=== PATIENT | male | born 1970 | race African-American/Black ===

== ENCOUNTER 2019-01-15 13:29 | Inpatient (IN) | payer OTHER ==
[2019-01-15 15:28] VITALS: BMI 24.2
--- NOTE | 2019-01-15 16:37 | HP ---
COWS - Scale Resting Pulse: 0= [place] 80 or Below Sweatin=Flushed/Facial Moisture Restless Observation: 1= Difficult to Sit Still Pupil Size: 2= Moderately Dilated (Pupils = 4 mm) Bone or Joint Aches: 0= None Runny Nose/ Eye Tearin= Runny Nose/Eyes GI Upset > 30mins: 3= Vomiting/Diarrhea Tremor Observation: 2= Slight Tremor Visible Yawning Observation: 0= None Anxiety or Irritability: 1=Feels Anxious/Irritable Goose Flesh Skin: 0=Smooth Skin COWS Score: 13 CIWA Score Nausea/Vomitin Muscle Tremors: 3 Anxiety: 1-Mildly Anxious Agitation: 1-Slight > Activity Paroxysmal Sweats: 3 Orientation: 1-Uncertain about Date Tacttile Disturbances: 0-None Auditory Disturbances: 0-None Visual Disturbances: 0-None Headache: 2-Mild CIWA-Ar Total Score: 14 - Admission Criteria OASAS Guidelines: Admission for Medically Managed Detox: Requires at least one of the followin. CIWA greater than 12 2. Seizures within the past 24 hours 3. Delirium tremens within the past 24 hours 4. Hallucinations within the past 24 hours 5. Acute intervention needed for co occurring medical disorder 6. Acute intervention needed for co occurring psychiatric disorder 7. Severe withdrawal that cannot be handled at a lower level of care (continued vomiting, continued diarrhea, abnormal vital signs) requiring intravenous medication and/or fluids 8. Patient presents the following: CIWA greater than 12 Admission Criteria Met: Admission criteria met Admission ROS [facility] Chief Complaint: Here for alcohol and heroin withdrawal Allergies/Adverse Reactions: Allergies Allergy/AdvReac Type Severity Reaction Status Date / Time No Known Allergies Allergy Verified 01/15/19 15:19 History of Present Illness: 48 y.o.m. present with poly-substance use and requesting opiate and alcohol detox. Alcohol use began at age 11. Current use x 10 years Marijuana use began at age 11. Nicotine use began at age 11. Cocaine use began at age 15. Heroin use began at age 13. Current use x 5 years. Tried a methadone program in past - stayed 2 months - left about 3 months ago. Illicit-Methadone use began at age 48. Licit and Illicit- Suboxone use began at age 48. Valium use began at age 48. Opioid overdose 5 times, last 08/2018. Has a Narcan kit at home. PMHx: HIV (+) Intermittent compliance with medication. Hep C+. Encouraged to f/ u health care issues w/ PCP. MHHx: Denies depression. Denies suicide or violent ideation. Patient Name: Philippe Cisneros Date: 1970 Address: [address] [address] Sex: Male Rx Written Rx Dispensed Drug Quantity Days Supply Prescriber Name 12/28/2018 01/06/2019 buprenorphine-naloxone 8-2 mg sl film 5 5 Deidre oSto MD Patient Name: Philippe Cisneros Date: 1970 Address: [address] [place] [address] Sex: Male Rx Written Rx Dispensed Drug Quantity Days Supply Prescriber Name 10/27/2018 10/27/2018 chlordiazepoxide 10 mg capsule 27 3 Nicole Carvalho PROPERTY STAFF ACCOUNTANT 10/27/2018 10/27/2018 methadone hcl 10 mg tablet 11 4 Nicole Carvalho PROPERTY STAFF ACCOUNTANT Exam Limitations: No Limitations - Ebola screening Have you traveled outside of the country in the last 21 days: No Have you had contact with anyone from an Ebola affected area: No Have you been sick,other than usual withdrawal symptoms: No Do you have a fever: No - Review of Systems Constitutional: Chills, Diaphoresis, Loss of Appetite (r/t drug use), Unintentional Wgt. Loss (5 lbs last month) EENT: reports: Blurred Vision Respiratory: reports: No Symptoms reported Cardiac: reports: No Symptoms Reported GI: reports: Abdominal Distended, Vomiting : reports: No Symptoms Reported Musculoskeletal: reports: No Symptoms Reported Integumentary: reports: No Symptoms Reported Neuro: reports: Headache Endocrine: reports: Increased Thirst Hematology: reports: No Symptoms Reported Psychiatric: reports: Judgement Intact, Agitated, Anxious Patient History - PPD History Previous Implant?: Yes Documented Results: Negative w/o proof Implanted On Prior [facility] Admission?: No PPD to be Administered?: Yes - Smoking Cessation Smoking history: Current every day smoker Have you smoked in the past 12 months: Yes Aproximately how many cigarettes per day: 20 Hx Chewing Tobacco Use: No Initiated information on smoking cessation: Yes 'Breaking Loose' booklet given: 01/15/19 - Substance & Tx. History Hx Alcohol Use: Yes Hx Substance Use: Yes Substance Use Type: Alcohol, Cocaine, Heroin, Marijuana, Opiates, Tranquilizers Hx Substance Use Treatment: Yes (detoxes and past [facility] - a few months ago) - Substances abused Alcohol Substance route: Oral Frequency: Daily Amount used: 2 pints vodka, 1 six pack beer (24 oz) Age of first use: 11 Date of last use: 01/15/19 Marijuana/Hashish Substance route: Smoking Frequency: 1-3 times last 30 days Amount used: 1 joint Age of first use: 11 Date of last use: 01/14/19 Cocaine Substance route: Smoking Frequency: Daily Amount used: 2 grams Age of first use: 15 Date of last use: 01/14/19 Diazepam Substance route: Oral Frequency: Daily Amount used: 1 tab ( 10mg ) Age of first use: 48 Date of last use: 01/14/19 Non-Rx Methadone Substance route: Oral Frequency: Daily Amount used: 50mg Age of first use: 48 Date of last use: 01/13/19 Buprenorphine Substance route: Oral Frequency: 3-6 times per week Amount used: 8mg Age of first use: 48 Date of last use: 01/13/19 Admission Physical Exam S - Vital Signs Vital Signs: Vital Signs - 24 hr 01/15/19 01/15/19 15:21 15:59 Temperature 98 F 98 F Pulse Rate 80 80 Respiratory 18 18 Rate Blood Pressure 99/75 99/75 - Physical General Appearance: Yes: Nourished, Mild Distress, Tremorous, Sweating ( Increased facial moisture), Anxious HEENTM: Yes: EOMI (Jerking movement of eyes upon (L) lateral gaze.), Hearing grossly Normal, Normocephalic, Normal Voice, BUD (Pupils = 4 mm), Pharynx Normal, Rhinorrhea Respiratory: Yes: Lungs Clear, Normal Breath Sounds, No Respiratory Distress Neck: Yes: No masses,lesions,Nodules, Supple Breast: Yes: Breast Exam Deferred Cardiology: Yes: Regular Rhythm, Regular Rate, S1, S2 Abdominal: Yes: Non Tender, Flat, Soft, Increased Bowel Sounds Genitourinary: Yes: Within Normal Limits Back: Yes: Normal Inspection Musculoskeletal: Yes: full range of Motion, Gait Steady Extremities: Yes: Normal Capillary Refill, Normal Range of Motion, Non-Tender, Tremors (Slight trmors w/ arms elevated) 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 NML intact (Jerking movement of eyes upon (L) lateral gaze.), Alert, Motor Strength 5/5 Integumentary: Yes: Normal Color, Warm Lymphatic: Yes: Within Normal Limits - Diagnostic (1) Alcohol dependence with uncomplicated withdrawal Current Visit: Yes Status: Acute (2) Opioid dependence with withdrawal Current Visit: Yes Status: Acute (3) Nicotine dependence, uncomplicated Current Visit: Yes Status: Chronic Qualifiers: Nicotine product type: cigarettes Qualified Code(s): F17.210 - Nicotine dependence, cigarettes, uncomplicated (4) Cocaine dependence, uncomplicated Current Visit: Yes Status: Chronic (5) Sedative, hypnotic or anxiolytic dependence, uncomplicated Current Visit: Yes Status: Acute (6) Cannabis dependence, uncomplicated Current Visit: Yes Status: Chronic (7) History of HIV infection Current Visit: No Status: Chronic (8) Nystagmus Current Visit: Yes Status: Acute (9) History of hepatitis C Current Visit: No Status: Chronic Cleared for Admission [facility] - Detox or Rehab [facility] Level of Care: Medically Managed Detox Regimen/Protocol: Methadone/Valium Claeared for Rehab Admission: No Breathalyzer - Breathalyzer Breathalyzer: 0 Urine Drug Screen - Test Device Lot number: [id number] Expiration date: 08/14/20 - Control Is test valid?: Yes - Results Drug screen NEGATIVE: No Urine drug screen results: THC-Marijuana, ELIER-Cocaine, MTD-Methadone, BZO- Benzodiazepines, BUP-Suboxone Inpatient Rehab Admission - Rehab Decision to Admit Inpatient rehab admission?: No
[2019-01-15] MEDS ORDERED: NALOXONE HCL 0.4 MG/ML VIAL IVPUSH PRN (19:07)
[2019-01-15] MEDS ORDERED: METHADONE HCL 10 MG TABLET (FOR DETOX USE ONLY) PO ONE ×2 (19:07→23:00)
[2019-01-15] MEDS ORDERED: guaiFENesin 200 MG/10 ML 10 ML UNIT-DOSE CUPS PO PRN (19:07)
[2019-01-15] MEDS ORDERED: MENTHOL/PHENOL 1 EACH UD MM PRN (19:07)
[2019-01-15] MEDS ORDERED: MAGNESIUM CITRATE 300 ML BOTTLE PO PRN (19:07)
[2019-01-15] MEDS ORDERED: ONDANSETRON *ODT* 4 MG TABLET SL PRN (19:07)
[2019-01-15] MEDS ORDERED: cloNIDine HCL 0.1 MG TABLET PO PRN (19:07)
[2019-01-15] MEDS ORDERED: ACETAMINOPHEN 325 MG TABLET (FP) PO PRN ×2 (19:07)
[2019-01-15] MEDS ORDERED: MAGNESIUM HYDROX 2400MG/30ML ORAL SUSPENSION 30 ML CUP PO PRN (19:07)
[2019-01-15] MEDS ORDERED: BISMUTH SUBSALICYLATE 524 MG/30 ML UD PO PRN (19:07)
[2019-01-15] MEDS ORDERED: diazePAM 5 MG TABLET PO ONE (19:07)
[2019-01-15] MEDS ORDERED: METHOCARBAMOL 500 MG TABLET PO PRN (19:07)
[2019-01-15] MEDS: THIAMINE HCL 100 MG TABLET (FP) PO SCH (22:55)
[2019-01-15] MEDS: diazePAM 5 MG TABLET PO SCH (22:55)
[2019-01-16] MEDS: MELATONIN 5 MG TABLETS PO PRN ×2 (00:54→22:07)
[2019-01-16] MEDS: NICOTINE POLACRILEX 2 MG GUM BUC PRN ×2 (03:40→18:23)
[2019-01-16] MEDS: diazePAM 5 MG TABLET PO SCH ×3 (06:06→22:07)
--- NOTE | 2019-01-16 08:26 | EKG ---
Test Reason : Blood Pressure : / mmHG Vent. Rate : 066 BPM Atrial Rate : 066 BPM P-R Int : 150 ms QRS Dur : 084 ms QT Int : 430 ms P-R-T Axes : 065 -31 020 degrees QTc Int : 450 ms NORMAL SINUS RHYTHM LEFT AXIS DEVIATION ABNORMAL ECG NO PREVIOUS ECGS AVAILABLE Confirmed by JUD DARLING, BENNETT ([id number]) on 01/16/2019 8:26:04 AM Referred By: Confirmed By:BENNETT RENNER MD
[2019-01-16] MEDS ORDERED: METHADONE HCL 10 MG TABLET (FOR DETOX USE ONLY) PO ONE (10:00)
[2019-01-16] MEDS: NICOTINE 14 MG/24 HOURS TOPICAL PATCH TD SCH (10:02)
[2019-01-16] MEDS: PRENATAL VITAMINS W/ FOLIC ACID TABLET (FP) PO SCH (10:02)
[2019-01-16 10:28] LABS: HEMOGLOBIN 12.9 GM/dL (11.7-16.9); MCH 32.1 pg (25.7-33.7); MEAN CELL VOLUME 97.3 fl (80-96); MEAN PLT VOLUME 10.3 fl (7.5-11.1); PLATELET COUNT 224 K/MM3 (134-434); RBC 4.01 M/mm3 (4.00-5.60); RDW 15.4 % (11.9-15.9); WHITE BLOOD COUNT 4.5 K/mm3 (4.0-10.0)
[2019-01-16 11:57] LABS: ALBUMIN 3.6 g/dl (3.4-5.0); ALK PHOS 80 U/L (45-117); ANION GAP 8 MMOL/L (8-16); BILIRUBIN,TOTAL 0.2 mg/dL (0.2-1); BLOOD UREA NITROGEN 20 mg/dL (7-18); CALCIUM 9.1 mg/dL (8.5-10.1); CHLORIDE 103 mmol/L (98-107); CO2 30 mmol/L (21-32); CREATININE 1.4 mg/dL (0.55-1.3); GLUCOSE,RANDOM 74 mg/dL (74-106); POTASSIUM 4.3 mmol/L (3.5-5.1); SGOT/AST 65 U/L (15-37); SGPT/ALT 86 U/L (13-61); SODIUM 141 mmol/L (136-145); TOT PROT 7.6 g/dl (6.4-8.2)
--- NOTE | 2019-01-16 13:47 | PN ---
S CIWA - CIWA Score Nausea/Vomitin-No Nausea/No Vomiting Muscle Tremors: 2 Anxiety: 1-Mildly Anxious Agitation: 1-Slight > Activity Paroxysmal Sweats: 4-Forehead w/Sweat Beads Orientation: 0-Oriented Tacttile Disturbances: 1-Very Mild Itch/Numbness Auditory Disturbances: 0-None Visual Disturbances: 0-None Headache: 2-Mild CIWA-Ar Total Score: 11 BHS COWS - Scale Resting Pulse: 0= [place] 80 or Below Sweatin= Chills/Flushing Restless Observation: 1= Difficult to Sit Still Pupil Size: 0= Normal to Room Light Bone or Joint Aches: 1= Mild Discomfort Runny Nose/ Eye Tearin= Runny Nose/Eyes GI Upset > 30mins: 0= None Tremor Observation of Outstretched Hands: 2= Slight Tremor Visible Yawning Observation: 2= >3x During Session Anxiety or Irritability: 1=Feels Anxious/Irritable Goose Flesh Skin: 0=Smooth Skin COWS Score: 10 BHS Progress Note (SOAP) Subjective: c/o sweats, interrupted sleep, runny nose, and headache. Objective: 01/16/19 13:49 Vital Signs 01/16/19 09:51 Temperature 98.3 F Pulse Rate 68 Respiratory 18 Rate Blood Pressure 103/66 Vital signs noted. Assessment: 01/16/19 13:49 AOx3, no distress noted Full ROM, ambulating in the unit. withdrawal symptoms persists. Plan: Continue detox increase fluids continue to monitor for withdrawal symptoms.
[2019-01-16] MEDS: diazePAM 5 MG TABLET PO PRN (14:12)
[2019-01-16] MEDS: MAG HYDROX/AL HYDROX/SIMETH 30 ML UNIT-DOSE CUP PO PRN (19:09)
[2019-01-16] MEDS: THIAMINE HCL 100 MG TABLET (FP) PO SCH (22:07)
[2019-01-17] MEDS: diazePAM 5 MG TABLET PO PRN ×2 (01:49→05:46)
[2019-01-17] MEDS: MAG HYDROX/AL HYDROX/SIMETH 30 ML UNIT-DOSE CUP PO PRN (01:53)
[2019-01-17] MEDS ORDERED: METHADONE HCL 10 MG TABLET (FOR DETOX USE ONLY) PO ONE (10:00)
[2019-01-17] MEDS: NICOTINE 14 MG/24 HOURS TOPICAL PATCH TD SCH (10:06)
[2019-01-17] MEDS: diazePAM 5 MG TABLET PO SCH ×2 (10:08→23:04)
[2019-01-17] MEDS: PRENATAL VITAMINS W/ FOLIC ACID TABLET (FP) PO SCH (10:08)
[2019-01-17 10:55] LABS: URINE APPEARANCE CLEAR; URINE BILIRUBIN NEGATIVE (NEGATIVE); URINE COLOR YELLOW; URINE GLUCOSE (UA) NEGATIVE (NEGATIVE); URINE KETONE NEGATIVE (NEGATIVE); URINE LEUK ESTERASE NEGATIVE (NEGATIVE); URINE NITRITE NEGATIVE (NEGATIVE); URINE PROTEIN NEGATIVE (NEGATIVE); URINE UROBILINOGEN 0.2 mg/dL (0.2-1.0)
--- NOTE | 2019-01-17 16:48 | PN ---
[facility] CIWA - CIWA Score Nausea/Vomitin-Mild Nausea/No Vomiting Muscle Tremors: 3 Anxiety: 3 Agitation: 3 Paroxysmal Sweats: 3 Orientation: 0-Oriented Tacttile Disturbances: 0-None Auditory Disturbances: 0-None Visual Disturbances: 0-None Headache: 0-None Present CIWA-Ar Total Score: 13 BHS COWS - Scale Resting Pulse: 1= [place] 81-100 Sweatin= Chills/Flushing Restless Observation: 1= Difficult to Sit Still Pupil Size: 0= Normal to Room Light Bone or Joint Aches: 2= Severe Diffuse Aches Runny Nose/ Eye Tearin= Runny Nose/Eyes GI Upset > 30mins: 2= Nausea/Diarrhea Tremor Observation of Outstretched Hands: 2= Slight Tremor Visible Yawning Observation: 0= None Anxiety or Irritability: 1=Feels Anxious/Irritable Goose Flesh Skin: 0=Smooth Skin COWS Score: 12 S Progress Note (SOAP) Subjective: Body ache, runny nose, nausea, headache Objective: 01/17/19 16:46 Last Vital Signs Temp Pulse Resp BP Pulse Ox 98.1 F 81 18 102/70 01/17/19 14:10 01/17/19 14:10 01/17/19 14:10 01/17/19 14:10 Laboratory Tests 01/16/19 01/16/19 01/16/19 07:45 07:45 08:00 WBC 4.5 RBC 4.01 Hgb 12.9 Hct 39.0 MCV 97.3 H MCH 32.1 MCHC 33.0 RDW 15.4 Plt Count 224 MPV 10.3 Sodium 141 Potassium 4.3 Chloride 103 Carbon Dioxide 30 Anion Gap 8 BUN 20 H Creatinine 1.4 H Creat Clearance w eGFR 53.64 Random Glucose 74 Calcium 9.1 Total Bilirubin 0.2 AST 65 H ALT 86 H Alkaline Phosphatase 80 Total Protein 7.6 Albumin 3.6 Urine Color Urine Appearance Urine pH Ur Specific [place] Urine Protein Urine Glucose (UA) Urine Ketones Urine Blood Urine Nitrite Urine Bilirubin Urine Urobilinogen Ur Leukocyte Esterase RPR Titer Nonreactive 01/17/19 08:30 WBC RBC Hgb Hct MCV MCH MCHC RDW Plt Count MPV Sodium Potassium Chloride Carbon Dioxide Anion Gap BUN Creatinine Creat Clearance w eGFR Random Glucose Calcium Total Bilirubin AST ALT Alkaline Phosphatase Total Protein Albumin Urine Color Yellow Urine Appearance Clear Urine pH 7.0 Ur Specific [place] 1.004 L Urine Protein Negative Urine Glucose (UA) Negative Urine Ketones Negative Urine Blood Negative Urine Nitrite Negative Urine Bilirubin Negative Urine Urobilinogen 0.2 Ur Leukocyte Esterase Negative RPR Titer Labs reviewed: NELLY noted Assessment: 01/17/19 16:46 Withdrawal symptoms Noted with NELLY Plan: Continue detox NELLY: encouraged PO water hydration Repeat BMP in AM
[2019-01-17] MEDS: IBUPROFEN 400 MG TABLET (FP) PO PRN (19:29)
[2019-01-17] MEDS: THIAMINE HCL 100 MG TABLET (FP) PO SCH (22:01)
[2019-01-17] MEDS: MELATONIN 5 MG TABLETS PO PRN (22:01)
[2019-01-18] MEDS: IBUPROFEN 400 MG TABLET (FP) PO PRN ×3 (04:47→21:48)
[2019-01-18] MEDS ORDERED: diazePAM 5 MG TABLET PO SCH (06:00)
[2019-01-18] MEDS: PRENATAL VITAMINS W/ FOLIC ACID TABLET (FP) PO SCH (09:34)
[2019-01-18] MEDS: diazePAM 5 MG TABLET PO PRN ×2 (09:34→18:25)
--- NOTE | 2019-01-18 09:41 | PN ---
[facility] CIWA - CIWA Score Nausea/Vomitin-No Nausea/No Vomiting Muscle Tremors: 3 Anxiety: 2 Agitation: 3 Paroxysmal Sweats: 3 Orientation: 0-Oriented Tacttile Disturbances: 0-None Auditory Disturbances: 0-None Visual Disturbances: 0-None Headache: 0-None Present CIWA-Ar Total Score: 11 S COWS - Scale Resting Pulse: 0= [place] 80 or Below Sweatin=Flushed/Facial Moisture Restless Observation: 1= Difficult to Sit Still Pupil Size: 0= Normal to Room Light Bone or Joint Aches: 1= Mild Discomfort Runny Nose/ Eye Tearin= Nasal Congestion GI Upset > 30mins: 0= None Tremor Observation of Outstretched Hands: 1= Tremor [place], Not Seen Yawning Observation: 1= 1-2x During Session Anxiety or Irritability: 1=Feels Anxious/Irritable Goose Flesh Skin: 0=Smooth Skin COWS Score: 8 [facility] Progress Note (SOAP) Subjective: toothache sweats shakes Objective: 01/18/19 09:40 Vital Signs Temperature 98.1 F 01/18/19 09:29 Pulse Rate 68 01/18/19 09:29 Respiratory Rate 18 01/18/19 09:29 Blood Pressure 119/76 01/18/19 09:29 O2 Sat by Pulse Oximetry (%) Laboratory Tests 01/16/19 01/16/19 01/16/19 07:45 07:45 08:00 WBC 4.5 RBC 4.01 Hgb 12.9 Hct 39.0 MCV 97.3 H MCH 32.1 MCHC 33.0 RDW 15.4 Plt Count 224 MPV 10.3 Sodium 141 Potassium 4.3 Chloride 103 Carbon Dioxide 30 Anion Gap 8 BUN 20 H Creatinine 1.4 H Creat Clearance w eGFR 53.64 Random Glucose 74 Calcium 9.1 Total Bilirubin 0.2 AST 65 H ALT 86 H Alkaline Phosphatase 80 Total Protein 7.6 Albumin 3.6 Urine Color Urine Appearance Urine pH Ur Specific [place] Urine Protein Urine Glucose (UA) Urine Ketones Urine Blood Urine Nitrite Urine Bilirubin Urine Urobilinogen Ur Leukocyte Esterase RPR Titer Nonreactive 01/17/19 08:30 WBC RBC Hgb Hct MCV MCH MCHC RDW Plt Count MPV Sodium Potassium Chloride Carbon Dioxide Anion Gap BUN Creatinine Creat Clearance w eGFR Random Glucose Calcium Total Bilirubin AST ALT Alkaline Phosphatase Total Protein Albumin Urine Color Yellow Urine Appearance Clear Urine pH 7.0 Ur Specific [place] 1.004 L Urine Protein Negative Urine Glucose (UA) Negative Urine Ketones Negative Urine Blood Negative Urine Nitrite Negative Urine Bilirubin Negative Urine Urobilinogen 0.2 Ur Leukocyte Esterase Negative RPR Titer aaox3 ambulating no acute distress Assessment: 01/18/19 09:40 mild withdrawal sx Plan: continue detox increase fluids d/c in am
[2019-01-18] MEDS ORDERED: METHADONE HCL 10 MG TABLET (FOR DETOX USE ONLY) PO ONE (10:00)
[2019-01-18] MEDS: NICOTINE 14 MG/24 HOURS TOPICAL PATCH TD SCH (11:15)
[2019-01-18] MEDS: BENZOCAINE 20 % GEL TUBE MM PRN ×2 (11:15→22:24)
[2019-01-18 12:13] LABS: ANION GAP 5 MMOL/L (8-16); BLOOD UREA NITROGEN 16 mg/dL (7-18); CALCIUM 8.4 mg/dL (8.5-10.1); CHLORIDE 103 mmol/L (98-107); CO2 33 mmol/L (21-32); CREATININE 1.2 mg/dL (0.55-1.3); GLUCOSE,RANDOM 94 mg/dL (74-106); POTASSIUM 4.5 mmol/L (3.5-5.1); SODIUM 140 mmol/L (136-145)
[2019-01-18] MEDS: THIAMINE HCL 100 MG TABLET (FP) PO SCH (22:23)
[2019-01-18] MEDS: MELATONIN 5 MG TABLETS PO PRN (22:24)
[2019-01-19] MEDS ORDERED: METHADONE HCL 5 MG TABLET (FOR DETOX USE ONLY) PO ONE (06:00)
[2019-01-19 09:05] VITALS: BP 122/78; PULSE 68; TEMP 97.9
--- NOTE | 2019-01-19 09:14 | DS ---
[facility] Detox Discharge Summary Admission Date: 01/15/19 Discharge Date: 01/19/19 - History Present History: Alcohol Dependence, Cannabis Dependence, Cocaine Dependence, Opioid Dependence, Sedative Dependence - Physical Exam Results Vital Signs: Vital Signs Temperature 97.9 F 01/19/19 09:04 Pulse Rate 68 01/19/19 09:04 Respiratory Rate 18 01/19/19 09:04 Blood Pressure 122/78 01/19/19 09:04 O2 Sat by Pulse Oximetry (%) - Treatment Hospital Course: Detox Protocol Followed, Detoxed Safely, Responded well, Discharged Condition Good, Rehab Referral Accepted - Medication Discharge Medications: Ambulatory Orders Abacavir/Dolutegravir/Lamivudi [Triumeq Tablet] 1 each PO DAILY 01/15/19 - Diagnosis (1) Alcohol dependence with uncomplicated withdrawal Current Visit: Yes Status: Chronic (2) Nystagmus Current Visit: Yes Status: Chronic (3) Opioid dependence with withdrawal Current Visit: Yes Status: Chronic (4) Sedative, hypnotic or anxiolytic dependence, uncomplicated Current Visit: Yes Status: Chronic (5) Cannabis dependence, uncomplicated Current Visit: Yes Status: Chronic (6) Cocaine dependence, uncomplicated Current Visit: Yes Status: Chronic (7) Nicotine dependence, uncomplicated Current Visit: Yes Status: Chronic Qualifiers: Nicotine product type: cigarettes Qualified Code(s): F17.210 - Nicotine dependence, cigarettes, uncomplicated (8) History of HIV infection Current Visit: No Status: Chronic (9) History of hepatitis C Current Visit: No Status: Chronic - AMA Did Patient Leave Against Medical Advice: No (referred to [facility] inpatient rehab)
[2019-01-19] MEDS: NICOTINE 14 MG/24 HOURS TOPICAL PATCH TD SCH (10:03)
[2019-01-19] MEDS: PRENATAL VITAMINS W/ FOLIC ACID TABLET (FP) PO SCH (10:03)
== END 2019-01-19 11:00 | disposition home or self-care (01) | DRG 773 ==
LOC: YASAS 13:29 → Y6N 19:44
PROVIDERS: ADMIT Surgery; ATTEND Surgery
PROC: HZ2ZZZZ Detoxification Services for Substance Abuse Treatment (ICD-10-PCS; principal; 2019-01-15)
DX: F11.23 Opioid dependence with withdrawal (principal); F10.230 Alcohol dependence with withdrawal, uncomplicated; F13.230 Sedative, hypnotic or anxiolytic dependence with withdrawal, uncomplicated; F14.20 Cocaine dependence, uncomplicated; F12.20 Cannabis dependence, uncomplicated; F17.210 Nicotine dependence, cigarettes, uncomplicated; Z21 Asymptomatic human immunodeficiency virus [HIV] infection status; H54.40 Blindness, one eye, unspecified eye; B18.2 Chronic viral hepatitis C
CPT/HCPCS: 36415; 80048; 80053; 81003; 85027; 86593; 93005; 93010; J0735

== ENCOUNTER 2019-09-02 13:16 | Inpatient (IN) | payer OTHER ==
[2019-09-02 13:46] VITALS: BMI 25.8
--- NOTE | 2019-09-02 14:32 | HP ---
COWS - Scale Resting Pulse: 1= [place] 81-100 Sweatin= Chills/Flushing Restless Observation: 0= Sits Still Pupil Size: 0= Normal to Room Light Bone or Joint Aches: 1= Mild Discomfort Runny Nose/ Eye Tearin= Runny Nose/Eyes GI Upset > 30mins: 2= Nausea/Diarrhea Tremor Observation: 0= None Yawning Observation: 0= None Anxiety or Irritability: 1=Feels Anxious/Irritable Goose Flesh Skin: 0=Smooth Skin COWS Score: 8 CIWA Score Nausea/Vomitin-Mild Nausea/No Vomiting Muscle Tremors: None Anxiety: 1-Mildly Anxious Agitation: 0-Normal Activity Paroxysmal Sweats: No Perspiration Orientation: 0-Oriented Tacttile Disturbances: 0-None Auditory Disturbances: 0-None Visual Disturbances: 0-None Headache: 5-Severe CIWA-Ar Total Score: 7 - Admission Criteria OASAS Guidelines: Admission for Medically Managed Detox: Requires at least one of the followin. CIWA greater than 12 2. Seizures within the past 24 hours 3. Delirium tremens within the past 24 hours 4. Hallucinations within the past 24 hours 5. Acute intervention needed for co occurring medical disorder 6. Acute intervention needed for co occurring psychiatric disorder 7. Severe withdrawal that cannot be handled at a lower level of care (continued vomiting, continued diarrhea, abnormal vital signs) requiring intravenous medication and/or fluids 8. Admitting History and Physical - Admission Chief Complaint: nausea, headache History of Present Illness: 49 yo m w/ PMH HIV (CD4 780, VL undetectable last month) on biktarvy, Hep C ( untreated) and polysubstance abuse who comes into [facility] for assistance with detoxification from alcohol. Patient follows with Dr. Jorge Rodriguez from [facility]. Patient endorses snorting ~10 bags of heroin daily since he was 43. Last use was 2 days ago Patient endorses smoking ~3 grams of cocaine per day since he was 15. Last use 2 days ago. Patient endorses taking 1 pill of valium or xanax daily for 1 year. Last use 5 days ago. Patient endorses drinking 2 pints of vodka and a 6 pack of beer per day daily since he was 11. his last drink was 2 days ago. He denies withdrawal, DTs or seizures in the past. COWS 8 CIWA 7 UTOX +methdaone, cocaine, BDZ BRISA 0 on arrival. CIWA score low at this time. on SCIENTIST/ENGINEER check, patient noted to be in a suboxone program w/ Dr. Rodriguez at [facility]. Due to low COWS score and current participation in a suboxone program, he does NOT meet criteria for opiate detox. Due to his heavy ETOH use, the patient meets detox criteria for ETOH even though his CIWA is <13 at this time. Will recheck CIWA in AM and guide detox based off this score. Patient requesting inpatient rehab after detox. History Source: Patient Limitations to Obtaining History: No Limitations - Past Medical History Hepatobiliary: Yes: Hepatitis C Infectious Disease: Yes: HIV - Past Surgical History Past Surgical History: Yes: None - Smoking History Smoking history: Current every day smoker Have you smoked in the past 12 months: Yes Aproximately how many cigarettes per day: 20 - Alcohol/Substance Use Hx Alcohol Use: Yes - Social History Usual Living Arrangement: Yes: Alone Admission [facility] Allergies/Adverse Reactions: Allergies Allergy/AdvReac Type Severity Reaction Status Date / Time chlorpromazine Allergy Verified 09/02/19 13:38 [From Thorazine] haloperidol [From Haldol] Allergy Verified 09/02/19 13:38 risperidone Allergy Verified 09/02/19 13:38 - Ebola screening Have you traveled outside of the country in the last 21 days: No (N) Have you had contact with anyone from an Ebola affected area: No - Review of Systems Constitutional: No Symptoms Reported EENT: reports: No Symptoms Reported Respiratory: reports: No Symptoms reported Cardiac: reports: No Symptoms Reported GI: reports: Nausea, Abdominal cramping : reports: No Symptoms Reported Musculoskeletal: reports: Joint Pain, Muscle Pain Integumentary: reports: No Symptoms Reported Neuro: reports: Headache Endocrine: reports: No Symptoms Reported Psychiatric: reports: Mood/Affect Appropiate, Orientated x3 Patient History - Patient Medical History Hx Asthma: No Hx Cardiac Disorders: No Hx Hypertension: No Hx Seizures: No Hx Diabetes: No Hx Gastrointestinal Disorders: No Hx Genitourinary Disorders: No Hx Sexually Transmitted Disorders: No Hx Renal Disease (ESRD): No - Patient Surgical History Past Surgical History: No - PPD History Date: 01/17/19 - Smoking Cessation Smoking history: Current every day smoker Have you smoked in the past 12 months: Yes Aproximately how many cigarettes per day: 20 Hx Chewing Tobacco Use: No Initiated information on smoking cessation: Yes 'Breaking Loose' booklet given: 09/02/19 - Substances abused Alcohol Substance route: Oral Frequency: Daily Amount used: 2 pints vodka, 1 six pack beer (24 oz) Age of first use: 11 Date of last use: 08/31/19 Marijuana/Hashish Substance route: Smoking Frequency: 1-3 times last 30 days Amount used: 1 joint Age of first use: 11 Date of last use: 08/31/19 Cocaine Substance route: Smoking Frequency: Daily Amount used: 2 grams Age of first use: 15 Date of last use: 08/31/19 Diazepam Substance route: Oral Frequency: Daily Amount used: 1 tab ( 10mg ) Age of first use: 48 Date of last use: 08/29/19 Non-Rx Methadone Substance route: Oral Frequency: Daily Amount used: 50mg Age of first use: 48 Date of last use: 01/13/19 Buprenorphine Substance route: Oral Frequency: 3-6 times per week Amount used: 8mg Age of first use: 48 Date of last use: 01/13/19 Admission Physical Exam BHS - Vital Signs Vital Signs: Vital Signs - 24 hr 09/02/19 13:34 Temperature 97.8 F Pulse Rate 95 H Respiratory 18 Rate Blood Pressure 109/78 - Physical General Appearance: Yes: Nourished, Mild Distress HEENTM: Yes: EOMI, Normocephalic, BUD Respiratory: Yes: Chest Non-Tender, Lungs Clear, Normal Breath Sounds, No Respiratory Distress, No Accessory Muscle Use Neck: Yes: Trachea in good position Cardiology: Yes: Regular Rhythm, S1, S2, Tachycardia. 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 intact, Fully Oriented, Alert, Motor Strength 5/5, Normal Mood/Affect, Normal Response Integumentary: Yes: Normal Color, Dry - Diagnostic (1) Alcohol dependence with uncomplicated withdrawal Current Visit: No Status: Chronic (2) Cocaine dependence, uncomplicated Current Visit: No Status: Chronic (3) History of HIV infection Current Visit: No Status: Chronic (4) History of hepatitis C Current Visit: No Status: Chronic (5) Nicotine dependence, uncomplicated Current Visit: No Status: Chronic Qualifiers: Nicotine product type: cigarettes Qualified Code(s): F17.210 - Nicotine dependence, cigarettes, uncomplicated (6) Opioid dependence with withdrawal Current Visit: No Status: Chronic Breathalyzer - Breathalyzer Breathalyzer: 0 Urine Drug Screen - Test Device Lot number: [id number] Expiration date: 04/14/21 - Control Is test valid?: Yes - Results Drug screen NEGATIVE: No Urine drug screen results: ELIER-Cocaine, MTD-Methadone, BZO-Benzodiazepines Inpatient Rehab Admission - Rehab Decision to Admit Inpatient rehab admission?: No
--- NOTE | 2019-09-02 15:00 | PN ---
"Teaching Attending Note Name of Resident: Pedro Jamison ATTENDING PHYSICIAN STATEMENT I saw and evaluated the patient. I reviewed the resident's note and discussed the case with the resident. I agree with the resident's findings and plan as documented. SUBJECTIVE:49 yo male her for etoh , cocaine , benzodiazepine use , atest use 2 days ago , was taken to [facility] program from [facility] 2/2 ongoing use, per pt his room was locked pending completion of program. heroin : 10 bags/day via inhalation since age 43 , latest use 2 days ago , claims he bought illicit Methadone . REPORTS SELLING PRESCRIPTION MEDICATIONS ( SUBOXONE ) AND DID NOT REPORT TO PRESCRIBER, PER PT PRESCRIBER WANTED TO SEE HIM YESTERDAY 2/ UTOX RESULTS PT DID NOT GO TO APPT. PMHx HIV (CD4 780, VL undetectable last month) on biktarvy REPORTS COMPLIANCE W / MEDS , Hep C (untreated) COCAINE : 3 GR/DAY SINCE AGE 15 . BENZO : 1 pill /day x 1 year , denies w/d seizures . ETOH : 2 pints vodka and 6-pk beer/day , latest use 2 days ago , denies withdrawal, DTs or seizures in the past. OBJECTIVE: wnwd , anxious, agitated . Vital Signs - 24 hr 09/02/19 13:34 Temperature 97.8 F Pulse Rate 95 H Respiratory 18 Rate Blood Pressure 109/78 Search Terms: ulises crespo, 1970 Search Date: 09/02/2019 02:53:30 PM The Drug Utilization Report below displays all of the controlled substance prescriptions, if any, that your patient has filled in the last twelve months. The information displayed on this report is compiled from pharmacy submissions to the Department, and accurately reflects the information as submitted by the pharmacies. This report was requested by: Barbra Ortiz | Reference #: [id number] Others' Prescriptions Patient Name: Ulises Crespo Date: 1970 Address: [address] [place] [address] Sex: Male Rx Written Rx Dispensed Drug Quantity Days Supply Prescriber Name 08/30/2019 08/30/2019 buprenorphine-naloxone 8-2 mg sl film 14 7 Damir Rodriguez MD 08/19/2019 08/19/2019 buprenorphine-naloxone 8-2 mg sl film 14 7 Damir Rodriguez MD 07/12/2019 08/04/2019 buprenorphine-naloxone 8-2 mg sl film 14 7 Damir Rodriguez MD 07/08/2019 07/14/2019 buprenorphine-naloxone 8-2 mg sl film 14 7 Damir Rodriguez MD 07/08/2019 07/08/2019 buprenorphine-naloxone 8-2 mg sl film 14 7 Damir Rodriguez MD 07/01/2019 07/01/2019 buprenorphine-naloxone 8-2 mg sl film 14 7 Damir Rodriguez MD 05/21/2019 05/22/2019 buprenorphine-naloxone 8-2 mg sl film 14 7 Damir Rodriguez MD 04/19/2019 04/19/2019 buprenorphine-naloxone 8-2 mg sl film 5 5 Deidre Soto MD Patient Name: Ulises Crespo Date: 1970 Address: [address] [place] [address] Sex: Male Rx Written Rx Dispensed Drug Quantity Days Supply Prescriber Name 07/03/2019 07/03/2019 chlordiazepoxide 10 mg capsule 27 3 Nicole Carvalho MARRIAGE AND FAMILY THERAPIST 10/27/2018 10/27/2018 chlordiazepoxide 10 mg capsule 27 3 Nicole Carvalho MARRIAGE AND FAMILY THERAPIST 10/27/2018 10/27/2018 methadone hcl 10 mg tablet 11 4 Nicole Carvalho NP Patient Name: Ulises Crespo Date: 1970 Address: [place] [address] Sex: Male Rx Written Rx Dispensed Drug Quantity Days Supply Prescriber Name 03/08/2019 03/08/2019 buprenorphine-naloxone 8-2 mg sl film 15 15 Rita Swanson 02/23/2019 02/23/2019 suboxone 8 mg-2 mg sl film 14 14 Flower Samuel MARRIAGE AND FAMILY THERAPIST Patient Name: Ulises Crespo Date: 1970 Address: [address] [place] [address] Sex: Male Rx Written Rx Dispensed Drug Quantity Days Supply Prescriber Name 12/28/2018 01/06/2019 buprenorphine-naloxone 8-2 mg sl film 5 5 Deidre Soto MD ASSESSMENT AND PLAN: OUD on MAT non- compliant w/ meds ETOH dependence / Sedative dependence - Valium detox Cocaine dependence counselor aware ."
[2019-09-02] MEDS ORDERED: hydrOXYzine PAMOATE 25 MG CAPSULE (FP) PO PRN (15:17)
[2019-09-02] MEDS ORDERED: BISMUTH SUBSALICYLATE 524 MG/30 ML UD PO PRN (15:17)
[2019-09-02] MEDS ORDERED: MENTHOL/PHENOL 1 EACH UD MM PRN (15:17)
[2019-09-02] MEDS ORDERED: MAGNESIUM CITRATE 300 ML BOTTLE PO PRN (15:17)
[2019-09-02] MEDS ORDERED: NICOTINE POLACRILEX 2 MG GUM BUC PRN (15:17)
[2019-09-02] MEDS ORDERED: METHOCARBAMOL 500 MG TABLET PO PRN (15:17)
[2019-09-02] MEDS ORDERED: MAGNESIUM HYDROX 2400MG/30ML ORAL SUSPENSION 30 ML CUP PO PRN (15:17)
[2019-09-02] MEDS ORDERED: IBUPROFEN 400 MG TABLET (FP) PO PRN (15:17)
[2019-09-02] MEDS ORDERED: MAG HYDROX/AL HYDROX/SIMETH 30 ML UNIT-DOSE CUP PO PRN (15:17)
[2019-09-02] MEDS ORDERED: diazePAM 5 MG TABLET PO PRN (15:17)
[2019-09-02] MEDS ORDERED: ACETAMINOPHEN 325 MG TABLET (FP) PO PRN ×2 (15:17)
[2019-09-02] MEDS ORDERED: PATIENT'S OWN MEDICATION (NON-FORMULARY) (Bictegrav/Emtricit/Tenofov Ala 1 EACH) PO SCH (15:30)
[2019-09-02] MEDS: diazePAM 5 MG TABLET PO SCH (22:18)
[2019-09-02] MEDS: MELATONIN 5 MG TABLETS PO PRN (22:18)
[2019-09-02] MEDS: THIAMINE HCL 100 MG TABLET (FP) PO SCH (22:18)
[2019-09-03] MEDS: diazePAM 5 MG TABLET PO SCH ×3 (05:50→22:37)
[2019-09-03] MEDS: PRENATAL VITAMINS W/ FOLIC ACID TABLET (FP) PO SCH (10:14)
[2019-09-03 10:38] LABS: HEMOGLOBIN 11.6 GM/dL (11.7-16.9); MCHC 33.1 g/dl (32.0-35.9); MEAN CELL VOLUME 96.6 fl (80-96); MEAN PLT VOLUME 8.9 fl (7.5-11.1); PLATELET COUNT 349 K/MM3 (134-434); RBC 3.63 M/mm3 (4.00-5.60); RDW 14.6 % (11.9-15.9); WHITE BLOOD COUNT 4.6 K/mm3 (4.0-10.0)
[2019-09-03 10:56] LABS: ALBUMIN 3.1 g/dl (3.4-5.0); BILIRUBIN,TOTAL 0.2 mg/dL (0.2-1); BLOOD UREA NITROGEN 13.7 mg/dL (7-18); CALCIUM 9.3 mg/dL (8.5-10.1); POTASSIUM 4.6 mmol/L (3.5-5.1); TOT PROT 6.5 g/dl (6.4-8.2)
[2019-09-03] MEDS: BICTEGRAV/EMTRICIT/TENOFOV (BIKTARVY) 50-200-25 MG TABLET PO SCH (12:26)
--- NOTE | 2019-09-03 12:55 | PN ---
S CIWA - CIWA Score Nausea/Vomitin-Mild Nausea/No Vomiting Muscle Tremors: 2 Anxiety: 1-Mildly Anxious Agitation: 2 Paroxysmal Sweats: 2 Orientation: 0-Oriented Tacttile Disturbances: 0-None Auditory Disturbances: 0-None Visual Disturbances: 0-None Headache: 1-Very Mild CIWA-Ar Total Score: 9 [facility] Progress Note (SOAP) Subjective: pt admitted for alcohol detox on Suboxone. Pt with HIV O: Vital Signs - 24 hr 09/02/19 09/02/19 09/02/19 13:34 18:00 23:45 Temperature 97.8 F 97.2 F L 97.5 F L Pulse Rate 95 H 83 84 Respiratory 18 104 H 18 Rate Blood Pressure 109/78 109/78 96/60 09/03/19 09/03/19 09/03/19 03:35 06:41 09:10 Temperature 97.6 F 98.1 F Pulse Rate 72 80 Respiratory 18 18 18 Rate Blood Pressure 101/59 L 110/78 Laboratory Tests 09/03/19 09/03/19 08:00 08:00 WBC 4.6 RBC 3.63 L Hgb 11.6 L Hct 35.0 L MCV 96.6 H MCH 32.0 MCHC 33.1 RDW 14.6 Plt Count 349 D MPV 8.9 D Sodium 142 Potassium 4.6 Chloride 108 H Carbon Dioxide 29 Anion Gap 6 L BUN 13.7 Creatinine 1.0 Est GFR (CKD-EPI)AfAm 100.55 Est GFR (CKD-EPI)NonAf 86.76 Random Glucose 92 Calcium 9.3 Total Bilirubin 0.2 AST 35 ALT 53 Alkaline Phosphatase 67 Total Protein 6.5 Albumin 3.1 L mild anemia a/p: OUD - continue suboxone DUR- last Bupe/Nlx prescription 08/30: 8mg BID AUD- continue detox protocol HIV pos- continue ARV
--- NOTE | 2019-09-03 13:31 | CONSULT ---
[facility] Psychiatric Consult - Data Date of interview: 09/03/19 Admission source: [facility] Identifying data: REadmission to [facility] for this 49 y/o AA male self- referred for detoxxification. MEGAN issues : opioid, alcohol, benzodiazepine, nicotine. Interviewed at [address] [place] [address]. Patient is single, father of one, domiciled, unemployed and supported on [employer] funds. Substance Abuse History: Discussed with patient. Details in current [facility] report as follows : Smoking history: Current every day smoker. Have you smoked in the past 12 months: Yes. Aproximately how many cigarettes per day: 20. Hx Chewing Tobacco Use: No. Initiated information on smoking cessation: Yes. 'Breaking Loose' booklet given: 09/02/19. - Substances abused. Alcohol. Substance route: Oral. Frequency: Daily. Amount used: 2 pints vodka, 1 six pack beer ( 24 oz). Age of first use: 11. Date of last use: 08/31/19. Marijuana/ Hashish. Substance route: Smoking. Frequency: 1-3 times last 30 days. Amount used: 1 joint. Age of first use: 11. Date of last use: 08/31/19. Cocaine. Substance route: Smoking. Frequency: Daily. Amount used: 2 grams. Age of first use: 15. Date of last use: 08/31/19. Diazepam. Substance route: Oral. Frequency: Daily. Amount used: 1 tab ( 10mg ). Age of first use: 48. Date of last use: 08/29/19. Non-Rx Methadone. Substance route: Oral. Frequency: Daily. Amount used: 50mg. Age of first use: 48. Date of last use: 01/13/19. Buprenorphine. Substance route: Oral. Frequency: 3-6 times per week. Amount used: 8mg. Age of first use: 48. Date of last use: 01/13/19 Medical History: Medical profile is remarkable for HIV infection since 1989 (on ART medications) and hepatitis C. Noted report of allergies : risperdal, haldol , chlorpromazine. Psychiatric History: Patient endorses history of multiple psychiatric hospitalizations, " more than 15 ", at facilities located mostly in [place]. Mr Cisneros has also received inpatient psychiatric care at [facility] in [facility]. Diagnosed with Bipolar Disorder. Currently prescribed mirtazapine 15 mg/hs + seroquel 100 mg/200 mg (am/hs) as per self-report. Scripts written by primary care physician. Onset of psychiatric disturbances : age 15. Precipitant : of mother in 1996 (patient attempted suicide by jumping out of a window). No psychiatric OPD care. Physical/Sexual Abuse/Trauma History: No reported history of abuse. Additional Comment: Urine drug screen results: ELIER-Cocaine, MTD-Methadone, BZO- Benzodiazepines. Noted. Mental Status Exam - Mental Status Exam Alert and Oriented to: Time, Place, Person Cognitive Function: Good Patient Appearance: Well Groomed Mood: Withdrawn, Hopeful Affect: Appropriate, Normal Range Patient Behavior: Fatigued, Appropriate, Cooperative Speech Pattern: Clear Voice Loudness: Normal Thought Process: Intact, Goal Oriented Thought Disorder: Not Present Hallucinations: Denies Suicidal Ideation: Denies Homicidal Ideation: Denies Insight/Judgement: Poor Sleep: Poorly, Difficulty falling asleep Appetite: Good Muscle strength/Tone: Normal Gait/Station: Normal Psychiatric Findings - Problem List ([place] 1, 2,3) (1) Alcohol dependence with uncomplicated withdrawal Current Visit: Yes Status: Acute (2) Opioid dependence with withdrawal Current Visit: Yes Status: Acute (3) Cocaine dependence, uncomplicated Current Visit: Yes Status: Chronic (4) Sedative, hypnotic or anxiolytic dependence, uncomplicated Current Visit: Yes Status: Chronic (5) Nicotine dependence, uncomplicated Current Visit: Yes Status: Chronic Qualifiers: Nicotine product type: cigarettes Qualified Code(s): F17.210 - Nicotine dependence, cigarettes, uncomplicated (6) Substance induced mood disorder Current Visit: Yes Status: Chronic (7) History of bipolar disorder Current Visit: Yes Status: Chronic (8) Insomnia Current Visit: Yes Status: Chronic - Initial Treatment Plan Initial Treatment Plan: Interview conducted with medical students in attendance (with patient's verbal permission). Psychoeducation. Sleep hygiene. Detoxification. AA/NA meetings. Resumed : remeron 15 mg po hs + seroquel 100 mg po hs (reduced for prevention of oversedation + hypotension). Side effects/ benefits discussed with patient. Mr Cisneros is in agreement with this plan of care. Gave consent (verbal) to MD. Hammond.
[2019-09-03] MEDS ORDERED: BUPRENORPHINE/NALOXONE 8 MG/2 MG FILM PACKET SL SCH (22:00)
[2019-09-03] MEDS ORDERED: QUEtiapine FUMARATE 100 MG TABLET (FP) PO SCH (22:00)
[2019-09-03] MEDS: MIRTAZAPINE 15 MG TABLET (FP) PO SCH (22:37)
[2019-09-03] MEDS: THIAMINE HCL 100 MG TABLET (FP) PO SCH (22:37)
[2019-09-03] MEDS: QUEtiapine FUMARATE 100 MG TABLET (FP) PO SCH (22:37)
[2019-09-04] MEDS: diazePAM 5 MG TABLET PO SCH ×3 (05:38→17:45)
[2019-09-04] MEDS: PRENATAL VITAMINS W/ FOLIC ACID TABLET (FP) PO SCH (10:21)
[2019-09-04] MEDS: BICTEGRAV/EMTRICIT/TENOFOV (BIKTARVY) 50-200-25 MG TABLET PO SCH (10:21)
--- NOTE | 2019-09-04 12:07 | PN ---
[facility] CIWA - CIWA Score Nausea/Vomitin-No Nausea/No Vomiting Muscle Tremors: None Anxiety: 2 Agitation: 0-Normal Activity Paroxysmal Sweats: 2 Orientation: 0-Oriented Tacttile Disturbances: 0-None Auditory Disturbances: 0-None Visual Disturbances: 0-None Headache: 0-None Present CIWA-Ar Total Score: 4 S COWS - Scale Resting Pulse: 0= [place] 80 or Below Sweatin= Chills/Flushing Restless Observation: 0= Sits Still Pupil Size: 0= Normal to Room Light Bone or Joint Aches: 0= None Runny Nose/ Eye Tearin= None GI Upset > 30mins: 0= None Tremor Observation of Outstretched Hands: 0= None Yawning Observation: 0= None Anxiety or Irritability: 2=Irritable/Anxious Goose Flesh Skin: 0=Smooth Skin COWS Score: 3 [facility] Progress Note (SOAP) Subjective: Mild withdrawal symptoms. Objective: 09/04/19 12:09 Vital Signs 09/04/19 09/04/19 06:40 09:26 Temperature 97.3 F L 98.3 F Pulse Rate 64 69 Respiratory 18 18 Rate Blood Pressure 105/69 93/55 L Laboratory Last Values WBC 4.6 K/mm3 (4.0-10.0) 09/03/19 08:00 RBC 3.63 M/mm3 (4.00-5.60) L 09/03/19 08:00 Hgb 11.6 GM/dL (11.7-16.9) L 09/03/19 08:00 Hct 35.0 % (35.4-49) L 09/03/19 08:00 MCV 96.6 fl (80-96) H 09/03/19 08:00 MCH 32.0 pg (25.7-33.7) 09/03/19 08:00 MCHC 33.1 g/dl (32.0-35.9) 09/03/19 08:00 RDW 14.6 % (11.9-15.9) 09/03/19 08:00 Plt Count 349 K/MM3 (134-434) D 09/03/19 08:00 MPV 8.9 fl (7.5-11.1) D 09/03/19 08:00 Sodium 142 mmol/L (136-145) 09/03/19 08:00 Potassium 4.6 mmol/L (3.5-5.1) 09/03/19 08:00 Chloride 108 mmol/L (98-107) H 09/03/19 08:00 Carbon Dioxide 29 mmol/L (21-32) 09/03/19 08:00 Anion Gap 6 MMOL/L (8-16) L 09/03/19 08:00 BUN 13.7 mg/dL (7-18) 09/03/19 08:00 Creatinine 1.0 mg/dL (0.55-1.3) 09/03/19 08:00 Est GFR (CKD-EPI)AfAm 100.55 09/03/19 08:00 Est GFR (CKD-EPI)NonAf 86.76 09/03/19 08:00 Random Glucose 92 mg/dL (74-106) 09/03/19 08:00 Calcium 9.3 mg/dL (8.5-10.1) 09/03/19 08:00 Total Bilirubin 0.2 mg/dL (0.2-1) 09/03/19 08:00 AST 35 U/L (15-37) 09/03/19 08:00 ALT 53 U/L (13-61) 09/03/19 08:00 Alkaline Phosphatase 67 U/L (45-117) 09/03/19 08:00 Total Protein 6.5 g/dl (6.4-8.2) 09/03/19 08:00 Albumin 3.1 g/dl (3.4-5.0) L 09/03/19 08:00 RPR Titer Nonreactive (NONREACTIVE) 09/03/19 08:00 Labs noted. Assessment: 09/04/19 12:10 AOX3, in no respiratory distress. Full ROM, ambulating in the unit. Mild Withdrawal symptoms. For d/c tomorrow. Plan: continue detox. D/C in AM.
[2019-09-04] MEDS: QUEtiapine FUMARATE 100 MG TABLET (FP) PO SCH (22:21)
[2019-09-04] MEDS: MELATONIN 5 MG TABLETS PO PRN (22:21)
[2019-09-04] MEDS: THIAMINE HCL 100 MG TABLET (FP) PO SCH (22:21)
[2019-09-04] MEDS: MIRTAZAPINE 15 MG TABLET (FP) PO SCH (22:21)
[2019-09-05] MEDS ORDERED: diazePAM 5 MG TABLET PO ONE (06:00)
[2019-09-05 09:32] VITALS: BP 110/76; PULSE 72; TEMP 97.2
--- NOTE | 2019-09-05 11:55 | DS ---
[facility] Detox Discharge Summary Admission Date: 09/02/19 Discharge Date: 09/05/19 - History Present History: Alcohol Dependence, Sedative Dependence Additional Comments: 49 years old male admitted on 09/02/19 for alcohol and benzo withdrawal sx management treated with valium detox regimen patient tolerated well alert oriented x 3 cardiac s1s2 regular rate rhythm respiratory clear lung bilaterally on auscultation extremities full range of motion Pertinent Past History: patient is taking suboxone 8-2mg po bid received 7 days supply on 08/30/19 patient has methadone positive urine tox upon admission negative suboxone Laboratory Last Values WBC 4.6 K/mm3 (4.0-10.0) 09/03/19 08:00 RBC 3.63 M/mm3 (4.00-5.60) L 09/03/19 08:00 Hgb 11.6 GM/dL (11.7-16.9) L 09/03/19 08:00 Hct 35.0 % (35.4-49) L 09/03/19 08:00 MCV 96.6 fl (80-96) H 09/03/19 08:00 MCH 32.0 pg (25.7-33.7) 09/03/19 08:00 MCHC 33.1 g/dl (32.0-35.9) 09/03/19 08:00 RDW 14.6 % (11.9-15.9) 09/03/19 08:00 Plt Count 349 K/MM3 (134-434) D 09/03/19 08:00 MPV 8.9 fl (7.5-11.1) D 09/03/19 08:00 Sodium 142 mmol/L (136-145) 09/03/19 08:00 Potassium 4.6 mmol/L (3.5-5.1) 09/03/19 08:00 Chloride 108 mmol/L (98-107) H 09/03/19 08:00 Carbon Dioxide 29 mmol/L (21-32) 09/03/19 08:00 Anion Gap 6 MMOL/L (8-16) L 09/03/19 08:00 BUN 13.7 mg/dL (7-18) 09/03/19 08:00 Creatinine 1.0 mg/dL (0.55-1.3) 09/03/19 08:00 Est GFR (CKD-EPI)AfAm 100.55 09/03/19 08:00 Est GFR (CKD-EPI)NonAf 86.76 09/03/19 08:00 Random Glucose 92 mg/dL (74-106) 09/03/19 08:00 Calcium 9.3 mg/dL (8.5-10.1) 09/03/19 08:00 Total Bilirubin 0.2 mg/dL (0.2-1) 09/03/19 08:00 AST 35 U/L (15-37) 09/03/19 08:00 ALT 53 U/L (13-61) 09/03/19 08:00 Alkaline Phosphatase 67 U/L (45-117) 09/03/19 08:00 Total Protein 6.5 g/dl (6.4-8.2) 09/03/19 08:00 Albumin 3.1 g/dl (3.4-5.0) L 09/03/19 08:00 RPR Titer Nonreactive (NONREACTIVE) 09/03/19 08:00 patient agrees to returning to his primary care ID for lab result follow up patient prefers to returning to his suboxone provider for more options about heroin treatment - Physical Exam Results Vital Signs: Vital Signs Temperature 97.2 F L 09/05/19 09:31 Pulse Rate 72 09/05/19 09:31 Respiratory Rate 18 09/05/19 09:31 Blood Pressure 110/76 09/05/19 09:31 O2 Sat by Pulse Oximetry (%) Pertinent Admission Physical Exam Findings: alcohol benzo withdrawal Laboratory Last Values WBC 4.6 K/mm3 (4.0-10.0) 09/03/19 08:00 RBC 3.63 M/mm3 (4.00-5.60) L 09/03/19 08:00 Hgb 11.6 GM/dL (11.7-16.9) L 09/03/19 08:00 Hct 35.0 % (35.4-49) L 09/03/19 08:00 MCV 96.6 fl (80-96) H 09/03/19 08:00 MCH 32.0 pg (25.7-33.7) 09/03/19 08:00 MCHC 33.1 g/dl (32.0-35.9) 09/03/19 08:00 RDW 14.6 % (11.9-15.9) 09/03/19 08:00 Plt Count 349 K/MM3 (134-434) D 09/03/19 08:00 MPV 8.9 fl (7.5-11.1) D 09/03/19 08:00 Sodium 142 mmol/L (136-145) 09/03/19 08:00 Potassium 4.6 mmol/L (3.5-5.1) 09/03/19 08:00 Chloride 108 mmol/L (98-107) H 09/03/19 08:00 Carbon Dioxide 29 mmol/L (21-32) 09/03/19 08:00 Anion Gap 6 MMOL/L (8-16) L 09/03/19 08:00 BUN 13.7 mg/dL (7-18) 09/03/19 08:00 Creatinine 1.0 mg/dL (0.55-1.3) 09/03/19 08:00 Est GFR (CKD-EPI)AfAm 100.55 09/03/19 08:00 Est GFR (CKD-EPI)NonAf 86.76 09/03/19 08:00 Random Glucose 92 mg/dL (74-106) 09/03/19 08:00 Calcium 9.3 mg/dL (8.5-10.1) 09/03/19 08:00 Total Bilirubin 0.2 mg/dL (0.2-1) 09/03/19 08:00 AST 35 U/L (15-37) 09/03/19 08:00 ALT 53 U/L (13-61) 09/03/19 08:00 Alkaline Phosphatase 67 U/L (45-117) 09/03/19 08:00 Total Protein 6.5 g/dl (6.4-8.2) 09/03/19 08:00 Albumin 3.1 g/dl (3.4-5.0) L 09/03/19 08:00 RPR Titer Nonreactive (NONREACTIVE) 09/03/19 08:00 lab noted - Treatment Hospital Course: Detox Protocol Followed, Detoxed Safely, Responded well, Discharged Condition Good, Rehab Referral Accepted Patient has Accepted a Rehab Referral to: [facility] chemical dependent rehab - Medication Discharge Medications: Ambulatory Orders Bictegrav/Emtricit/Tenofov Ala [Biktarvy 50-200-25 mg Tablet] 1 each PO DAILY Mirtazapine [Remeron -] 15 mg PO HS 09/02/19 Quetiapine Fumarate [Seroquel -] 100 mg PO BID 09/02/19 - Diagnosis (1) Alcohol dependence with uncomplicated withdrawal Status: Acute (2) History of HIV infection Status: Chronic (3) History of hepatitis C Status: Chronic (4) Nicotine dependence, uncomplicated Status: Acute Qualifiers: Nicotine product type: cigarettes Qualified Code(s): F17.210 - Nicotine dependence, cigarettes, uncomplicated (5) Sedative, hypnotic or anxiolytic dependence, uncomplicated Status: Acute (6) Substance induced mood disorder Status: Suspected - AMA Did Patient Leave Against Medical Advice: No CIWA Score - CIWA Score Nausea/Vomitin-No Nausea/No Vomiting Muscle Tremors: None Anxiety: 1-Mildly Anxious Agitation: 0-Normal Activity Paroxysmal Sweats: 1-Minimal Palms Moist Orientation: 0-Oriented Tacttile Disturbances: 0-None Auditory Disturbances: 0-None Visual Disturbances: 0-None Headache: 0-None Present CIWA-Ar Total Score: 2
== END 2019-09-05 09:35 | disposition home or self-care (01) | DRG 773 ==
LOC: YASAS 13:16 → Y3N 16:21
PROVIDERS: ADMIT Allergy & Immunology; ATTEND Allergy & Immunology
PROC: HZ2ZZZZ Detoxification Services for Substance Abuse Treatment (ICD-10-PCS; principal; 2019-09-02)
DX: F11.23 Opioid dependence with withdrawal (principal); F10.230 Alcohol dependence with withdrawal, uncomplicated; F13.230 Sedative, hypnotic or anxiolytic dependence with withdrawal, uncomplicated; F14.20 Cocaine dependence, uncomplicated; F17.210 Nicotine dependence, cigarettes, uncomplicated; F19.24 Other psychoactive substance dependence with psychoactive substance-induced mood disorder; Z21 Asymptomatic human immunodeficiency virus [HIV] infection status; G47.00 Insomnia, unspecified; R00.0 Tachycardia, unspecified; Z86.19 Personal history of other infectious and parasitic diseases; Z88.8 Allergy status to other drugs, medicaments and biological substances
CPT/HCPCS: 36415; 80053; 85027; 86593

== ENCOUNTER 2019-10-19 12:34 | Inpatient (IN) | payer OTHER ==
--- NOTE | 2019-10-19 14:04 | HP ---
COWS - Scale Resting Pulse: 0= [place] 80 or Below Sweatin=Flushed/Facial Moisture Restless Observation: 1= Difficult to Sit Still Pupil Size: 1= Pupils >than Normal Bone or Joint Aches: 2= Severe Diffuse Aches Runny Nose/ Eye Tearin= Runny Nose/Eyes GI Upset > 30mins: 1= Stomach Cramp Tremor Observation: 1= Tremor [place], Not Seen Yawning Observation: 0= None Anxiety or Irritability: 2=Irritable/Anxious Goose Flesh Skin: 3=Piloerection COWS Score: 15 CIWA Score Nausea/Vomitin-Mild Nausea/No Vomiting Muscle Tremors: 1-None Visible, but [place] Anxiety: 3 Agitation: 1-Slight > Activity Paroxysmal Sweats: 4-Forehead w/Sweat Beads Orientation: 0-Oriented Tacttile Disturbances: 0-None Auditory Disturbances: 2-Mild Harshness/Frighten Visual Disturbances: 2-Mild Sensitivity Headache: 3-Moderate CIWA-Ar Total Score: 17 - Admission Criteria [facility] Guidelines: Admission for Medically Managed Detox: Requires at least one of the followin. CIWA greater than 12 2. Seizures within the past 24 hours 3. Delirium tremens within the past 24 hours 4. Hallucinations within the past 24 hours 5. Acute intervention needed for co occurring medical disorder 6. Acute intervention needed for co occurring psychiatric disorder 7. Severe withdrawal that cannot be handled at a lower level of care (continued vomiting, continued diarrhea, abnormal vital signs) requiring intravenous medication and/or fluids 8. Admitting History and Physical - Admission Chief Complaint: Mr. Cisneros presents to [facility] admission to detox for heroin and alcohol use disorder. History of Present Illness: Mr. Cisneros is a 49 yo gentleman who presents to [facility] for detox admission with a history of heroin and alcohol use disorder. He was here 2 mos ago for detox, did not go to Rehab. PMH: HIV positive, VL undetectable, CD4 780, on Bictarvy Heroin: 10 bags per day, last used yest 6 am, snort, hx of black outs, first use age 13 y Marijuana; once per month, one joing, first use age 11, last use last month alcohol, started age 15, last yesterday, no seizures, 2 pints Vodka and 6 pack of beer daily, cocaine: age 15, last used yest, 2 grams Nicotine: 1/2 ppd Psych: insomnia when withdrawing History Source: Patient Limitations to Obtaining History: No Limitations - Past Medical History Hepatobiliary: Yes: Hepatitis C Infectious Disease: Yes: HIV - Past Surgical History Past Surgical History: Yes: None - Smoking History Smoking history: Current every day smoker Have you smoked in the past 12 months: Yes Aproximately how many cigarettes per day: 20 - Alcohol/Substance Use Hx Alcohol Use: Yes Admission ROS S - HPI Allergies/Adverse Reactions: Allergies Allergy/AdvReac Type Severity Reaction Status Date / Time chlorpromazine Allergy Verified 09/02/19 13:38 [From Thorazine] haloperidol [From Haldol] Allergy Verified 09/02/19 13:38 risperidone Allergy Verified 09/02/19 13:38 Exam Limitations: No Limitations - Ebola screening Have you traveled outside of the country in the last 21 days: No Have you had contact with anyone from an Ebola affected area: No Have you been sick,other than usual withdrawal symptoms: No Do you have a fever: No - Review of Systems Constitutional: Unexplained wgt Loss (8 lbs loss in the past one month) EENT: reports: No Symptoms Reported Respiratory: reports: No Symptoms reported Cardiac: reports: No Symptoms Reported GI: reports: Other (cramps) : reports: No Symptoms Reported Musculoskeletal: reports: Back Pain, Joint Pain Integumentary: reports: No Symptoms Reported Neuro: reports: Headache Endocrine: reports: No Symptoms Reported Hematology: reports: No Symptoms Reported Psychiatric: reports: No Sypmtoms Reported Patient History - Patient Medical History Hx Asthma: No Hx Chronic Obstructive Pulmonary Disease (COPD): No Hx Cancer: No Hx Cardiac Disorders: No Hx Congestive Heart Failure: No Hx Hypertension: No Hx Hypercholesterolemia: No HX Cerebrovascular Accident: No Hx Seizures: No Hx Diabetes: No Hx Gastrointestinal Disorders: No Hx Genitourinary Disorders: No Hx Sexually Transmitted Disorders: No Hx Renal Disease (ESRD): No Hx Depression: No Hx Suicide Attempt: No Hx Schizophrenia: No - Patient Surgical History Past Surgical History: No - PPD History Date: 01/17/19 Results: 0 MM - Smoking Cessation Smoking history: Current every day smoker Have you smoked in the past 12 months: Yes Aproximately how many cigarettes per day: 20 Hx Chewing Tobacco Use: No Initiated information on smoking cessation: Yes 'Breaking Loose' booklet given: 10/19/19 Admission Physical Exam [facility] - Physical General Appearance: Yes: Within Normal Limits, Thin HEENTM: Yes: EOMI, Hearing grossly Normal, Normocephalic, Normal Voice, BUD Respiratory: Yes: Lungs Clear, Normal Breath Sounds Neck: Yes: Within Normal Limits Breast: Yes: Breast Exam Deferred Cardiology: Yes: Regular Rate, S1, S2 Abdominal: Yes: Non Tender, Flat, Soft, Decreased BS Genitourinary: Yes: Other (deferred) Back: Yes: Normal Inspection Musculoskeletal: Yes: Within Normal Limits Extremities: Yes: Within Normal Limits Neurological: Yes: director project management II-XII NML intact, Fully Oriented, Alert, Normal Mood/ Affect Integumentary: Yes: Within Normal Limits Lymphatic: Yes: Within Normal Limits - Diagnostic (1) Alcohol dependence with uncomplicated withdrawal Current Visit: Yes Status: Acute (2) Nicotine dependence, uncomplicated Current Visit: Yes Status: Acute Qualifiers: Nicotine product type: cigarettes Qualified Code(s): F17.210 - Nicotine dependence, cigarettes, uncomplicated (3) Opioid dependence with withdrawal Current Visit: Yes Status: Acute (4) Cannabis dependence, uncomplicated Current Visit: Yes Status: Chronic (5) History of HIV infection Current Visit: Yes Status: Chronic Cleared for Admission [facility] - Detox or Rehab [facility] Level of Care: Medically Managed Breathalyzer - Breathalyzer Breathalyzer: 0 Urine Drug Screen - Test Device Lot number: [id number] Expiration date: 04/14/21 - Control Is test valid?: Yes - Results Drug screen NEGATIVE: No Urine drug screen results: ELIER-Cocaine, MTD-Methadone, BZO-Benzodiazepines Inpatient Rehab Admission - Rehab Decision to Admit Inpatient rehab admission?: No
[2019-10-19] MEDS ORDERED: METHOCARBAMOL 500 MG TABLET PO PRN (14:12)
[2019-10-19] MEDS ORDERED: IBUPROFEN 400 MG TABLET (FP) PO PRN (14:12)
[2019-10-19] MEDS ORDERED: MENTHOL/PHENOL 1 EACH UD MM PRN (14:12)
[2019-10-19] MEDS ORDERED: chlordiazePOXIDE HCL 25 MG CAPSULE PO PRN (14:12)
[2019-10-19] MEDS ORDERED: MAGNESIUM HYDROX 2400MG/30ML ORAL SUSPENSION 30 ML CUP PO PRN (14:12)
[2019-10-19] MEDS ORDERED: MAGNESIUM CITRATE 300 ML BOTTLE PO PRN (14:12)
[2019-10-19] MEDS ORDERED: BISMUTH SUBSALICYLATE 524 MG/30 ML UD PO PRN (14:12)
[2019-10-19] MEDS ORDERED: cloNIDine HCL 0.1 MG TABLET PO PRN (14:12)
[2019-10-19] MEDS ORDERED: ACETAMINOPHEN 325 MG TABLET (FP) PO PRN ×2 (14:12)
[2019-10-19] MEDS ORDERED: MAG HYDROX/AL HYDROX/SIMETH 30 ML UNIT-DOSE CUP PO PRN (14:12)
[2019-10-19 14:14] VITALS: BMI 24.2
[2019-10-19] MEDS ORDERED: METHADONE HCL 10 MG TABLET (FOR DETOX USE ONLY) PO ONE (15:00)
[2019-10-19 17:46] LABS: HEMATOCRIT 40.8 % (35.4-49); HEMOGLOBIN 13.5 GM/dL (11.7-16.9); MEAN PLT VOLUME 10.3 fl (7.5-11.1); PLATELET COUNT 306 K/MM3 (134-434); RBC 4.21 M/mm3 (4.00-5.60); RDW 14.4 % (11.9-15.9); WHITE BLOOD COUNT 4.3 K/mm3 (4.0-10.0)
[2019-10-19 18:03] LABS: ALBUMIN 4.3 g/dl (3.4-5.0); BILIRUBIN,TOTAL 0.8 mg/dL (0.2-1); BLOOD UREA NITROGEN 12.6 mg/dL (7-18); CALCIUM 9.5 mg/dL (8.5-10.1); CREATININE 1.2 mg/dL (0.55-1.3); POTASSIUM 4.5 mmol/L (3.5-5.1); TOT PROT 8.2 g/dl (6.4-8.2)
[2019-10-19] MEDS: MELATONIN 5 MG TABLETS PO PRN (20:32)
[2019-10-19] MEDS: chlordiazePOXIDE HCL 25 MG CAPSULE PO SCH ×2 (20:32→23:29)
[2019-10-19] MEDS: THIAMINE HCL 100 MG TABLET (FP) PO SCH (21:51)
[2019-10-20] MEDS: hydrOXYzine PAMOATE 25 MG CAPSULE (FP) PO PRN ×2 (00:05→17:38)
[2019-10-20] MEDS: chlordiazePOXIDE HCL 25 MG CAPSULE PO SCH ×4 (05:14→22:00)
[2019-10-20] MEDS ORDERED: METHADONE HCL 10 MG TABLET (FOR DETOX USE ONLY) ONE (09:09)
[2019-10-20] MEDS ORDERED: METHADONE HCL 5 MG TABLET (FOR DETOX USE ONLY) ONE (09:09)
[2019-10-20] MEDS ORDERED: METHADONE (DETOX) 20 MG, METHADONE (DETOX) 5 MG PO ONE (10:00)
--- NOTE | 2019-10-20 10:20 | PN ---
S CIWA - CIWA Score Nausea/Vomitin-Mild Nausea/No Vomiting Muscle Tremors: 3 Anxiety: 3 Agitation: 1-Slight > Activity Paroxysmal Sweats: 2 Orientation: 0-Oriented Tacttile Disturbances: 0-None Auditory Disturbances: 0-None Visual Disturbances: 1-Very Mild Sensitivity Headache: 2-Mild CIWA-Ar Total Score: 13 BHS COWS - Scale Resting Pulse: 0= [place] 80 or Below Sweatin= Chills/Flushing Restless Observation: 0= Sits Still Pupil Size: 1= Pupils >than Normal Bone or Joint Aches: 1= Mild Discomfort Runny Nose/ Eye Tearin= Runny Nose/Eyes GI Upset > 30mins: 2= Nausea/Diarrhea Tremor Observation of Outstretched Hands: 2= Slight Tremor Visible Yawning Observation: 0= None Anxiety or Irritability: 1=Feels Anxious/Irritable Goose Flesh Skin: 3=Piloerection COWS Score: 13 BHS Progress Note (SOAP) Subjective: 49 years old male admitted on 10/19/19 for alcohol and opiate withdrawal sx management treating with librium detox regiments report trouble sleep at night restlessness anxious and body aches belsomra 5mg po x 1 hs Objective: 10/20/19 10:21 Vital Signs Temperature 97.3 F L 10/20/19 09:03 Pulse Rate 66 10/20/19 09:03 Respiratory Rate 18 10/20/19 09:03 Blood Pressure 97/65 10/20/19 09:03 O2 Sat by Pulse Oximetry (%) 10/19/19 10/19/19 14:40 14:40 WBC 4.3 RBC 4.21 Hgb 13.5 Hct 40.8 D MCV 97.0 H MCHC 33.0 RDW 14.4 Plt Count 306 Sodium 138 Potassium 4.5 Chloride 106 Carbon Dioxide 27 Anion Gap 5 L BUN 12.6 Creatinine 1.2 lab noted Assessment: 10/20/19 10:22 alcohol and opiate withdrawal Plan: librium and methadone regiments
[2019-10-20] MEDS: PRENATAL VITAMINS W/ FOLIC ACID TABLET (FP) PO SCH (10:28)
[2019-10-20] MEDS: BICTEGRAV/EMTRICIT/TENOFOV (BIKTARVY) 50-200-25 MG TABLET PO SCH (10:30)
--- NOTE | 2019-10-20 15:13 | CONSULT ---
[facility] Psychiatric Consult - Data Date of interview: 10/20/19 Admission source: [facility] Identifying data: Revisit to [facility] and admission to [address] [place] [address] for this 49 y/o AA male self-referred for detoxxification treatment. MEGAN issues : opioid, alcohol, cannabis, benzodiazepine, nicotine. Patient is single, father of one, domiciled ([facility]), unemployed and supported on [employer] funds. Substance Abuse History: Discussed with the patient. Details as follows : onset of heroin use at age 13 (snorting). Amount : 10 bags daily. Smokes one joint of cannabis once a month (since age 11). Patient admits to consuming 2 pints of vodka daily. Started drinking ETOH at age 15. Smokes 1/2 pack of cigarettes/day and he has been using cocaine since age 15 (has escalated to 2 gm a day). Medical History: Medical profile is remarkable for HIV infection since 1989 (on ART medications) and hepatitis C. Noted report of allergies : risperdal, haldol , chlorpromazine. Psychiatric History: Patient admits to an extensive history of mental illness + multiple psychiatric hospitalizations, at facilities located mostly in [place]. Mr Cisneros has also received inpatient psychiatric care at [facility], [facility], [facility] and [facility] in [facility]. Diagnosed with Bipolar Disorder. Past maintenance treatment with a regimen of mirtazapine 15 mg/hs + seroquel 100 mg/200 mg (am/hs ) as per self-report. Refills are usually provided by providers in [facility] settings or his primary care physician. Onset of psychiatric disturbances : age 15. Precipitant : of mother in 1996 (patient attempted suicide by jumping out of a window). No current affiliation with psychiatrists for OPD care. Physical/Sexual Abuse/Trauma History: Patient denies history of abuse. Additional Comment: Urine drug screen results: ELIER-Cocaine, MTD-Methadone, BZO- Benzodiazepines. Noted. Mental Status Exam - Mental Status Exam Alert and Oriented to: Time, Place Cognitive Function: Good Patient Appearance: Well Groomed Mood: Withdrawn Affect: Mood Congruent, Constricted Patient Behavior: Fatigued, Appropriate, Cooperative Speech Pattern: Clear, Appropriate Voice Loudness: Normal Thought Process: Goal Oriented Thought Disorder: Not Present Hallucinations: Denies Suicidal Ideation: Denies Homicidal Ideation: Denies Insight/Judgement: Poor Sleep: Poorly (wants to get back on remeron), Difficulty falling asleep Appetite: Good Gait/Station: Normal Psychiatric Findings - Problem List ([place] 1, 2,3) (1) Alcohol dependence with uncomplicated withdrawal Current Visit: Yes Status: Acute (2) Opioid dependence with withdrawal Current Visit: Yes Status: Acute (3) Cannabis dependence, uncomplicated Current Visit: Yes Status: Chronic (4) Cocaine dependence, uncomplicated Current Visit: Yes Status: Chronic (5) History of bipolar disorder Current Visit: Yes Status: Chronic (6) Substance induced mood disorder Current Visit: Yes Status: Suspected (7) Insomnia Current Visit: Yes Status: Chronic (8) Non-compliance Current Visit: Yes Status: Chronic - Initial Treatment Plan Initial Treatment Plan: Psychoeducation. Sleep hygiene. Detoxification. AA/NA meetings. Remeron 15 mg po hs. Ordered at patient's request. Side effects/ benefits discussed. Mr Cisneros gave verbal consent to MD. Hammond.
[2019-10-20] MEDS: MIRTAZAPINE 15 MG TABLET (FP) PO SCH (21:54)
[2019-10-20] MEDS: THIAMINE HCL 100 MG TABLET (FP) PO SCH (21:56)
[2019-10-20] MEDS ORDERED: SUVOREXANT 5 MG TABLET PO ONE (22:00)
[2019-10-21] MEDS: chlordiazePOXIDE HCL 25 MG CAPSULE PO SCH ×4 (06:21→22:15)
[2019-10-21] MEDS: BICTEGRAV/EMTRICIT/TENOFOV (BIKTARVY) 50-200-25 MG TABLET PO SCH (09:06)
[2019-10-21] MEDS ORDERED: METHADONE HCL 10 MG TABLET (FOR DETOX USE ONLY) PO ONE (10:00)
[2019-10-21] MEDS: PRENATAL VITAMINS W/ FOLIC ACID TABLET (FP) PO SCH (10:49)
--- NOTE | 2019-10-21 12:49 | PN ---
S CIWA - CIWA Score Nausea/Vomitin-Mild Nausea/No Vomiting Muscle Tremors: 3 Anxiety: 2 Agitation: 1-Slight > Activity Paroxysmal Sweats: 2 Orientation: 0-Oriented Tacttile Disturbances: 0-None Auditory Disturbances: 0-None Visual Disturbances: 1-Very Mild Sensitivity Headache: 0-None Present CIWA-Ar Total Score: 10 BHS COWS - Scale Resting Pulse: 0= [place] 80 or Below Sweatin= Chills/Flushing Restless Observation: 0= Sits Still Pupil Size: 1= Pupils >than Normal Bone or Joint Aches: 1= Mild Discomfort Runny Nose/ Eye Tearin= Nasal Congestion GI Upset > 30mins: 2= Nausea/Diarrhea Tremor Observation of Outstretched Hands: 2= Slight Tremor Visible Yawning Observation: 1= 1-2x During Session Anxiety or Irritability: 1=Feels Anxious/Irritable Goose Flesh Skin: 0=Smooth Skin COWS Score: 10 S Progress Note (SOAP) Subjective: 49 years old male admitted on 10/19/19 for alcohol and opiate withdrawal sx management treating wtih librium and methadone detox regiment feeling ok today encourage to attend behavior and psychosocial therapies groups and meetings while in detox Objective: 10/21/19 12:50 Vital Signs Temperature 97.9 F 10/21/19 09:26 Pulse Rate 74 10/21/19 09:26 Respiratory Rate 18 10/21/19 09:26 Blood Pressure 100/66 10/21/19 09:26 O2 Sat by Pulse Oximetry (%) Vital Signs Laboratory Last Values WBC 4.3 K/mm3 (4.0-10.0) 10/19/19 14:40 RBC 4.21 M/mm3 (4.00-5.60) 10/19/19 14:40 Hgb 13.5 GM/dL (11.7-16.9) 10/19/19 14:40 Hct 40.8 % (35.4-49) D 10/19/19 14:40 MCV 97.0 fl (80-96) H 10/19/19 14:40 MCH 32.0 pg (25.7-33.7) 10/19/19 14:40 MCHC 33.0 g/dl (32.0-35.9) 10/19/19 14:40 RDW 14.4 % (11.9-15.9) 10/19/19 14:40 Plt Count 306 K/MM3 (134-434) 10/19/19 14:40 MPV 10.3 fl (7.5-11.1) D 10/19/19 14:40 Sodium 138 mmol/L (136-145) 10/19/19 14:40 Potassium 4.5 mmol/L (3.5-5.1) 10/19/19 14:40 Chloride 106 mmol/L (98-107) 10/19/19 14:40 Carbon Dioxide 27 mmol/L (21-32) 10/19/19 14:40 Anion Gap 5 MMOL/L (8-16) L 10/19/19 14:40 BUN 12.6 mg/dL (7-18) 10/19/19 14:40 Creatinine 1.2 mg/dL (0.55-1.3) 10/19/19 14:40 Est GFR (CKD-EPI)AfAm 80.66 10/19/19 14:40 Est GFR (CKD-EPI)NonAf 69.59 10/19/19 14:40 Random Glucose 94 mg/dL (74-106) 10/19/19 14:40 Calcium 9.5 mg/dL (8.5-10.1) 10/19/19 14:40 Total Bilirubin 0.8 mg/dL (0.2-1) 10/19/19 14:40 AST 37 U/L (15-37) 10/19/19 14:40 ALT 36 U/L (13-61) 10/19/19 14:40 Alkaline Phosphatase 66 U/L (45-117) 10/19/19 14:40 Total Protein 8.2 g/dl (6.4-8.2) 10/19/19 14:40 Albumin 4.3 g/dl (3.4-5.0) 10/19/19 14:40 RPR Titer Nonreactive (NONREACTIVE) 10/19/19 14:40 lab noted Assessment: 10/21/19 12:51 alcohol and opiate withdrawal Plan: librium and methadone regiments
[2019-10-21] MEDS: MIRTAZAPINE 15 MG TABLET (FP) PO SCH (22:15)
[2019-10-21] MEDS: THIAMINE HCL 100 MG TABLET (FP) PO SCH (22:15)
[2019-10-21] MEDS: MELATONIN 5 MG TABLETS PO PRN (22:16)
[2019-10-22] MEDS ORDERED: chlordiazePOXIDE HCL 10 MG CAPSULE PO PRN
[2019-10-22] MEDS: chlordiazePOXIDE HCL 10 MG CAPSULE PO SCH ×2 (05:38→10:32)
[2019-10-22] MEDS ORDERED: METHADONE HCL 5 MG TABLET (FOR DETOX USE ONLY) ONE (09:15)
[2019-10-22] MEDS ORDERED: METHADONE HCL 10 MG TABLET (FOR DETOX USE ONLY) ONE (09:15)
[2019-10-22] MEDS: BICTEGRAV/EMTRICIT/TENOFOV (BIKTARVY) 50-200-25 MG TABLET PO SCH (09:39)
[2019-10-22] MEDS ORDERED: METHADONE (DETOX) 10 MG, METHADONE (DETOX) 5 MG PO ONE (10:00)
[2019-10-22] MEDS: PRENATAL VITAMINS W/ FOLIC ACID TABLET (FP) PO SCH (10:32)
[2019-10-22 14:26] VITALS: BP 110/70; PULSE 66; TEMP 98.6
--- NOTE | 2019-10-22 15:03 | PN ---
[facility] CIWA - CIWA Score Nausea/Vomitin-No Nausea/No Vomiting Muscle Tremors: None Anxiety: 1-Mildly Anxious Agitation: 1-Slight > Activity Paroxysmal Sweats: No Perspiration Orientation: 0-Oriented Tacttile Disturbances: 0-None Auditory Disturbances: 0-None Visual Disturbances: 0-None Headache: 0-None Present CIWA-Ar Total Score: 2 S COWS - Scale Resting Pulse: 0= [place] 80 or Below Sweatin= No chills or Flushing Restless Observation: 1= Difficult to Sit Still Pupil Size: 0= Normal to Room Light Bone or Joint Aches: 1= Mild Discomfort Runny Nose/ Eye Tearin= None GI Upset > 30mins: 0= None Tremor Observation of Outstretched Hands: 0= None Yawning Observation: 0= None Anxiety or Irritability: 0= None Goose Flesh Skin: 0=Smooth Skin COWS Score: 2 S Progress Note (SOAP) Subjective: Complains of muscle aches, feels tired, wants to go to Rehab tomorrow Objective: 10/22/19 15:01 Laboratory Tests 10/19/19 10/19/19 10/19/19 14:40 14:40 14:40 WBC 4.3 RBC 4.21 Hgb 13.5 Hct 40.8 D MCV 97.0 H MCH 32.0 MCHC 33.0 RDW 14.4 Plt Count 306 MPV 10.3 D Sodium 138 Potassium 4.5 Chloride 106 Carbon Dioxide 27 Anion Gap 5 L BUN 12.6 Creatinine 1.2 Est GFR (CKD-EPI)AfAm 80.66 Est GFR (CKD-EPI)NonAf 69.59 Random Glucose 94 Calcium 9.5 Total Bilirubin 0.8 AST 37 ALT 36 Alkaline Phosphatase 66 Total Protein 8.2 Albumin 4.3 RPR Titer Nonreactive Vital Signs - 24 hr 10/21/19 10/21/19 10/22/19 17:59 21:21 00:30 Temperature 98.4 F 98.8 F Pulse Rate 59 L 72 Respiratory 16 18 18 Rate Blood Pressure 100/67 122/78 10/22/19 10/22/19 10/22/19 03:30 06:38 06:41 Temperature 97.7 F Pulse Rate 56 L Respiratory 18 18 18 Rate Blood Pressure 102/63 10/22/19 10/22/19 09:15 12:36 Temperature 97.5 F L 98.6 F Pulse Rate 58 L 66 Respiratory 16 18 Rate Blood Pressure 104/59 L 110/70 PE Gnl: WDWN, in bed, easily aroused MS: awake, alert, nl language function Motor: moves all limbs well Assessment: 10/22/19 15:02 1. alcohol use disorder 2. opioid use disorder 10/22/19 15:02 3. HIV Plan: 1. continue withdrawal protocol for opioids and alcohol
--- NOTE | 2019-10-22 15:48 | DS ---
[facility] Detox Discharge Summary Admission Date: 10/19/19 - History Present History: Alcohol Dependence, Opioid Dependence - Physical Exam Results Vital Signs: Vital Signs Temperature 98.6 F 10/22/19 12:36 Pulse Rate 66 10/22/19 12:36 Respiratory Rate 18 10/22/19 12:36 Blood Pressure 110/70 10/22/19 12:36 O2 Sat by Pulse Oximetry (%) Pertinent Admission Physical Exam Findings: Mr. Cisneros was admitted on 10/19 for alcohol and opioid use disorder. He was safely detoxed using Librium and methadone. He is clinically stable to leave. PE Gnl: WDWN, in no distress MS: awake, alert Gait: ambulates well - Treatment Hospital Course: Detox Protocol Followed, Detoxed Safely, Responded well, Discharged Condition Good, Rehab Referral Accepted Patient has Accepted a Rehab Referral to: [facility] outpatient program - Medication Discharge Medications: Ambulatory Orders Bictegrav/Emtricit/Tenofov Ala [Biktarvy 50-200-25 mg Tablet] 1 each PO DAILY - Diagnosis (1) Alcohol dependence with uncomplicated withdrawal Current Visit: Yes Status: Acute (2) Nicotine dependence, uncomplicated Current Visit: Yes Status: Acute Qualifiers: Nicotine product type: cigarettes Qualified Code(s): F17.210 - Nicotine dependence, cigarettes, uncomplicated (3) Opioid dependence with withdrawal Current Visit: Yes Status: Acute (4) Cannabis dependence, uncomplicated Current Visit: Yes Status: Chronic (5) History of HIV infection Current Visit: Yes Status: Chronic - AMA Did Patient Leave Against Medical Advice: No (pt stable and will follow up in outpt program)
[2019-10-23] MEDS ORDERED: chlordiazePOXIDE HCL 10 MG CAPSULE PO SCH (05:00)
[2019-10-23] MEDS ORDERED: METHADONE HCL 10 MG TABLET (FOR DETOX USE ONLY) PO ONE (10:00)
[2019-10-24] MEDS ORDERED: chlordiazePOXIDE HCL 10 MG CAPSULE PO ONE (05:00)
[2019-10-24] MEDS ORDERED: METHADONE HCL 5 MG TABLET (FOR DETOX USE ONLY) PO ONE (06:00)
== END 2019-10-22 16:06 | disposition left against medical advice (07) | DRG 770 ==
LOC: YASAS 12:34 → Y3N 14:40
PROVIDERS: ADMIT Allergy & Immunology; ATTEND Allergy & Immunology
PROC: HZ2ZZZZ Detoxification Services for Substance Abuse Treatment (ICD-10-PCS; principal; 2019-10-19)
DX: F11.23 Opioid dependence with withdrawal (principal); F10.230 Alcohol dependence with withdrawal, uncomplicated; F14.20 Cocaine dependence, uncomplicated; F12.20 Cannabis dependence, uncomplicated; F17.210 Nicotine dependence, cigarettes, uncomplicated; F19.24 Other psychoactive substance dependence with psychoactive substance-induced mood disorder; Z21 Asymptomatic human immunodeficiency virus [HIV] infection status; G47.00 Insomnia, unspecified; Z88.8 Allergy status to other drugs, medicaments and biological substances; Z91.19 Patient's noncompliance with other medical treatment and regimen
CPT/HCPCS: 36415; 80053; 85027; 86593

== ENCOUNTER 2020-03-02 14:39 | Inpatient (IN) | payer OTHER ==
[2020-03-02] MEDS ORDERED: guaiFENesin 200 MG/10 ML 10 ML UNIT-DOSE CUPS PO PRN (14:50)
[2020-03-02] MEDS ORDERED: ACETAMINOPHEN 325 MG TABLET (FP) PO PRN (14:50)
[2020-03-02] MEDS ORDERED: MENTHOL/PHENOL 1 EACH UD MM PRN (14:50)
[2020-03-02] MEDS ORDERED: IBUPROFEN 400 MG TABLET (FP) PO PRN (14:50)
[2020-03-02] MEDS ORDERED: LOPERAMIDE HCL 2 MG CAPSULE PO PRN (14:50)
[2020-03-02] MEDS ORDERED: NICOTINE POLACRILEX 2 MG GUM BUC PRN (14:50)
[2020-03-02] MEDS ORDERED: MAGNESIUM CITRATE 300 ML BOTTLE PO PRN (14:50)
[2020-03-02] MEDS ORDERED: MAG HYDROX/AL HYDROX/SIMETH 30 ML UNIT-DOSE CUP PO PRN (14:50)
[2020-03-02] MEDS ORDERED: P-EPHED 60MG/TRIPROLIDI 2.5MG TABLET PO PRN (14:50)
[2020-03-02] MEDS ORDERED: MAGNESIUM HYDROX 2400MG/30ML ORAL SUSPENSION 30 ML CUP PO PRN (14:50)
[2020-03-02] MEDS ORDERED: BISMUTH SUBSALICYLATE 262 MG/15 ML BTL PO PRN (14:57)
--- NOTE | 2020-03-02 15:08 | PN ---
"[facility] Progress Note Note: Admitted to Rehab from Detox. Medication list and home meds reviewed and ordered. Problem list, labs, notes, reviewed. Patient requesting to start Suboxone. Reports that he was taking 8mg BID. Confirmed with BACK CLOSER (see below) This report was requested by: Andie Barnett | Reference #: [id number] Patient Name: Philippe CisnerosBirth Date: 1970 Address: [facility] [address] [place], [place] [address]Qip: Male Rx Written Rx Dispensed Drug Quantity Days Supply Prescriber Name Payment Method Dispenser 02/21/2020 02/23/2020 buprenorphine-naloxone 8-2 mg sl tablet 14 7 Petrona Borja [employer]. Patient Name: Philippe CisnerosBirth Date: 1970 Address: [address] [place], [place] [address]Xra: Male Rx Written Rx Dispensed Drug Quantity Days Supply Prescriber Name Payment Method Dispenser 02/17/2020 02/23/2020 buprenorphine-naloxone 8-2 mg sl film 28 14 Dakota Lucero MD Insurance [facility] 01/04/2020 01/10/2020 buprenorphine-naloxone 8-2 mg sl film 28 14 Brayden Mills MD Insurance [facility] 12/02/2019 12/02/2019 buprenorphine-naloxone 8-2 mg sl film 28 14 Dakota Lucero MD Insurance [facility] 11/17/2019 11/17/2019 buprenorphine-naloxone 8-2 mg sl film 14 7 Dakota Lucero MD Insurance [facility] 11/10/2019 11/10/2019 buprenorphine-naloxone 8-2 mg sl film 14 7 Thais Viera Insurance [facility] 11/04/2019 11/04/2019 buprenorphine-naloxone 8-2 mg sl film 14 7 Dakota Lucero MD Insurance [facility] 10/27/2019 10/27/2019 buprenorphine-naloxone 8-2 mg sl film 14 7 Thais Viera Insurance [facility] 10/13/2019 10/13/2019 buprenorphine-naloxone 8-2 mg sl film 14 7 Jerome Claros MD Insurance [facility] 10/05/2019 10/05/2019 buprenorphine-naloxone 4-1 mg sl film 7 7 Samir Guerin Insurance [facility] 09/27/2019 09/27/2019 buprenorphine-naloxone 8-2 mg sl film 14 7 Nata Douglas Insurance [facility] 09/27/2019 09/27/2019 buprenorphine-naloxone 4-1 mg sl film 7 7 Agustina Douglashmi Insurance [facility] 09/14/2019 09/14/2019 buprenorphine-naloxone 8-2 mg sl film 14 7 Dakota Lucero MD Insurance [facility] 08/30/2019 08/30/2019 buprenorphine-naloxone 8-2 mg sl film 14 7 Damir Rodriguez MD Insurance [facility] 08/19/2019 08/19/2019 buprenorphine-naloxone 8-2 mg sl film 14 7 Damir Rodriguez MD Insurance [facility] 07/12/2019 08/04/2019 buprenorphine-naloxone 8-2 mg sl film 14 7 Damir Rodriguez MD Insurance [facility] 07/08/2019 07/14/2019 buprenorphine-naloxone 8-2 mg sl film 14 7 Damir Rodriguez MD Insurance [facility] 07/08/2019 07/08/2019 buprenorphine-naloxone 8-2 mg sl film 14 7 Damir Rodriguez MD Insurance [facility] 07/01/2019 07/01/2019 buprenorphine-naloxone 8-2 mg sl film 14 7 Dmair Rodriguez MD Insurance [facility] 05/21/2019 05/22/2019 buprenorphine-naloxone 8-2 mg sl film 14 7 Damir Rodriguez MD Insurance [facility] 04/19/2019 04/19/2019 buprenorphine-naloxone 8-2 mg sl film 5 5 Deidre Soto MD Insurance [facility] Patient Name: Philippe AstudillohBirth Date: 1970 Address: [address] [address]Klk: Male Rx Written Rx Dispensed Drug Quantity Days Supply Prescriber Name Payment Method Dispenser 12/30/2019 12/30/2019 buprenorphine-naloxone 8-2 mg sl film 30 30 Flower Samuel NP Medicaid [facility] Patient Name: Philippe Chandra Date: 1970 Address: [address] [address]Dlv: Male Rx Written Rx Dispensed Drug Quantity Days Supply Prescriber Name Payment Method Dispenser 12/28/2019 12/28/2019 buprenorphine-naloxone 4-1 mg sl film 7 7 Master Traore) Medicaid [facility] 09/16/2019 09/16/2019 buprenorphine-naloxone 8-2 mg sl film 14 7 Master Traore) Medicaid [facility] 03/08/2019 03/08/2019 buprenorphine-naloxone 8-2 mg sl film 15 15 Rita Swanson Medicaid [facility] Patient Name: Philippe CisnerosBirth Date: 1970 Address: [address] [place] [id number]: Male Rx Written Rx Dispensed Drug Quantity Days Supply Prescriber Name Payment Method Dispenser 07/03/2019 07/03/2019 chlordiazepoxide 10 mg capsule 27 3 Nicole Carvalho MODEL TECHNICIAN Insurance [facility] P/E: General: no apparent distress HEENTM: normocephalic, PERRLA Neck:Supple Respirations: easy, unlabored, no use of accessory muscles ABD: +BS, flat MSK: full weight bearing A/P MEGAN rehabilitation Maintain safety, hydration, nutrition Confirmed previous suboxone MAT Asked patient to confirm that he will be able to return to his previous provider to continue suboxone after discharge."
[2020-03-02] MEDS: MELATONIN 5 MG TABLETS PO SCH (21:38)
[2020-03-02] MEDS: THIAMINE HCL 100 MG TABLET (FP) PO SCH (21:38)
[2020-03-02] MEDS: MIRTAZAPINE 15 MG TABLET (FP) PO SCH (21:39)
[2020-03-02] MEDS: QUEtiapine FUMARATE 100 MG TABLET (FP) PO SCH (21:39)
[2020-03-03] MEDS: PRENATAL VITAMINS W/ FOLIC ACID TABLET (FP) PO SCH (10:23)
[2020-03-03] MEDS: BICTEGRAV/EMTRICIT/TENOFOV (BIKTARVY) 50-200-25 MG TABLET PO SCH (10:23)
[2020-03-03] MEDS: NICOTINE 7 MG/24 HOURS TOPICAL PATCH TD SCH (10:24)
[2020-03-03] MEDS: QUEtiapine FUMARATE 50 MG TABLET PO SCH (10:25)
--- NOTE | 2020-03-03 11:39 | HP ---
[facility] Rehab Assess/Revision - Admission History Ad[facility]hab [facility] Date of Admission to Rehab: 03/02/20 - Vital signs Vital Signs: Vital Signs Period Temp Pulse Resp BP Sys/Sue Pulse Ox Last 24 Hr 97.8 F-98.9 F 79-83 16-18 108-114/74-76 96-98 - Findings Detox History & Physical reviewed: Yes Concur with findings: Yes Comments/Additional Findings: Detox Labs reviewed: Low Hgb/hct = 10.5/31.3. Low Protein/Albumin = 6.3/3.0. Covid-19 not detected. plan:Feosol 325 mg po BID. Repeat CBC and CMP in one week Inpatient Rehab Admission - Rehab Decision to Admit Inpatient rehab admission?: Yes - Initial Determination Are CD services needed?: Yes Free of communicable disease: Yes Not in need of hospitalization: Yes - Rehab Admission Criteria Previous failed treatment: Yes Poor recovery environment: Yes Comorbidities: Yes Lacks judgement: Yes Patient is meeting Inpatient Rehab admission criteria:: Yes
--- NOTE | 2020-03-03 13:28 | CONSULT ---
[facility] Psychiatric Consult - Data Date of interview: 03/03/20 Admission source: Transfer from detoxification unit. Additional Comment: Came to [facility] to evaluate this patient. Reason for consult : not offered. Patient declines to be interviewed. " I don't need to talk to a psychiatrist. I already have my seroquel and remeron prescribed to me. I am fine." Patient is found in his room, resting comfortably in bed. No complaints. Discussed with nursing staff.
[2020-03-03] MEDS: hydrOXYzine PAMOATE 25 MG CAPSULE (FP) PO PRN (17:24)
[2020-03-03] MEDS: FERROUS SO4 325 MG TABLET (FP) PO SCH (17:26)
[2020-03-03] MEDS: THIAMINE HCL 100 MG TABLET (FP) PO SCH (21:51)
[2020-03-03] MEDS: MIRTAZAPINE 15 MG TABLET (FP) PO SCH (21:51)
[2020-03-03] MEDS: QUEtiapine FUMARATE 100 MG TABLET (FP) PO SCH (21:51)
[2020-03-03] MEDS: MELATONIN 5 MG TABLETS PO SCH (21:51)
[2020-03-04] MEDS: FERROUS SO4 325 MG TABLET (FP) PO SCH ×3 (07:26→17:40)
[2020-03-04] MEDS: BICTEGRAV/EMTRICIT/TENOFOV (BIKTARVY) 50-200-25 MG TABLET PO SCH (10:41)
[2020-03-04] MEDS: QUEtiapine FUMARATE 50 MG TABLET PO SCH (10:41)
[2020-03-04] MEDS: PRENATAL VITAMINS W/ FOLIC ACID TABLET (FP) PO SCH (10:42)
[2020-03-04] MEDS: NICOTINE 7 MG/24 HOURS TOPICAL PATCH TD SCH (10:42)
[2020-03-04] MEDS: QUEtiapine FUMARATE 100 MG TABLET (FP) PO SCH (21:29)
[2020-03-04] MEDS: THIAMINE HCL 100 MG TABLET (FP) PO SCH (21:29)
[2020-03-04] MEDS: MELATONIN 5 MG TABLETS PO SCH (21:29)
[2020-03-04] MEDS: MIRTAZAPINE 15 MG TABLET (FP) PO SCH (21:29)
[2020-03-05] MEDS: FERROUS SO4 325 MG TABLET (FP) PO SCH ×3 (07:23→17:41)
[2020-03-05] MEDS: BICTEGRAV/EMTRICIT/TENOFOV (BIKTARVY) 50-200-25 MG TABLET PO SCH (10:27)
[2020-03-05] MEDS: hydrOXYzine PAMOATE 25 MG CAPSULE (FP) PO PRN (10:27)
[2020-03-05] MEDS: QUEtiapine FUMARATE 50 MG TABLET PO SCH (10:27)
[2020-03-05] MEDS: PRENATAL VITAMINS W/ FOLIC ACID TABLET (FP) PO SCH (10:27)
[2020-03-05] MEDS: NICOTINE 7 MG/24 HOURS TOPICAL PATCH TD SCH (10:27)
[2020-03-05] MEDS: MIRTAZAPINE 15 MG TABLET (FP) PO SCH (22:10)
[2020-03-05] MEDS: MELATONIN 5 MG TABLETS PO SCH (22:10)
[2020-03-05] MEDS: THIAMINE HCL 100 MG TABLET (FP) PO SCH (22:10)
[2020-03-05] MEDS: QUEtiapine FUMARATE 100 MG TABLET (FP) PO SCH (22:10)
[2020-03-06] MEDS: hydrOXYzine PAMOATE 25 MG CAPSULE (FP) PO PRN (06:43)
[2020-03-06] MEDS: FERROUS SO4 325 MG TABLET (FP) PO SCH ×3 (07:01→17:07)
[2020-03-06] MEDS: NICOTINE 7 MG/24 HOURS TOPICAL PATCH TD SCH (10:14)
[2020-03-06] MEDS: PRENATAL VITAMINS W/ FOLIC ACID TABLET (FP) PO SCH (10:14)
[2020-03-06] MEDS: BICTEGRAV/EMTRICIT/TENOFOV (BIKTARVY) 50-200-25 MG TABLET PO SCH (10:15)
[2020-03-06] MEDS: QUEtiapine FUMARATE 50 MG TABLET PO SCH (10:15)
[2020-03-06] MEDS ORDERED: BUPRENORPHINE/NALOXONE 8 MG/2 MG FILM PACKET SL ONE (10:33)
--- NOTE | 2020-03-06 11:55 | PN ---
BHS COWS - Scale Resting Pulse: 0= [place] 80 or Below Sweatin= Chills/Flushing Restless Observation: 1= Difficult to Sit Still Pupil Size: 0= Normal to Room Light Bone or Joint Aches: 2= Severe Diffuse Aches Runny Nose/ Eye Tearin= None GI Upset > 30mins: 0= None Tremor Observation of Outstretched Hands: 0= None Yawning Observation: 0= None Anxiety or Irritability: 2=Irritable/Anxious Goose Flesh Skin: 0=Smooth Skin COWS Score: 6 BHS Progress Note (SOAP) Subjective: PATIENT SEEN FOR SUBOXONE MAT FOR OPIOD DEPENDENCE. PATIENT IS TREATED AT [facility] AND LAST PRESCRIPTION PICKED UP 02/23/2020 FOR SUBOXONE 8MG-2MG SL BID X 2 WEEKS. ROS: +IRRITABILITY, CHILLS, BODY ACHES AND RESTLESSNESS Objective: 03/06/20 11:54 Vital Signs Temperature 97.8 F 03/06/20 07:07 Pulse Rate 64 03/06/20 07:07 Respiratory Rate 18 03/06/20 07:07 Blood Pressure 113/82 03/06/20 07:07 O2 Sat by Pulse Oximetry (%) 97 03/06/20 07:07 PE ALERT AND ORIENTED X 3 SKIN WARM AND DRY NECK SUPPLE, NO JVD EXT NO TREMORS, AMB AD ANNA IRRITABLE, ANXIOUS Assessment: 03/06/20 11:55 SUBOXONE MAT OPIOD DEPENDENCE Plan: WILL RESTART JNN7CBCES 8MG-2MG SL BID FOR FOLLOW UP WITH [facility] ON 03/10/2020 MONITOR CLINICALLY
[2020-03-06] MEDS: BUPRENORPHINE/NALOXONE 8 MG/2 MG FILM PACKET SL SCH (17:07)
[2020-03-06] MEDS: QUEtiapine FUMARATE 100 MG TABLET (FP) PO SCH (21:06)
[2020-03-06] MEDS: THIAMINE HCL 100 MG TABLET (FP) PO SCH (21:06)
[2020-03-06] MEDS: MELATONIN 5 MG TABLETS PO SCH (21:06)
[2020-03-06] MEDS: MIRTAZAPINE 15 MG TABLET (FP) PO SCH (21:06)
[2020-03-07] MEDS: hydrOXYzine PAMOATE 25 MG CAPSULE (FP) PO PRN ×3 (06:43→21:47)
[2020-03-07] MEDS: FERROUS SO4 325 MG TABLET (FP) PO SCH ×3 (07:09→16:58)
[2020-03-07] MEDS: PRENATAL VITAMINS W/ FOLIC ACID TABLET (FP) PO SCH (09:34)
[2020-03-07] MEDS: BICTEGRAV/EMTRICIT/TENOFOV (BIKTARVY) 50-200-25 MG TABLET PO SCH (09:34)
[2020-03-07] MEDS: BUPRENORPHINE/NALOXONE 8 MG/2 MG FILM PACKET SL SCH ×2 (09:34→16:58)
[2020-03-07] MEDS: NICOTINE 7 MG/24 HOURS TOPICAL PATCH TD SCH (09:34)
[2020-03-07] MEDS: QUEtiapine FUMARATE 50 MG TABLET PO SCH (09:34)
[2020-03-07] MEDS: TETRAHYDROZOLINE HCL EYE DROPS OU PRN (12:07)
[2020-03-07] MEDS: MIRTAZAPINE 15 MG TABLET (FP) PO SCH (21:47)
[2020-03-07] MEDS: QUEtiapine FUMARATE 100 MG TABLET (FP) PO SCH (21:47)
[2020-03-07] MEDS: THIAMINE HCL 100 MG TABLET (FP) PO SCH (21:47)
[2020-03-07] MEDS: MELATONIN 5 MG TABLETS PO SCH (21:47)
[2020-03-08] MEDS: TETRAHYDROZOLINE HCL EYE DROPS OU PRN (06:21)
[2020-03-08] MEDS: FERROUS SO4 325 MG TABLET (FP) PO SCH ×3 (07:14→17:21)
[2020-03-08] MEDS: PRENATAL VITAMINS W/ FOLIC ACID TABLET (FP) PO SCH (09:06)
[2020-03-08] MEDS: hydrOXYzine PAMOATE 25 MG CAPSULE (FP) PO PRN ×3 (09:06→21:03)
[2020-03-08] MEDS: QUEtiapine FUMARATE 50 MG TABLET PO SCH (09:07)
[2020-03-08] MEDS: BUPRENORPHINE/NALOXONE 8 MG/2 MG FILM PACKET SL SCH ×2 (09:07→17:21)
[2020-03-08] MEDS: BICTEGRAV/EMTRICIT/TENOFOV (BIKTARVY) 50-200-25 MG TABLET PO SCH (09:07)
[2020-03-08] MEDS: NICOTINE 7 MG/24 HOURS TOPICAL PATCH TD SCH (09:07)
--- NOTE | 2020-03-08 10:14 | DS ---
[facility] Rehab Discharge Summary - [facility] Rehab Discharge Summary Admission Date: 03/02/20 Discharge Date: 03/08/20 - History Present History: Cocaine dependence, Opioid dependence Pertinent Past History: 1 year old man presents for alcohol and heroin detox, his last treatment was on 11/26/2019 in which he signed out AMA due to family emergency. He denies seizure, reports blackouts and OD from fentanyl last year. - Discharge Physical Exam Vital Signs: Vital Signs Temperature 97.4 F L 03/08/20 06:25 Pulse Rate 66 03/08/20 06:25 Respiratory Rate 18 03/08/20 06:25 Blood Pressure 106/72 03/08/20 06:25 O2 Sat by Pulse Oximetry (%) 95 03/08/20 06:25 Pertinent Admission Physical Exam Findings: Physical General Appearance: No Apparent Distress HEENTM: Normocephalic, BUD, Respiratory: No Respiratory Distress, No Accessory Muscle Use Neck:Supple Cardiology:S1, S2 Abdominal: +Bowel Sounds, Soft Musculoskeletal: full range of Motion, Gait Steady, Neurological: No cognitive deficits noted - Treatment Discharge Condition: Outpatient referral accepted (Medically stable for discharge. Patient report: Patient will go to [facility] for aftercare. He will also get his HIV care there & suboxone treatment. Patient will go to [facility] for housing tomorrow and has an appointment with his provider on Friday.) Hospital Course: Patient attended groups, had 1:1 with his counselor and was seen by the psychiatric service. He had no acute or urgent medical problems while in rehab. He re-started his suboxone treatment while in rehab. He was adherent to his medication regimen and treatment plan. - Medication Discharge Medications: Ambulatory Orders Bictegrav/Emtricit/Tenofov Ala [Biktarvy 50-200-25 mg Tablet] 1 each PO DAILY 09/02/19 Mirtazapine [Remeron -] 15 mg PO HS 03/02/20 Nicotine Patch [Nicoderm Patch -] 7 mg TD DAILY patch 03/02/20 Nicotine Polacrilex [Nicorelief -] 2 mg BUC Q2H PRN gum 03/02/20 Quetiapine Fumarate [Seroquel -] 50 mg PO DAILY tablet 03/02/20 Quetiapine Fumarate [Seroquel -] 100 mg PO HS 06/18/20 - Medication-Assisted Treatment (MAT) Medication-Assisted Treatment (MAT): Yes Medication Prescribed: Buprenorphine ([facility], PCP: Dr. Lucero) - Discharge Instructions Diet, activity, other medical instructions: Diet: as tolerated Activity: as tolerated Other medical instructions: Please follow up with aftercare plan. - Diagnosis (1) Cocaine dependence, uncomplicated Current Visit: No Status: Acute (2) Opioid dependence with withdrawal Current Visit: No Status: Acute - Follow-up Referral Minutes to complete discharge: 20 - AMA Did Patient Leave Against Medical Advice: No
[2020-03-08] MEDS: THIAMINE HCL 100 MG TABLET (FP) PO SCH (21:02)
[2020-03-08] MEDS: MELATONIN 5 MG TABLETS PO SCH (21:02)
[2020-03-08] MEDS: QUEtiapine FUMARATE 100 MG TABLET (FP) PO SCH (21:03)
[2020-03-08] MEDS: MIRTAZAPINE 15 MG TABLET (FP) PO SCH (21:03)
[2020-03-09] MEDS: FERROUS SO4 325 MG TABLET (FP) PO SCH (07:16)
[2020-03-09 07:35] VITALS: BP 118/79; PULSE 71; TEMP 98.5
[2020-03-09] MEDS: BUPRENORPHINE/NALOXONE 8 MG/2 MG FILM PACKET SL SCH (08:51)
[2020-03-09] MEDS: NICOTINE 7 MG/24 HOURS TOPICAL PATCH TD SCH (09:19)
[2020-03-09] MEDS: BICTEGRAV/EMTRICIT/TENOFOV (BIKTARVY) 50-200-25 MG TABLET PO SCH (09:19)
[2020-03-09] MEDS: PRENATAL VITAMINS W/ FOLIC ACID TABLET (FP) PO SCH (09:19)
[2020-03-09] MEDS: QUEtiapine FUMARATE 50 MG TABLET PO SCH (09:19)
--- NOTE | 2020-03-09 09:32 | PN ---
S Progress Note Note: Suboxone 8 mg/ 2 mg sl #5 electronically sent to pt's home pharmacy- [facility], on [place], [place]. Pt has appointment to return to his Suboxone prescriber Dr. Lucero at [facility] on 03/10/[place]
== END 2020-03-09 08:55 | disposition home or self-care (01) | DRG 772 ==
LOC: YASAS 14:39 → Y3W 14:43
PROVIDERS: ADMIT Allergy & Immunology; ATTEND Allergy & Immunology
PROC: HZ42ZZZ Group Counseling for Substance Abuse Treatment, Cognitive-Behavioral (ICD-10-PCS; principal; 2020-03-02)
DX: F11.20 Opioid dependence, uncomplicated (principal); F14.20 Cocaine dependence, uncomplicated; Z21 Asymptomatic human immunodeficiency virus [HIV] infection status

== ENCOUNTER 2020-06-13 15:12 | Inpatient (IN) | payer OTHER ==
--- NOTE | 2020-06-13 15:48 | BHS.RME ---
Substance Use & Tx History - Substance Use History Alcohol Substance amount: 2 pints Vodka Frequency of use: Daily Substance route: Oral Date of Last Use: 06/12/20 Heroin Substance amount: 5 bags Frequency of use: Daily Substance route: Inhalation (ex: sniffing or snorting), Injection (ex: intravenous or skin popping) Date of Last Use: 06/12/20 Cocaine-Crack Substance amount: one gram Frequency of use: Daily Substance route: Smoking Date of Last Use: 06/12/20 Nicotine Substance amount: 1/2 ppd Frequency of use: Daily Substance route: Smoking Date of Last Use: 06/13/20 - Last Treatment Date of last treatment: February 26 to March 09, detox and rehab here Physical/Psych/Mental Status - Behavior General Behavior: Increased activity (restlessness, agitation) Eye Contact: Normal - Cooperativeness Cooperativeness: Cooperative - Thinking Thought Processes: Tight Thought content: Future oriented - Physical Health Problems Is patient presently having any pain?: No Does patient presently have any injuries (include location): No Does patient currently have a fever: No COWS - Scale Resting Pulse: 0= [place] 80 or Below Sweatin= Chills/Flushing Restless Observation: 3= Extraneous Movement Pupil Size: 1= Pupils >than Normal Bone or Joint Aches: 2= Severe Diffuse Aches Runny Nose/ Eye Tearin= Runny Nose/Eyes GI Upset > 30mins: 2= Nausea/Diarrhea Tremor Observation: 0= None Yawning Observation: 0= None Anxiety or Irritability: 1=Feels Anxious/Irritable Goose Flesh Skin: 0=Smooth Skin COWS Score: 12 CIWA Nausea/Vomitin Muscle Tremors: None Anxiety: 3 Agitation: 2 Paroxysmal Sweats: 3 Orientation: 0-Oriented Tacttile Disturbances: 0-None Auditory Disturbances: 1-Very Mild Visual Disturbances: 1-Very Mild Sensitivity Headache: 3-Moderate CIWA-Ar Total Score: 16
--- NOTE | 2020-06-13 17:24 | HP ---
COWS - Scale Resting Pulse: 0= [place] 80 or Below Sweatin= Chills/Flushing Restless Observation: 3= Extraneous Movement Pupil Size: 1= Pupils >than Normal Bone or Joint Aches: 2= Severe Diffuse Aches Runny Nose/ Eye Tearin= Runny Nose/Eyes GI Upset > 30mins: 2= Nausea/Diarrhea Tremor Observation: 0= None Yawning Observation: 0= None Anxiety or Irritability: 1=Feels Anxious/Irritable Goose Flesh Skin: 0=Smooth Skin COWS Score: 12 CIWA Score Nausea/Vomitin Muscle Tremors: None Anxiety: 3 Agitation: 2 Paroxysmal Sweats: 3 Orientation: 0-Oriented Tacttile Disturbances: 0-None Auditory Disturbances: 1-Very Mild Visual Disturbances: 1-Very Mild Sensitivity Headache: 3-Moderate CIWA-Ar Total Score: 16 - Admission Criteria OASAS Guidelines: Admission for Medically Managed Detox: Requires at least one of the followin. CIWA greater than 12 2. Seizures within the past 24 hours 3. Delirium tremens within the past 24 hours 4. Hallucinations within the past 24 hours 5. Acute intervention needed for co occurring medical disorder 6. Acute intervention needed for co occurring psychiatric disorder 7. Severe withdrawal that cannot be handled at a lower level of care (continued vomiting, continued diarrhea, abnormal vital signs) requiring intravenous medication and/or fluids 8. Admitting History and Physical - Admission Chief Complaint: Pt is a 50 yo M presenting for alcohol and opioid detox; "detox from alcohol, cocaine, and heroin...feeling some withdrawal symptoms." History of Present Illness: Pt is a 50 yo M presenting for alcohol and opioid detox; "detox from alcohol, cocaine, and heroin...feeling some withdrawal symptoms." Pt was last at [facility] from 02/26-03/09/2020; he stayed for detox and rehab. Pt was sober until 1 month ago; his sister 1 month ago and he relapsed immediately after. Pt reports he wants to complete detox and rehab again during this visit. Pt was in suboxone program - last dose 1 month ago. PMH - HIV + (CD4 920, viral load undectable; on biktarvy), Hep C (not treated in the past) PSH - none Psych - depression (seroquel), insomnia (remeron) - pt not taking either of these medications currently Soc/Dom - pt lives at an [facility] Legal - none - Substance Use History Alcohol Substance amount: 2 pints Vodka Frequency of use: Daily Substance route: Oral Date of Last Use: 06/12/20 Heroin Substance amount: 5 bags Frequency of use: Daily Substance route: Inhalation (ex: sniffing or snorting), Injection (ex: intravenous or skin popping) Date of Last Use: 06/12/20 Cocaine-Crack Substance amount: one gram Frequency of use: Daily Substance route: Smoking Date of Last Use: 06/12/20 Nicotine Substance amount: 1/2 ppd Frequency of use: Daily Substance route: Smoking Date of Last Use: 06/13/20 - Last Treatment Date of last treatment: February 26 to March 09, detox and rehab here History Source: Patient Limitations to Obtaining History: No Limitations - Past Medical History Hepatobiliary: Yes: Hepatitis C Infectious Disease: Yes: HIV - Past Surgical History Past Surgical History: Yes: None - Smoking History Smoking history: Current every day smoker Have you smoked in the past 12 months: Yes Aproximately how many cigarettes per day: 10 - Alcohol/Substance Use Hx Alcohol Use: Yes Admission [facility] Allergies/Adverse Reactions: Allergies Allergy/AdvReac Type Severity Reaction Status Date / Time chlorpromazine Allergy Verified 02/27/20 12:08 [From Thorazine] haloperidol [From Haldol] Allergy Verified 02/27/20 12:08 risperidone Allergy Verified 02/27/20 12:08 - Ebola screening Have you traveled outside of the country in the last 21 days: No Have you been sick,other than usual withdrawal symptoms: No Do you have a fever: No - Review of Systems Constitutional: Chills, Diaphoresis, Loss of Appetite, Changes in sleep (insomnia), Other (restless) EENT: reports: Other (rhinorrhea, lacrimation) Respiratory: reports: No Symptoms reported Cardiac: reports: No Symptoms Reported GI: reports: Diarrhea, Nausea, Abdominal cramping (possible mild abd cramping) : reports: No Symptoms Reported Musculoskeletal: reports: Muscle Pain (diffuse muscle aches) Integumentary: reports: Flushing Neuro: reports: Headache (moderate headache) Endocrine: reports: No Symptoms Reported Hematology: reports: No Symptoms Reported Psychiatric: reports: Orientated x3, Agitated (no SI/HI), Anxious, Depressed Patient History - Patient Medical History Hx Anemia: No Hx Asthma: No Hx Chronic Obstructive Pulmonary Disease (COPD): No Hx Cancer: No Hx Cardiac Disorders: No Hx Congestive Heart Failure: No Hx Hypertension: No Hx Hypercholesterolemia: No HX Cerebrovascular Accident: No Hx Seizures: No Hx Diabetes: No Hx Gastrointestinal Disorders: No Hx Genitourinary Disorders: No Hx Sexually Transmitted Disorders: Yes (HIV) Hx Renal Disease (ESRD): No Hx Human Immunodeficiency Virus (HIV): Yes (Pt on Bictarvy) Hx Hepatitis C: Yes (never treated) Hx Depression: Yes Hx Suicide Attempt: No Hx Bipolar Disorder: No Hx Schizophrenia: No - Patient Surgical History Past Surgical History: No Hx Neurologic Surgery: No Hx Cataract Extraction: No Hx Cardiac Surgery: No Hx Lung Surgery: No Hx Breast Surgery: No Hx Breast Biopsy: No Hx Abdominal Surgery: No Hx Appendectomy: No Hx Cholecystectomy: No Hx Genitourinary Surgery: No Hx Section: No Hx Orthopedic Surgery: No Anesthesia Reaction: No - PPD History Date: 02/29/20 Results: 0 mm - Smoking Cessation Smoking history: Current every day smoker Have you smoked in the past 12 months: Yes Aproximately how many cigarettes per day: 10 Hx Chewing Tobacco Use: No Initiated information on smoking cessation: Yes 'Breaking Loose' booklet given: 06/13/20 Admission Physical Exam BHS - Vital Signs Vital Signs: VS 107/73 HR 79 RR 16 T 97 O2 Sat 99% - Physical General Appearance: Yes: No Apparent Distress, Nourished, Appropriately Dressed, Irritable, Sweating, Anxious HEENTM: Yes: EOMI, Hearing grossly Normal, Normocephalic, Normal Voice Respiratory: Yes: Lungs Clear, Normal Breath Sounds, No Respiratory Distress, No Accessory Muscle Use Neck: Yes: No masses,lesions,Nodules, Supple Breast: Yes: Breast Exam Deferred Cardiology: Yes: Regular Rhythm, Regular Rate Abdominal: Yes: Normal Bowel Sounds, Non Tender, Flat, Soft Genitourinary: Yes: Other (deferred) Back: Yes: Normal Inspection Musculoskeletal: Yes: full range of Motion, Gait Steady Extremities: Yes: Normal Inspection, Normal Range of Motion, Non-Tender Neurological: Yes: Fully Oriented, Alert, Motor Strength 5/5, Other (anxious, agitated, and depressed; also restlesss) Integumentary: Yes: Normal Color, Warm, Clammy, Moist - Diagnostic (1) Depression Current Visit: Yes Status: Acute (2) Alcohol dependence with uncomplicated withdrawal Current Visit: No Status: Acute (3) Cocaine dependence, uncomplicated Current Visit: No Status: Acute (4) Opioid dependence with withdrawal Current Visit: No Status: Acute (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 Status: Chronic (6) History of HIV infection Current Visit: No Status: Chronic (7) History of hepatitis C Current Visit: No Status: Chronic (8) Nicotine dependence, uncomplicated Current Visit: No Status: Chronic Qualifiers: Nicotine product type: cigarettes Qualified Code(s): F17.210 - Nicotine dependence, cigarettes, uncomplicated Cleared for Admission S - Detox or Rehab [facility] Level of Care: Medically Managed Detox Regimen/Protocol: Librium, Suboxone Breathalyzer - Breathalyzer Breathalyzer: 0 Urine Drug Screen - Test Device Lot number: [id number] Expiration date: 12/21/21 - Control Is test valid?: Yes - Results Drug screen NEGATIVE: No Urine drug screen results: ELIER-Cocaine, MOP-Opiates, BUP-Suboxone Inpatient Rehab Admission - Rehab Decision to Admit Inpatient rehab admission?: No
[2020-06-13] MEDS ORDERED: NICOTINE POLACRILEX 2 MG GUM BUC PRN (17:55)
[2020-06-13] MEDS ORDERED: BISMUTH SUBSALICYLATE 524 MG/30 ML UD PO PRN (17:55)
[2020-06-13] MEDS ORDERED: ACETAMINOPHEN 325 MG TABLET (FP) PO PRN ×2 (17:55)
[2020-06-13] MEDS ORDERED: MENTHOL/PHENOL 1 EACH UD MM PRN (17:55)
[2020-06-13] MEDS ORDERED: MAGNESIUM CITRATE 300 ML BOTTLE PO PRN (17:55)
[2020-06-13] MEDS ORDERED: IBUPROFEN 400 MG TABLET (FP) PO PRN (17:55)
[2020-06-13] MEDS ORDERED: MAG HYDROX/AL HYDROX/SIMETH 30 ML UNIT-DOSE CUP PO PRN (17:55)
[2020-06-13] MEDS ORDERED: ONDANSETRON *ODT* 4 MG TABLET SL PRN (17:55)
[2020-06-13] MEDS ORDERED: chlordiazePOXIDE HCL 25 MG CAPSULE PO PRN (17:55)
[2020-06-13] MEDS ORDERED: METHOCARBAMOL 500 MG TABLET PO PRN (17:55)
[2020-06-13] MEDS ORDERED: MAGNESIUM HYDROX 2400MG/30ML ORAL SUSPENSION 30 ML CUP PO PRN (17:55)
[2020-06-13 18:29] VITALS: BMI 27.9
[2020-06-13] MEDS: hydrOXYzine PAMOATE 25 MG CAPSULE (FP) PO SCH ×2 (19:22→22:41)
[2020-06-13] MEDS: chlordiazePOXIDE HCL 25 MG CAPSULE PO SCH ×2 (19:22→22:42)
[2020-06-13] MEDS: NICOTINE 14 MG/24 HOURS TOPICAL PATCH TD SCH (19:24)
--- OUTSIDE RECORDS SUMMARY | 2020-06-13 19:39 | XMS ---
:1970 Author Organization [facility] Care Team Providers Name Role Phone OHumaFatoumata Brink (R) Unavailable [phone] MD CHASITY Unavailable Unavailable DERIC Unavailable Unavailable CARMEN ARMSTRONG Unavailable Unavailable MD ELYSIA Unavailable Unavailable Terrell Unavailable Re-disclosure Warning The records that you are about to access may contain information from federally- assisted alcohol or drug abuse programs. If such information is present, then the following federally mandated warning applies: This information has been disclosed to you from records protected by federal confidentiality rules (42 CFR part 2). The federal rules prohibit you from making any further disclosure of this information unless further disclosure is expressly permitted by the written consent of the person to whom it pertains or as otherwise permitted by 42 CFR part 2. A general authorization for the release of medical or other information is NOT sufficient for this purpose. The Federal rules restrict any use of the information to criminally investigate or prosecute any alcohol or drug abuse patient.The records that you are about to access may contain highly sensitive health information, the redisclosure of which is protected by Article 27-F of the [facility] Public Health law. If you continue you may haveaccess to information: Regarding HIV / AIDS; Provided by facilities licensed or operated by the [facility] Office of Mental Health; or Provided by the [facility] Office for People With Developmental Disabilities. If such information is present, then the following [facility] mandated warning applies: This information has been disclosed to you from confidential records which are protected by state law. State law prohibits you from making any further disclosure of this information without the specific written consent of the person to whom it pertains, or as otherwise permitted by law. Any unauthorized further disclosure in violation of state law may result in a fine or fdc sentence or both. A general authorization for the release of medical or other information is NOT sufficient authorization for further disclosure. Allergies and Adverse Reactions Type Description Substance Reaction Status Data Source(s ) DRUG THORAZINE THORAZINE [facility] DRUG RISPERDAL RISPERDAL [facility] DRUG INGREDI HALOPERIDOL HALOPERIDOL [facility] Encounters Encounter Providers Location Date Indications Data Source(s ) Outpatient Attender: TANYA 09/10/2019 [facility] itodin For NATHANIEL 11:21:33 AM [facility] EST Patient admitted. Outpatient Attender: NANI 07/05/2019 07:23:37 PM [facility] Patient admitted. Outpatient Attender: NANI 06/17/2019 03:07:14 PM [facility] Patient admitted. Outpatient Attender: Fatoumata 06/10/2019 03:15:52 PM [facility] Patient admitted. Outpatient Attender: Jeannie Tejada 06/08/2019 12:00:28 PM [facility] 06/08/2019 [facility] ealt 12:38:06 PM EDT Patient admitted. Inpatient Attender: EVAN KRUGER-1D 01/19/2019 01:22:00 [facility] CARYL PM EDT - 01/22/2019 Hospital ELYSIA 10:51:00 PM EDT Outpatient STV 01/19/2019 11:06:00 [facility] AM EDT - 01/19/2019 Hospi mel 02:18:00 PM EDT Medications Medication Brand Start Product Dose Route Administrative Pharmacy [facility] Indications Reaction Description Data Name Date Form Instructions Instructions Source(s) abacavir Triume ORAL complet Triumeq - Saint 600 MG / q - 2019 Table ed 600 MG-50 Abundio nts dolutegravi 600 12:00: t MG-300 MG H ospital r 50 MG / MG-50 00 AM ORAL Tablet Lamivudine MG-300 EDT 300 MG Oral MG Tablet ORAL [Triumeq] Tablet quetiapine SEROqu ORAL complet SEROque l - Saint 50 MG Oral 2018 Table ed 50 MG ORAL Vi ncents Tablet 50 MG 12:00: t Tablet Hospital [Seroquel] ORAL 00 AM Tablet EDT quetiapine SEROqu ORAL complet SEROque l - [facility] 100 MG Oral 2018 Table ed 100 MG ORAL [facility] Tablet 100 MG 12:00: t Tablet Hospita l [Seroquel] ORAL 00 AM Tablet EDT Mirtazapine Remero ORAL complet Remero n - 15 Saint 15 MG Oral n 15 2018 Table ed MG ORAL [facility] cents Tablet MG 12:00: t Tablet Hospital [Remeron] ORAL 00 AM Tablet EDT quetiapine SEROqu ORAL complet SEROque l - [facility] 50 MG Oral 2018 Table ed 50 MG ORAL Vi ncents Tablet 50 MG 12:00: t Tablet Hospital [Seroquel] ORAL 00 AM Tablet EDT Insurance Providers Payer name Policy type Policy ID Covered Covered green party's Policy P oumou / Coverage green party ID relationship to Steen Inf ormation type steen BH-BEACON [id number] SP [id number] [facility] [id number] Self [id number] [employer] Medicaid Mgd 156 156 Care SELF PAY 00 Self 00 MEDICAID INP [id number] Self [id number] Z REHAB [facility] [id number] Self [id number] [employer] [facility] [id number] SP [id number] Problems, Conditions, and Diagnoses Code Display Name Description Problem Type Effective Data Sour ce(s) Dates Z65.8 Psychosocial Psychosocial [id number] 06/08/2019 [facility] stressors stressors 12:00:00 AM For Family EDT Health HIV Follow-Up HIV Follow-Up Diagnosis 09/10/2019 The [facility] itute 11:21:33 AM For Family EST Health RAP Outreach For RAP Outreach For Diagnosis 06/17/2019 e [place] Engagement Engagement 03:07:14 PM For Family EDT Health Z65.8 Other specified Other specified Diagnosis 06/08/2019 [facility] [place] problems related to problems related 12:37:37 P M For Family psychosocial to psychosocial EDT Health circumstances circumstances F11.20 Opioid dependence, Opioid dependence, Diagnosis 9 [facility] uncomplicated uncomplicated 01:25:00 PM Hospita l EDT Results ID Date Data Source [id number] 03/29/2020 12:00:00 AM EDT [facility] Name Value Range Interpretation Code Description Data Aleha rce(s) Supporting Document(s ) 2018-nCoV [facility] RNA XXX KATE+probe- Imp This lab was ordered by [employer] and reported by [employer] ID Date Data Source [id number] 03/14/2020 04:33:00 PM EDT [facility] Name Value Range Interpretation Description Data Sup porting Code Source(s) Document(s ) SARS [facility] Coronavirus 2 RNA Presence Respiratory Specimen KATE Probe Detection This lab was ordered by [facility] and rep orted by [facility]. ID Date Data Source [id number] 03/11/2020 06:47:00 AM EDT [facility] Name Value Range Interpretation Description Data Sup porting Code Source(s) Document(s ) SARS [facility] Coronavirus 2 RNA Presence Respiratory Specimen KATE Probe Detection This lab was ordered by [facility] and rep orted by [facility]. ID Date Data Source [id number] 02/27/2020 12:00:00 AM EDT [facility] Name Value Range Interpretation Description Data Sup porting Code Source(s) Document(s ) SARS [facility] CORONAVIRUS 2 RNA This lab was ordered by [facility] and reported by [facility]. ID Date Data Source [id number] 02/11/2020 04:00:00 PM EDT [facility] Name Value Range Interpretation Description Data Sup porting Code Source(s) Document(s ) SARS [facility] Coronavirus 2 RNA Presence Respiratory Specimen KATE Probe Detection This lab was ordered by [facility] and rep orted by [facility]. ID Date Data Source [id number] 02/01/2020 12:00:00 AM EDT [facility] Name Value Range Interpretation Code Description Data Aleah rce(s) Supporting Document(s ) 2019-nCoV [facility] RNA XXX KATE+probe- Imp This lab was ordered by [employer] and reported by [employer] ID Date Data Source [id number] 06/10/2019 09:45:42 PM EDT [facility] [place] For [facility] Reason for Visit and Comments: Left W ithout Being seen [220]Vitals (Last Filed):BP 117/84 Pulse 65 Temp 98 F (36.7 C) Resp 16 H- t 5 7.72" (1.72 m) Wt 148 lb 6.4 oz (67.3 kg) Sp O2 9- 8% BMI 22.75 kg/n0Qtpgji History Ny Boss 06/10/2019 9:45 PM SignedI have identified this patient to be Domenico Pablo [facility], -1970.No chief complaint on file.There were no vitals filed for this visit.Patient reports a pain score of "0-None" in his No pain location entered forpatient.Pharmacy and allergies verified.Luana Cosme Lourdes 06/10/2019 9:45 PM SignedPatient left before being seen by providerO Fatoumata Velazquez MD (R) 06/10/2019 9:45 PM SignedPatient left prior to being seen.P rimary Diagnosis:[id number] LEFT WITHOUT BEING SEENAllergies As of Date: 06/10/2019 No zakia Allergy ReactionHALDOL (HALOPERIDOL) 06/10/2019RIS PERDAL 06/10/2019THORAZINE 06/10/2019Date Reviewed: 06/10/2019Reviewed by: Mikala Bentley - ReviewedLevel of Service:ERROR NON Historical Information ----- ------No family history on fileSocial Hi story Marital Status: Single Spouse: Years of Education: # children:Social History Narrative (none)Social History Topics Tobacco Use : Yes Start Date: Alcohol Use: Yes Drug Use: Yes Types: Crack /Cocaine, Heroin Sexually Active: Not CurrentlyImmunizations Administered Not on file. Name Value Range Interpretation Code Description Data Aleah rce(s) Supporting Document(s ) Procedure Social History Code Duration Value Status Description Data Source(s ) Tobacco 06/10/2019 Current every completed Current every day [facility] [place] smoking status 12:00:00 AM EDT day smoker smoker For F bharathiy [facility] Alcohol intake 06/10/2019 Current completed Current drinker The [facility]stitute 12:00:00 AM EDT drinker of of alcohol For Famil y alcohol (finding) Health (finding) Sex assigned at Not on file Not on file [facility] [place] For [facility] Smoking Unknown if ever completed Unknown if ever [facility] [place] For smoked smoked Family [facility] Vital Signs ID Date Data Source UNK Name Value Range Interpretation Code Description Data Source(s) Oxygen 98 % 98 % [facility] [place] saturation in For [facility] Arterial blood Health by Pulse oximetry Body mass index 22.75 kg/m2 22.75 kg/m2 The Ins titute (BMI) [Ratio] For [facility] Body weight 67.314 kg 67.314 kg [facility] [place] Measured For [facility] Body height 172 cm 172 cm The [facility] Respiratory rate 16 /min 16 /min The Inst itute For [facility] Body temperature 36.67 Jenae 36.67 Jenae The Inst itute For [facility] Heart rate 65 /min 65 /min The [facility] Diastolic blood 84 mm[Hg] 84 mm[Hg] The Insti tute pressure For [facility] Systolic blood 117 mm[Hg] 117 mm[Hg] The Instit kortney pressure For [facility] Diastolic blood 80 mmHg 80 mmHg [facility] Systolic blood 126 mmHg 126 mmHg [facility] Respiratory rate 18 bpm 18 bpm [facility] Heart rate 66 bpm 66 bpm [facility] Body temperature 97.1 Fahrenheit 97.1 Fahrenh t [facility] Diastolic blood 76 mmHg 76 mmHg [facility] Systolic blood 108 mmHg 108 mmHg [facility] Respiratory rate 18 bpm 18 bpm [facility] Heart rate 73 bpm 73 bpm [facility] Body temperature 97.7 Fahrenheit 97.7 Fahrenhei t [facility]
[2020-06-13] MEDS: THIAMINE HCL 100 MG TABLET (FP) PO SCH (22:41)
[2020-06-13] MEDS: MELATONIN 5 MG TABLETS PO SCH (22:41)
[2020-06-14] MEDS: chlordiazePOXIDE HCL 25 MG CAPSULE PO SCH ×4 (06:22→22:39)
[2020-06-14] MEDS: hydrOXYzine PAMOATE 25 MG CAPSULE (FP) PO SCH ×5 (06:22→22:39)
--- NOTE | 2020-06-14 10:11 | PN ---
Teaching Attending Note Name of Resident: Emily Palma ATTENDING PHYSICIAN STATEMENT I saw and evaluated the patient. I reviewed the resident's note and discussed the case with the resident. I agree with the resident's findings and plan as documented. SUBJECTIVE: OBJECTIVE: ASSESSMENT AND PLAN: 1. Alcohol use disorder 2. Hx of suboxone use Plan 1. Librium detox protocol 2. confirm suboxone use and restart if appropriate
[2020-06-14 10:37] LABS: HEMATOCRIT 39.2 % (35.4-49); MCH 32.6 pg (25.7-33.7); MCHC 33.3 g/dl (32.0-35.9); MEAN PLT VOLUME 9.2 fl (7.5-11.1); PLATELET COUNT 300 K/MM3 (134-434); RDW 13.8 % (11.9-15.9); WHITE BLOOD COUNT 3.8 K/mm3 (4.0-10.0)
[2020-06-14] MEDS: PRENATAL VITAMINS W/ FOLIC ACID TABLET (FP) PO SCH (10:38)
[2020-06-14] MEDS: BICTEGRAV/EMTRICIT/TENOFOV (BIKTARVY) 50-200-25 MG TABLET PO SCH (10:38)
[2020-06-14] MEDS: NICOTINE 14 MG/24 HOURS TOPICAL PATCH TD SCH (10:38)
[2020-06-14 10:45] LABS: ALBUMIN 3.1 g/dl (3.4-5.0); BILIRUBIN,TOTAL 0.6 mg/dL (0.2-1); BLOOD UREA NITROGEN 10.6 mg/dL (7-18); CALCIUM 9.2 mg/dL (8.5-10.1); CREATININE 1.1 mg/dL (0.55-1.3); POTASSIUM 4.6 mmol/L (3.5-5.1); TOT PROT 6.8 g/dl (6.4-8.2)
[2020-06-14] MEDS ORDERED: BUPRENORPHINE/NALOXONE 8 MG/2 MG FILM PACKET SL ONE (12:34)
--- NOTE | 2020-06-14 12:45 | PN ---
S CIWA - CIWA Score Nausea/Vomitin-Mild Nausea/No Vomiting Muscle Tremors: 2 Anxiety: 2 Agitation: 2 Paroxysmal Sweats: 1-Minimal Palms Moist Orientation: 0-Oriented Tacttile Disturbances: 1-Very Mild Itch/Numbness Auditory Disturbances: 0-None Visual Disturbances: 0-None Headache: 2-Mild CIWA-Ar Total Score: 11 S Progress Note (SOAP) Subjective: alert,irritable,anxious,interrupted sleep,tremor,aching pain in the body and back Objective: 06/14/20 17:26 Vital Signs Temperature 98.2 F 06/14/20 09:00 Pulse Rate 62 06/14/20 09:00 Respiratory Rate 18 06/14/20 09:00 Blood Pressure 107/70 06/14/20 09:00 O2 Sat by Pulse Oximetry (%) 100 06/14/20 09:00 06/14/20 17:26 Laboratory Last Values WBC 3.8 K/mm3 (4.0-10.0) L 06/13/20 07:00 RBC 4.00 M/mm3 (4.00-5.60) 06/13/20 07:00 Hgb 13.0 GM/dL (11.7-16.9) 06/13/20 07:00 Hct 39.2 % (35.4-49) D 06/13/20 07:00 MCV 98.0 fl (80-96) H 06/13/20 07:00 MCH 32.6 pg (25.7-33.7) 06/13/20 07:00 MCHC 33.3 g/dl (32.0-35.9) 06/13/20 07:00 RDW 13.8 % (11.9-15.9) 06/13/20 07:00 Plt Count 300 K/MM3 (134-434) D 06/13/20 07:00 MPV 9.2 fl (7.5-11.1) D 06/13/20 07:00 Sodium 137 mmol/L (136-145) 06/13/20 07:00 Potassium 4.6 mmol/L (3.5-5.1) 06/13/20 07:00 Chloride 106 mmol/L (98-107) 06/13/20 07:00 Carbon Dioxide 27 mmol/L (21-32) 06/13/20 07:00 Anion Gap 5 MMOL/L (8-16) L 06/13/20 07:00 BUN 10.6 mg/dL (7-18) 06/13/20 07:00 Creatinine 1.1 mg/dL (0.55-1.3) 06/13/20 07:00 Est GFR (CKD-EPI)AfAm 88.98 06/13/20 07:00 Est GFR (CKD-EPI)NonAf 76.77 06/13/20 07:00 Random Glucose 97 mg/dL (74-106) 06/13/20 07:00 Calcium 9.2 mg/dL (8.5-10.1) 06/13/20 07:00 Total Bilirubin 0.6 mg/dL (0.2-1) 06/13/20 07:00 AST 71 U/L (15-37) H 06/13/20 07:00 ALT 90 U/L (13-61) H 06/13/20 07:00 Alkaline Phosphatase 73 U/L (45-117) 06/13/20 07:00 Total Protein 6.8 g/dl (6.4-8.2) 06/13/20 07:00 Albumin 3.1 g/dl (3.4-5.0) L 06/13/20 07:00 Syphilis Serology Non-reactive (NONREACTIVE) 06/13/20 07:00 Assessment: 06/14/20 17:27 withdrawal symptom Plan: continue detox librium regimen,patient has been on suboxone 8mgs/2 mgs sl flim bid last filled on 06/12/20 #28, suboxone ordered
--- NOTE | 2020-06-14 14:46 | CONSULT ---
[facility] Psychiatric Consult - Data Date of interview: 06/14/20 Admission source: [facility] Identifying data: Readmission to [address] [place] [address] for this 50 y/o AA male self-referred for detoxification treatment. MEGAN issues : opioid, alcohol, cannabis, cocaine, nicotine. Patient is single, father of one, domiciled ([place] setting), unemployed and supported on [employer] funds. Substance Abuse History: Discussed with the patient. MEGAN profile as follows : Smoking history: Current every day smoker. Have you smoked in the past 12 months: Yes. Approximately how many cigarettes per day: 10. Hx Chewing Tobacco Use: No. Initiated information on smoking cessation: Yes. 'Breaking Loose' booklet given: 06/13/20. Alcohol. Substance amount: 2 pints Vodka. Frequency of use: Daily. Substance route: Oral. Date of Last Use: 06/12/20. Heroin. Substance amount: 5 bags. Frequency of use: Daily. Substance route: Inhalation (ex: sniffing or snorting), Injection (ex: intravenous or skin popping). Date of Last Use: 06/12/20. Cocaine-Crack. Substance amount: one gram. Frequency of use: Daily. Substance route: Smoking. Date of Last Use: 06/12/20. Nicotine. Substance amount: 1/2 ppd. Frequency of use: Daily. Substance route: Smoking. Date of Last Use: 06/13/20. - Last Treatment. Date of last treatment: February 26 to March 09, detox and rehab here. History of multiple MEGAN treatment failures. History Source: Patient. Limitations to Obtaining History: No Limitations. Medical History: Medical history is remarkable for HIV infection since 1989 (on ART medications) and hepatitis C. Noted report of allergies : risperdal, haldol, chlorpromazine. Psychiatric History: Onset of psychiatric disturbances : 1996 (precipitant : of biological mother; patient attempted to jump out of a window). Exten sive history of mental illness + multiple psychiatric hospitalizations, at facilities located mostly in [place]. Mr Cisneros is also known, for inpatient psychiatric care, to [facility], [facility], [facility] and [facility] in [facility]. Has been diagnosed with Bipolar Disorder. He indicates that he has no recall of the names of his psychotropic medications. " Check my records to find out what I am on ". Past maintenance treatment consisted of a regimen of mirtazapine 15 mg/hs + seroquel 50 mg/100 mg (am/hs). Refills provided by providers in [facility] settings or primary care physicians. No current affiliation with psychiatrists for OPD care. Physical/Sexual Abuse/Trauma History: Patient declines to provide information. Additional Comment: Urine drug screen results: ELIER-Cocaine, MOP-Opiates, BUP- Suboxone. Noted. Mental Status Exam - Mental Status Exam Alert and Oriented to: Time, Place, Person Cognitive Function: Good Patient Appearance: Unkempt, Disheveled Mood: Angry, Hostile, Withdrawn, Irritable Affect: Mood Congruent, Constricted Patient Behavior: Fatigued, Uncooperative Speech Pattern: Clear Voice Loudness: Normal Thought Process: Goal Oriented Thought Disorder: Not Present Hallucinations: Denies Suicidal Ideation: Denies Homicidal Ideation: Denies Insight/Judgement: Poor Sleep: Fair Appetite: Good Gait/Station: Other (not observed walking; in bed all day long) Psychiatric Findings - Problem List ([place] 1, 2,3) (1) Alcohol dependence with uncomplicated withdrawal Current Visit: Yes Status: Acute (2) Opioid dependence on agonist therapy Current Visit: Yes Status: Chronic (3) Cocaine dependence, uncomplicated Current Visit: Yes Status: Chronic (4) Nicotine dependence, uncomplicated Current Visit: Yes Status: Chronic Qualifiers: Nicotine product type: cigarettes Qualified Code(s): F17.210 - Nicotine dependence, cigarettes, uncomplicated (5) Substance induced mood disorder Current Visit: Yes Status: Suspected (6) History of bipolar disorder Current Visit: Yes Status: Chronic (7) Insomnia Current Visit: Yes Status: Chronic Qualifiers: Insomnia type: unspecified Qualified Code(s): G47.00 - Insomnia, unspecified (8) Non-compliance Current Visit: Yes Status: Chronic - Initial Treatment Plan Initial Treatment Plan: Psychoeducation. Sleep hygiene. Detoxification. Resumed, at patient's request : seroquel 100 mg po hs + remeron 15 mg po hs. Side effects/benefits of both drugs are discussed with the patient. Consent given (verbal). Observation.
[2020-06-14] MEDS ORDERED: QUEtiapine FUMARATE 100 MG TABLET (FP) PO SCH (22:00)
[2020-06-14] MEDS ORDERED: MIRTAZAPINE 15 MG TABLET (FP) PO SCH (22:00)
[2020-06-14] MEDS: MELATONIN 5 MG TABLETS PO SCH (22:39)
[2020-06-14] MEDS: BUPRENORPHINE/NALOXONE 8 MG/2 MG FILM PACKET SL SCH (22:40)
[2020-06-14] MEDS: THIAMINE HCL 100 MG TABLET (FP) PO SCH (22:40)
[2020-06-15] MEDS: chlordiazePOXIDE HCL 25 MG CAPSULE PO SCH ×2 (05:46→10:19)
[2020-06-15] MEDS: hydrOXYzine PAMOATE 25 MG CAPSULE (FP) PO SCH ×3 (05:46→14:01)
[2020-06-15] MEDS: BUPRENORPHINE/NALOXONE 8 MG/2 MG FILM PACKET SL SCH (10:19)
[2020-06-15] MEDS: PRENATAL VITAMINS W/ FOLIC ACID TABLET (FP) PO SCH (10:19)
[2020-06-15] MEDS: NICOTINE 14 MG/24 HOURS TOPICAL PATCH TD SCH (10:19)
[2020-06-15] MEDS: BICTEGRAV/EMTRICIT/TENOFOV (BIKTARVY) 50-200-25 MG TABLET PO SCH (10:19)
--- NOTE | 2020-06-15 10:27 | PN ---
[facility] CIWA - CIWA Score Nausea/Vomitin-No Nausea/No Vomiting Muscle Tremors: None Anxiety: 1-Mildly Anxious Agitation: 0-Normal Activity Paroxysmal Sweats: No Perspiration Orientation: 0-Oriented Tacttile Disturbances: 0-None Auditory Disturbances: 0-None Visual Disturbances: 0-None Headache: 0-None Present CIWA-Ar Total Score: 1 S Progress Note (SOAP) Subjective: alert,no complaint Objective: 06/15/20 14:45 Vital Signs Temperature 97.3 F L 06/15/20 12:50 Pulse Rate 73 06/15/20 12:50 Respiratory Rate 18 06/15/20 12:50 Blood Pressure 96/70 06/15/20 12:50 O2 Sat by Pulse Oximetry (%) 99 06/15/20 12:50 Assessment: 06/15/20 14:45 no withdrawal symptom Plan: patient has emergency sickness in the family,would like to be discharged,stable for discharge today,follow up with after care program as arrangement,
[2020-06-15 14:07] VITALS: BP 96/70; PULSE 73; TEMP 97.3
--- NOTE | 2020-06-15 14:49 | DS ---
[facility] Detox Discharge Summary Admission Date: 06/13/20 Discharge Date: 06/15/20 - History Present History: Alcohol Dependence, Cocaine Dependence Additional Comments: alert,oriented x 3 ambulation on the unit lung clear on auscultation bilaterally abdomen soft,no pain,no tenderness no edema of legs no withdrawal symptom patient has emergency sickness in the family stable for discharge today follow up with after care program [facility] as arrangement total time of discharge spending 35 minutes patient has medications at home follow up with his medical provider for medical issue,and suboxone Pertinent Past History: hiv bipolar disorder - Physical Exam Results Vital Signs: Vital Signs Temperature 97.3 F L 06/15/20 12:50 Pulse Rate 73 06/15/20 12:50 Respiratory Rate 18 06/15/20 12:50 Blood Pressure 96/70 06/15/20 12:50 O2 Sat by Pulse Oximetry (%) 99 06/15/20 12:50 Pertinent Admission Physical Exam Findings: withdrawal signs and symptom Laboratory Last Values WBC 3.8 K/mm3 (4.0-10.0) L 06/13/20 07:00 RBC 4.00 M/mm3 (4.00-5.60) 06/13/20 07:00 Hgb 13.0 GM/dL (11.7-16.9) 06/13/20 07:00 Hct 39.2 % (35.4-49) D 06/13/20 07:00 MCV 98.0 fl (80-96) H 06/13/20 07:00 MCH 32.6 pg (25.7-33.7) 06/13/20 07:00 MCHC 33.3 g/dl (32.0-35.9) 06/13/20 07:00 RDW 13.8 % (11.9-15.9) 06/13/20 07:00 Plt Count 300 K/MM3 (134-434) D 06/13/20 07:00 MPV 9.2 fl (7.5-11.1) D 06/13/20 07:00 Sodium 137 mmol/L (136-145) 06/13/20 07:00 Potassium 4.6 mmol/L (3.5-5.1) 06/13/20 07:00 Chloride 106 mmol/L (98-107) 06/13/20 07:00 Carbon Dioxide 27 mmol/L (21-32) 06/13/20 07:00 Anion Gap 5 MMOL/L (8-16) L 06/13/20 07:00 BUN 10.6 mg/dL (7-18) 06/13/20 07:00 Creatinine 1.1 mg/dL (0.55-1.3) 06/13/20 07:00 Est GFR (CKD-EPI)AfAm 88.98 06/13/20 07:00 Est GFR (CKD-EPI)NonAf 76.77 06/13/20 07:00 Random Glucose 97 mg/dL (74-106) 06/13/20 07:00 Calcium 9.2 mg/dL (8.5-10.1) 06/13/20 07:00 Total Bilirubin 0.6 mg/dL (0.2-1) 06/13/20 07:00 AST 71 U/L (15-37) H 06/13/20 07:00 ALT 90 U/L (13-61) H 06/13/20 07:00 Alkaline Phosphatase 73 U/L (45-117) 06/13/20 07:00 Total Protein 6.8 g/dl (6.4-8.2) 06/13/20 07:00 Albumin 3.1 g/dl (3.4-5.0) L 06/13/20 07:00 Syphilis Serology Non-reactive (NONREACTIVE) 06/13/20 07:00 COVID-19 (KATE) Not detected (Not Detected) 06/13/20 19:00 Vital Signs Temperature 97.3 F L 06/15/20 12:50 Pulse Rate 73 06/15/20 12:50 Respiratory Rate 18 06/15/20 12:50 Blood Pressure 96/70 06/15/20 12:50 O2 Sat by Pulse Oximetry (%) 99 06/15/20 12:50 - Treatment Hospital Course: Detox Protocol Followed, Detoxed Safely, Responded well, Discharged Condition Good - Medication Discharge Medications: Ambulatory Orders Mirtazapine [Remeron -] 15 mg PO HS 03/02/20 Nicotine Patch [Nicoderm Patch -] 7 mg TD DAILY patch 03/02/20 Nicotine Polacrilex [Nicorelief -] 2 mg BUC Q2H PRN gum 03/02/20 Quetiapine Fumarate [Seroquel -] 50 mg PO DAILY tablet 03/02/20 Quetiapine Fumarate [Seroquel -] 100 mg PO HS 03/02/20 Bictegrav/Emtricit/Tenofov Ala [Biktarvy 50-200-25 mg Tablet] 1 each PO DAILY #30 tablet 03/08/20 Tetrahydrozoline HCl [Visine -] 1 drop OU QID PRN #1 drops 03/08/20 Buprenorphine/Naloxone [Suboxone 8Mg/2Mg Sl Film -] 1 each SL BID #5 packet MDD 2 03/09/20 Mirtazapine [Remeron -] 15 mg PO HS #30 tablet 03/09/20 Quetiapine Fumarate [Seroquel -] 50 mg PO DAILY #30 tablet 03/09/20 Quetiapine Fumarate [Seroquel -] 100 mg PO HS #30 tablet 03/09/20 - Diagnosis (1) Alcohol dependence with uncomplicated withdrawal Current Visit: Yes Status: Acute (2) Cocaine dependence, uncomplicated Current Visit: Yes Status: Chronic (3) History of bipolar disorder Current Visit: Yes Status: Chronic (4) Nicotine dependence, uncomplicated Current Visit: Yes Status: Chronic Qualifiers: Nicotine product type: cigarettes Qualified Code(s): F17.210 - Nicotine dependence, cigarettes, uncomplicated (5) Encounter for monitoring Suboxone maintenance therapy Current Visit: No Status: Chronic - AMA Did Patient Leave Against Medical Advice: No
[2020-06-16] MEDS ORDERED: chlordiazePOXIDE HCL 10 MG CAPSULE PO PRN
[2020-06-16] MEDS ORDERED: chlordiazePOXIDE HCL 10 MG CAPSULE PO SCH (05:00)
[2020-06-17] MEDS ORDERED: chlordiazePOXIDE HCL 10 MG CAPSULE PO SCH (05:00)
[2020-06-18] MEDS ORDERED: chlordiazePOXIDE HCL 10 MG CAPSULE PO ONE (05:00)
== END 2020-06-15 15:00 | disposition home or self-care (01) | DRG 773 ==
LOC: YASAS 15:12 → Y3N 18:37
PROVIDERS: ADMIT Allergy & Immunology; ATTEND Allergy & Immunology
PROC: HZ2ZZZZ Detoxification Services for Substance Abuse Treatment (ICD-10-PCS; principal; 2020-06-13)
DX: F10.230 Alcohol dependence with withdrawal, uncomplicated (principal); F11.20 Opioid dependence, uncomplicated; F14.20 Cocaine dependence, uncomplicated; F17.210 Nicotine dependence, cigarettes, uncomplicated; F19.24 Other psychoactive substance dependence with psychoactive substance-induced mood disorder; F31.9 Bipolar disorder, unspecified; Z21 Asymptomatic human immunodeficiency virus [HIV] infection status; G47.00 Insomnia, unspecified; B18.2 Chronic viral hepatitis C; Z51.81 Encounter for therapeutic drug level monitoring; Z79.899 Other long term (current) drug therapy; Z88.8 Allergy status to other drugs, medicaments and biological substances; Z91.19 Patient's noncompliance with other medical treatment and regimen
CPT/HCPCS: 36415; 80053; 85027; 86780; U0003

== ENCOUNTER 2020-08-04 08:58 | Inpatient (IN) | payer OTHER ==
[2020-08-04 09:39] VITALS: BMI 26.8
[2020-08-04] MEDS ORDERED: chlordiazePOXIDE HCL 25 MG CAPSULE PO PRN (10:49)
[2020-08-04] MEDS ORDERED: MAGNESIUM HYDROX 2400MG/30ML ORAL SUSPENSION 30 ML CUP PO PRN (10:49)
[2020-08-04] MEDS ORDERED: METHOCARBAMOL 500 MG TABLET PO PRN (10:49)
[2020-08-04] MEDS ORDERED: BISMUTH SUBSALICYLATE 262 MG/15 ML BTL PO PRN (10:49)
[2020-08-04] MEDS ORDERED: cloNIDine HCL 0.1 MG TABLET PO PRN (10:49)
[2020-08-04] MEDS ORDERED: ACETAMINOPHEN 325 MG TABLET (FP) PO PRN ×2 (10:49)
[2020-08-04] MEDS ORDERED: MAGNESIUM CITRATE 300 ML BOTTLE PO PRN (10:49)
[2020-08-04] MEDS ORDERED: METHADONE HCL 10 MG TABLET (FOR DETOX USE ONLY) PO ONE (10:49)
[2020-08-04] MEDS ORDERED: ONDANSETRON *ODT* 4 MG TABLET SL PRN (10:49)
[2020-08-04] MEDS ORDERED: IBUPROFEN 400 MG TABLET (FP) PO PRN (10:49)
[2020-08-04] MEDS ORDERED: MAG HYDROX/AL HYDROX/SIMETH 30 ML UNIT-DOSE CUP PO PRN (10:49)
[2020-08-04] MEDS ORDERED: NICOTINE POLACRILEX 2 MG GUM BUC PRN (10:49)
[2020-08-04] MEDS ORDERED: MENTHOL/PHENOL 1 EACH UD MM PRN (10:49)
[2020-08-04] MEDS ORDERED: hydrOXYzine PAMOATE 25 MG CAPSULE (FP) PO SCH (14:00)
[2020-08-04 14:30] LABS: HEMATOCRIT 38.4 % (35.4-49); HEMOGLOBIN 12.8 GM/dL (11.7-16.9); MCH 33.2 pg (25.7-33.7); MCHC 33.3 g/dl (32.0-35.9); MEAN CELL VOLUME 99.7 fl (80-96); MEAN PLT VOLUME 10.1 fl (7.5-11.1); PLATELET COUNT 286 K/MM3 (134-434); RBC 3.85 M/mm3 (4.00-5.60); RDW 14.7 % (11.9-15.9); WHITE BLOOD COUNT 5.9 K/mm3 (4.0-10.0)
[2020-08-04 14:31] LABS: POTASSIUM 3.7 mmol/L (3.5-5.1)
[2020-08-04 14:38] LABS: CALCIUM 9.2 mg/dL (8.5-10.1)
[2020-08-04 14:39] LABS: ALBUMIN 3.8 g/dl (3.4-5.0); BLOOD UREA NITROGEN 15.8 mg/dL (7-18)
[2020-08-04 14:43] LABS: CREATININE 1.1 mg/dL (0.55-1.3)
[2020-08-04 14:45] LABS: BILIRUBIN,TOTAL 0.5 mg/dL (0.2-1); TOT PROT 7.1 g/dl (6.4-8.2)
[2020-08-04] MEDS: QUEtiapine FUMARATE 50 MG TABLET PO SCH (15:24)
[2020-08-04] MEDS: chlordiazePOXIDE HCL 25 MG CAPSULE PO SCH ×2 (17:41→22:25)
[2020-08-04] MEDS: QUEtiapine FUMARATE 100 MG TABLET (FP) PO SCH (22:25)
[2020-08-04] MEDS: MIRTAZAPINE 15 MG TABLET (FP) PO SCH (22:25)
[2020-08-04] MEDS: THIAMINE HCL 100 MG TABLET (FP) PO SCH (22:25)
[2020-08-04] MEDS: MELATONIN 5 MG TABLETS PO SCH (22:26)
[2020-08-05] MEDS: hydrOXYzine PAMOATE 25 MG CAPSULE (FP) PO PRN ×2 (02:05→22:27)
[2020-08-05] MEDS: chlordiazePOXIDE HCL 25 MG CAPSULE PO SCH ×4 (05:31→22:27)
[2020-08-05] MEDS ORDERED: METHADONE HCL 5 MG TABLET (FOR DETOX USE ONLY) ONE (09:03)
[2020-08-05] MEDS ORDERED: METHADONE HCL 10 MG TABLET (FOR DETOX USE ONLY) ONE (09:03)
[2020-08-05] MEDS ORDERED: METHADONE (DETOX) 20 MG, METHADONE (DETOX) 5 MG PO ONE (10:00)
[2020-08-05] MEDS: QUEtiapine FUMARATE 50 MG TABLET PO SCH (10:56)
[2020-08-05] MEDS: PRENATAL VITAMINS W/ FOLIC ACID TABLET (FP) PO SCH (10:59)
[2020-08-05] MEDS: NICOTINE 7 MG/24 HOURS TOPICAL PATCH TD SCH (10:59)
[2020-08-05] MEDS: BICTEGRAV/EMTRICIT/TENOFOV (BIKTARVY) 50-200-25 MG TABLET PO SCH (10:59)
[2020-08-05] MEDS: MELATONIN 5 MG TABLETS PO SCH (22:26)
[2020-08-05] MEDS: THIAMINE HCL 100 MG TABLET (FP) PO SCH (22:26)
[2020-08-05] MEDS: QUEtiapine FUMARATE 100 MG TABLET (FP) PO SCH (22:27)
[2020-08-05] MEDS: MIRTAZAPINE 15 MG TABLET (FP) PO SCH (22:27)
[2020-08-06] MEDS: chlordiazePOXIDE HCL 25 MG CAPSULE PO SCH ×4 (07:09→21:59)
[2020-08-06] MEDS ORDERED: METHADONE HCL 10 MG TABLET (FOR DETOX USE ONLY) PO ONE (10:00)
[2020-08-06] MEDS: QUEtiapine FUMARATE 50 MG TABLET PO SCH (10:39)
[2020-08-06] MEDS: NICOTINE 7 MG/24 HOURS TOPICAL PATCH TD SCH (10:40)
[2020-08-06] MEDS: PRENATAL VITAMINS W/ FOLIC ACID TABLET (FP) PO SCH (10:40)
[2020-08-06] MEDS: BICTEGRAV/EMTRICIT/TENOFOV (BIKTARVY) 50-200-25 MG TABLET PO SCH (10:41)
[2020-08-06] MEDS: hydrOXYzine PAMOATE 25 MG CAPSULE (FP) PO PRN (20:23)
[2020-08-06] MEDS: MIRTAZAPINE 15 MG TABLET (FP) PO SCH (21:59)
[2020-08-06] MEDS: THIAMINE HCL 100 MG TABLET (FP) PO SCH (21:59)
[2020-08-06] MEDS: MELATONIN 5 MG TABLETS PO SCH (21:59)
[2020-08-06] MEDS: QUEtiapine FUMARATE 100 MG TABLET (FP) PO SCH (21:59)
[2020-08-07] MEDS ORDERED: chlordiazePOXIDE HCL 10 MG CAPSULE PO PRN
[2020-08-07] MEDS: chlordiazePOXIDE HCL 10 MG CAPSULE PO SCH ×4 (05:51→22:33)
[2020-08-07] MEDS ORDERED: METHADONE (DETOX) 10 MG, METHADONE (DETOX) 5 MG PO ONE (10:00)
[2020-08-07] MEDS: BICTEGRAV/EMTRICIT/TENOFOV (BIKTARVY) 50-200-25 MG TABLET PO SCH (10:08)
[2020-08-07] MEDS: NICOTINE 7 MG/24 HOURS TOPICAL PATCH TD SCH (10:08)
[2020-08-07] MEDS: PRENATAL VITAMINS W/ FOLIC ACID TABLET (FP) PO SCH (10:08)
[2020-08-07] MEDS: QUEtiapine FUMARATE 50 MG TABLET PO SCH (10:08)
[2020-08-07] MEDS ORDERED: METHADONE HCL 10 MG TABLET (FOR DETOX USE ONLY) ONE (10:09)
[2020-08-07] MEDS ORDERED: METHADONE HCL 5 MG TABLET (FOR DETOX USE ONLY) ONE (10:09)
[2020-08-07] MEDS: THIAMINE HCL 100 MG TABLET (FP) PO SCH (22:32)
[2020-08-07] MEDS: MIRTAZAPINE 15 MG TABLET (FP) PO SCH (22:32)
[2020-08-07] MEDS: QUEtiapine FUMARATE 100 MG TABLET (FP) PO SCH (22:32)
[2020-08-07] MEDS: MELATONIN 5 MG TABLETS PO SCH (23:32)
[2020-08-08] MEDS: chlordiazePOXIDE HCL 10 MG CAPSULE PO SCH ×2 (05:53→17:42)
[2020-08-08] MEDS: BICTEGRAV/EMTRICIT/TENOFOV (BIKTARVY) 50-200-25 MG TABLET PO SCH (09:28)
[2020-08-08] MEDS: PRENATAL VITAMINS W/ FOLIC ACID TABLET (FP) PO SCH (09:28)
[2020-08-08] MEDS: QUEtiapine FUMARATE 50 MG TABLET PO SCH (09:29)
[2020-08-08] MEDS: NICOTINE 7 MG/24 HOURS TOPICAL PATCH TD SCH (09:29)
[2020-08-08] MEDS ORDERED: METHADONE HCL 10 MG TABLET (FOR DETOX USE ONLY) PO ONE (10:00)
[2020-08-08] MEDS ORDERED: MASKS NR ONE (15:40)
[2020-08-08] MEDS: hydrOXYzine PAMOATE 25 MG CAPSULE (FP) PO PRN (22:24)
[2020-08-08] MEDS: THIAMINE HCL 100 MG TABLET (FP) PO SCH (22:24)
[2020-08-08] MEDS: MELATONIN 5 MG TABLETS PO SCH (22:25)
[2020-08-08] MEDS: QUEtiapine FUMARATE 100 MG TABLET (FP) PO SCH (22:25)
[2020-08-08] MEDS: MIRTAZAPINE 15 MG TABLET (FP) PO SCH (22:25)
[2020-08-09] MEDS ORDERED: chlordiazePOXIDE HCL 10 MG CAPSULE PO ONE (05:00)
[2020-08-09] MEDS ORDERED: METHADONE HCL 5 MG TABLET (FOR DETOX USE ONLY) PO ONE (06:00)
[2020-08-09 09:53] VITALS: BP 142/86; PULSE 86; TEMP 98.1
== END 2020-08-09 09:50 | disposition home or self-care (01) | DRG 773 ==
LOC: YASAS 08:58 → Y6N 10:01
PROVIDERS: ADMIT Allergy & Immunology; ATTEND Allergy & Immunology
PROC: HZ2ZZZZ Detoxification Services for Substance Abuse Treatment (ICD-10-PCS; principal; 2020-08-04)
DX: F10.230 Alcohol dependence with withdrawal, uncomplicated (principal); F11.23 Opioid dependence with withdrawal; F14.20 Cocaine dependence, uncomplicated; F13.20 Sedative, hypnotic or anxiolytic dependence, uncomplicated; F17.210 Nicotine dependence, cigarettes, uncomplicated; F19.282 Other psychoactive substance dependence with psychoactive substance-induced sleep disorder; F19.24 Other psychoactive substance dependence with psychoactive substance-induced mood disorder; F31.9 Bipolar disorder, unspecified; Z21 Asymptomatic human immunodeficiency virus [HIV] infection status; G47.00 Insomnia, unspecified; B18.2 Chronic viral hepatitis C; H55.00 Unspecified nystagmus; Z88.8 Allergy status to other drugs, medicaments and biological substances; Z51.81 Encounter for therapeutic drug level monitoring; Z79.899 Other long term (current) drug therapy; Z56.0 Unemployment, unspecified; Z59.0 Homelessness
CPT/HCPCS: 36415; 80053; 85027; 86780; C9803; U0003

== ENCOUNTER 2020-09-11 09:58 | Inpatient (IN) | payer OTHER ==
[2020-09-11 10:29] VITALS: BMI 25.4
[2020-09-11] MEDS ORDERED: NICOTINE POLACRILEX 2 MG GUM BUC PRN (11:00)
[2020-09-11] MEDS ORDERED: cloNIDine HCL 0.1 MG TABLET PO PRN (11:00)
[2020-09-11] MEDS ORDERED: MENTHOL/PHENOL 1 EACH UD MM PRN (11:00)
[2020-09-11] MEDS ORDERED: MAG HYDROX/AL HYDROX/SIMETH 30 ML UNIT-DOSE CUP PO PRN (11:00)
[2020-09-11] MEDS ORDERED: MAGNESIUM CITRATE 300 ML BOTTLE PO PRN (11:00)
[2020-09-11] MEDS ORDERED: methaDONE HCL 10 MG TABLET (FOR DETOX USE ONLY) PO ONE (11:00)
[2020-09-11] MEDS ORDERED: ONDANSETRON *ODT* 4 MG TABLET SL PRN (11:00)
[2020-09-11] MEDS ORDERED: MAGNESIUM HYDROX 2400MG/30ML ORAL SUSPENSION 30 ML CUP PO PRN (11:00)
[2020-09-11] MEDS ORDERED: ACETAMINOPHEN 325 MG TABLET (FP) PO PRN ×2 (11:00)
[2020-09-11] MEDS ORDERED: IBUPROFEN 400 MG TABLET (FP) PO PRN (11:00)
[2020-09-11] MEDS ORDERED: BISMUTH SUBSALICYLATE 524 MG/30 ML PO PRN (11:00)
[2020-09-11] MEDS ORDERED: chlordiazePOXIDE HCL 25 MG CAPSULE PO PRN (11:00)
[2020-09-11] MEDS: chlordiazePOXIDE HCL 25 MG CAPSULE PO SCH ×3 (11:33→22:13)
[2020-09-11] MEDS: PRENATAL VITAMINS W/ FOLIC ACID TABLET (FP) PO SCH (12:03)
[2020-09-11] MEDS ORDERED: hydrOXYzine PAMOATE 25 MG CAPSULE (FP) PO SCH (14:00)
[2020-09-11 14:50] LABS: HEMATOCRIT 43.8 % (35.4-49); HEMOGLOBIN 14.8 GM/dL (11.7-16.9); MCHC 33.7 g/dl (32.0-35.9); MEAN CELL VOLUME 97.8 fl (80-96); MEAN PLT VOLUME 10.4 fl (7.5-11.1); PLATELET COUNT 255 K/MM3 (134-434); RBC 4.48 M/mm3 (4.00-5.60); RDW 13.9 % (11.9-15.9); WHITE BLOOD COUNT 3.4 K/mm3 (4.0-10.0)
[2020-09-11 14:52] LABS: CALCIUM 9.7 mg/dL (8.5-10.1)
[2020-09-11 14:53] LABS: ALBUMIN 4.2 g/dl (3.4-5.0); BLOOD UREA NITROGEN 8.5 mg/dL (7-18)
[2020-09-11 14:57] LABS: CREATININE 1.1 mg/dL (0.55-1.3)
[2020-09-11 14:58] LABS: BILIRUBIN,TOTAL 0.6 mg/dL (0.2-1); TOT PROT 8.1 g/dl (6.4-8.2)
[2020-09-11] MEDS: MIRTAZAPINE 15 MG TABLET (FP) PO SCH (22:13)
[2020-09-11] MEDS: QUEtiapine FUMARATE 100 MG TABLET (FP) PO SCH (22:13)
[2020-09-11] MEDS: THIAMINE HCL 100 MG TABLET (FP) PO SCH (22:13)
[2020-09-11] MEDS: MELATONIN 5 MG TABLETS PO SCH (22:32)
[2020-09-12] MEDS: chlordiazePOXIDE HCL 25 MG CAPSULE PO SCH ×4 (05:16→22:00)
[2020-09-12] MEDS ORDERED: methaDONE HCL 10 MG TABLET (FOR DETOX USE ONLY) ONE (09:27)
[2020-09-12] MEDS: PRENATAL VITAMINS W/ FOLIC ACID TABLET (FP) PO SCH (10:32)
[2020-09-12] MEDS: QUEtiapine FUMARATE 50 MG TABLET PO SCH (10:32)
[2020-09-12] MEDS: NICOTINE 14 MG/24 HOURS TOPICAL PATCH TD SCH (10:32)
[2020-09-12] MEDS: hydrOXYzine PAMOATE 50 MG CAPSULE (FP) PO PRN ×2 (12:30→19:02)
[2020-09-12] MEDS: BICTEGRAV/EMTRICIT/TENOFOV (BIKTARVY) 50-200-25 MG TABLET PO SCH (12:30)
[2020-09-12] MEDS: THIAMINE HCL 100 MG TABLET (FP) PO SCH (22:00)
[2020-09-12] MEDS: QUEtiapine FUMARATE 100 MG TABLET (FP) PO SCH (22:00)
[2020-09-12] MEDS: MIRTAZAPINE 15 MG TABLET (FP) PO SCH (22:00)
[2020-09-12] MEDS: MELATONIN 5 MG TABLETS PO SCH (22:03)
[2020-09-13] MEDS: chlordiazePOXIDE HCL 25 MG CAPSULE PO SCH ×4 (05:40→22:06)
[2020-09-13] MEDS ORDERED: methaDONE HCL 10 MG TABLET (FOR DETOX USE ONLY) PO ONE (10:00)
[2020-09-13] MEDS: PRENATAL VITAMINS W/ FOLIC ACID TABLET (FP) PO SCH (10:26)
[2020-09-13] MEDS: NICOTINE 14 MG/24 HOURS TOPICAL PATCH TD SCH (10:26)
[2020-09-13] MEDS: BICTEGRAV/EMTRICIT/TENOFOV (BIKTARVY) 50-200-25 MG TABLET PO SCH (10:26)
[2020-09-13] MEDS: QUEtiapine FUMARATE 50 MG TABLET PO SCH (10:26)
[2020-09-13] MEDS: hydrOXYzine PAMOATE 50 MG CAPSULE (FP) PO PRN ×2 (11:46→17:39)
[2020-09-13] MEDS: MIRTAZAPINE 15 MG TABLET (FP) PO SCH (22:06)
[2020-09-13] MEDS: MELATONIN 5 MG TABLETS PO SCH (22:06)
[2020-09-13] MEDS: THIAMINE HCL 100 MG TABLET (FP) PO SCH (22:06)
[2020-09-13] MEDS: QUEtiapine FUMARATE 100 MG TABLET (FP) PO SCH (22:06)
[2020-09-14] MEDS ORDERED: chlordiazePOXIDE HCL 10 MG CAPSULE PO PRN
[2020-09-14] MEDS: chlordiazePOXIDE HCL 10 MG CAPSULE PO SCH ×4 (05:34→22:06)
[2020-09-14] MEDS ORDERED: methaDONE HCL 10 MG TABLET (FOR DETOX USE ONLY) ONE (09:18)
[2020-09-14] MEDS: QUEtiapine FUMARATE 50 MG TABLET PO SCH (10:10)
[2020-09-14] MEDS: BICTEGRAV/EMTRICIT/TENOFOV (BIKTARVY) 50-200-25 MG TABLET PO SCH (10:10)
[2020-09-14] MEDS: NICOTINE 14 MG/24 HOURS TOPICAL PATCH TD SCH (10:12)
[2020-09-14] MEDS: PRENATAL VITAMINS W/ FOLIC ACID TABLET (FP) PO SCH (10:12)
[2020-09-14] MEDS: hydrOXYzine PAMOATE 50 MG CAPSULE (FP) PO PRN ×3 (11:10→21:36)
[2020-09-14] MEDS: METHOCARBAMOL 500 MG TABLET PO PRN ×2 (11:10→16:10)
[2020-09-14] MEDS: MIRTAZAPINE 15 MG TABLET (FP) PO SCH (21:36)
[2020-09-14] MEDS: QUEtiapine FUMARATE 100 MG TABLET (FP) PO SCH (21:36)
[2020-09-14] MEDS: MELATONIN 5 MG TABLETS PO SCH (21:54)
[2020-09-14] MEDS: THIAMINE HCL 100 MG TABLET (FP) PO SCH (21:54)
[2020-09-15] MEDS ORDERED: chlordiazePOXIDE HCL 10 MG CAPSULE PO SCH (05:00)
[2020-09-15 06:09] VITALS: TEMP 97.3
[2020-09-15] MEDS ORDERED: methaDONE HCL 10 MG TABLET (FOR DETOX USE ONLY) PO ONE (10:00)
[2020-09-15] MEDS: PRENATAL VITAMINS W/ FOLIC ACID TABLET (FP) PO SCH (10:25)
[2020-09-15] MEDS: BICTEGRAV/EMTRICIT/TENOFOV (BIKTARVY) 50-200-25 MG TABLET PO SCH (10:25)
[2020-09-15] MEDS: NICOTINE 14 MG/24 HOURS TOPICAL PATCH TD SCH (10:25)
[2020-09-15] MEDS: QUEtiapine FUMARATE 50 MG TABLET PO SCH (10:25)
[2020-09-15 10:57] VITALS: BP 125/82; PULSE 80
[2020-09-16] MEDS ORDERED: chlordiazePOXIDE HCL 10 MG CAPSULE PO ONE (05:00)
== END 2020-09-15 12:48 | disposition home or self-care (01) | DRG 773 ==
LOC: YASAS 09:58 → Y6N 10:56
PROVIDERS: ADMIT Allergy & Immunology; ATTEND Allergy & Immunology
PROC: HZ2ZZZZ Detoxification Services for Substance Abuse Treatment (ICD-10-PCS; principal; 2020-09-11)
DX: F11.23 Opioid dependence with withdrawal (principal); F10.230 Alcohol dependence with withdrawal, uncomplicated; F14.20 Cocaine dependence, uncomplicated; F12.20 Cannabis dependence, uncomplicated; F17.210 Nicotine dependence, cigarettes, uncomplicated; F19.280 Other psychoactive substance dependence with psychoactive substance-induced anxiety disorder; F19.282 Other psychoactive substance dependence with psychoactive substance-induced sleep disorder; F31.9 Bipolar disorder, unspecified; Z21 Asymptomatic human immunodeficiency virus [HIV] infection status; D64.9 Anemia, unspecified; G47.00 Insomnia, unspecified; B18.2 Chronic viral hepatitis C; Z88.8 Allergy status to other drugs, medicaments and biological substances
CPT/HCPCS: 36415; 80053; 82947; 82962; 83036; 85027; 86780; C9803; U0003

== ENCOUNTER 2020-10-25 08:26 | Inpatient (IN) | payer OTHER ==
[2020-10-25 09:48] VITALS: BMI 25.9
[2020-10-25] MEDS ORDERED: MENTHOL/PHENOL 1 EACH UD MM PRN (10:43)
[2020-10-25] MEDS ORDERED: MAGNESIUM CITRATE 300 ML BOTTLE PO PRN (10:43)
[2020-10-25] MEDS ORDERED: MAG HYDROX/AL HYDROX/SIMETH 30 ML UNIT-DOSE CUP PO PRN (10:43)
[2020-10-25] MEDS ORDERED: ONDANSETRON *ODT* 4 MG TABLET SL PRN (10:43)
[2020-10-25] MEDS ORDERED: ACETAMINOPHEN 325 MG TABLET (FP) PO PRN ×2 (10:43)
[2020-10-25] MEDS ORDERED: chlordiazePOXIDE HCL 25 MG CAPSULE PO PRN (10:43)
[2020-10-25] MEDS ORDERED: IBUPROFEN 400 MG TABLET (FP) PO PRN (10:43)
[2020-10-25] MEDS ORDERED: BISMUTH SUBSALICYLATE 262 MG/15 ML BTL PO PRN (10:43)
[2020-10-25] MEDS ORDERED: NICOTINE POLACRILEX 2 MG GUM BUC PRN (10:43)
[2020-10-25] MEDS ORDERED: MAGNESIUM HYDROX 2400MG/30ML ORAL SUSPENSION 30 ML CUP PO PRN (10:43)
[2020-10-25] MEDS ORDERED: NALOXONE (NARCAN) HCL 4 MG/0.1 ML SPRAY NS SCH (10:45)
[2020-10-25] MEDS ORDERED: NALOXONE (NARCAN) HCL 4 MG/0.1 ML SPRAY NS ONE (11:36)
[2020-10-25] MEDS: METHOCARBAMOL 500 MG TABLET PO PRN (11:41)
[2020-10-25] MEDS: BICTEGRAV/EMTRICIT/TENOFOV (BIKTARVY) 50-200-25 MG TABLET PO SCH (12:01)
[2020-10-25] MEDS: hydrOXYzine PAMOATE 25 MG CAPSULE (FP) PO SCH ×3 (13:02→22:30)
[2020-10-25 13:48] LABS: POTASSIUM 3.7 mmol/L (3.5-5.1)
[2020-10-25 13:51] LABS: HEMATOCRIT 41.2 % (35.4-49); MCH 32.2 pg (25.7-33.7); MCHC 34.1 g/dl (32.0-35.9); MEAN CELL VOLUME 94.4 fl (80-96); PLATELET COUNT 204 K/MM3 (134-434); RBC 4.36 M/mm3 (4.00-5.60); RDW 13.9 % (11.9-15.9); WHITE BLOOD COUNT 5.1 K/mm3 (4.0-10.0)
[2020-10-25 13:53] LABS: BLOOD UREA NITROGEN 17.4 mg/dL (7-18)
[2020-10-25 13:55] LABS: CALCIUM 9.4 mg/dL (8.5-10.1)
[2020-10-25 13:56] LABS: CREATININE 1.1 mg/dL (0.55-1.3)
[2020-10-25 14:01] LABS: BILIRUBIN,TOTAL 0.8 mg/dL (0.2-1); TOT PROT 7.6 g/dl (6.4-8.2)
[2020-10-25] MEDS: chlordiazePOXIDE HCL 25 MG CAPSULE PO SCH ×2 (17:06→22:31)
[2020-10-25] MEDS: THIAMINE HCL 100 MG TABLET (FP) PO SCH (22:30)
[2020-10-25] MEDS: MELATONIN 5 MG TABLETS PO SCH (22:30)
[2020-10-26] MEDS: chlordiazePOXIDE HCL 25 MG CAPSULE PO SCH ×4 (06:07→23:17)
[2020-10-26] MEDS: hydrOXYzine PAMOATE 25 MG CAPSULE (FP) PO SCH ×5 (06:08→23:16)
[2020-10-26] MEDS: PRENATAL VITAMINS W/ FOLIC ACID TABLET (FP) PO SCH (10:23)
[2020-10-26] MEDS: BUPRENORPHINE/NALOXONE 8 MG/2 MG FILM PACKET SL SCH (10:24)
[2020-10-26] MEDS: QUEtiapine FUMARATE 50 MG TABLET PO SCH (10:24)
[2020-10-26] MEDS: BICTEGRAV/EMTRICIT/TENOFOV (BIKTARVY) 50-200-25 MG TABLET PO SCH (13:36)
[2020-10-26] MEDS: QUEtiapine FUMARATE 100 MG TABLET (FP) PO SCH (23:15)
[2020-10-26] MEDS: MIRTAZAPINE 15 MG TABLET (FP) PO SCH (23:15)
[2020-10-26] MEDS: THIAMINE HCL 100 MG TABLET (FP) PO SCH (23:16)
[2020-10-26] MEDS: MELATONIN 5 MG TABLETS PO SCH (23:25)
[2020-10-27] MEDS: chlordiazePOXIDE HCL 25 MG CAPSULE PO SCH ×4 (07:29→22:43)
[2020-10-27] MEDS: hydrOXYzine PAMOATE 25 MG CAPSULE (FP) PO SCH ×5 (07:29→22:48)
[2020-10-27] MEDS: BICTEGRAV/EMTRICIT/TENOFOV (BIKTARVY) 50-200-25 MG TABLET PO SCH (07:31)
[2020-10-27] MEDS: PRENATAL VITAMINS W/ FOLIC ACID TABLET (FP) PO SCH (10:57)
[2020-10-27] MEDS: QUEtiapine FUMARATE 50 MG TABLET PO SCH (10:58)
[2020-10-27] MEDS: BUPRENORPHINE/NALOXONE 8 MG/2 MG FILM PACKET SL SCH (10:59)
[2020-10-27] MEDS: QUEtiapine FUMARATE 100 MG TABLET (FP) PO SCH (22:43)
[2020-10-27] MEDS: MIRTAZAPINE 15 MG TABLET (FP) PO SCH (22:43)
[2020-10-27] MEDS: MELATONIN 5 MG TABLETS PO SCH (22:44)
[2020-10-27] MEDS: THIAMINE HCL 100 MG TABLET (FP) PO SCH (22:48)
[2020-10-28] MEDS ORDERED: chlordiazePOXIDE HCL 10 MG CAPSULE PO PRN
[2020-10-28] MEDS: chlordiazePOXIDE HCL 10 MG CAPSULE PO SCH ×4 (05:38→22:44)
[2020-10-28] MEDS: hydrOXYzine PAMOATE 25 MG CAPSULE (FP) PO SCH ×5 (06:38→22:44)
[2020-10-28] MEDS: BICTEGRAV/EMTRICIT/TENOFOV (BIKTARVY) 50-200-25 MG TABLET PO SCH (08:00)
[2020-10-28] MEDS: QUEtiapine FUMARATE 50 MG TABLET PO SCH (09:42)
[2020-10-28] MEDS: PRENATAL VITAMINS W/ FOLIC ACID TABLET (FP) PO SCH (09:42)
[2020-10-28] MEDS: BUPRENORPHINE/NALOXONE 8 MG/2 MG FILM PACKET SL SCH (09:44)
[2020-10-28] MEDS: THIAMINE HCL 100 MG TABLET (FP) PO SCH (22:44)
[2020-10-28] MEDS: MIRTAZAPINE 15 MG TABLET (FP) PO SCH (22:44)
[2020-10-28] MEDS: QUEtiapine FUMARATE 100 MG TABLET (FP) PO SCH (22:44)
[2020-10-28] MEDS: MELATONIN 5 MG TABLETS PO SCH (22:44)
[2020-10-29] MEDS: chlordiazePOXIDE HCL 10 MG CAPSULE PO SCH ×2 (06:12→18:02)
[2020-10-29] MEDS: hydrOXYzine PAMOATE 25 MG CAPSULE (FP) PO SCH ×5 (06:12→22:41)
[2020-10-29] MEDS: PRENATAL VITAMINS W/ FOLIC ACID TABLET (FP) PO SCH (10:34)
[2020-10-29] MEDS: METHOCARBAMOL 500 MG TABLET PO PRN (10:34)
[2020-10-29] MEDS: QUEtiapine FUMARATE 50 MG TABLET PO SCH (10:34)
[2020-10-29] MEDS: BICTEGRAV/EMTRICIT/TENOFOV (BIKTARVY) 50-200-25 MG TABLET PO SCH (10:34)
[2020-10-29] MEDS: BUPRENORPHINE/NALOXONE 8 MG/2 MG FILM PACKET SL SCH (10:34)
[2020-10-29] MEDS: THIAMINE HCL 100 MG TABLET (FP) PO SCH (22:41)
[2020-10-29] MEDS: QUEtiapine FUMARATE 100 MG TABLET (FP) PO SCH (22:41)
[2020-10-29] MEDS: MIRTAZAPINE 15 MG TABLET (FP) PO SCH (22:41)
[2020-10-29] MEDS: MELATONIN 5 MG TABLETS PO SCH (22:41)
[2020-10-30] MEDS ORDERED: chlordiazePOXIDE HCL 10 MG CAPSULE PO ONE (05:00)
[2020-10-30] MEDS: hydrOXYzine PAMOATE 25 MG CAPSULE (FP) PO SCH ×3 (06:33→10:14)
[2020-10-30] MEDS: BICTEGRAV/EMTRICIT/TENOFOV (BIKTARVY) 50-200-25 MG TABLET PO SCH (07:39)
[2020-10-30] MEDS: BUPRENORPHINE/NALOXONE 8 MG/2 MG FILM PACKET SL SCH (10:14)
[2020-10-30] MEDS: PRENATAL VITAMINS W/ FOLIC ACID TABLET (FP) PO SCH (10:14)
[2020-10-30] MEDS: QUEtiapine FUMARATE 50 MG TABLET PO SCH (10:14)
[2020-10-30 11:19] VITALS: BP 117/81; PULSE 74; TEMP 98.1
== END 2020-10-30 12:45 | disposition left against medical advice (07) | DRG 770 ==
LOC: YASAS 08:26 → Y6N 10:24
PROVIDERS: ADMIT Allergy & Immunology; ATTEND Allergy & Immunology
PROC: HZ2ZZZZ Detoxification Services for Substance Abuse Treatment (ICD-10-PCS; principal; 2020-10-25)
DX: F10.230 Alcohol dependence with withdrawal, uncomplicated (principal); F11.20 Opioid dependence, uncomplicated; F14.20 Cocaine dependence, uncomplicated; F12.20 Cannabis dependence, uncomplicated; F17.210 Nicotine dependence, cigarettes, uncomplicated; U07.1 COVID-19; Z21 Asymptomatic human immunodeficiency virus [HIV] infection status; D64.9 Anemia, unspecified; B18.2 Chronic viral hepatitis C; Z51.81 Encounter for therapeutic drug level monitoring; Z79.899 Other long term (current) drug therapy; Z88.8 Allergy status to other drugs, medicaments and biological substances
CPT/HCPCS: 36415; 80053; 82962; 85027; 86780; C9803; U0003

== ENCOUNTER 2021-02-09 08:58 | Inpatient (IN) | payer OTHER ==
[2021-02-09 10:31] VITALS: BMI 25.8
[2021-02-09] MEDS ORDERED: BISMUTH SUBSALICYLATE 262 MG/15 ML BTL PO PRN (11:52)
[2021-02-09] MEDS ORDERED: IBUPROFEN 400 MG TABLET (FP) PO PRN (11:52)
[2021-02-09] MEDS ORDERED: ONDANSETRON *ODT* 4 MG TABLET SL PRN (11:52)
[2021-02-09] MEDS ORDERED: MAGNESIUM HYDROX 2400MG/30ML ORAL SUSPENSION 30 ML CUP PO PRN (11:52)
[2021-02-09] MEDS ORDERED: NICOTINE POLACRILEX 2 MG GUM BUC PRN (11:52)
[2021-02-09] MEDS ORDERED: MENTHOL/PHENOL 1 EACH UD MM PRN (11:52)
[2021-02-09] MEDS ORDERED: MAGNESIUM CITRATE 300 ML BOTTLE PO PRN (11:52)
[2021-02-09] MEDS ORDERED: MAG HYDROX/AL HYDROX/SIMETH 30 ML UNIT-DOSE CUP PO PRN (11:52)
[2021-02-09] MEDS ORDERED: cloNIDine HCL 0.1 MG TABLET PO PRN (11:52)
[2021-02-09] MEDS ORDERED: ACETAMINOPHEN 325 MG TABLET (FP) PO PRN ×2 (11:52)
[2021-02-09] MEDS ORDERED: METHADONE HCL 10 MG TABLET (FOR DETOX USE ONLY) PO ONE (11:52)
[2021-02-09] MEDS: hydrOXYzine PAMOATE 25 MG CAPSULE (FP) PO SCH ×3 (13:40→22:39)
[2021-02-09] MEDS: PRENATAL VITAMINS W/ FOLIC ACID TABLET (FP) PO SCH (13:40)
[2021-02-09] MEDS: NICOTINE 14 MG/24 HOURS TOPICAL PATCH TD SCH (13:41)
[2021-02-09 14:54] LABS: HEMATOCRIT 39.7 % (35.4-49); HEMOGLOBIN 13.5 GM/dL (11.7-16.9); MCH 31.6 pg (25.7-33.7); MCHC 33.9 g/dl (32.0-35.9); MEAN CELL VOLUME 93.2 fl (80-96); MEAN PLT VOLUME 11.1 fl (7.5-11.1); PLATELET COUNT 237 K/MM3 (134-434); RBC 4.26 M/mm3 (4.00-5.60); RDW 14.3 % (11.9-15.9); WHITE BLOOD COUNT 5.1 K/mm3 (4.0-10.0)
[2021-02-09 14:55] LABS: CALCIUM 9.2 mg/dL (8.5-10.1)
[2021-02-09 14:56] LABS: ALBUMIN 3.6 g/dl (3.4-5.0); BLOOD UREA NITROGEN 13.4 mg/dL (7-18)
[2021-02-09 15:01] LABS: BILIRUBIN,TOTAL 0.3 mg/dL (0.2-1); TOT PROT 7.8 g/dl (6.4-8.2)
[2021-02-09] MEDS: MIRTAZAPINE 15 MG TABLET (FP) PO SCH (22:39)
[2021-02-09] MEDS: THIAMINE HCL 100 MG TABLET (FP) PO SCH (22:39)
[2021-02-09] MEDS: MELATONIN 5 MG TABLETS PO SCH (22:39)
[2021-02-09] MEDS: QUEtiapine FUMARATE 100 MG TABLET (FP) PO SCH (22:39)
[2021-02-10] MEDS: hydrOXYzine PAMOATE 25 MG CAPSULE (FP) PO SCH ×5 (06:12→22:08)
[2021-02-10] MEDS ORDERED: METHADONE HCL 5 MG TABLET (FOR DETOX USE ONLY) ONE (09:09)
[2021-02-10] MEDS ORDERED: METHADONE HCL 10 MG TABLET (FOR DETOX USE ONLY) ONE (09:09)
[2021-02-10] MEDS ORDERED: METHADONE (DETOX) 20 MG, METHADONE (DETOX) 5 MG PO ONE (10:00)
[2021-02-10] MEDS: NICOTINE 14 MG/24 HOURS TOPICAL PATCH TD SCH (10:27)
[2021-02-10] MEDS: BICTEGRAV/EMTRICIT/TENOFOV (BIKTARVY) 50-200-25 MG TABLET PO SCH (10:27)
[2021-02-10] MEDS: PRENATAL VITAMINS W/ FOLIC ACID TABLET (FP) PO SCH (10:27)
[2021-02-10] MEDS: QUEtiapine FUMARATE 50 MG TABLET PO SCH (10:27)
[2021-02-10] MEDS: QUEtiapine FUMARATE 100 MG TABLET (FP) PO SCH (22:08)
[2021-02-10] MEDS: MELATONIN 5 MG TABLETS PO SCH (22:08)
[2021-02-10] MEDS: THIAMINE HCL 100 MG TABLET (FP) PO SCH (22:08)
[2021-02-10] MEDS: MIRTAZAPINE 15 MG TABLET (FP) PO SCH (22:09)
[2021-02-11] MEDS: hydrOXYzine PAMOATE 25 MG CAPSULE (FP) PO SCH ×5 (05:38→22:17)
[2021-02-11] MEDS: BICTEGRAV/EMTRICIT/TENOFOV (BIKTARVY) 50-200-25 MG TABLET PO SCH (08:09)
[2021-02-11] MEDS ORDERED: METHADONE HCL 10 MG TABLET (FOR DETOX USE ONLY) PO ONE (10:00)
[2021-02-11] MEDS: PRENATAL VITAMINS W/ FOLIC ACID TABLET (FP) PO SCH (10:07)
[2021-02-11] MEDS: QUEtiapine FUMARATE 50 MG TABLET PO SCH (10:07)
[2021-02-11] MEDS: NICOTINE 14 MG/24 HOURS TOPICAL PATCH TD SCH (10:09)
[2021-02-11] MEDS: METHOCARBAMOL 500 MG TABLET PO PRN ×2 (11:19→17:28)
[2021-02-11] MEDS: QUEtiapine FUMARATE 100 MG TABLET (FP) PO SCH (22:17)
[2021-02-11] MEDS: MELATONIN 5 MG TABLETS PO SCH (22:17)
[2021-02-11] MEDS: MIRTAZAPINE 15 MG TABLET (FP) PO SCH (22:17)
[2021-02-11] MEDS: THIAMINE HCL 100 MG TABLET (FP) PO SCH (22:17)
[2021-02-12] MEDS: hydrOXYzine PAMOATE 25 MG CAPSULE (FP) PO SCH ×5 (06:31→21:30)
[2021-02-12] MEDS ORDERED: METHADONE HCL 5 MG TABLET (FOR DETOX USE ONLY) ONE (08:28)
[2021-02-12] MEDS ORDERED: METHADONE HCL 10 MG TABLET (FOR DETOX USE ONLY) ONE (08:28)
[2021-02-12] MEDS ORDERED: METHADONE (DETOX) 10 MG, METHADONE (DETOX) 5 MG PO ONE (10:00)
[2021-02-12] MEDS: BICTEGRAV/EMTRICIT/TENOFOV (BIKTARVY) 50-200-25 MG TABLET PO SCH (10:20)
[2021-02-12] MEDS: PRENATAL VITAMINS W/ FOLIC ACID TABLET (FP) PO SCH (10:20)
[2021-02-12] MEDS: NICOTINE 14 MG/24 HOURS TOPICAL PATCH TD SCH (10:21)
[2021-02-12] MEDS: QUEtiapine FUMARATE 50 MG TABLET PO SCH (10:21)
[2021-02-12] MEDS: METHOCARBAMOL 500 MG TABLET PO PRN (10:23)
[2021-02-12] MEDS: MIRTAZAPINE 15 MG TABLET (FP) PO SCH (21:30)
[2021-02-12] MEDS: MELATONIN 5 MG TABLETS PO SCH (21:30)
[2021-02-12] MEDS: QUEtiapine FUMARATE 100 MG TABLET (FP) PO SCH (21:30)
[2021-02-12] MEDS: THIAMINE HCL 100 MG TABLET (FP) PO SCH (21:30)
[2021-02-13] MEDS: hydrOXYzine PAMOATE 25 MG CAPSULE (FP) PO SCH ×5 (06:33→22:18)
[2021-02-13] MEDS: BICTEGRAV/EMTRICIT/TENOFOV (BIKTARVY) 50-200-25 MG TABLET PO SCH (08:09)
[2021-02-13] MEDS: NICOTINE 14 MG/24 HOURS TOPICAL PATCH TD SCH (09:50)
[2021-02-13] MEDS: QUEtiapine FUMARATE 50 MG TABLET PO SCH (09:51)
[2021-02-13] MEDS: PRENATAL VITAMINS W/ FOLIC ACID TABLET (FP) PO SCH (09:51)
[2021-02-13] MEDS ORDERED: METHADONE HCL 10 MG TABLET (FOR DETOX USE ONLY) PO ONE (10:00)
[2021-02-13] MEDS ORDERED: diazePAM 5 MG TABLET PO ONE ×2 (10:17→22:00)
[2021-02-13 14:07] LABS: SARS-CoV-2 NAA Not Detected (Not Detected)
[2021-02-13] MEDS: QUEtiapine FUMARATE 100 MG TABLET (FP) PO SCH (22:00)
[2021-02-13] MEDS: MELATONIN 5 MG TABLETS PO SCH (22:00)
[2021-02-13] MEDS: THIAMINE HCL 100 MG TABLET (FP) PO SCH (22:00)
[2021-02-13] MEDS: MIRTAZAPINE 15 MG TABLET (FP) PO SCH (22:00)
[2021-02-14] MEDS ORDERED: diazePAM 5 MG TABLET PO ONE (05:00)
[2021-02-14] MEDS: hydrOXYzine PAMOATE 25 MG CAPSULE (FP) PO SCH (05:22)
[2021-02-14] MEDS ORDERED: METHADONE HCL 5 MG TABLET (FOR DETOX USE ONLY) PO ONE (06:00)
[2021-02-14 09:33] VITALS: BP 116/73; PULSE 75; TEMP 96.6
== END 2021-02-14 09:59 | disposition home or self-care (01) | DRG 773 ==
LOC: YASAS 08:58 → Y3N 11:59
PROVIDERS: ADMIT Allergy & Immunology; ATTEND Allergy & Immunology
PROC: HZ2ZZZZ Detoxification Services for Substance Abuse Treatment (ICD-10-PCS; principal; 2021-02-09)
DX: F10.230 Alcohol dependence with withdrawal, uncomplicated (principal); F11.23 Opioid dependence with withdrawal; F14.20 Cocaine dependence, uncomplicated; F13.20 Sedative, hypnotic or anxiolytic dependence, uncomplicated; F12.20 Cannabis dependence, uncomplicated; F17.210 Nicotine dependence, cigarettes, uncomplicated; F19.282 Other psychoactive substance dependence with psychoactive substance-induced sleep disorder; F19.280 Other psychoactive substance dependence with psychoactive substance-induced anxiety disorder; F19.24 Other psychoactive substance dependence with psychoactive substance-induced mood disorder; F31.9 Bipolar disorder, unspecified; Z21 Asymptomatic human immunodeficiency virus [HIV] infection status; B18.2 Chronic viral hepatitis C; Z86.16 Personal history of COVID-19; Z88.8 Allergy status to other drugs, medicaments and biological substances
CPT/HCPCS: 36415; 80053; 85027; 86780; C9803; U0003; U0005

== ENCOUNTER 2021-03-10 18:12 | Inpatient (IN) | payer OTHER ==
[2021-03-10 19:09] VITALS: BMI 25.8
[2021-03-10] MEDS ORDERED: MENTHOL/PHENOL 1 EACH UD MM PRN (20:55)
[2021-03-10] MEDS ORDERED: ACETAMINOPHEN 325 MG TABLET (FP) PO PRN ×2 (20:55)
[2021-03-10] MEDS ORDERED: MAGNESIUM HYDROX 2400MG/30ML ORAL SUSPENSION 30 ML CUP PO PRN (20:55)
[2021-03-10] MEDS ORDERED: NALOXONE HCL 0.4 MG/ML VIAL IM PRN (20:55)
[2021-03-10] MEDS ORDERED: IBUPROFEN 400 MG TABLET (FP) PO PRN (20:55)
[2021-03-10] MEDS ORDERED: cloNIDine HCL 0.1 MG TABLET PO PRN (20:55)
[2021-03-10] MEDS ORDERED: P-EPHED 60MG/TRIPROLIDI 2.5MG TABLET PO PRN (20:55)
[2021-03-10] MEDS ORDERED: METHADONE HCL 10 MG TABLET (FOR DETOX USE ONLY) PO ONE (20:55)
[2021-03-10] MEDS ORDERED: MAGNESIUM CITRATE 300 ML BOTTLE PO PRN (20:55)
[2021-03-10] MEDS ORDERED: diazePAM 5 MG TABLET PO PRN (20:55)
[2021-03-10] MEDS ORDERED: ONDANSETRON *ODT* 4 MG TABLET SL PRN (20:55)
[2021-03-10] MEDS ORDERED: BISMUTH SUBSALICYLATE 524 MG/30 ML PO PRN (20:55)
[2021-03-10] MEDS ORDERED: MAG HYDROX/AL HYDROX/SIMETH 30 ML UNIT-DOSE CUP PO PRN (20:55)
[2021-03-10] MEDS ORDERED: NICOTINE POLACRILEX 2 MG GUM BUC PRN (20:55)
[2021-03-10] MEDS ORDERED: DICYCLOMINE HCL 10 MG CAPSULE PO PRN (20:55)
[2021-03-10] MEDS ORDERED: NALOXONE (NARCAN) HCL 4 MG/0.1 ML SPRAY NS PRN (20:55)
[2021-03-10] MEDS ORDERED: METHOCARBAMOL 500 MG TABLET PO PRN (20:55)
[2021-03-10] MEDS ORDERED: guaiFENesin 200 MG/10 ML 10 ML UNIT-DOSE CUPS PO PRN (20:55)
[2021-03-10] MEDS: MELATONIN 5 MG TABLETS PO SCH (21:53)
[2021-03-10] MEDS: THIAMINE HCL 100 MG TABLET (FP) PO SCH (21:53)
[2021-03-10] MEDS: diazePAM 5 MG TABLET PO SCH (22:32)
[2021-03-11] MEDS: diazePAM 5 MG TABLET PO SCH ×4 (05:18→22:11)
[2021-03-11] MEDS ORDERED: METHADONE HCL 5 MG TABLET (FOR DETOX USE ONLY) ONE (09:23)
[2021-03-11] MEDS ORDERED: METHADONE HCL 10 MG TABLET (FOR DETOX USE ONLY) ONE (09:23)
[2021-03-11 09:30] LABS: HEMATOCRIT 37.7 % (35.4-49); HEMOGLOBIN 12.7 GM/dL (11.7-16.9); MCH 30.7 pg (25.7-33.7); MCHC 33.7 g/dl (32.0-35.9); PLATELET COUNT 191 10^3/uL (134-434); RBC 4.14 M/mm3 (4.00-5.60); RDW 14.6 % (11.9-15.9); WHITE BLOOD COUNT 3.9 K/mm3 (4.0-10.0)
[2021-03-11 09:55] LABS: ALBUMIN 3.5 g/dl (3.4-5.0); BLOOD UREA NITROGEN 13.9 mg/dL (7-18); CALCIUM 9.2 mg/dL (8.5-10.1)
[2021-03-11 10:00] LABS: BILIRUBIN,TOTAL 0.7 mg/dL (0.2-1); TOT PROT 7.1 g/dl (6.4-8.2)
[2021-03-11] MEDS ORDERED: METHADONE (DETOX) 20 MG, METHADONE (DETOX) 5 MG PO ONE (10:00)
[2021-03-11] MEDS ORDERED: METHOCARBAMOL 500 MG TABLET PO ONE (10:00)
[2021-03-11] MEDS: QUEtiapine FUMARATE 50 MG TABLET PO SCH (10:26)
[2021-03-11] MEDS: PRENATAL VITAMINS W/ FOLIC ACID TABLET (FP) PO SCH (10:26)
[2021-03-11] MEDS: NICOTINE 21 MG/24 HOURS TOPICAL PATCH TD SCH (10:27)
[2021-03-11] MEDS ORDERED: MIRTAZAPINE 15 MG TABLET (FP) PO SCH (22:00)
[2021-03-11] MEDS ORDERED: QUEtiapine FUMARATE 100 MG TABLET (FP) PO SCH (22:00)
[2021-03-11] MEDS: MELATONIN 5 MG TABLETS PO SCH (22:11)
[2021-03-11] MEDS: THIAMINE HCL 100 MG TABLET (FP) PO SCH (22:11)
[2021-03-12 05:53] VITALS: PULSE 74
[2021-03-12] MEDS ORDERED: diazePAM 5 MG TABLET PO SCH (06:00)
[2021-03-12 09:05] VITALS: BP 114/75; TEMP 98.1
[2021-03-12] MEDS ORDERED: METHADONE HCL 10 MG TABLET (FOR DETOX USE ONLY) PO ONE (10:00)
[2021-03-12] MEDS: NICOTINE 21 MG/24 HOURS TOPICAL PATCH TD SCH (10:07)
[2021-03-12] MEDS: PRENATAL VITAMINS W/ FOLIC ACID TABLET (FP) PO SCH (10:07)
[2021-03-12] MEDS: QUEtiapine FUMARATE 50 MG TABLET PO SCH (10:08)
[2021-03-12] MEDS ORDERED: COVID-19 VAC,AD26(JANSSEN)/PF 0.5 ML IM ONE (12:00)
[2021-03-13] MEDS ORDERED: diazePAM 5 MG TABLET PO SCH (06:00)
[2021-03-13] MEDS ORDERED: METHADONE (DETOX) 10 MG, METHADONE (DETOX) 5 MG PO ONE (10:00)
[2021-03-14] MEDS ORDERED: diazePAM 5 MG TABLET PO ONE (06:00)
[2021-03-14] MEDS ORDERED: METHADONE HCL 10 MG TABLET (FOR DETOX USE ONLY) PO ONE (10:00)
[2021-03-15] MEDS ORDERED: METHADONE HCL 5 MG TABLET (FOR DETOX USE ONLY) PO ONE (06:00)
== END 2021-03-12 11:06 | disposition left against medical advice (07) | DRG 770 ==
LOC: YASAS 18:12 → Y6N 21:02
PROVIDERS: ADMIT Allergy & Immunology; ATTEND Allergy & Immunology
PROC: HZ2ZZZZ Detoxification Services for Substance Abuse Treatment (ICD-10-PCS; principal; 2021-03-10)
DX: F11.23 Opioid dependence with withdrawal (principal); F10.230 Alcohol dependence with withdrawal, uncomplicated; F14.20 Cocaine dependence, uncomplicated; F12.20 Cannabis dependence, uncomplicated; F17.210 Nicotine dependence, cigarettes, uncomplicated; F19.282 Other psychoactive substance dependence with psychoactive substance-induced sleep disorder; F19.280 Other psychoactive substance dependence with psychoactive substance-induced anxiety disorder; F19.24 Other psychoactive substance dependence with psychoactive substance-induced mood disorder; Z21 Asymptomatic human immunodeficiency virus [HIV] infection status; B18.2 Chronic viral hepatitis C; Z91.5 Personal history of self-harm
CPT/HCPCS: 36415; 80053; 85027; 86780; 93005; 93010; C9803; U0003; U0005

== ENCOUNTER 2021-05-30 12:05 | Inpatient (IN) | payer OTHER ==
[2021-05-30 13:48] VITALS: BMI 26.3
[2021-05-30] MEDS ORDERED: MAG HYDROX/AL HYDROX/SIMETH 30 ML UNIT-DOSE CUP PO PRN (13:48)
[2021-05-30] MEDS ORDERED: MENTHOL/PHENOL 1 EACH UD MM PRN (13:48)
[2021-05-30] MEDS ORDERED: cloNIDine HCL 0.1 MG TABLET PO PRN (13:48)
[2021-05-30] MEDS ORDERED: diazePAM 5 MG TABLET PO PRN (13:48)
[2021-05-30] MEDS ORDERED: ONDANSETRON *ODT* 4 MG TABLET SL PRN (13:48)
[2021-05-30] MEDS ORDERED: ACETAMINOPHEN 325 MG TABLET (FP) PO PRN ×2 (13:48)
[2021-05-30] MEDS ORDERED: BISMUTH SUBSALICYLATE 524 MG/30 ML PO PRN (13:48)
[2021-05-30] MEDS ORDERED: MAGNESIUM CITRATE 300 ML BOTTLE PO PRN (13:48)
[2021-05-30] MEDS ORDERED: MAGNESIUM HYDROX 2400MG/30ML ORAL SUSPENSION 30 ML CUP PO PRN (13:48)
[2021-05-30] MEDS ORDERED: IBUPROFEN 400 MG TABLET (FP) PO PRN (13:48)
[2021-05-30] MEDS ORDERED: METHOCARBAMOL 500 MG TABLET PO PRN (13:48)
[2021-05-30] MEDS ORDERED: clonazePAM 0.5 MG ODT TABLETS SL PRN (13:48)
[2021-05-30] MEDS ORDERED: methaDONE HCL 10 MG TABLET (FOR DETOX USE ONLY) PO ONE (14:15)
[2021-05-30] MEDS ORDERED: methaDONE HCL 10 MG TABLET (FOR DETOX USE ONLY) ONE (14:21)
[2021-05-30] MEDS ORDERED: hydrOXYzine PAMOATE 25 MG CAPSULE (FP) PO ONE (14:22)
[2021-05-30] MEDS ORDERED: NICOTINE 14 MG/24 HOURS TOPICAL PATCH TD ONE (14:22)
[2021-05-30] MEDS: hydrOXYzine PAMOATE 25 MG CAPSULE (FP) PO SCH ×3 (14:32→22:42)
[2021-05-30] MEDS: NICOTINE 14 MG/24 HOURS TOPICAL PATCH TD SCH (14:34)
[2021-05-30] MEDS: PRENATAL VITAMINS W/ FOLIC ACID TABLET (FP) PO SCH (14:34)
[2021-05-30] MEDS ORDERED: diazePAM 5 MG TABLET ONE (15:46)
[2021-05-30] MEDS ORDERED: diazePAM 5 MG TABLET PO ONE (16:00)
[2021-05-30 17:16] LABS: HEMATOCRIT 39.8 % (35.4-49); HEMOGLOBIN 13.5 GM/dL (11.7-16.9); MCH 31.4 pg (25.7-33.7); MEAN CELL VOLUME 92.4 fl (80-96); MEAN PLT VOLUME 8.8 fl (7.5-11.1); PLATELET COUNT 297 10^3/uL (134-434); RBC 4.31 M/mm3 (4.00-5.60); RDW 14.3 % (11.9-15.9); WHITE BLOOD COUNT 5.1 K/mm3 (4.0-10.0)
[2021-05-30 17:19] LABS: ALBUMIN 3.6 g/dl (3.4-5.0); BLOOD UREA NITROGEN 13.5 mg/dL (7-18); CALCIUM 9.3 mg/dL (8.5-10.1)
[2021-05-30 17:22] LABS: CREATININE 1.3 mg/dL (0.55-1.3)
[2021-05-30 17:24] LABS: BILIRUBIN,TOTAL 0.3 mg/dL (0.2-1); TOT PROT 8.6 g/dl (6.4-8.2)
[2021-05-30] MEDS: diazePAM 5 MG TABLET PO SCH ×2 (17:51→22:41)
[2021-05-30] MEDS ORDERED: MIRTAZAPINE 15 MG TABLET (FP) PO SCH (22:00)
[2021-05-30] MEDS: MIRTAZAPINE 15 MG TABLET (FP) PO SCH (22:40)
[2021-05-30] MEDS: MELATONIN 5 MG TABLETS PO SCH (22:40)
[2021-05-30] MEDS: THIAMINE HCL 100 MG TABLET (FP) PO SCH (22:40)
[2021-05-30] MEDS: QUEtiapine FUMARATE 100 MG TABLET (FP) PO SCH (22:41)
[2021-05-31] MEDS: hydrOXYzine PAMOATE 25 MG CAPSULE (FP) PO SCH ×5 (05:41→22:53)
[2021-05-31] MEDS: diazePAM 5 MG TABLET PO SCH ×4 (05:41→22:52)
[2021-05-31] MEDS ORDERED: methaDONE HCL 10 MG TABLET (FOR DETOX USE ONLY) ONE (09:00)
[2021-05-31] MEDS: ABACAVIR/DOLUTEGRAVIR/LAMIVUDI (TRIUMEQ) TABLET -NF PO SCH (10:34)
[2021-05-31] MEDS: QUEtiapine FUMARATE 50 MG TABLET PO SCH (10:35)
[2021-05-31] MEDS: FOLIC ACID 1 MG TABLET (FP) PO SCH (10:35)
[2021-05-31] MEDS: PRENATAL VITAMINS W/ FOLIC ACID TABLET (FP) PO SCH (10:35)
[2021-05-31] MEDS: NICOTINE 14 MG/24 HOURS TOPICAL PATCH TD SCH (10:36)
[2021-05-31] MEDS: NICOTINE 10 MG CARTRIDGE (INHALER) IH PRN (10:37)
[2021-05-31] MEDS: MIRTAZAPINE 15 MG TABLET (FP) PO SCH (22:52)
[2021-05-31] MEDS: THIAMINE HCL 100 MG TABLET (FP) PO SCH (22:53)
[2021-05-31] MEDS: QUEtiapine FUMARATE 100 MG TABLET (FP) PO SCH (22:53)
[2021-05-31] MEDS: MELATONIN 5 MG TABLETS PO SCH (22:54)
[2021-06-01] MEDS: diazePAM 5 MG TABLET PO SCH ×3 (05:39→22:13)
[2021-06-01] MEDS: hydrOXYzine PAMOATE 25 MG CAPSULE (FP) PO SCH ×5 (05:39→22:54)
[2021-06-01] MEDS: ABACAVIR/DOLUTEGRAVIR/LAMIVUDI (TRIUMEQ) TABLET -NF PO SCH (08:32)
[2021-06-01] MEDS ORDERED: methaDONE HCL 10 MG TABLET (FOR DETOX USE ONLY) PO ONE (10:00)
[2021-06-01] MEDS: PRENATAL VITAMINS W/ FOLIC ACID TABLET (FP) PO SCH (10:41)
[2021-06-01] MEDS: QUEtiapine FUMARATE 50 MG TABLET PO SCH (10:44)
[2021-06-01] MEDS: FOLIC ACID 1 MG TABLET (FP) PO SCH (10:44)
[2021-06-01] MEDS: NICOTINE 10 MG CARTRIDGE (INHALER) IH PRN (10:45)
[2021-06-01] MEDS: NICOTINE 14 MG/24 HOURS TOPICAL PATCH TD SCH (10:54)
[2021-06-01] MEDS: MIRTAZAPINE 15 MG TABLET (FP) PO SCH (22:12)
[2021-06-01] MEDS: QUEtiapine FUMARATE 100 MG TABLET (FP) PO SCH (22:12)
[2021-06-01] MEDS: MELATONIN 5 MG TABLETS PO SCH (22:12)
[2021-06-01] MEDS: THIAMINE HCL 100 MG TABLET (FP) PO SCH (22:12)
[2021-06-02] MEDS: diazePAM 5 MG TABLET PO SCH ×2 (06:27→17:19)
[2021-06-02] MEDS: hydrOXYzine PAMOATE 25 MG CAPSULE (FP) PO SCH ×5 (06:27→22:26)
[2021-06-02] MEDS ORDERED: methaDONE HCL 10 MG TABLET (FOR DETOX USE ONLY) ONE (09:57)
[2021-06-02] MEDS: ABACAVIR/DOLUTEGRAVIR/LAMIVUDI (TRIUMEQ) TABLET -NF PO SCH (10:42)
[2021-06-02] MEDS: FOLIC ACID 1 MG TABLET (FP) PO SCH (10:43)
[2021-06-02] MEDS: NICOTINE 10 MG CARTRIDGE (INHALER) IH PRN (10:43)
[2021-06-02] MEDS: PRENATAL VITAMINS W/ FOLIC ACID TABLET (FP) PO SCH (10:43)
[2021-06-02] MEDS: NICOTINE 14 MG/24 HOURS TOPICAL PATCH TD SCH (11:27)
[2021-06-02] MEDS: QUEtiapine FUMARATE 50 MG TABLET PO SCH ×2 (11:28→22:26)
[2021-06-02] MEDS: THIAMINE HCL 100 MG TABLET (FP) PO SCH (22:25)
[2021-06-02] MEDS: MELATONIN 5 MG TABLETS PO SCH (22:25)
[2021-06-02] MEDS: MIRTAZAPINE 15 MG TABLET (FP) PO SCH (22:26)
[2021-06-03] MEDS: hydrOXYzine PAMOATE 25 MG CAPSULE (FP) PO SCH ×5 (05:36→22:14)
[2021-06-03] MEDS ORDERED: diazePAM 5 MG TABLET PO ONE (06:00)
[2021-06-03] MEDS: ABACAVIR/DOLUTEGRAVIR/LAMIVUDI (TRIUMEQ) TABLET -NF PO SCH (08:24)
[2021-06-03] MEDS ORDERED: methaDONE HCL 10 MG TABLET (FOR DETOX USE ONLY) PO ONE (10:00)
[2021-06-03] MEDS: PRENATAL VITAMINS W/ FOLIC ACID TABLET (FP) PO SCH (10:44)
[2021-06-03] MEDS: QUEtiapine FUMARATE 50 MG TABLET PO SCH ×2 (10:45→22:14)
[2021-06-03] MEDS: NICOTINE 10 MG CARTRIDGE (INHALER) IH PRN (10:45)
[2021-06-03] MEDS: NICOTINE 14 MG/24 HOURS TOPICAL PATCH TD SCH (10:45)
[2021-06-03] MEDS: FOLIC ACID 1 MG TABLET (FP) PO SCH (10:45)
[2021-06-03] MEDS: THIAMINE HCL 100 MG TABLET (FP) PO SCH (22:14)
[2021-06-03] MEDS: MELATONIN 5 MG TABLETS PO SCH (22:14)
[2021-06-03] MEDS: MIRTAZAPINE 15 MG TABLET (FP) PO SCH (22:14)
[2021-06-04] MEDS: hydrOXYzine PAMOATE 25 MG CAPSULE (FP) PO SCH ×2 (05:10→09:00)
[2021-06-04 06:26] VITALS: BP 141/92; PULSE 72; TEMP 97.3
[2021-06-04] MEDS: ABACAVIR/DOLUTEGRAVIR/LAMIVUDI (TRIUMEQ) TABLET -NF PO SCH (07:38)
[2021-06-04] MEDS: NICOTINE 14 MG/24 HOURS TOPICAL PATCH TD SCH (09:00)
[2021-06-04] MEDS: QUEtiapine FUMARATE 50 MG TABLET PO SCH (09:00)
[2021-06-04] MEDS: FOLIC ACID 1 MG TABLET (FP) PO SCH (09:00)
[2021-06-04] MEDS: PRENATAL VITAMINS W/ FOLIC ACID TABLET (FP) PO SCH (09:00)
== END 2021-06-04 09:00 | disposition home or self-care (01) | DRG 773 ==
LOC: YASAS 12:05 → Y3N 14:00
PROVIDERS: ADMIT Allergy & Immunology; ATTEND Allergy & Immunology
PROC: HZ2ZZZZ Detoxification Services for Substance Abuse Treatment (ICD-10-PCS; principal; 2021-05-30)
DX: F11.23 Opioid dependence with withdrawal (principal); F10.230 Alcohol dependence with withdrawal, uncomplicated; F14.20 Cocaine dependence, uncomplicated; F13.20 Sedative, hypnotic or anxiolytic dependence, uncomplicated; F12.20 Cannabis dependence, uncomplicated; F17.210 Nicotine dependence, cigarettes, uncomplicated; F19.280 Other psychoactive substance dependence with psychoactive substance-induced anxiety disorder; F32.9 Major depressive disorder, single episode, unspecified; F19.24 Other psychoactive substance dependence with psychoactive substance-induced mood disorder; Z21 Asymptomatic human immunodeficiency virus [HIV] infection status; G47.00 Insomnia, unspecified; B18.2 Chronic viral hepatitis C; Z86.2 Personal history of diseases of the blood and blood-forming organs and certain disorders involving the immune mechanism; Z86.16 Personal history of COVID-19; Z88.8 Allergy status to other drugs, medicaments and biological substances
CPT/HCPCS: 36415; 80053; 85027; 86780; C9803; U0003; U0005

== ENCOUNTER 2022-02-15 09:27 | Inpatient (IN) | payer OTHER ==
[2022-02-15] MEDS ORDERED: NALOXONE HCL (KLOXXADO) 8 MG SPRAY NS PRN (10:06)
[2022-02-15] MEDS ORDERED: IBUPROFEN 400 MG TABLET (FP) PO PRN (10:06)
[2022-02-15] MEDS ORDERED: methaDONE HCL 10 MG TABLET (FOR DETOX USE ONLY) PO ONE (10:06)
[2022-02-15] MEDS ORDERED: METHOCARBAMOL 500 MG TABLET PO PRN (10:06)
[2022-02-15] MEDS ORDERED: BISMUTH SUBSALICYLATE 524 MG/30 ML PO PRN (10:06)
[2022-02-15] MEDS ORDERED: IBUPROFEN 600 MG TABLET (FP) PO PRN (10:06)
[2022-02-15] MEDS ORDERED: MAGNESIUM CITRATE 300 ML BOTTLE PO PRN (10:06)
[2022-02-15] MEDS ORDERED: DICYCLOMINE HCL 10 MG CAPSULE PO PRN (10:06)
[2022-02-15] MEDS ORDERED: cloNIDine HCL 0.1 MG TABLET PO PRN ×2 (10:06→14:23)
[2022-02-15] MEDS ORDERED: ONDANSETRON *ODT* 4 MG TABLET SL PRN (10:06)
[2022-02-15] MEDS ORDERED: BENZOCAINE/MENTHOL (CHLORASEPTIC ) LOZENGE MM PRN (10:06)
[2022-02-15] MEDS ORDERED: MAGNESIUM HYDROX 2400MG/30ML ORAL SUSPENSION 30 ML CUP PO PRN (10:06)
[2022-02-15] MEDS ORDERED: ACETAMINOPHEN 325 MG TABLET (FP) PO PRN ×2 (10:06)
[2022-02-15] MEDS ORDERED: MAG HYDROX/AL HYDROX/SIMETH 30 ML UNIT-DOSE CUP PO PRN (10:06)
[2022-02-15] MEDS ORDERED: LOPERAMIDE HCL 2 MG CAPSULE PO PRN (10:06)
[2022-02-15] MEDS ORDERED: diazePAM 5 MG TABLET PO PRN (10:23)
[2022-02-15] MEDS ORDERED: BUPRENORPHINE HCL 150 MCG, BUPRENORPHINE HCL 75 MCG BC PRN (10:23)
[2022-02-15] MEDS ORDERED: PETROLATUM, WHITE 30 GM TUBE TP SCH (10:30)
[2022-02-15 10:41] VITALS: BMI 21.7
[2022-02-15] MEDS ORDERED: BUPRENORPHINE HCL 150 MCG, BUPRENORPHINE HCL 75 MCG BC ONE (11:00)
[2022-02-15] MEDS ORDERED: cloNIDine HCL 0.1 MG TABLET PO ONE (11:00)
[2022-02-15] MEDS ORDERED: BUPRENORPHINE HCL 75 MCG FILM BC ONE (11:07)
[2022-02-15] MEDS ORDERED: BUPRENORPHINE HCL 150 MCG FILM BC ONE (11:07)
[2022-02-15] MEDS ORDERED: diazePAM 5 MG TABLET ONE (11:07)
[2022-02-15] MEDS ORDERED: cloNIDine HCL 0.1 MG TABLET ONE (11:08)
[2022-02-15] MEDS: diazePAM 5 MG TABLET PO SCH ×3 (11:12→22:35)
[2022-02-15] MEDS: KETOCONAZOLE 2% CREAM - 60GM TUBE TP SCH (14:56)
[2022-02-15] MEDS: hydrOXYzine PAMOATE 25 MG CAPSULE (FP) PO SCH ×3 (14:56→22:35)
[2022-02-15] MEDS ORDERED: KETOCONAZOLE 2% CREAM - 60GM TUBE TP ONE (18:15)
[2022-02-15] MEDS: MELATONIN 5 MG TABLETS PO SCH (22:35)
[2022-02-15] MEDS: QUEtiapine FUMARATE 50 MG TABLET PO SCH (22:35)
[2022-02-15] MEDS: MIRTAZAPINE 15 MG TABLET (FP) PO SCH (22:35)
[2022-02-15] MEDS: THIAMINE HCL 100 MG TABLET (FP) PO SCH (22:35)
[2022-02-16] MEDS ORDERED: BUPRENORPHINE HCL 150 MCG, BUPRENORPHINE HCL 75 MCG BC PRN
[2022-02-16] MEDS: BUPRENORPHINE HCL 150 MCG, BUPRENORPHINE HCL 75 MCG BC SCH ×2 (05:57→18:25)
[2022-02-16] MEDS: diazePAM 5 MG TABLET PO SCH ×4 (05:57→23:13)
[2022-02-16] MEDS: hydrOXYzine PAMOATE 25 MG CAPSULE (FP) PO SCH ×5 (07:17→23:13)
[2022-02-16] MEDS ORDERED: PATIENT'S OWN MEDICATION (NON-FORMULARY) (Dolutegravir Sodium/Lamivudine [Dovato 50-300 Mg PO SCH (10:00)
[2022-02-16] MEDS ORDERED: QUEtiapine FUMARATE 50 MG TABLET PO SCH (10:00)
[2022-02-16] MEDS: KETOCONAZOLE 2% CREAM - 60GM TUBE TP SCH (10:11)
[2022-02-16] MEDS: DOLUTEGRAVIR SODIUM 50 MG TABLET (NON-FORMULARY) PO SCH (10:12)
[2022-02-16] MEDS: PRENATAL VITAMINS W/ FOLIC ACID TABLET (FP) PO SCH (10:12)
[2022-02-16] MEDS: NICOTINE 10 MG CARTRIDGE (INHALER) IH PRN (10:25)
[2022-02-16 10:35] LABS: HEMATOCRIT 39.4 % (35.4-49); MEAN CELL VOLUME 93.9 fl (80-96); PLATELET COUNT 224 10^3/uL (134-434); RDW 13.7 % (11.9-15.9); WHITE BLOOD COUNT 3.9 K/mm3 (4.0-10.0)
[2022-02-16 11:00] LABS: ALBUMIN 3.2 g/dl (3.4-5.0); BLOOD UREA NITROGEN 15.1 mg/dL (7-18)
[2022-02-16 11:04] LABS: CREATININE 1.1 mg/dL (0.55-1.3)
[2022-02-16 11:05] LABS: BILIRUBIN,TOTAL 0.5 mg/dL (0.2-1)
[2022-02-16] MEDS: diazePAM 5 MG TABLET PO PRN (13:35)
[2022-02-16] MEDS ORDERED: BUPRENORPHINE HCL 150 MCG FILM BC ONE (17:29)
[2022-02-16] MEDS ORDERED: BUPRENORPHINE HCL 75 MCG FILM BC ONE (17:32)
[2022-02-16] MEDS: MELATONIN 5 MG TABLETS PO SCH (23:12)
[2022-02-16] MEDS: MIRTAZAPINE 15 MG TABLET (FP) PO SCH (23:12)
[2022-02-16] MEDS: THIAMINE HCL 100 MG TABLET (FP) PO SCH (23:13)
[2022-02-16] MEDS: QUEtiapine FUMARATE 50 MG TABLET PO SCH (23:13)
[2022-02-17] MEDS: diazePAM 5 MG TABLET PO SCH ×3 (06:05→22:13)
[2022-02-17] MEDS: hydrOXYzine PAMOATE 25 MG CAPSULE (FP) PO SCH ×5 (06:05→22:13)
[2022-02-17] MEDS: BUPRENORPHINE HCL 450 MCG FILM BC SCH ×2 (06:06→17:48)
[2022-02-17] MEDS ORDERED: methaDONE HCL 10 MG TABLET (FOR DETOX USE ONLY) PO ONE (10:00)
[2022-02-17] MEDS: diazePAM 5 MG TABLET PO PRN (10:49)
[2022-02-17] MEDS: DOLUTEGRAVIR SODIUM 50 MG TABLET (NON-FORMULARY) PO SCH (10:50)
[2022-02-17] MEDS: KETOCONAZOLE 2% CREAM - 60GM TUBE TP SCH (10:50)
[2022-02-17] MEDS: PRENATAL VITAMINS W/ FOLIC ACID TABLET (FP) PO SCH (10:50)
[2022-02-17] MEDS: MIRTAZAPINE 15 MG TABLET (FP) PO SCH (22:13)
[2022-02-17] MEDS: MELATONIN 5 MG TABLETS PO SCH (22:13)
[2022-02-17] MEDS: QUEtiapine FUMARATE 50 MG TABLET PO SCH (22:13)
[2022-02-17] MEDS: THIAMINE HCL 100 MG TABLET (FP) PO SCH (22:14)
[2022-02-17] MEDS: NICOTINE 10 MG CARTRIDGE (INHALER) IH PRN (22:15)
[2022-02-18] MEDS: hydrOXYzine PAMOATE 25 MG CAPSULE (FP) PO SCH ×2 (05:19→10:24)
[2022-02-18] MEDS ORDERED: BUPRENORPHINE/NALOXONE 4 MG/1 MG FILM PACKET SL SCH (06:00)
[2022-02-18] MEDS ORDERED: diazePAM 5 MG TABLET PO SCH (06:00)
[2022-02-18 09:12] VITALS: BP 137/89; PULSE 84; TEMP 97.1
[2022-02-18] MEDS: KETOCONAZOLE 2% CREAM - 60GM TUBE TP SCH (10:23)
[2022-02-18] MEDS: PRENATAL VITAMINS W/ FOLIC ACID TABLET (FP) PO SCH (10:23)
[2022-02-18] MEDS: DOLUTEGRAVIR SODIUM 50 MG TABLET (NON-FORMULARY) PO SCH (10:24)
[2022-02-19] MEDS ORDERED: BUPRENORPHINE/NALOXONE 8 MG/2 MG FILM PACKET SL ONE (06:00)
[2022-02-19] MEDS ORDERED: diazePAM 5 MG TABLET PO ONE (06:00)
[2022-02-19] MEDS ORDERED: methaDONE HCL 10 MG TABLET (FOR DETOX USE ONLY) PO ONE (10:00)
== END 2022-02-18 09:51 | disposition left against medical advice (07) | DRG 770 ==
LOC: YASAS 09:27 → Y3N 10:50
PROVIDERS: ADMIT Allergy & Immunology; ATTEND Surgery
PROC: HZ2ZZZZ Detoxification Services for Substance Abuse Treatment (ICD-10-PCS; principal; 2022-02-15)
DX: F10.230 Alcohol dependence with withdrawal, uncomplicated (principal); F11.20 Opioid dependence, uncomplicated; F14.20 Cocaine dependence, uncomplicated; F12.20 Cannabis dependence, uncomplicated; F33.1 Major depressive disorder, recurrent, moderate; F19.280 Other psychoactive substance dependence with psychoactive substance-induced anxiety disorder; F19.24 Other psychoactive substance dependence with psychoactive substance-induced mood disorder; F41.8 Other specified anxiety disorders; Z21 Asymptomatic human immunodeficiency virus [HIV] infection status; E88.09 Other disorders of plasma-protein metabolism, not elsewhere classified; B18.2 Chronic viral hepatitis C; G47.00 Insomnia, unspecified; Z86.59 Personal history of other mental and behavioral disorders
CPT/HCPCS: 36415; 80053; 85027; 86780; 87811; C9803-CS; J0735; U0003; U0005

== ENCOUNTER 2022-03-10 09:35 | Inpatient (IN) | payer OTHER ==
[2022-03-10 11:49] VITALS: BMI 27.3
[2022-03-10] MEDS ORDERED: ACETAMINOPHEN 325 MG TABLET (FP) PO PRN ×2 (11:58)
[2022-03-10] MEDS ORDERED: hydrOXYzine PAMOATE 25 MG CAPSULE (FP) PO PRN (11:58)
[2022-03-10] MEDS ORDERED: LOPERAMIDE HCL 2 MG CAPSULE PO PRN (11:58)
[2022-03-10] MEDS ORDERED: MAG HYDROX/AL HYDROX/SIMETH 30 ML UNIT-DOSE CUP PO PRN (11:58)
[2022-03-10] MEDS ORDERED: IBUPROFEN 600 MG TABLET (FP) PO PRN (11:58)
[2022-03-10] MEDS ORDERED: MAGNESIUM HYDROX 2400MG/30ML ORAL SUSPENSION 30 ML CUP PO PRN (11:58)
[2022-03-10] MEDS ORDERED: BISMUTH SUBSALICYLATE 524 MG/30 ML PO PRN (11:58)
[2022-03-10] MEDS ORDERED: DICYCLOMINE HCL 10 MG CAPSULE PO PRN (11:58)
[2022-03-10] MEDS ORDERED: BENZOCAINE/MENTHOL (CHLORASEPTIC ) LOZENGE MM PRN (11:58)
[2022-03-10] MEDS ORDERED: ONDANSETRON *ODT* 4 MG TABLET SL PRN (11:58)
[2022-03-10] MEDS ORDERED: METHOCARBAMOL 500 MG TABLET PO PRN (11:58)
[2022-03-10] MEDS ORDERED: MAGNESIUM CITRATE 300 ML BOTTLE PO PRN (11:58)
[2022-03-10] MEDS ORDERED: IBUPROFEN 400 MG TABLET (FP) PO PRN (11:58)
[2022-03-10] MEDS ORDERED: methaDONE HCL 10 MG TABLET (FOR DETOX USE ONLY) PO ONE (12:00)
[2022-03-10] MEDS ORDERED: cloNIDine HCL 0.1 MG TABLET PO PRN (12:00)
[2022-03-10] MEDS ORDERED: diazePAM 5 MG TABLET PO PRN (12:01)
[2022-03-10] MEDS ORDERED: diazePAM 5 MG TABLET PO ONE (12:01)
[2022-03-10] MEDS ORDERED: diazePAM 5 MG TABLET ONE (13:49)
[2022-03-10] MEDS ORDERED: methaDONE HCL 10 MG TABLET (FOR DETOX USE ONLY) ONE (13:49)
[2022-03-10] MEDS: NICOTINE POLACRILEX 2 MG GUM BUC PRN ×2 (17:01→19:21)
[2022-03-10] MEDS: diazePAM 5 MG TABLET PO SCH ×2 (17:52→22:14)
[2022-03-10] MEDS: QUEtiapine FUMARATE 100 MG TABLET (FP) PO SCH (22:14)
[2022-03-10] MEDS: THIAMINE HCL 100 MG TABLET (FP) PO SCH (22:14)
[2022-03-10] MEDS: MELATONIN 5 MG TABLETS PO SCH (22:14)
[2022-03-11] MEDS: diazePAM 5 MG TABLET PO SCH ×4 (06:26→22:27)
[2022-03-11] MEDS ORDERED: methaDONE HCL 10 MG TABLET (FOR DETOX USE ONLY) ONE (09:40)
[2022-03-11] MEDS ORDERED: PATIENT'S OWN MEDICATION (NON-FORMULARY) (Dolutegravir Sodium/Lamivudine [Dovato 50-300 Mg PO SCH (10:00)
[2022-03-11] MEDS ORDERED: lamiVUDine 150 MG TABLET PO SCH (10:00)
[2022-03-11] MEDS ORDERED: QUEtiapine FUMARATE 100 MG TABLET (FP) PO SCH (10:00)
[2022-03-11] MEDS: PRENATAL VITAMINS W/ FOLIC ACID TABLET (FP) PO SCH (10:10)
[2022-03-11] MEDS: DOLUTEGRAVIR SODIUM 50 MG TABLET (NON-FORMULARY) PO SCH (11:34)
[2022-03-11] MEDS: NICOTINE POLACRILEX 2 MG GUM BUC PRN (13:20)
[2022-03-11] MEDS: NICOTINE 10 MG CARTRIDGE (INHALER) IH PRN ×3 (13:34→22:28)
[2022-03-11] MEDS: MELATONIN 5 MG TABLETS PO SCH (22:25)
[2022-03-11] MEDS: QUEtiapine FUMARATE 100 MG TABLET (FP) PO SCH (22:26)
[2022-03-11] MEDS: THIAMINE HCL 100 MG TABLET (FP) PO SCH (22:27)
[2022-03-12] MEDS ORDERED: diazePAM 5 MG TABLET PO SCH (06:00)
[2022-03-12 09:08] VITALS: BP 129/80; PULSE 88; TEMP 97.3
[2022-03-12] MEDS ORDERED: methaDONE HCL 10 MG TABLET (FOR DETOX USE ONLY) PO ONE (10:00)
[2022-03-12] MEDS: PRENATAL VITAMINS W/ FOLIC ACID TABLET (FP) PO SCH (10:43)
[2022-03-12] MEDS: DOLUTEGRAVIR SODIUM 50 MG TABLET (NON-FORMULARY) PO SCH (10:43)
[2022-03-13] MEDS ORDERED: diazePAM 5 MG TABLET PO SCH (06:00)
[2022-03-14] MEDS ORDERED: diazePAM 5 MG TABLET PO ONE (06:00)
[2022-03-14] MEDS ORDERED: methaDONE HCL 10 MG TABLET (FOR DETOX USE ONLY) PO ONE (10:00)
== END 2022-03-12 09:20 | disposition left against medical advice (07) | DRG 770 ==
LOC: YASAS 09:35 → Y3N 13:28
PROVIDERS: ADMIT Allergy & Immunology; ATTEND Surgery
PROC: HZ2ZZZZ Detoxification Services for Substance Abuse Treatment (ICD-10-PCS; principal; 2022-03-10)
DX: F11.23 Opioid dependence with withdrawal (principal); F10.230 Alcohol dependence with withdrawal, uncomplicated; F13.230 Sedative, hypnotic or anxiolytic dependence with withdrawal, uncomplicated; F14.20 Cocaine dependence, uncomplicated; F12.10 Cannabis abuse, uncomplicated; F17.210 Nicotine dependence, cigarettes, uncomplicated; F31.32 Bipolar disorder, current episode depressed, moderate; F19.282 Other psychoactive substance dependence with psychoactive substance-induced sleep disorder; Z21 Asymptomatic human immunodeficiency virus [HIV] infection status; B18.2 Chronic viral hepatitis C; Z88.8 Allergy status to other drugs, medicaments and biological substances; Z56.0 Unemployment, unspecified
CPT/HCPCS: C9803-CS; U0003; U0005

== ENCOUNTER 2022-04-02 12:42 | Inpatient (IN) | payer OTHER ==
[2022-04-02 13:27] VITALS: BMI 22.4
[2022-04-02] MEDS ORDERED: ONDANSETRON *ODT* 4 MG TABLET SL PRN (14:05)
[2022-04-02] MEDS ORDERED: LOPERAMIDE HCL 2 MG CAPSULE PO PRN (14:05)
[2022-04-02] MEDS ORDERED: MAGNESIUM CITRATE 300 ML BOTTLE PO PRN (14:05)
[2022-04-02] MEDS ORDERED: methaDONE HCL 10 MG TABLET (FOR DETOX USE ONLY) PO ONE (14:05)
[2022-04-02] MEDS ORDERED: ACETAMINOPHEN 325 MG TABLET (FP) PO PRN ×2 (14:05)
[2022-04-02] MEDS ORDERED: BISMUTH SUBSALICYLATE 262 MG/15 ML BTL PO PRN (14:05)
[2022-04-02] MEDS ORDERED: IBUPROFEN 400 MG TABLET (FP) PO PRN (14:05)
[2022-04-02] MEDS ORDERED: cloNIDine HCL 0.1 MG TABLET PO PRN (14:05)
[2022-04-02] MEDS ORDERED: MAGNESIUM HYDROX 2400MG/30ML ORAL SUSPENSION 30 ML CUP PO PRN (14:05)
[2022-04-02] MEDS ORDERED: DICYCLOMINE HCL 10 MG CAPSULE PO PRN (14:05)
[2022-04-02] MEDS ORDERED: IBUPROFEN 600 MG TABLET (FP) PO PRN (14:05)
[2022-04-02] MEDS ORDERED: MAG HYDROX/AL HYDROX/SIMETH 30 ML UNIT-DOSE CUP PO PRN (14:05)
[2022-04-02] MEDS ORDERED: BENZOCAINE/MENTHOL (CHLORASEPTIC ) LOZENGE MM PRN (14:05)
[2022-04-02] MEDS ORDERED: methaDONE HCL 10 MG TABLET (FOR DETOX USE ONLY) ONE (15:03)
[2022-04-02] MEDS: hydrOXYzine PAMOATE 25 MG CAPSULE (FP) PO SCH ×2 (17:32→23:04)
[2022-04-02] MEDS: diazePAM 5 MG TABLET PO SCH ×2 (17:32→23:04)
[2022-04-02] MEDS: NICOTINE 10 MG CARTRIDGE (INHALER) IH PRN (18:24)
[2022-04-02] MEDS: MELATONIN 5 MG TABLETS PO SCH (23:04)
[2022-04-02] MEDS: THIAMINE HCL 100 MG TABLET (FP) PO SCH (23:04)
[2022-04-03] MEDS: NICOTINE 10 MG CARTRIDGE (INHALER) IH PRN ×3 (02:02→18:17)
[2022-04-03] MEDS: diazePAM 5 MG TABLET PO PRN (02:02)
[2022-04-03] MEDS: diazePAM 5 MG TABLET PO SCH ×4 (05:53→22:53)
[2022-04-03] MEDS: hydrOXYzine PAMOATE 25 MG CAPSULE (FP) PO SCH ×5 (05:53→22:54)
[2022-04-03] MEDS ORDERED: methaDONE HCL 10 MG TABLET (FOR DETOX USE ONLY) ONE (09:12)
[2022-04-03] MEDS ORDERED: PATIENT'S OWN MEDICATION (NON-FORMULARY) (Dolutegravir Sodium/Lamivudine [Dovato 50-300 Mg PO SCH (10:00)
[2022-04-03] MEDS: PRENATAL VITAMINS W/ FOLIC ACID TABLET (FP) PO SCH (10:25)
[2022-04-03 14:47] LABS: HEMOGLOBIN 12.7 GM/dL (11.7-16.9); MCH 31.1 pg (25.7-33.7); MCHC 32.5 g/dl (32.0-35.9); MEAN CELL VOLUME 95.7 fl (80-96); MEAN PLT VOLUME 10.1 fl (7.5-11.1); PLATELET COUNT 212 10^3/uL (134-434); RBC 4.07 M/mm3 (4.00-5.60); RDW 15.3 % (11.9-15.9); WHITE BLOOD COUNT 5.8 K/mm3 (4.0-10.0)
[2022-04-03 15:04] LABS: CALCIUM 9.2 mg/dL (8.5-10.1)
[2022-04-03 15:05] LABS: ALBUMIN 3.5 g/dl (3.4-5.0); BLOOD UREA NITROGEN 11.7 mg/dL (7-18)
[2022-04-03 15:09] LABS: BILIRUBIN,TOTAL 0.3 mg/dL (0.2-1); TOT PROT 7.4 g/dl (6.4-8.2)
[2022-04-03] MEDS: DOLUTEGRAVIR SODIUM 50 MG TABLET (NON-FORMULARY) PO SCH (16:22)
[2022-04-03] MEDS: MIRTAZAPINE 15 MG TABLET (FP) PO SCH (22:53)
[2022-04-03] MEDS: MELATONIN 5 MG TABLETS PO SCH (22:53)
[2022-04-03] MEDS: THIAMINE HCL 100 MG TABLET (FP) PO SCH (22:53)
[2022-04-04] MEDS: METHOCARBAMOL 500 MG TABLET PO PRN (06:34)
[2022-04-04] MEDS: hydrOXYzine PAMOATE 25 MG CAPSULE (FP) PO SCH ×5 (06:34→22:23)
[2022-04-04] MEDS: diazePAM 5 MG TABLET PO SCH ×3 (06:34→22:23)
[2022-04-04] MEDS: NICOTINE 10 MG CARTRIDGE (INHALER) IH PRN ×2 (06:35→18:31)
[2022-04-04] MEDS ORDERED: methaDONE HCL 10 MG TABLET (FOR DETOX USE ONLY) PO ONE (10:00)
[2022-04-04] MEDS: PRENATAL VITAMINS W/ FOLIC ACID TABLET (FP) PO SCH (10:11)
[2022-04-04] MEDS: QUEtiapine FUMARATE 50 MG TABLET PO SCH (10:11)
[2022-04-04] MEDS: DOLUTEGRAVIR SODIUM 50 MG TABLET (NON-FORMULARY) PO SCH (10:11)
[2022-04-04] MEDS: BACITRACIN 0.9 GM PACKET TP SCH (12:19)
[2022-04-04] MEDS: MELATONIN 5 MG TABLETS PO SCH (22:22)
[2022-04-04] MEDS: THIAMINE HCL 100 MG TABLET (FP) PO SCH (22:23)
[2022-04-04] MEDS: MIRTAZAPINE 15 MG TABLET (FP) PO SCH (22:23)
[2022-04-05] MEDS: NICOTINE 10 MG CARTRIDGE (INHALER) IH PRN ×3 (02:05→20:09)
[2022-04-05] MEDS: hydrOXYzine PAMOATE 25 MG CAPSULE (FP) PO SCH ×5 (05:36→22:24)
[2022-04-05] MEDS: diazePAM 5 MG TABLET PO SCH ×2 (05:36→17:48)
[2022-04-05] MEDS ORDERED: methaDONE HCL 10 MG TABLET (FOR DETOX USE ONLY) ONE (09:11)
[2022-04-05] MEDS: QUEtiapine FUMARATE 50 MG TABLET PO SCH (10:26)
[2022-04-05] MEDS: PRENATAL VITAMINS W/ FOLIC ACID TABLET (FP) PO SCH (10:26)
[2022-04-05] MEDS: BACITRACIN 0.9 GM PACKET TP SCH (10:26)
[2022-04-05] MEDS: diazePAM 5 MG TABLET PO PRN ×2 (10:27→13:59)
[2022-04-05] MEDS: DOLUTEGRAVIR SODIUM 50 MG TABLET (NON-FORMULARY) PO SCH (10:30)
[2022-04-05] MEDS: MIRTAZAPINE 15 MG TABLET (FP) PO SCH (22:24)
[2022-04-05] MEDS: THIAMINE HCL 100 MG TABLET (FP) PO SCH (22:24)
[2022-04-05] MEDS: MELATONIN 5 MG TABLETS PO SCH (22:25)
[2022-04-06] MEDS ORDERED: diazePAM 5 MG TABLET PO ONE (06:00)
[2022-04-06 06:36] VITALS: RESP 18
[2022-04-06] MEDS: hydrOXYzine PAMOATE 25 MG CAPSULE (FP) PO SCH ×2 (06:49→10:19)
[2022-04-06] MEDS: NICOTINE 10 MG CARTRIDGE (INHALER) IH PRN ×2 (06:50→10:21)
[2022-04-06] MEDS: METHOCARBAMOL 500 MG TABLET PO PRN (06:50)
[2022-04-06 08:49] VITALS: BP 123/86; PULSE 56; TEMP 97.4
[2022-04-06] MEDS ORDERED: methaDONE HCL 10 MG TABLET (FOR DETOX USE ONLY) PO ONE (10:00)
[2022-04-06] MEDS: QUEtiapine FUMARATE 50 MG TABLET PO SCH (10:19)
[2022-04-06] MEDS: PRENATAL VITAMINS W/ FOLIC ACID TABLET (FP) PO SCH (10:19)
[2022-04-06] MEDS: DOLUTEGRAVIR SODIUM 50 MG TABLET (NON-FORMULARY) PO SCH (10:19)
[2022-04-06] MEDS: BACITRACIN 0.9 GM PACKET TP SCH (10:21)
== END 2022-04-06 12:29 | disposition home or self-care (01) | DRG 773 ==
LOC: YASAS 12:42 → Y3N 14:42
PROVIDERS: ADMIT Allergy & Immunology; ATTEND Surgery
PROC: HZ2ZZZZ Detoxification Services for Substance Abuse Treatment (ICD-10-PCS; principal; 2022-04-02)
DX: F11.23 Opioid dependence with withdrawal (principal); F10.230 Alcohol dependence with withdrawal, uncomplicated; F13.20 Sedative, hypnotic or anxiolytic dependence, uncomplicated; F14.20 Cocaine dependence, uncomplicated; F17.210 Nicotine dependence, cigarettes, uncomplicated; F31.9 Bipolar disorder, unspecified; Z21 Asymptomatic human immunodeficiency virus [HIV] infection status; G47.00 Insomnia, unspecified; B18.2 Chronic viral hepatitis C; Z88.8 Allergy status to other drugs, medicaments and biological substances; Z91.51 Personal history of suicidal behavior; Z91.19 Patient's noncompliance with other medical treatment and regimen
CPT/HCPCS: 36415; 80053; 85027; 86780; C9803-CS; U0003; U0005

== ENCOUNTER 2022-05-13 09:53 | Inpatient (IN) | payer OTHER ==
[2022-05-13 10:41] VITALS: BMI 24.5
[2022-05-13] MEDS ORDERED: ACETAMINOPHEN 325 MG TABLET (FP) PO PRN (11:56)
[2022-05-13] MEDS ORDERED: ONDANSETRON *ODT* 4 MG TABLET SL PRN (11:56)
[2022-05-13] MEDS ORDERED: BISMUTH SUBSALICYLATE 524 MG/30 ML PO PRN (11:56)
[2022-05-13] MEDS ORDERED: MAGNESIUM CITRATE 300 ML BOTTLE PO PRN (11:56)
[2022-05-13] MEDS ORDERED: DICYCLOMINE HCL 10 MG CAPSULE PO PRN (11:56)
[2022-05-13] MEDS ORDERED: LOPERAMIDE HCL 2 MG CAPSULE PO PRN (11:56)
[2022-05-13] MEDS ORDERED: cloNIDine HCL 0.1 MG TABLET PO PRN (11:56)
[2022-05-13] MEDS ORDERED: NICOTINE POLACRILEX 2 MG GUM BUC PRN (11:56)
[2022-05-13] MEDS ORDERED: diazePAM 5 MG TABLET PO PRN (11:56)
[2022-05-13] MEDS ORDERED: MAG HYDROX/AL HYDROX/SIMETH 30 ML UNIT-DOSE CUP PO PRN (11:56)
[2022-05-13] MEDS ORDERED: MAGNESIUM HYDROX 2400MG/30ML ORAL SUSPENSION 30 ML CUP PO PRN (11:56)
[2022-05-13] MEDS ORDERED: IBUPROFEN 400 MG TABLET (FP) PO PRN (11:56)
[2022-05-13] MEDS ORDERED: BENZOCAINE/MENTHOL (CHLORASEPTIC ) LOZENGE MM PRN (11:56)
[2022-05-13] MEDS ORDERED: PATIENT'S OWN MEDICATION (NON-FORMULARY) (Dolutegravir Sodium/Lamivudine [Dovato 50-300 Mg PO SCH (12:15)
[2022-05-13] MEDS ORDERED: methaDONE HCL 10 MG TABLET (FOR DETOX USE ONLY) PO ONE (13:00)
[2022-05-13] MEDS: diazePAM 5 MG TABLET PO SCH ×3 (13:12→22:25)
[2022-05-13] MEDS: hydrOXYzine PAMOATE 25 MG CAPSULE (FP) PO SCH ×3 (13:12→22:25)
[2022-05-13] MEDS: PRENATAL VITAMINS W/ FOLIC ACID TABLET (FP) PO SCH (13:12)
[2022-05-13] MEDS: NICOTINE 10 MG CARTRIDGE (INHALER) IH PRN ×2 (15:02→22:27)
[2022-05-13 17:52] LABS: HEMATOCRIT 39.1 % (35.4-49); MCH 31.1 pg (25.7-33.7); MCHC 33.3 g/dl (32.0-35.9); MEAN CELL VOLUME 93.5 fl (80-96); MEAN PLT VOLUME 9.2 fl (7.5-11.1); PLATELET COUNT 222 10^3/uL (134-434); RBC 4.19 M/mm3 (4.00-5.60); RDW 14.4 % (11.9-15.9); WHITE BLOOD COUNT 4.7 K/mm3 (4.0-10.0)
[2022-05-13 17:53] LABS: ALBUMIN 3.7 g/dl (3.4-5.0); BLOOD UREA NITROGEN 18.6 mg/dL (7-18); CALCIUM 9.2 mg/dL (8.5-10.1)
[2022-05-13 17:55] LABS: BILIRUBIN,TOTAL 0.6 mg/dL (0.2-1); TOT PROT 8.2 g/dl (6.4-8.2)
[2022-05-13] MEDS ORDERED: lamiVUDine 150 MG TABLET PO SCH (18:09)
[2022-05-13] MEDS: MELATONIN 5 MG TABLETS PO SCH (22:24)
[2022-05-13] MEDS: DOLUTEGRAVIR SODIUM 50 MG TABLET (NON-FORMULARY) PO SCH (22:25)
[2022-05-13] MEDS: THIAMINE HCL 100 MG TABLET (FP) PO SCH (22:25)
[2022-05-14] MEDS: diazePAM 5 MG TABLET PO SCH ×4 (05:31→22:23)
[2022-05-14] MEDS: hydrOXYzine PAMOATE 25 MG CAPSULE (FP) PO SCH ×5 (05:32→22:22)
[2022-05-14] MEDS: PRENATAL VITAMINS W/ FOLIC ACID TABLET (FP) PO SCH (10:30)
[2022-05-14] MEDS: NICOTINE 10 MG CARTRIDGE (INHALER) IH PRN ×2 (10:33→18:06)
[2022-05-14] MEDS: DOLUTEGRAVIR SODIUM 50 MG TABLET (NON-FORMULARY) PO SCH (10:35)
[2022-05-14] MEDS: THIAMINE HCL 100 MG TABLET (FP) PO SCH (22:22)
[2022-05-14] MEDS: MELATONIN 5 MG TABLETS PO SCH (22:22)
[2022-05-14] MEDS: MIRTAZAPINE 15 MG TABLET (FP) PO SCH (22:22)
[2022-05-14] MEDS: QUEtiapine FUMARATE 50 MG TABLET PO SCH (22:22)
[2022-05-15] MEDS: METHOCARBAMOL 500 MG TABLET PO PRN (06:00)
[2022-05-15] MEDS: hydrOXYzine PAMOATE 25 MG CAPSULE (FP) PO SCH ×5 (06:00→21:49)
[2022-05-15] MEDS: diazePAM 5 MG TABLET PO SCH ×3 (06:00→21:48)
[2022-05-15] MEDS ORDERED: methaDONE HCL 10 MG TABLET (FOR DETOX USE ONLY) PO ONE (10:00)
[2022-05-15] MEDS: PRENATAL VITAMINS W/ FOLIC ACID TABLET (FP) PO SCH (10:16)
[2022-05-15] MEDS: NICOTINE 10 MG CARTRIDGE (INHALER) IH PRN ×2 (10:19→17:51)
[2022-05-15] MEDS: DOLUTEGRAVIR SODIUM 50 MG TABLET (NON-FORMULARY) PO SCH (14:24)
[2022-05-15] MEDS: THIAMINE HCL 100 MG TABLET (FP) PO SCH (21:49)
[2022-05-15] MEDS: MIRTAZAPINE 15 MG TABLET (FP) PO SCH (21:49)
[2022-05-15] MEDS: MELATONIN 5 MG TABLETS PO SCH (21:49)
[2022-05-15] MEDS: QUEtiapine FUMARATE 50 MG TABLET PO SCH (21:49)
[2022-05-16] MEDS: hydrOXYzine PAMOATE 25 MG CAPSULE (FP) PO SCH ×5 (05:36→23:07)
[2022-05-16] MEDS: diazePAM 5 MG TABLET PO SCH ×2 (05:36→17:51)
[2022-05-16] MEDS: PRENATAL VITAMINS W/ FOLIC ACID TABLET (FP) PO SCH (10:06)
[2022-05-16] MEDS: DOLUTEGRAVIR SODIUM 50 MG TABLET (NON-FORMULARY) PO SCH (10:08)
[2022-05-16] MEDS: METHOCARBAMOL 500 MG TABLET PO PRN (15:25)
[2022-05-16] MEDS ORDERED: cloNIDine HCL 0.1 MG TABLET PO ONE (17:31)
[2022-05-16] MEDS: NICOTINE 10 MG CARTRIDGE (INHALER) IH PRN ×2 (17:52→23:06)
[2022-05-16] MEDS: ACETAMINOPHEN 325 MG TABLET (FP) PO PRN (23:06)
[2022-05-16] MEDS: THIAMINE HCL 100 MG TABLET (FP) PO SCH (23:07)
[2022-05-16] MEDS: MELATONIN 5 MG TABLETS PO SCH (23:07)
[2022-05-16] MEDS: QUEtiapine FUMARATE 50 MG TABLET PO SCH (23:08)
[2022-05-16] MEDS: MIRTAZAPINE 15 MG TABLET (FP) PO SCH (23:08)
[2022-05-17] MEDS ORDERED: diazePAM 5 MG TABLET PO ONE (06:00)
[2022-05-17] MEDS: hydrOXYzine PAMOATE 25 MG CAPSULE (FP) PO SCH ×5 (06:24→23:01)
[2022-05-17] MEDS ORDERED: methaDONE HCL 10 MG TABLET (FOR DETOX USE ONLY) PO ONE (10:00)
[2022-05-17] MEDS: NICOTINE 10 MG CARTRIDGE (INHALER) IH PRN ×3 (10:12→23:03)
[2022-05-17] MEDS: DOLUTEGRAVIR SODIUM 50 MG TABLET (NON-FORMULARY) PO SCH (10:13)
[2022-05-17] MEDS: METHOCARBAMOL 500 MG TABLET PO PRN ×3 (10:13→23:02)
[2022-05-17] MEDS: PRENATAL VITAMINS W/ FOLIC ACID TABLET (FP) PO SCH (10:14)
[2022-05-17] MEDS: ACETAMINOPHEN 325 MG TABLET (FP) PO PRN (15:21)
[2022-05-17] MEDS: MELATONIN 5 MG TABLETS PO SCH (23:00)
[2022-05-17] MEDS: QUEtiapine FUMARATE 50 MG TABLET PO SCH (23:01)
[2022-05-17] MEDS: MIRTAZAPINE 15 MG TABLET (FP) PO SCH (23:01)
[2022-05-17] MEDS: THIAMINE HCL 100 MG TABLET (FP) PO SCH (23:01)
[2022-05-18] MEDS: hydrOXYzine PAMOATE 25 MG CAPSULE (FP) PO SCH ×5 (06:35→23:02)
[2022-05-18] MEDS: PRENATAL VITAMINS W/ FOLIC ACID TABLET (FP) PO SCH (10:34)
[2022-05-18] MEDS: DOLUTEGRAVIR SODIUM 50 MG TABLET (NON-FORMULARY) PO SCH (10:34)
[2022-05-18] MEDS: NICOTINE 10 MG CARTRIDGE (INHALER) IH PRN ×2 (10:37→14:26)
[2022-05-18] MEDS: IBUPROFEN 600 MG TABLET (FP) PO PRN (18:00)
[2022-05-18] MEDS: MELATONIN 5 MG TABLETS PO SCH (23:02)
[2022-05-18] MEDS: THIAMINE HCL 100 MG TABLET (FP) PO SCH (23:02)
[2022-05-18] MEDS: MIRTAZAPINE 15 MG TABLET (FP) PO SCH (23:02)
[2022-05-18] MEDS: QUEtiapine FUMARATE 50 MG TABLET PO SCH (23:02)
[2022-05-19] MEDS: hydrOXYzine PAMOATE 25 MG CAPSULE (FP) PO SCH ×2 (06:21→11:07)
[2022-05-19] MEDS: PRENATAL VITAMINS W/ FOLIC ACID TABLET (FP) PO SCH (11:07)
[2022-05-19] MEDS: DOLUTEGRAVIR SODIUM 50 MG TABLET (NON-FORMULARY) PO SCH (11:09)
[2022-05-19] MEDS: IBUPROFEN 600 MG TABLET (FP) PO PRN (18:52)
[2022-05-19] MEDS: QUEtiapine FUMARATE 50 MG TABLET PO SCH (21:42)
[2022-05-19] MEDS: MIRTAZAPINE 15 MG TABLET (FP) PO SCH (21:42)
[2022-05-19] MEDS: THIAMINE HCL 100 MG TABLET (FP) PO SCH (21:42)
[2022-05-19] MEDS: MELATONIN 5 MG TABLETS PO SCH (21:42)
[2022-05-20] MEDS: DOLUTEGRAVIR SODIUM 50 MG TABLET (NON-FORMULARY) PO SCH (10:26)
[2022-05-20] MEDS: PRENATAL VITAMINS W/ FOLIC ACID TABLET (FP) PO SCH (10:27)
[2022-05-20] MEDS: hydrOXYzine PAMOATE 25 MG CAPSULE (FP) PO PRN ×2 (11:13→22:49)
[2022-05-20] MEDS: MELATONIN 5 MG TABLETS PO SCH (22:49)
[2022-05-20] MEDS: QUEtiapine FUMARATE 50 MG TABLET PO SCH (22:49)
[2022-05-20] MEDS: MIRTAZAPINE 15 MG TABLET (FP) PO SCH (22:49)
[2022-05-20] MEDS: THIAMINE HCL 100 MG TABLET (FP) PO SCH (22:50)
[2022-05-21] MEDS: PRENATAL VITAMINS W/ FOLIC ACID TABLET (FP) PO SCH (10:18)
[2022-05-21] MEDS: DOLUTEGRAVIR SODIUM 50 MG TABLET (NON-FORMULARY) PO SCH (10:18)
[2022-05-21] MEDS: NICOTINE 10 MG CARTRIDGE (INHALER) IH PRN ×2 (10:46→18:12)
[2022-05-21 13:10] VITALS: RESP 18
[2022-05-21] MEDS: IBUPROFEN 600 MG TABLET (FP) PO PRN (18:12)
[2022-05-21] MEDS: hydrOXYzine PAMOATE 50 MG CAPSULE (FP) PO PRN (19:04)
[2022-05-21] MEDS: MELATONIN 5 MG TABLETS PO SCH (22:02)
[2022-05-21] MEDS: MIRTAZAPINE 15 MG TABLET (FP) PO SCH (22:02)
[2022-05-21] MEDS: THIAMINE HCL 100 MG TABLET (FP) PO SCH (22:02)
[2022-05-21] MEDS: QUEtiapine FUMARATE 50 MG TABLET PO SCH (22:02)
[2022-05-22] MEDS: hydrOXYzine PAMOATE 50 MG CAPSULE (FP) PO PRN (06:30)
[2022-05-22 09:57] VITALS: BP 158/89; PULSE 81; TEMP 97.7
[2022-05-22] MEDS: PRENATAL VITAMINS W/ FOLIC ACID TABLET (FP) PO SCH (10:52)
[2022-05-22] MEDS: DOLUTEGRAVIR SODIUM 50 MG TABLET (NON-FORMULARY) PO SCH (10:52)
== END 2022-05-22 10:10 | disposition home or self-care (01) | DRG 773 ==
LOC: YASAS 09:53 → Y3N 11:26
PROVIDERS: ADMIT Allergy & Immunology; ATTEND Surgery
PROC: HZ2ZZZZ Detoxification Services for Substance Abuse Treatment (ICD-10-PCS; principal; 2022-05-13)
DX: F11.23 Opioid dependence with withdrawal (principal); F10.230 Alcohol dependence with withdrawal, uncomplicated; F14.20 Cocaine dependence, uncomplicated; F13.10 Sedative, hypnotic or anxiolytic abuse, uncomplicated; F12.20 Cannabis dependence, uncomplicated; F17.210 Nicotine dependence, cigarettes, uncomplicated; F41.9 Anxiety disorder, unspecified; F32.A Depression, unspecified; Z21 Asymptomatic human immunodeficiency virus [HIV] infection status; G47.00 Insomnia, unspecified; R03.0 Elevated blood-pressure reading, without diagnosis of hypertension; Z20.822 Contact with and (suspected) exposure to COVID-19; Z86.19 Personal history of other infectious and parasitic diseases; Z86.59 Personal history of other mental and behavioral disorders; Z88.8 Allergy status to other drugs, medicaments and biological substances; Z91.014 Allergy to mammalian meats
CPT/HCPCS: 36415; 80053; 85027; 86780; C9803-CS; U0003; U0005

== ENCOUNTER 2022-06-14 11:08 | Inpatient (IN) | payer OTHER ==
[2022-06-14 13:17] VITALS: BMI 24.8
[2022-06-14] MEDS ORDERED: MAGNESIUM CITRATE 300 ML BOTTLE PO PRN (14:58)
[2022-06-14] MEDS ORDERED: MAGNESIUM HYDROX 2400MG/30ML ORAL SUSPENSION 30 ML CUP PO PRN (14:58)
[2022-06-14] MEDS ORDERED: LOPERAMIDE HCL 2 MG CAPSULE PO PRN (14:58)
[2022-06-14] MEDS ORDERED: METHOCARBAMOL 500 MG TABLET PO PRN (14:58)
[2022-06-14] MEDS ORDERED: BUPRENORPHINE HCL 150 MCG, BUPRENORPHINE HCL 75 MCG BC PRN (14:58)
[2022-06-14] MEDS ORDERED: DICYCLOMINE HCL 10 MG CAPSULE PO PRN (14:58)
[2022-06-14] MEDS ORDERED: diazePAM 5 MG TABLET PO PRN (14:58)
[2022-06-14] MEDS ORDERED: IBUPROFEN 600 MG TABLET (FP) PO PRN (14:58)
[2022-06-14] MEDS ORDERED: ACETAMINOPHEN 325 MG TABLET (FP) PO PRN ×2 (14:58)
[2022-06-14] MEDS ORDERED: cloNIDine HCL 0.1 MG TABLET PO ONE (14:58)
[2022-06-14] MEDS ORDERED: BENZOCAINE/MENTHOL (CHLORASEPTIC ) LOZENGE MM PRN (14:58)
[2022-06-14] MEDS ORDERED: BUPRENORPHINE HCL 150 MCG, BUPRENORPHINE HCL 75 MCG BC ONE (14:58)
[2022-06-14] MEDS ORDERED: ONDANSETRON *ODT* 4 MG TABLET SL PRN (14:58)
[2022-06-14] MEDS ORDERED: BISMUTH SUBSALICYLATE 524 MG/30 ML PO PRN (14:58)
[2022-06-14] MEDS ORDERED: MAG HYDROX/AL HYDROX/SIMETH 30 ML UNIT-DOSE CUP PO PRN (14:58)
[2022-06-14] MEDS ORDERED: IBUPROFEN 400 MG TABLET (FP) PO PRN (14:58)
[2022-06-14] MEDS ORDERED: NALOXONE HCL (KLOXXADO) 8 MG SPRAY NS PRN (14:58)
[2022-06-14] MEDS ORDERED: cloNIDine HCL 0.1 MG TABLET ONE (15:23)
[2022-06-14] MEDS ORDERED: BUPRENORPHINE HCL 150 MCG FILM BC ONE (15:23)
[2022-06-14] MEDS ORDERED: BUPRENORPHINE HCL 75 MCG FILM BC ONE (15:23)
[2022-06-14] MEDS: PRENATAL VITAMINS W/ FOLIC ACID TABLET (FP) PO SCH (16:22)
[2022-06-14] MEDS ORDERED: cloNIDine HCL 0.1 MG TABLET PO PRN (18:59)
[2022-06-14] MEDS: diazePAM 5 MG TABLET PO SCH ×2 (19:29→22:28)
[2022-06-14] MEDS: hydrOXYzine PAMOATE 25 MG CAPSULE (FP) PO SCH ×2 (19:29→22:23)
[2022-06-14] MEDS: NICOTINE 10 MG CARTRIDGE (INHALER) IH PRN (22:25)
[2022-06-14] MEDS: MELATONIN 5 MG TABLETS PO SCH (22:26)
[2022-06-14] MEDS: THIAMINE HCL 100 MG TABLET (FP) PO SCH (22:26)
[2022-06-15] MEDS ORDERED: BUPRENORPHINE HCL 150 MCG, BUPRENORPHINE HCL 75 MCG BC PRN
[2022-06-15] MEDS: diazePAM 5 MG TABLET PO SCH ×4 (05:49→22:02)
[2022-06-15] MEDS: hydrOXYzine PAMOATE 25 MG CAPSULE (FP) PO SCH ×5 (05:49→22:15)
[2022-06-15] MEDS: BUPRENORPHINE HCL 150 MCG, BUPRENORPHINE HCL 75 MCG BC SCH ×2 (05:50→17:19)
[2022-06-15] MEDS ORDERED: PATIENT'S OWN MEDICATION (NON-FORMULARY) (Dolutegravir Sodium/Lamivudine [Dovato 50-300 Mg PO SCH (10:00)
[2022-06-15] MEDS: PRENATAL VITAMINS W/ FOLIC ACID TABLET (FP) PO SCH (10:16)
[2022-06-15] MEDS: NICOTINE 14 MG/24 HOURS TOPICAL PATCH TD SCH (10:16)
[2022-06-15 11:01] LABS: HEMATOCRIT 39.8 % (35.4-49); MCH 31.2 pg (25.7-33.7); MCHC 32.8 g/dl (32.0-35.9); MEAN CELL VOLUME 95.2 fl (80-96); MEAN PLT VOLUME 9.4 fl (7.5-11.1); PLATELET COUNT 228 10^3/uL (134-434); RBC 4.18 M/mm3 (4.00-5.60); RDW 14.5 % (11.9-15.9); WHITE BLOOD COUNT 4.3 K/mm3 (4.0-10.0)
[2022-06-15 11:21] LABS: ALBUMIN 3.6 g/dl (3.4-5.0); BLOOD UREA NITROGEN 20.6 mg/dL (7-18); CALCIUM 9.4 mg/dL (8.5-10.1)
[2022-06-15 11:24] LABS: BILIRUBIN,TOTAL 0.4 mg/dL (0.2-1); CREATININE 1.1 mg/dL (0.55-1.3); TOT PROT 7.8 g/dl (6.4-8.2)
[2022-06-15] MEDS ORDERED: FLU VACC QS2022-23(6MOS UP)/PF 60 MCG/0.5 ML SYRINGE IM ONE (12:00)
[2022-06-15] MEDS: DOLUTEGRAVIR SODIUM 50 MG TABLET (NON-FORMULARY) PO SCH (13:58)
[2022-06-15] MEDS: lamiVUDine 150 MG TABLET PO SCH (13:58)
[2022-06-15] MEDS: MIRTAZAPINE 15 MG TABLET (FP) PO SCH (22:01)
[2022-06-15] MEDS: QUEtiapine FUMARATE 50 MG TABLET PO SCH (22:01)
[2022-06-15] MEDS: MELATONIN 5 MG TABLETS PO SCH (22:02)
[2022-06-15] MEDS: THIAMINE HCL 100 MG TABLET (FP) PO SCH (22:15)
[2022-06-16] MEDS: hydrOXYzine PAMOATE 25 MG CAPSULE (FP) PO SCH ×5 (05:27→22:06)
[2022-06-16] MEDS: BUPRENORPHINE HCL 450 MCG FILM BC SCH ×2 (05:28→17:50)
[2022-06-16] MEDS: NICOTINE 10 MG CARTRIDGE (INHALER) IH PRN ×2 (05:28→10:24)
[2022-06-16] MEDS: diazePAM 5 MG TABLET PO SCH ×3 (05:28→22:05)
[2022-06-16] MEDS: PRENATAL VITAMINS W/ FOLIC ACID TABLET (FP) PO SCH (10:24)
[2022-06-16] MEDS: DOLUTEGRAVIR SODIUM 50 MG TABLET (NON-FORMULARY) PO SCH (10:25)
[2022-06-16] MEDS: lamiVUDine 150 MG TABLET PO SCH (10:25)
[2022-06-16] MEDS: NICOTINE 14 MG/24 HOURS TOPICAL PATCH TD SCH (10:26)
[2022-06-16] MEDS: diazePAM 5 MG TABLET PO PRN (10:26)
[2022-06-16] MEDS: QUEtiapine FUMARATE 50 MG TABLET PO SCH (22:05)
[2022-06-16] MEDS: THIAMINE HCL 100 MG TABLET (FP) PO SCH (22:05)
[2022-06-16] MEDS: MELATONIN 5 MG TABLETS PO SCH (22:06)
[2022-06-16] MEDS: MIRTAZAPINE 15 MG TABLET (FP) PO SCH (22:08)
[2022-06-17] MEDS ORDERED: diazePAM 5 MG TABLET PO SCH (06:00)
[2022-06-17] MEDS ORDERED: BUPRENORPHINE/NALOXONE 4 MG/1 MG FILM PACKET SL SCH (06:00)
[2022-06-17] MEDS: hydrOXYzine PAMOATE 25 MG CAPSULE (FP) PO SCH ×2 (06:09→10:10)
[2022-06-17 09:28] VITALS: BP 134/78; PULSE 88; RESP 16; TEMP 97.5
[2022-06-17] MEDS: NICOTINE 10 MG CARTRIDGE (INHALER) IH PRN (10:09)
[2022-06-17] MEDS: diazePAM 5 MG TABLET PO PRN (10:10)
[2022-06-17] MEDS: NICOTINE 14 MG/24 HOURS TOPICAL PATCH TD SCH (10:10)
[2022-06-17] MEDS: lamiVUDine 150 MG TABLET PO SCH (10:11)
[2022-06-17] MEDS: DOLUTEGRAVIR SODIUM 50 MG TABLET (NON-FORMULARY) PO SCH (10:11)
[2022-06-17] MEDS: PRENATAL VITAMINS W/ FOLIC ACID TABLET (FP) PO SCH (10:11)
[2022-06-18] MEDS ORDERED: diazePAM 5 MG TABLET PO ONE (06:00)
[2022-06-18] MEDS ORDERED: BUPRENORPHINE/NALOXONE 8 MG/2 MG FILM PACKET SL ONE (06:00)
== END 2022-06-17 12:01 | disposition home or self-care (01) | DRG 773 ==
LOC: YASAS 11:08 → Y3N 14:41
PROVIDERS: ADMIT Allergy & Immunology; ATTEND Surgery
PROC: HZ2ZZZZ Detoxification Services for Substance Abuse Treatment (ICD-10-PCS; principal; 2022-06-14)
DX: F11.23 Opioid dependence with withdrawal (principal); F10.230 Alcohol dependence with withdrawal, uncomplicated; F14.20 Cocaine dependence, uncomplicated; F13.20 Sedative, hypnotic or anxiolytic dependence, uncomplicated; F12.20 Cannabis dependence, uncomplicated; F17.210 Nicotine dependence, cigarettes, uncomplicated; F31.9 Bipolar disorder, unspecified; F19.282 Other psychoactive substance dependence with psychoactive substance-induced sleep disorder; F41.9 Anxiety disorder, unspecified; F43.10 Post-traumatic stress disorder, unspecified; Z21 Asymptomatic human immunodeficiency virus [HIV] infection status; B18.2 Chronic viral hepatitis C; Z88.8 Allergy status to other drugs, medicaments and biological substances
CPT/HCPCS: 36415; 80053; 85027; 86780; 86803; 87522; C9803-CS; G0008; Q2036; U0003; U0005

== ENCOUNTER 2022-08-01 16:53 | Inpatient (IN) | payer OTHER ==
[2022-08-01 17:33] VITALS: BMI 24.2
[2022-08-01] MEDS ORDERED: NICOTINE POLACRILEX 2 MG GUM BUC PRN (19:00)
[2022-08-01] MEDS ORDERED: cloNIDine HCL 0.1 MG TABLET PO ONE (19:00)
[2022-08-01] MEDS ORDERED: BUPRENORPHINE HCL 150 MCG, BUPRENORPHINE HCL 75 MCG BC ONE (19:00)
[2022-08-01] MEDS ORDERED: NALOXONE HCL (KLOXXADO) 8 MG SPRAY NS PRN (19:00)
[2022-08-01] MEDS ORDERED: POLYETHYLENE GLYCOL (HEALTHYLAX) 3350 17 GM PACKET PO PRN (19:00)
[2022-08-01] MEDS ORDERED: IBUPROFEN 600 MG TABLET (FP) PO PRN (19:00)
[2022-08-01] MEDS ORDERED: ACETAMINOPHEN 325 MG TABLET (FP) PO PRN ×2 (19:00)
[2022-08-01] MEDS ORDERED: diazePAM 5 MG TABLET PO PRN (19:00)
[2022-08-01] MEDS ORDERED: MAGNESIUM HYDROX 2400MG/30ML ORAL SUSPENSION 30 ML CUP PO PRN (19:00)
[2022-08-01] MEDS ORDERED: diazePAM 5 MG TABLET PO ONE (19:00)
[2022-08-01] MEDS ORDERED: IBUPROFEN 400 MG TABLET (FP) PO PRN (19:00)
[2022-08-01] MEDS ORDERED: LOPERAMIDE HCL 2 MG CAPSULE PO PRN (19:00)
[2022-08-01] MEDS ORDERED: BENZOCAINE/MENTHOL (CHLORASEPTIC ) LOZENGE MM PRN (19:00)
[2022-08-01] MEDS ORDERED: ONDANSETRON *ODT* 4 MG TABLET SL PRN (19:00)
[2022-08-01] MEDS ORDERED: MAG HYDROX/AL HYDROX/SIMETH 30 ML UNIT-DOSE CUP PO PRN (19:00)
[2022-08-01] MEDS ORDERED: BUPRENORPHINE HCL 150 MCG, BUPRENORPHINE HCL 75 MCG BC PRN (19:00)
[2022-08-01] MEDS ORDERED: DICYCLOMINE HCL 10 MG CAPSULE PO PRN (19:00)
[2022-08-01] MEDS ORDERED: BISMUTH SUBSALICYLATE 524 MG/30 ML PO PRN (19:00)
[2022-08-01] MEDS ORDERED: BUPRENORPHINE HCL 150 MCG FILM BC ONE (19:36)
[2022-08-01] MEDS ORDERED: BUPRENORPHINE HCL 75 MCG FILM BC ONE (19:37)
[2022-08-01] MEDS ORDERED: diazePAM 5 MG TABLET ONE (19:38)
[2022-08-01] MEDS ORDERED: cloNIDine HCL 0.1 MG TABLET ONE (19:52)
[2022-08-01] MEDS: PRENATAL VITAMINS W/ FOLIC ACID TABLET (FP) PO SCH (20:04)
[2022-08-01] MEDS: MELATONIN 5 MG TABLETS PO SCH (22:25)
[2022-08-01] MEDS: THIAMINE HCL 100 MG TABLET (FP) PO SCH (22:25)
[2022-08-01] MEDS: diazePAM 5 MG TABLET PO SCH (22:25)
[2022-08-01] MEDS ORDERED: cloNIDine HCL 0.1 MG TABLET PO PRN (23:01)
[2022-08-02] MEDS ORDERED: BUPRENORPHINE HCL 150 MCG, BUPRENORPHINE HCL 75 MCG BC PRN
[2022-08-02] MEDS: diazePAM 5 MG TABLET PO SCH ×4 (05:35→22:54)
[2022-08-02] MEDS: BUPRENORPHINE HCL 150 MCG, BUPRENORPHINE HCL 75 MCG BC SCH ×2 (05:37→17:42)
[2022-08-02] MEDS: NICOTINE 10 MG CARTRIDGE (INHALER) IH PRN ×3 (05:40→17:43)
[2022-08-02] MEDS ORDERED: PATIENT'S OWN MEDICATION (NON-FORMULARY) (Dolutegravir Sodium/Lamivudine [Dovato 50-300 Mg PO SCH (10:00)
[2022-08-02 10:08] LABS: HEMATOCRIT 41.2 % (35.4-49); HEMOGLOBIN 13.5 GM/dL (11.7-16.9); MCH 30.7 pg (25.7-33.7); MCHC 32.8 g/dl (32.0-35.9); MEAN CELL VOLUME 93.5 fl (80-96); MEAN PLT VOLUME 9.9 fl (7.5-11.1); PLATELET COUNT 246 10^3/uL (134-434); RBC 4.41 M/mm3 (4.00-5.60); RDW 14.7 % (11.9-15.9); WHITE BLOOD COUNT 3.8 K/mm3 (4.0-10.0)
[2022-08-02] MEDS: PRENATAL VITAMINS W/ FOLIC ACID TABLET (FP) PO SCH (10:20)
[2022-08-02] MEDS: METHOCARBAMOL 500 MG TABLET PO PRN ×2 (10:22→22:54)
[2022-08-02 10:40] LABS: ALBUMIN 3.8 g/dl (3.4-5.0); BLOOD UREA NITROGEN 16.1 mg/dL (7-18); CALCIUM 9.3 mg/dL (8.5-10.1)
[2022-08-02 10:41] LABS: BILIRUBIN,TOTAL 0.7 mg/dL (0.2-1)
[2022-08-02 10:44] LABS: CREATININE 1.1 mg/dL (0.55-1.3)
[2022-08-02 10:45] LABS: TOT PROT 7.8 g/dl (6.4-8.2)
[2022-08-02] MEDS ORDERED: PNEUMOC 20-VAL CONJ-DIP CRM/PF 0.5 ML SYRINGE IM ONE (12:00)
[2022-08-02] MEDS ORDERED: DOLUTEGRAVIR SODIUM 50 MG TABLET (NON-FORMULARY) PO ONE (12:00)
[2022-08-02] MEDS: diazePAM 5 MG TABLET PO PRN (15:25)
[2022-08-02] MEDS: MIRTAZAPINE 15 MG TABLET (FP) PO SCH (22:53)
[2022-08-02] MEDS: QUEtiapine FUMARATE 50 MG TABLET PO SCH (22:54)
[2022-08-02] MEDS: MELATONIN 5 MG TABLETS PO SCH (22:54)
[2022-08-02] MEDS: THIAMINE HCL 100 MG TABLET (FP) PO SCH (22:54)
[2022-08-03] MEDS: diazePAM 5 MG TABLET PO SCH ×3 (05:11→21:32)
[2022-08-03] MEDS: BUPRENORPHINE HCL 450 MCG FILM BC SCH ×2 (05:11→18:15)
[2022-08-03] MEDS: DOLUTEGRAVIR SODIUM 50 MG TABLET (NON-FORMULARY) PO SCH (08:00)
[2022-08-03] MEDS: QUEtiapine FUMARATE 50 MG TABLET PO SCH ×2 (10:28→21:31)
[2022-08-03] MEDS: diazePAM 5 MG TABLET PO PRN (10:29)
[2022-08-03] MEDS: PRENATAL VITAMINS W/ FOLIC ACID TABLET (FP) PO SCH (10:30)
[2022-08-03] MEDS: NICOTINE 10 MG CARTRIDGE (INHALER) IH PRN (10:31)
[2022-08-03] MEDS: MELATONIN 5 MG TABLETS PO SCH (21:30)
[2022-08-03] MEDS: THIAMINE HCL 100 MG TABLET (FP) PO SCH (21:31)
[2022-08-03] MEDS: MIRTAZAPINE 15 MG TABLET (FP) PO SCH (21:31)
[2022-08-04] MEDS: BUPRENORPHINE/NALOXONE 4 MG/1 MG FILM PACKET SL SCH ×2 (05:35→17:21)
[2022-08-04] MEDS: diazePAM 5 MG TABLET PO SCH ×2 (05:35→17:20)
[2022-08-04] MEDS: NICOTINE 10 MG CARTRIDGE (INHALER) IH PRN ×2 (07:31→21:23)
[2022-08-04] MEDS: DOLUTEGRAVIR SODIUM 50 MG TABLET (NON-FORMULARY) PO SCH (07:32)
[2022-08-04] MEDS: QUEtiapine FUMARATE 50 MG TABLET PO SCH ×2 (10:17→21:21)
[2022-08-04] MEDS: PRENATAL VITAMINS W/ FOLIC ACID TABLET (FP) PO SCH (10:17)
[2022-08-04] MEDS: diazePAM 5 MG TABLET PO PRN (10:18)
[2022-08-04] MEDS: THIAMINE HCL 100 MG TABLET (FP) PO SCH (21:21)
[2022-08-04] MEDS: MELATONIN 5 MG TABLETS PO SCH (21:21)
[2022-08-04] MEDS: MIRTAZAPINE 15 MG TABLET (FP) PO SCH (21:21)
[2022-08-05] MEDS: NICOTINE 10 MG CARTRIDGE (INHALER) IH PRN (05:25)
[2022-08-05] MEDS ORDERED: diazePAM 5 MG TABLET PO ONE (06:00)
[2022-08-05] MEDS ORDERED: BUPRENORPHINE/NALOXONE 8 MG/2 MG FILM PACKET SL ONE (06:00)
[2022-08-05] MEDS: DOLUTEGRAVIR SODIUM 50 MG TABLET (NON-FORMULARY) PO SCH (07:55)
[2022-08-05 08:55] VITALS: BP 124/74; PULSE 80; RESP 16; TEMP 96.9
[2022-08-05] MEDS: PRENATAL VITAMINS W/ FOLIC ACID TABLET (FP) PO SCH (10:49)
[2022-08-05] MEDS: QUEtiapine FUMARATE 50 MG TABLET PO SCH (10:50)
== END 2022-08-05 10:15 | disposition home or self-care (01) | DRG 773 ==
LOC: YASAS 16:53 → Y3N 19:47
PROVIDERS: ADMIT Allergy & Immunology; ATTEND Surgery
PROC: HZ2ZZZZ Detoxification Services for Substance Abuse Treatment (ICD-10-PCS; principal; 2022-08-01)
DX: F11.23 Opioid dependence with withdrawal (principal); F10.230 Alcohol dependence with withdrawal, uncomplicated; F13.20 Sedative, hypnotic or anxiolytic dependence, uncomplicated; F14.20 Cocaine dependence, uncomplicated; F12.20 Cannabis dependence, uncomplicated; F17.210 Nicotine dependence, cigarettes, uncomplicated; F31.9 Bipolar disorder, unspecified; F19.24 Other psychoactive substance dependence with psychoactive substance-induced mood disorder; G47.00 Insomnia, unspecified; Z86.19 Personal history of other infectious and parasitic diseases; Z88.8 Allergy status to other drugs, medicaments and biological substances; Z91.014 Allergy to mammalian meats
CPT/HCPCS: 36415; 80053; 85027; 86780; 90677; C9803-CS; U0003; U0005

== ENCOUNTER 2022-09-03 13:06 | Inpatient (IN) | payer OTHER ==
[2022-09-03] MEDS ORDERED: IBUPROFEN 400 MG TABLET (FP) PO PRN (14:04)
[2022-09-03] MEDS ORDERED: NICOTINE POLACRILEX 4 MG GUM BUC PRN (14:04)
[2022-09-03] MEDS ORDERED: ACETAMINOPHEN 325 MG TABLET (FP) PO PRN ×2 (14:04)
[2022-09-03] MEDS ORDERED: MAGNESIUM HYDROX 2400MG/30ML ORAL SUSPENSION 30 ML CUP PO PRN (14:04)
[2022-09-03] MEDS ORDERED: MAG HYDROX/AL HYDROX/SIMETH 30 ML UNIT-DOSE CUP PO PRN (14:04)
[2022-09-03] MEDS ORDERED: POLYETHYLENE GLYCOL (HEALTHYLAX) 3350 17 GM PACKET PO PRN (14:04)
[2022-09-03] MEDS ORDERED: BENZOCAINE/MENTHOL (CHLORASEPTIC ) LOZENGE MM PRN (14:04)
[2022-09-03] MEDS ORDERED: BISMUTH SUBSALICYLATE 262 MG/15 ML BTL PO PRN (14:04)
[2022-09-03] MEDS ORDERED: DICYCLOMINE HCL 10 MG CAPSULE PO PRN (14:04)
[2022-09-03] MEDS ORDERED: LOPERAMIDE HCL 2 MG CAPSULE PO PRN (14:04)
[2022-09-03] MEDS ORDERED: NALOXONE HCL (KLOXXADO) 8 MG SPRAY NS PRN (14:04)
[2022-09-03 14:20] VITALS: BMI 23.8
[2022-09-03] MEDS: ONDANSETRON *ODT* 4 MG TABLET SL PRN (15:09)
[2022-09-03] MEDS: hydrOXYzine PAMOATE 25 MG CAPSULE (FP) PO PRN (15:09)
[2022-09-03] MEDS: diazePAM 5 MG TABLET PO PRN (15:10)
[2022-09-03] MEDS: NICOTINE 10 MG CARTRIDGE (INHALER) IH PRN (15:11)
[2022-09-03] MEDS: diazePAM 5 MG TABLET PO SCH ×2 (17:26→22:10)
[2022-09-03] MEDS: THIAMINE HCL 100 MG TABLET (FP) PO SCH (22:10)
[2022-09-03] MEDS: MELATONIN 5 MG TABLETS PO SCH (22:10)
[2022-09-04] MEDS: METHOCARBAMOL 500 MG TABLET PO PRN (05:12)
[2022-09-04] MEDS: diazePAM 5 MG TABLET PO SCH ×4 (05:12→22:00)
[2022-09-04] MEDS: hydrOXYzine PAMOATE 25 MG CAPSULE (FP) PO PRN ×2 (05:12→12:08)
[2022-09-04] MEDS: IBUPROFEN 600 MG TABLET (FP) PO PRN (05:46)
[2022-09-04] MEDS: diazePAM 5 MG TABLET PO PRN ×2 (08:47→12:48)
[2022-09-04] MEDS ORDERED: cloNIDine HCL 0.1 MG TABLET PO PRN (09:43)
[2022-09-04] MEDS ORDERED: QUEtiapine FUMARATE 100 MG TABLET (FP) PO SCH (10:00)
[2022-09-04] MEDS ORDERED: methaDONE HCL 10 MG TABLET (FOR DETOX USE ONLY) PO ONE (10:15)
[2022-09-04] MEDS ORDERED: PATIENT'S OWN MEDICATION (NON-FORMULARY) (Dolutegravir Sodium/Lamivudine [Dovato 50-300 Mg PO SCH (10:15)
[2022-09-04] MEDS: NICOTINE 21 MG/24 HOURS TOPICAL PATCH TD SCH (10:19)
[2022-09-04] MEDS: PRENATAL VITAMINS W/ FOLIC ACID TABLET (FP) PO SCH (10:19)
[2022-09-04] MEDS ORDERED: DOLUTEGRAVIR SODIUM 50 MG TABLET (NON-FORMULARY) PO ONE (12:00)
[2022-09-04] MEDS: NICOTINE 10 MG CARTRIDGE (INHALER) IH PRN ×2 (12:46→22:04)
[2022-09-04] MEDS: THIAMINE HCL 100 MG TABLET (FP) PO SCH (22:00)
[2022-09-04] MEDS: QUEtiapine FUMARATE 100 MG TABLET (FP) PO SCH (22:00)
[2022-09-04] MEDS: MELATONIN 5 MG TABLETS PO SCH (22:00)
[2022-09-05] MEDS: diazePAM 5 MG TABLET PO PRN ×3 (02:12→18:27)
[2022-09-05] MEDS: hydrOXYzine PAMOATE 25 MG CAPSULE (FP) PO PRN ×2 (02:12→13:42)
[2022-09-05] MEDS: METHOCARBAMOL 500 MG TABLET PO PRN ×3 (05:03→18:28)
[2022-09-05] MEDS: NICOTINE 10 MG CARTRIDGE (INHALER) IH PRN ×4 (05:05→22:41)
[2022-09-05] MEDS: diazePAM 5 MG TABLET PO SCH ×3 (05:05→22:41)
[2022-09-05] MEDS: DOLUTEGRAVIR SODIUM 50 MG TABLET (NON-FORMULARY) PO SCH (07:09)
[2022-09-05] MEDS: PRENATAL VITAMINS W/ FOLIC ACID TABLET (FP) PO SCH (10:08)
[2022-09-05] MEDS: NICOTINE 21 MG/24 HOURS TOPICAL PATCH TD SCH (10:11)
[2022-09-05] MEDS: IBUPROFEN 600 MG TABLET (FP) PO PRN ×2 (13:42→18:30)
[2022-09-05] MEDS: THIAMINE HCL 100 MG TABLET (FP) PO SCH (22:39)
[2022-09-05] MEDS: MELATONIN 5 MG TABLETS PO SCH (22:40)
[2022-09-05] MEDS: QUEtiapine FUMARATE 100 MG TABLET (FP) PO SCH (22:40)
[2022-09-06] MEDS: diazePAM 5 MG TABLET PO SCH ×2 (05:29→17:24)
[2022-09-06] MEDS: NICOTINE 10 MG CARTRIDGE (INHALER) IH PRN ×4 (05:30→22:07)
[2022-09-06] MEDS: DOLUTEGRAVIR SODIUM 50 MG TABLET (NON-FORMULARY) PO SCH (07:04)
[2022-09-06] MEDS: hydrOXYzine PAMOATE 25 MG CAPSULE (FP) PO PRN ×2 (07:49→20:50)
[2022-09-06] MEDS ORDERED: methaDONE HCL 10 MG TABLET (FOR DETOX USE ONLY) PO ONE (10:00)
[2022-09-06] MEDS: PRENATAL VITAMINS W/ FOLIC ACID TABLET (FP) PO SCH (10:27)
[2022-09-06] MEDS: NICOTINE 21 MG/24 HOURS TOPICAL PATCH TD SCH (10:28)
[2022-09-06 11:46] LABS: HEMATOCRIT 37.1 % (35.4-49); MCH 31.1 pg (25.7-33.7); MCHC 32.4 g/dl (32.0-35.9); MEAN PLT VOLUME 8.9 fl (7.5-11.1); PLATELET COUNT 223 10^3/uL (134-434); RBC 3.87 M/mm3 (4.00-5.60); RDW 15.3 % (11.9-15.9); WHITE BLOOD COUNT 3.9 K/mm3 (4.0-10.0)
[2022-09-06 11:57] LABS: CALCIUM 9.1 mg/dL (8.5-10.1)
[2022-09-06 11:58] LABS: ALBUMIN 3.2 g/dl (3.4-5.0); BLOOD UREA NITROGEN 7.7 mg/dL (7-18)
[2022-09-06 12:01] LABS: CREATININE 1.1 mg/dL (0.55-1.3)
[2022-09-06 12:02] LABS: BILIRUBIN,TOTAL 0.5 mg/dL (0.2-1); TOT PROT 6.6 g/dl (6.4-8.2)
[2022-09-06] MEDS: diazePAM 5 MG TABLET PO PRN (13:46)
[2022-09-06] MEDS: METHOCARBAMOL 500 MG TABLET PO PRN ×2 (13:46→17:24)
[2022-09-06] MEDS: ONDANSETRON *ODT* 4 MG TABLET SL PRN (20:50)
[2022-09-06] MEDS: QUEtiapine FUMARATE 100 MG TABLET (FP) PO SCH (22:05)
[2022-09-06] MEDS: THIAMINE HCL 100 MG TABLET (FP) PO SCH (22:05)
[2022-09-06] MEDS: MELATONIN 5 MG TABLETS PO SCH (22:38)
[2022-09-07] MEDS: METHOCARBAMOL 500 MG TABLET PO PRN ×2 (01:28→09:58)
[2022-09-07] MEDS: hydrOXYzine PAMOATE 25 MG CAPSULE (FP) PO PRN (01:28)
[2022-09-07] MEDS: NICOTINE 10 MG CARTRIDGE (INHALER) IH PRN ×2 (05:29→09:57)
[2022-09-07] MEDS ORDERED: diazePAM 5 MG TABLET PO ONE (06:00)
[2022-09-07] MEDS: DOLUTEGRAVIR SODIUM 50 MG TABLET (NON-FORMULARY) PO SCH (07:20)
[2022-09-07 09:23] VITALS: BP 130/81; PULSE 72; RESP 18; TEMP 97.6
[2022-09-07] MEDS: PRENATAL VITAMINS W/ FOLIC ACID TABLET (FP) PO SCH (09:56)
[2022-09-07] MEDS: NICOTINE 21 MG/24 HOURS TOPICAL PATCH TD SCH (09:56)
[2022-09-08] MEDS ORDERED: methaDONE HCL 10 MG TABLET (FOR DETOX USE ONLY) PO ONE (10:00)
== END 2022-09-07 12:18 | disposition left against medical advice (07) | DRG 770 ==
LOC: YASAS 13:06 → Y6N 14:34
PROVIDERS: ADMIT Allergy & Immunology; ATTEND Surgery
PROC: HZ2ZZZZ Detoxification Services for Substance Abuse Treatment (ICD-10-PCS; principal; 2022-09-03)
DX: F11.23 Opioid dependence with withdrawal (principal); F10.230 Alcohol dependence with withdrawal, uncomplicated; F14.20 Cocaine dependence, uncomplicated; F17.210 Nicotine dependence, cigarettes, uncomplicated; F19.282 Other psychoactive substance dependence with psychoactive substance-induced sleep disorder; F19.24 Other psychoactive substance dependence with psychoactive substance-induced mood disorder; F31.9 Bipolar disorder, unspecified; Z21 Asymptomatic human immunodeficiency virus [HIV] infection status; Z86.19 Personal history of other infectious and parasitic diseases; Z88.8 Allergy status to other drugs, medicaments and biological substances
CPT/HCPCS: 36415; 80053; 85027; 86780; C9803-CS; Q0162; U0003; U0005

== ENCOUNTER 2022-10-23 12:46 | Inpatient (IN) | payer OTHER ==
[2022-10-23 19:16] VITALS: BMI 24.2
[2022-10-23] MEDS ORDERED: POLYETHYLENE GLYCOL (HEALTHYLAX) 3350 17 GM PACKET PO PRN (20:04)
[2022-10-23] MEDS ORDERED: MELATONIN 5 MG TABLETS PO PRN (20:04)
[2022-10-23] MEDS ORDERED: ACETAMINOPHEN 325 MG TABLET (FP) PO PRN (20:04)
[2022-10-23] MEDS ORDERED: LOPERAMIDE HCL 2 MG CAPSULE PO PRN (20:04)
[2022-10-23] MEDS ORDERED: MAG HYDROX/AL HYDROX/SIMETH 30 ML UNIT-DOSE CUP PO PRN (20:04)
[2022-10-23] MEDS ORDERED: guaiFENesin 200 MG/10 ML 10 ML UNIT-DOSE CUPS PO PRN (20:04)
[2022-10-23] MEDS ORDERED: IBUPROFEN 400 MG TABLET (FP) PO PRN (20:04)
[2022-10-23] MEDS ORDERED: NICOTINE POLACRILEX 2 MG GUM BC PRN (20:04)
[2022-10-23] MEDS ORDERED: P-EPHED 60MG/TRIPROLIDI 2.5MG TABLET PO PRN (20:04)
[2022-10-23] MEDS ORDERED: BENZOCAINE/MENTHOL (CHLORASEPTIC ) LOZENGE MM PRN (20:04)
[2022-10-23] MEDS ORDERED: MAGNESIUM HYDROX 2400MG/30ML ORAL SUSPENSION 30 ML CUP PO PRN (20:04)
[2022-10-24] MEDS: THIAMINE HCL 100 MG TABLET (FP) PO SCH ×2 (03:04→22:00)
[2022-10-24 06:45] LABS: URINE APPEARANCE CLEAR; URINE BILIRUBIN NEGATIVE (NEGATIVE); URINE COLOR YELLOW; URINE GLUCOSE (UA) NEGATIVE (NEGATIVE); URINE KETONE NEGATIVE (NEGATIVE); URINE LEUK ESTERASE NEGATIVE (NEGATIVE); URINE NITRITE NEGATIVE (NEGATIVE); URINE PROTEIN TRACE (NEGATIVE)
[2022-10-24] MEDS: PRENATAL VITAMINS W/ FOLIC ACID TABLET (FP) PO SCH (10:20)
[2022-10-24 12:28] LABS: HEMATOCRIT 37.9 % (35.4-49); HEMOGLOBIN 12.8 GM/dL (11.7-16.9); MCH 31.7 pg (25.7-33.7); MCHC 33.8 g/dl (32.0-35.9); MEAN CELL VOLUME 93.9 fl (80-96); MEAN PLT VOLUME 9.4 fl (7.5-11.1); PLATELET COUNT 268 10^3/uL (134-434); RBC 4.04 M/mm3 (4.00-5.60); RDW 14.4 % (11.9-15.9); WHITE BLOOD COUNT 3.2 K/mm3 (4.0-10.0)
[2022-10-24 12:42] LABS: ALBUMIN 3.6 g/dl (3.4-5.0); CALCIUM 9.7 mg/dL (8.5-10.1)
[2022-10-24 12:44] LABS: CREATININE 1.1 mg/dL (0.55-1.3)
[2022-10-24 12:45] LABS: BILIRUBIN,TOTAL 0.6 mg/dL (0.2-1); TOT PROT 7.6 g/dl (6.4-8.2)
[2022-10-24] MEDS: NICOTINE 10 MG CARTRIDGE (INHALER) IH PRN (13:53)
[2022-10-24] MEDS ORDERED: BUPRENORPHINE/NALOXONE 2 MG/0.5 MG FILM PACKET SL ONE (18:45)
[2022-10-24] MEDS: QUEtiapine FUMARATE 50 MG TABLET PO SCH (22:00)
[2022-10-24] MEDS: MIRTAZAPINE 15 MG TABLET (FP) PO SCH (22:00)
[2022-10-25] MEDS: PRENATAL VITAMINS W/ FOLIC ACID TABLET (FP) PO SCH (10:33)
[2022-10-25] MEDS: NICOTINE 10 MG CARTRIDGE (INHALER) IH PRN ×2 (10:34→16:39)
[2022-10-25] MEDS ORDERED: BUPRENORPHINE/NALOXONE 4 MG/1 MG FILM PACKET SL ONE (11:30)
[2022-10-25] MEDS: MIRTAZAPINE 15 MG TABLET (FP) PO SCH (21:46)
[2022-10-25] MEDS: QUEtiapine FUMARATE 50 MG TABLET PO SCH (21:46)
[2022-10-25] MEDS: BUPRENORPHINE/NALOXONE 4 MG/1 MG FILM PACKET SL SCH (21:46)
[2022-10-25] MEDS: THIAMINE HCL 100 MG TABLET (FP) PO SCH (21:47)
[2022-10-26] MEDS: PRENATAL VITAMINS W/ FOLIC ACID TABLET (FP) PO SCH (10:21)
[2022-10-26] MEDS: NICOTINE 10 MG CARTRIDGE (INHALER) IH PRN ×3 (10:22→21:53)
[2022-10-26] MEDS: BUPRENORPHINE/NALOXONE 4 MG/1 MG FILM PACKET SL SCH ×2 (10:23→21:53)
[2022-10-26] MEDS: THIAMINE HCL 100 MG TABLET (FP) PO SCH (21:53)
[2022-10-26] MEDS: MIRTAZAPINE 15 MG TABLET (FP) PO SCH (21:53)
[2022-10-26] MEDS: QUEtiapine FUMARATE 50 MG TABLET PO SCH (21:53)
[2022-10-27 07:21] VITALS: PULSE 67
[2022-10-27] MEDS: PRENATAL VITAMINS W/ FOLIC ACID TABLET (FP) PO SCH (10:19)
[2022-10-27] MEDS: NICOTINE 10 MG CARTRIDGE (INHALER) IH PRN (10:20)
[2022-10-27] MEDS: BUPRENORPHINE/NALOXONE 4 MG/1 MG FILM PACKET SL SCH ×2 (10:20→21:25)
[2022-10-27] MEDS ORDERED: QUEtiapine FUMARATE 25 MG TABLET PO PRN (15:14)
[2022-10-27] MEDS: MIRTAZAPINE 15 MG TABLET (FP) PO SCH (21:25)
[2022-10-27] MEDS: QUEtiapine FUMARATE 50 MG TABLET PO SCH (21:25)
[2022-10-27] MEDS: THIAMINE HCL 100 MG TABLET (FP) PO SCH (21:25)
[2022-10-28 07:15] VITALS: BP 110/77; RESP 16; TEMP 98
[2022-10-28] MEDS: PRENATAL VITAMINS W/ FOLIC ACID TABLET (FP) PO SCH (09:45)
[2022-10-28] MEDS ORDERED: BUPRENORPHINE/NALOXONE 8 MG/2 MG FILM PACKET SL SCH (10:00)
== END 2022-10-28 10:10 | disposition home or self-care (01) | DRG 773 ==
LOC: YASAS 12:46 → Y5N 10-24 02:18
PROVIDERS: ADMIT Allergy & Immunology; ATTEND Psychiatry & Neurology Pain Medicine
PROC: HZ2ZZZZ Detoxification Services for Substance Abuse Treatment (ICD-10-PCS; principal; 2022-10-24)
DX: F11.20 Opioid dependence, uncomplicated (principal); F10.20 Alcohol dependence, uncomplicated; F14.20 Cocaine dependence, uncomplicated; F12.20 Cannabis dependence, uncomplicated; F17.210 Nicotine dependence, cigarettes, uncomplicated; F19.282 Other psychoactive substance dependence with psychoactive substance-induced sleep disorder; F31.9 Bipolar disorder, unspecified; F41.0 Panic disorder [episodic paroxysmal anxiety]; Z21 Asymptomatic human immunodeficiency virus [HIV] infection status; B18.2 Chronic viral hepatitis C; Z86.19 Personal history of other infectious and parasitic diseases; Z88.8 Allergy status to other drugs, medicaments and biological substances
CPT/HCPCS: 36415; 80053; 81003; 84132; 85027; 86780; C9803-CS; U0003; U0005

== ENCOUNTER 2022-12-14 10:49 | Inpatient (IN) | payer OTHER ==
[2022-12-14 12:11] VITALS: BMI 24.5
[2022-12-14] MEDS ORDERED: methaDONE HCL 10 MG TABLET (FOR DETOX USE ONLY) PO ONE (12:52)
[2022-12-14] MEDS ORDERED: IBUPROFEN 400 MG TABLET (FP) PO PRN (12:52)
[2022-12-14] MEDS ORDERED: MAGNESIUM HYDROX 2400MG/30ML ORAL SUSPENSION 30 ML CUP PO PRN (12:52)
[2022-12-14] MEDS ORDERED: LOPERAMIDE HCL 2 MG CAPSULE PO PRN (12:52)
[2022-12-14] MEDS ORDERED: POLYETHYLENE GLYCOL (HEALTHYLAX) 3350 17 GM PACKET PO PRN (12:52)
[2022-12-14] MEDS ORDERED: MAG HYDROX/AL HYDROX/SIMETH 30 ML UNIT-DOSE CUP PO PRN (12:52)
[2022-12-14] MEDS ORDERED: IBUPROFEN 600 MG TABLET (FP) PO PRN (12:52)
[2022-12-14] MEDS ORDERED: BENZONATATE 200 MG CAPSULE PO PRN (12:52)
[2022-12-14] MEDS ORDERED: BENZOCAINE/MENTHOL (CHLORASEPTIC ) LOZENGE MM PRN (12:52)
[2022-12-14] MEDS ORDERED: BISMUTH SUBSALICYLATE 524 MG/30 ML PO PRN (12:52)
[2022-12-14] MEDS ORDERED: NALOXONE HCL 0.4 MG/ML VIAL IM PRN (12:52)
[2022-12-14] MEDS ORDERED: guaiFENesin 600 MG TABLET.ER (FP) PO PRN (12:52)
[2022-12-14] MEDS ORDERED: DICYCLOMINE HCL 10 MG CAPSULE PO PRN (12:52)
[2022-12-14] MEDS ORDERED: NALOXONE HCL (KLOXXADO) 8 MG SPRAY NS PRN (12:52)
[2022-12-14] MEDS ORDERED: cloNIDine HCL 0.1 MG TABLET PO PRN (12:52)
[2022-12-14] MEDS ORDERED: ACETAMINOPHEN 325 MG TABLET (FP) PO PRN (12:52)
[2022-12-14] MEDS: METHOCARBAMOL 500 MG TABLET PO PRN (13:33)
[2022-12-14] MEDS: NICOTINE 10 MG CARTRIDGE (INHALER) IH PRN (13:41)
[2022-12-14] MEDS: diazePAM 5 MG TABLET PO SCH ×2 (17:30→22:33)
[2022-12-14] MEDS ORDERED: MELATONIN 5 MG TABLETS PO SCH (22:00)
[2022-12-14] MEDS: THIAMINE HCL 100 MG TABLET (FP) PO SCH (22:33)
[2022-12-15] MEDS: diazePAM 5 MG TABLET PO SCH ×4 (05:08→22:15)
[2022-12-15] MEDS ORDERED: PATIENT'S OWN MEDICATION (NON-FORMULARY) (Dolutegravir Sodium/Lamivudine [Dovato 50-300 Mg PO SCH (10:00)
[2022-12-15] MEDS: PRENATAL VITAMINS W/ FOLIC ACID TABLET (FP) PO SCH (10:22)
[2022-12-15] MEDS: METHOCARBAMOL 500 MG TABLET PO PRN (10:25)
[2022-12-15] MEDS: NICOTINE 10 MG CARTRIDGE (INHALER) IH PRN ×3 (10:27→22:17)
[2022-12-15 11:49] LABS: HEMATOCRIT 36.5 % (35.4-49); HEMOGLOBIN 12.4 GM/dL (11.7-16.9); MCH 31.6 pg (25.7-33.7); MEAN CELL VOLUME 92.9 fl (80-96); PLATELET COUNT 253 10^3/uL (134-434); RBC 3.93 M/mm3 (4.00-5.60); RDW 14.1 % (11.9-15.9); WHITE BLOOD COUNT 4.5 K/mm3 (4.0-10.0)
[2022-12-15 12:03] LABS: CALCIUM 9.1 mg/dL (8.5-10.1)
[2022-12-15 12:04] LABS: ALBUMIN 3.1 g/dl (3.4-5.0); BLOOD UREA NITROGEN 14.3 mg/dL (7-18)
[2022-12-15 12:07] LABS: CREATININE 1.2 mg/dL (0.55-1.3)
[2022-12-15 12:09] LABS: BILIRUBIN,TOTAL 0.4 mg/dL (0.2-1); TOT PROT 6.8 g/dl (6.4-8.2)
[2022-12-15] MEDS: QUEtiapine FUMARATE 50 MG TABLET PO SCH (22:15)
[2022-12-15] MEDS: MIRTAZAPINE 15 MG TABLET (FP) PO SCH (22:15)
[2022-12-15] MEDS: THIAMINE HCL 100 MG TABLET (FP) PO SCH (22:16)
[2022-12-16] MEDS: diazePAM 5 MG TABLET PO SCH ×3 (05:14→21:58)
[2022-12-16] MEDS ORDERED: methaDONE HCL 10 MG TABLET (FOR DETOX USE ONLY) PO ONE (10:00)
[2022-12-16] MEDS: PRENATAL VITAMINS W/ FOLIC ACID TABLET (FP) PO SCH (10:13)
[2022-12-16] MEDS: METHOCARBAMOL 500 MG TABLET PO PRN (10:13)
[2022-12-16] MEDS: NICOTINE 10 MG CARTRIDGE (INHALER) IH PRN (10:14)
[2022-12-16] MEDS: DOLUTEGRAVIR SODIUM 50 MG TABLET (NON-FORMULARY) PO SCH (11:15)
[2022-12-16] MEDS: diazePAM 5 MG TABLET PO PRN (17:31)
[2022-12-16] MEDS: MIRTAZAPINE 15 MG TABLET (FP) PO SCH (21:58)
[2022-12-16] MEDS: THIAMINE HCL 100 MG TABLET (FP) PO SCH (21:58)
[2022-12-16] MEDS: QUEtiapine FUMARATE 50 MG TABLET PO SCH (21:58)
[2022-12-17] MEDS: diazePAM 5 MG TABLET PO SCH ×2 (05:11→17:26)
[2022-12-17] MEDS: DOLUTEGRAVIR SODIUM 50 MG TABLET (NON-FORMULARY) PO SCH (07:12)
[2022-12-17] MEDS: METHOCARBAMOL 500 MG TABLET PO PRN ×2 (10:00→22:14)
[2022-12-17] MEDS: diazePAM 5 MG TABLET PO PRN (10:00)
[2022-12-17] MEDS: PRENATAL VITAMINS W/ FOLIC ACID TABLET (FP) PO SCH (10:00)
[2022-12-17] MEDS: NICOTINE 10 MG CARTRIDGE (INHALER) IH PRN ×3 (10:01→22:15)
[2022-12-17] MEDS: QUEtiapine FUMARATE 50 MG TABLET PO SCH (22:13)
[2022-12-17] MEDS: MIRTAZAPINE 15 MG TABLET (FP) PO SCH (22:13)
[2022-12-17] MEDS: THIAMINE HCL 100 MG TABLET (FP) PO SCH (22:13)
[2022-12-18] MEDS: NICOTINE 10 MG CARTRIDGE (INHALER) IH PRN ×3 (05:11→22:41)
[2022-12-18] MEDS ORDERED: diazePAM 5 MG TABLET PO ONE (06:00)
[2022-12-18] MEDS: PRENATAL VITAMINS W/ FOLIC ACID TABLET (FP) PO SCH (09:13)
[2022-12-18] MEDS: METHOCARBAMOL 500 MG TABLET PO PRN (09:13)
[2022-12-18] MEDS ORDERED: methaDONE HCL 10 MG TABLET (FOR DETOX USE ONLY) PO ONE (10:00)
[2022-12-18] MEDS: DOLUTEGRAVIR SODIUM 50 MG TABLET (NON-FORMULARY) PO SCH (10:24)
[2022-12-18] MEDS: QUEtiapine FUMARATE 50 MG TABLET PO SCH (22:41)
[2022-12-18] MEDS: THIAMINE HCL 100 MG TABLET (FP) PO SCH (22:41)
[2022-12-18] MEDS: MIRTAZAPINE 15 MG TABLET (FP) PO SCH (22:41)
[2022-12-19] MEDS: DOLUTEGRAVIR SODIUM 50 MG TABLET (NON-FORMULARY) PO SCH (07:11)
[2022-12-19 08:58] VITALS: BP 147/84; PULSE 71; RESP 18; TEMP 97.7
[2022-12-19] MEDS: PRENATAL VITAMINS W/ FOLIC ACID TABLET (FP) PO SCH (10:20)
== END 2022-12-19 10:05 | disposition other institution (70) | DRG 773 ==
LOC: YASAS 10:49 → Y6N 12:59
PROVIDERS: ADMIT Allergy & Immunology; ATTEND Surgery
PROC: HZ2ZZZZ Detoxification Services for Substance Abuse Treatment (ICD-10-PCS; principal; 2022-12-14)
DX: F11.23 Opioid dependence with withdrawal (principal); F10.230 Alcohol dependence with withdrawal, uncomplicated; F14.20 Cocaine dependence, uncomplicated; F17.210 Nicotine dependence, cigarettes, uncomplicated; F19.282 Other psychoactive substance dependence with psychoactive substance-induced sleep disorder; F19.280 Other psychoactive substance dependence with psychoactive substance-induced anxiety disorder; F31.9 Bipolar disorder, unspecified; Z21 Asymptomatic human immunodeficiency virus [HIV] infection status; Z88.8 Allergy status to other drugs, medicaments and biological substances
CPT/HCPCS: 36415; 80053; 85027; 86780; C9803-CS; U0003; U0005

== ENCOUNTER 2023-01-11 14:20 | Inpatient (IN) | payer OTHER ==
[2023-01-11 15:45] VITALS: BMI 24.2
[2023-01-11] MEDS ORDERED: NALOXONE HCL 0.4 MG/ML VIAL IM PRN (16:27)
[2023-01-11] MEDS ORDERED: ONDANSETRON *ODT* 4 MG TABLET SL PRN (16:27)
[2023-01-11] MEDS ORDERED: POLYETHYLENE GLYCOL (HEALTHYLAX) 3350 17 GM PACKET PO PRN (16:27)
[2023-01-11] MEDS ORDERED: BENZONATATE 200 MG CAPSULE PO PRN (16:27)
[2023-01-11] MEDS ORDERED: MAG HYDROX/AL HYDROX/SIMETH 30 ML UNIT-DOSE CUP PO PRN (16:27)
[2023-01-11] MEDS ORDERED: NALOXONE HCL (KLOXXADO) 8 MG SPRAY NS PRN (16:27)
[2023-01-11] MEDS ORDERED: LOPERAMIDE HCL 2 MG CAPSULE PO PRN (16:27)
[2023-01-11] MEDS ORDERED: cloNIDine HCL 0.1 MG TABLET PO PRN (16:27)
[2023-01-11] MEDS ORDERED: guaiFENesin 600 MG TABLET.ER (FP) PO PRN (16:27)
[2023-01-11] MEDS ORDERED: IBUPROFEN 600 MG TABLET (FP) PO PRN (16:27)
[2023-01-11] MEDS ORDERED: BENZOCAINE/MENTHOL (CHLORASEPTIC ) LOZENGE MM PRN (16:27)
[2023-01-11] MEDS ORDERED: MAGNESIUM HYDROX 2400MG/30ML ORAL SUSPENSION 30 ML CUP PO PRN (16:27)
[2023-01-11] MEDS ORDERED: DICYCLOMINE HCL 10 MG CAPSULE PO PRN (16:27)
[2023-01-11] MEDS ORDERED: BISMUTH SUBSALICYLATE 524 MG/30 ML PO PRN (16:27)
[2023-01-11] MEDS ORDERED: IBUPROFEN 400 MG TABLET (FP) PO PRN (16:27)
[2023-01-11] MEDS ORDERED: methaDONE HCL 10 MG TABLET (FOR DETOX USE ONLY) PO ONE (20:00)
[2023-01-11] MEDS ORDERED: MELATONIN 5 MG TABLETS PO SCH (22:00)
[2023-01-11] MEDS: THIAMINE HCL 100 MG TABLET (FP) PO SCH (22:10)
[2023-01-11] MEDS: chlordiazePOXIDE HCL 25 MG CAPSULE PO SCH (22:11)
[2023-01-12] MEDS: chlordiazePOXIDE HCL 25 MG CAPSULE PO SCH ×4 (05:48→22:17)
[2023-01-12] MEDS: NICOTINE POLACRILEX 2 MG GUM BUC PRN ×4 (05:50→22:19)
[2023-01-12 08:54] LABS: URINE APPEARANCE CLEAR; URINE BILIRUBIN NEGATIVE (NEGATIVE); URINE COLOR YELLOW; URINE GLUCOSE (UA) NEGATIVE (NEGATIVE); URINE KETONE NEGATIVE (NEGATIVE); URINE LEUK ESTERASE NEGATIVE (NEGATIVE); URINE NITRITE NEGATIVE (NEGATIVE); URINE PROTEIN NEGATIVE (NEGATIVE)
[2023-01-12] MEDS: NICOTINE 21 MG/24 HOURS TOPICAL PATCH TD SCH (10:29)
[2023-01-12] MEDS: PRENATAL VITAMINS W/ FOLIC ACID TABLET (FP) PO SCH (10:29)
[2023-01-12 10:58] LABS: HEMATOCRIT 36.1 % (35.4-49); MCHC 33.4 g/dl (32.0-35.9); MEAN PLT VOLUME 9.6 fl (7.5-11.1); PLATELET COUNT 229 10^3/uL (134-434); RBC 3.88 M/mm3 (4.00-5.60); RDW 14.7 % (11.9-15.9); WHITE BLOOD COUNT 4.5 K/mm3 (4.0-10.0)
[2023-01-12 11:03] LABS: POTASSIUM 4.5 mmol/L (3.5-5.1)
[2023-01-12 11:17] LABS: CALCIUM 9.6 mg/dL (8.5-10.1)
[2023-01-12 11:18] LABS: BLOOD UREA NITROGEN 12.7 mg/dL (7-18)
[2023-01-12 11:19] LABS: ALBUMIN 3.1 g/dl (3.4-5.0)
[2023-01-12 11:21] LABS: CREATININE 1.1 mg/dL (0.55-1.3)
[2023-01-12 11:23] LABS: TOT PROT 6.7 g/dl (6.4-8.2)
[2023-01-12 11:24] LABS: BILIRUBIN,TOTAL 0.9 mg/dL (0.2-1)
[2023-01-12] MEDS: lamiVUDine 150 MG TABLET PO SCH (14:39)
[2023-01-12] MEDS: DOLUTEGRAVIR SODIUM 50 MG TABLET (NON-FORMULARY) PO SCH (14:41)
[2023-01-12] MEDS: chlordiazePOXIDE HCL 25 MG CAPSULE PO PRN ×2 (15:54→22:18)
[2023-01-12] MEDS: THIAMINE HCL 100 MG TABLET (FP) PO SCH (22:17)
[2023-01-12] MEDS: MIRTAZAPINE 15 MG TABLET (FP) PO SCH (22:17)
[2023-01-12] MEDS: QUEtiapine FUMARATE 50 MG TABLET PO SCH (22:17)
[2023-01-13] MEDS: chlordiazePOXIDE HCL 25 MG CAPSULE PO SCH ×4 (05:19→22:12)
[2023-01-13] MEDS: NICOTINE POLACRILEX 2 MG GUM BUC PRN ×4 (05:20→22:17)
[2023-01-13] MEDS: ACETAMINOPHEN 325 MG TABLET (FP) PO PRN ×2 (05:20→17:30)
[2023-01-13] MEDS ORDERED: DOLUTEGRAVIR SODIUM 50 MG TABLET (NON-FORMULARY) PO SCH (10:00)
[2023-01-13] MEDS ORDERED: methaDONE HCL 10 MG TABLET (FOR DETOX USE ONLY) PO ONE (10:00)
[2023-01-13] MEDS: NICOTINE 21 MG/24 HOURS TOPICAL PATCH TD SCH (10:18)
[2023-01-13] MEDS: PRENATAL VITAMINS W/ FOLIC ACID TABLET (FP) PO SCH (10:19)
[2023-01-13] MEDS: lamiVUDine 150 MG TABLET PO SCH (10:45)
[2023-01-13] MEDS: DOLUTEGRAVIR SODIUM 50 MG TABLET (NON-FORMULARY) PO SCH (10:48)
[2023-01-13] MEDS: chlordiazePOXIDE HCL 25 MG CAPSULE PO PRN (15:10)
[2023-01-13] MEDS: THIAMINE HCL 100 MG TABLET (FP) PO SCH (22:12)
[2023-01-13] MEDS: QUEtiapine FUMARATE 50 MG TABLET PO SCH (22:15)
[2023-01-13] MEDS: MIRTAZAPINE 15 MG TABLET (FP) PO SCH (22:15)
[2023-01-14] MEDS ORDERED: chlordiazePOXIDE HCL 10 MG CAPSULE PO PRN
[2023-01-14] MEDS: chlordiazePOXIDE HCL 10 MG CAPSULE PO SCH ×4 (05:19→22:07)
[2023-01-14] MEDS: PRENATAL VITAMINS W/ FOLIC ACID TABLET (FP) PO SCH (10:05)
[2023-01-14] MEDS: NICOTINE 21 MG/24 HOURS TOPICAL PATCH TD SCH (10:05)
[2023-01-14] MEDS: DOLUTEGRAVIR SODIUM 50 MG TABLET (NON-FORMULARY) PO SCH (10:06)
[2023-01-14] MEDS: NICOTINE POLACRILEX 2 MG GUM BUC PRN ×2 (11:59→22:10)
[2023-01-14] MEDS: METHOCARBAMOL 500 MG TABLET PO PRN (11:59)
[2023-01-14] MEDS: QUEtiapine FUMARATE 50 MG TABLET PO SCH (22:06)
[2023-01-14] MEDS: MIRTAZAPINE 15 MG TABLET (FP) PO SCH (22:06)
[2023-01-14] MEDS: THIAMINE HCL 100 MG TABLET (FP) PO SCH (22:06)
[2023-01-15] MEDS ORDERED: chlordiazePOXIDE HCL 10 MG CAPSULE PO SCH (05:00)
[2023-01-15 06:50] VITALS: RESP 18
[2023-01-15 09:29] VITALS: BP 145/85; PULSE 75; TEMP 98
[2023-01-15] MEDS: PRENATAL VITAMINS W/ FOLIC ACID TABLET (FP) PO SCH (10:00)
[2023-01-15] MEDS: METHOCARBAMOL 500 MG TABLET PO PRN (10:00)
[2023-01-15] MEDS ORDERED: methaDONE HCL 10 MG TABLET (FOR DETOX USE ONLY) PO ONE (10:00)
[2023-01-15] MEDS: NICOTINE 21 MG/24 HOURS TOPICAL PATCH TD SCH (10:01)
[2023-01-15] MEDS: DOLUTEGRAVIR SODIUM 50 MG TABLET (NON-FORMULARY) PO SCH (10:01)
[2023-01-16] MEDS ORDERED: chlordiazePOXIDE HCL 10 MG CAPSULE PO ONE (05:00)
== END 2023-01-15 13:03 | disposition home or self-care (01) | DRG 773 ==
LOC: YASAS 14:20 → Y6N 16:58
PROVIDERS: ADMIT Allergy & Immunology; ATTEND Surgery
PROC: HZ2ZZZZ Detoxification Services for Substance Abuse Treatment (ICD-10-PCS; principal; 2023-01-11)
DX: F11.23 Opioid dependence with withdrawal (principal); F10.230 Alcohol dependence with withdrawal, uncomplicated; F14.20 Cocaine dependence, uncomplicated; F17.210 Nicotine dependence, cigarettes, uncomplicated; F31.9 Bipolar disorder, unspecified; F19.280 Other psychoactive substance dependence with psychoactive substance-induced anxiety disorder; F19.282 Other psychoactive substance dependence with psychoactive substance-induced sleep disorder; Z21 Asymptomatic human immunodeficiency virus [HIV] infection status; B18.2 Chronic viral hepatitis C; Z88.8 Allergy status to other drugs, medicaments and biological substances
CPT/HCPCS: 36415; 80053; 81003; 85027; 86780; 87811; C9803-CS; U0003; U0005

== ENCOUNTER 2023-01-30 11:43 | Inpatient (IN) | payer OTHER ==
[2023-01-30 12:36] VITALS: BMI 24.8
[2023-01-30] MEDS ORDERED: NICOTINE 10 MG CARTRIDGE (INHALER) IH PRN (13:12)
[2023-01-30] MEDS ORDERED: BISMUTH SUBSALICYLATE 524 MG/30 ML PO PRN (13:12)
[2023-01-30] MEDS ORDERED: NALOXONE HCL (KLOXXADO) 8 MG SPRAY NS PRN (13:12)
[2023-01-30] MEDS ORDERED: LOPERAMIDE HCL 2 MG CAPSULE PO PRN (13:12)
[2023-01-30] MEDS ORDERED: POLYETHYLENE GLYCOL (HEALTHYLAX) 3350 17 GM PACKET PO PRN (13:12)
[2023-01-30] MEDS ORDERED: LORazepam 1 MG TABLET PO PRN (13:12)
[2023-01-30] MEDS ORDERED: ONDANSETRON *ODT* 4 MG TABLET SL PRN (13:12)
[2023-01-30] MEDS ORDERED: guaiFENesin 600 MG TABLET.ER (FP) PO PRN (13:12)
[2023-01-30] MEDS ORDERED: MAGNESIUM HYDROX 2400MG/30ML ORAL SUSPENSION 30 ML CUP PO PRN (13:12)
[2023-01-30] MEDS ORDERED: cloNIDine HCL 0.1 MG TABLET PO PRN (13:12)
[2023-01-30] MEDS ORDERED: ACETAMINOPHEN 325 MG TABLET (FP) PO PRN (13:12)
[2023-01-30] MEDS ORDERED: BENZOCAINE/MENTHOL (CHLORASEPTIC ) LOZENGE MM PRN (13:12)
[2023-01-30] MEDS ORDERED: NALOXONE HCL 0.4 MG/ML VIAL IM PRN (13:12)
[2023-01-30] MEDS ORDERED: BENZONATATE 200 MG CAPSULE PO PRN (13:12)
[2023-01-30] MEDS ORDERED: DICYCLOMINE HCL 10 MG CAPSULE PO PRN (13:12)
[2023-01-30] MEDS ORDERED: LORazepam 2 MG TABLET PO ONE (14:15)
[2023-01-30] MEDS ORDERED: methaDONE HCL 10 MG TABLET (FOR DETOX USE ONLY) PO ONE (14:15)
[2023-01-30] MEDS: NICOTINE 21 MG/24 HOURS TOPICAL PATCH TD SCH (14:24)
[2023-01-30] MEDS: PRENATAL VITAMINS W/ FOLIC ACID TABLET (FP) PO SCH (14:24)
[2023-01-30] MEDS: NICOTINE POLACRILEX 2 MG GUM BUC PRN ×2 (17:31→22:13)
[2023-01-30] MEDS: LORazepam 2 MG TABLET PO SCH ×2 (17:31→22:13)
[2023-01-30] MEDS: QUEtiapine FUMARATE 50 MG TABLET PO SCH (22:13)
[2023-01-30] MEDS: MIRTAZAPINE 15 MG TABLET (FP) PO SCH (22:13)
[2023-01-30] MEDS: MELATONIN 5 MG TABLETS PO SCH (22:13)
[2023-01-30] MEDS: THIAMINE HCL 100 MG TABLET (FP) PO SCH (22:13)
[2023-01-31] MEDS: LORazepam 2 MG TABLET PO SCH ×4 (05:30→22:05)
[2023-01-31] MEDS: NICOTINE POLACRILEX 2 MG GUM BUC PRN ×3 (05:31→22:07)
[2023-01-31] MEDS: PRENATAL VITAMINS W/ FOLIC ACID TABLET (FP) PO SCH (10:11)
[2023-01-31] MEDS: NICOTINE 21 MG/24 HOURS TOPICAL PATCH TD SCH (10:15)
[2023-01-31 11:01] LABS: HEMATOCRIT 34.2 % (35.4-49); HEMOGLOBIN 11.8 GM/dL (11.7-16.9); MCHC 34.6 g/dl (32.0-35.9); MEAN CELL VOLUME 92.5 fl (80-96); MEAN PLT VOLUME 9.8 fl (7.5-11.1); PLATELET COUNT 290 10^3/uL (134-434); POTASSIUM 3.8 mmol/L (3.5-5.1); RDW 14.3 % (11.9-15.9); WHITE BLOOD COUNT 5.2 K/mm3 (4.0-10.0)
[2023-01-31 11:13] LABS: BLOOD UREA NITROGEN 11.9 mg/dL (7-18); CALCIUM 9.2 mg/dL (8.5-10.1)
[2023-01-31 11:14] LABS: ALBUMIN 2.8 g/dl (3.4-5.0)
[2023-01-31 11:16] LABS: CREATININE 0.9 mg/dL (0.55-1.3)
[2023-01-31 11:18] LABS: BILIRUBIN,TOTAL 0.7 mg/dL (0.2-1); TOT PROT 6.2 g/dl (6.4-8.2)
[2023-01-31] MEDS: IBUPROFEN 600 MG TABLET (FP) PO PRN (15:36)
[2023-01-31] MEDS: MAG HYDROX/AL HYDROX/SIMETH 30 ML UNIT-DOSE CUP PO PRN (15:38)
[2023-01-31] MEDS ORDERED: PATIENT'S OWN MEDICATION (NON-FORMULARY) (Bictegrav/Emtricit/Tenofov Ala [Biktarvy 30-120- PO SCH (16:00)
[2023-01-31] MEDS: BICTEGRAV/EMTRICIT/TENOFOV (BIKTARVY) 50-200-25 MG TABLET PO SCH (17:16)
[2023-01-31] MEDS: THIAMINE HCL 100 MG TABLET (FP) PO SCH (22:05)
[2023-01-31] MEDS: QUEtiapine FUMARATE 50 MG TABLET PO SCH (22:05)
[2023-01-31] MEDS: MIRTAZAPINE 15 MG TABLET (FP) PO SCH (22:05)
[2023-01-31] MEDS: MELATONIN 5 MG TABLETS PO SCH (23:38)
[2023-02-01] MEDS: LORazepam 1 MG TABLET PO SCH ×4 (05:30→23:00)
[2023-02-01] MEDS: IBUPROFEN 400 MG TABLET (FP) PO PRN (05:32)
[2023-02-01] MEDS: BICTEGRAV/EMTRICIT/TENOFOV (BIKTARVY) 50-200-25 MG TABLET PO SCH (07:29)
[2023-02-01] MEDS ORDERED: methaDONE HCL 10 MG TABLET (FOR DETOX USE ONLY) PO ONE (10:00)
[2023-02-01] MEDS: hydrOXYzine PAMOATE 25 MG CAPSULE (FP) PO PRN (10:08)
[2023-02-01] MEDS: METHOCARBAMOL 500 MG TABLET PO PRN (10:09)
[2023-02-01] MEDS: PRENATAL VITAMINS W/ FOLIC ACID TABLET (FP) PO SCH (10:10)
[2023-02-01] MEDS: NICOTINE 21 MG/24 HOURS TOPICAL PATCH TD SCH (10:10)
[2023-02-01] MEDS: NICOTINE POLACRILEX 2 MG GUM BUC PRN ×3 (12:52→22:51)
[2023-02-01] MEDS: MELATONIN 5 MG TABLETS PO SCH (22:48)
[2023-02-01] MEDS: THIAMINE HCL 100 MG TABLET (FP) PO SCH (22:48)
[2023-02-01] MEDS: MIRTAZAPINE 15 MG TABLET (FP) PO SCH (22:48)
[2023-02-01] MEDS: QUEtiapine FUMARATE 50 MG TABLET PO SCH (23:22)
[2023-02-02] MEDS ORDERED: LORazepam 0.5 MG TABLET PO PRN
[2023-02-02] MEDS: LORazepam 0.5 MG TABLET PO SCH ×4 (06:10→23:45)
[2023-02-02] MEDS: BICTEGRAV/EMTRICIT/TENOFOV (BIKTARVY) 50-200-25 MG TABLET PO SCH (07:30)
[2023-02-02] MEDS: PRENATAL VITAMINS W/ FOLIC ACID TABLET (FP) PO SCH (10:49)
[2023-02-02] MEDS: NICOTINE 21 MG/24 HOURS TOPICAL PATCH TD SCH (10:49)
[2023-02-02] MEDS: NICOTINE POLACRILEX 2 MG GUM BUC PRN ×2 (10:53→17:10)
[2023-02-02] MEDS: amLODIPine BESYLATE 10 MG TABLET (FP) PO SCH (14:04)
[2023-02-02] MEDS: hydrOXYzine PAMOATE 25 MG CAPSULE (FP) PO PRN (14:06)
[2023-02-02] MEDS: IBUPROFEN 400 MG TABLET (FP) PO PRN (17:09)
[2023-02-03] MEDS: MELATONIN 5 MG TABLETS PO SCH ×2 (00:04→22:17)
[2023-02-03] MEDS: THIAMINE HCL 100 MG TABLET (FP) PO SCH ×2 (00:04→22:16)
[2023-02-03] MEDS: MIRTAZAPINE 15 MG TABLET (FP) PO SCH ×2 (00:04→22:16)
[2023-02-03] MEDS: QUEtiapine FUMARATE 50 MG TABLET PO SCH ×2 (00:04→22:16)
[2023-02-03] MEDS ORDERED: LORazepam 0.5 MG TABLET PO ONE (05:00)
[2023-02-03] MEDS: METHOCARBAMOL 500 MG TABLET PO PRN ×2 (05:37→14:45)
[2023-02-03] MEDS: NICOTINE POLACRILEX 2 MG GUM BUC PRN ×3 (05:39→14:43)
[2023-02-03] MEDS: BICTEGRAV/EMTRICIT/TENOFOV (BIKTARVY) 50-200-25 MG TABLET PO SCH (08:27)
[2023-02-03] MEDS ORDERED: methaDONE HCL 10 MG TABLET (FOR DETOX USE ONLY) PO ONE (10:00)
[2023-02-03] MEDS: NICOTINE 21 MG/24 HOURS TOPICAL PATCH TD SCH (10:20)
[2023-02-03] MEDS: amLODIPine BESYLATE 10 MG TABLET (FP) PO SCH (10:22)
[2023-02-03] MEDS: cloNIDine HCL 0.1 MG TABLET PO PRN (10:22)
[2023-02-03] MEDS: PRENATAL VITAMINS W/ FOLIC ACID TABLET (FP) PO SCH (10:22)
[2023-02-03] MEDS: IBUPROFEN 600 MG TABLET (FP) PO PRN (14:44)
[2023-02-04] MEDS: METHOCARBAMOL 500 MG TABLET PO PRN (05:27)
[2023-02-04] MEDS: BICTEGRAV/EMTRICIT/TENOFOV (BIKTARVY) 50-200-25 MG TABLET PO SCH (08:00)
[2023-02-04 09:19] VITALS: BP 142/78; PULSE 62; RESP 18; TEMP 98.1
[2023-02-04] MEDS: NICOTINE 21 MG/24 HOURS TOPICAL PATCH TD SCH (09:40)
[2023-02-04] MEDS: cloNIDine HCL 0.1 MG TABLET PO PRN (09:40)
[2023-02-04] MEDS: amLODIPine BESYLATE 10 MG TABLET (FP) PO SCH (09:41)
[2023-02-04] MEDS: NICOTINE POLACRILEX 2 MG GUM BUC PRN (09:42)
[2023-02-04] MEDS: PRENATAL VITAMINS W/ FOLIC ACID TABLET (FP) PO SCH (09:43)
[2023-02-04] MEDS: MAG HYDROX/AL HYDROX/SIMETH 30 ML UNIT-DOSE CUP PO PRN (10:34)
== END 2023-02-04 12:37 | disposition other institution (70) | DRG 773 ==
LOC: YASAS 11:43 → Y6N 13:27
PROVIDERS: ADMIT Allergy & Immunology; ATTEND Surgery
PROC: HZ2ZZZZ Detoxification Services for Substance Abuse Treatment (ICD-10-PCS; principal; 2023-01-30)
DX: F11.23 Opioid dependence with withdrawal (principal); F10.230 Alcohol dependence with withdrawal, uncomplicated; F13.20 Sedative, hypnotic or anxiolytic dependence, uncomplicated; F14.20 Cocaine dependence, uncomplicated; F12.20 Cannabis dependence, uncomplicated; F19.282 Other psychoactive substance dependence with psychoactive substance-induced sleep disorder; F19.280 Other psychoactive substance dependence with psychoactive substance-induced anxiety disorder; F19.24 Other psychoactive substance dependence with psychoactive substance-induced mood disorder; Z21 Asymptomatic human immunodeficiency virus [HIV] infection status; I10 Essential (primary) hypertension; B18.2 Chronic viral hepatitis C; Z88.8 Allergy status to other drugs, medicaments and biological substances
CPT/HCPCS: 36415; 80053; 82140; 85027; 86780; 87811; C9803-CS; U0003; U0005

== ENCOUNTER 2023-02-04 12:56 | Inpatient (IN) | payer OTHER | END 2023-02-04 13:30 | disposition home or self-care (01) | DRG 772 | LOC: YASAS 12:56 → Y3W 12:57 | PROVIDERS: ADMIT Allergy & Immunology; ATTEND Psychiatry & Neurology Pain Medicine | PROC: HZ42ZZZ Group Counseling for Substance Abuse Treatment, Cognitive-Behavioral (ICD-10-PCS; principal; 2023-02-04) | DX: F11.20 Opioid dependence, uncomplicated (principal); F10.20 Alcohol dependence, uncomplicated; F14.20 Cocaine dependence, uncomplicated; F13.20 Sedative, hypnotic or anxiolytic dependence, uncomplicated; F17.210 Nicotine dependence, cigarettes, uncomplicated; F31.9 Bipolar disorder, unspecified; Z21 Asymptomatic human immunodeficiency virus [HIV] infection status; B18.2 Chronic viral hepatitis C; Z88.8 Allergy status to other drugs, medicaments and biological substances ==

== ENCOUNTER 2023-02-20 17:34 | Inpatient (IN) | payer OTHER ==
[2023-02-20 18:14] VITALS: BMI 24.2
[2023-02-20] MEDS ORDERED: guaiFENesin 600 MG TABLET.ER (FP) PO PRN (20:55)
[2023-02-20] MEDS ORDERED: POLYETHYLENE GLYCOL (HEALTHYLAX) 3350 17 GM PACKET PO PRN (20:55)
[2023-02-20] MEDS ORDERED: IBUPROFEN 400 MG TABLET (FP) PO PRN (20:55)
[2023-02-20] MEDS ORDERED: BENZOCAINE/MENTHOL (CHLORASEPTIC ) LOZENGE MM PRN (20:55)
[2023-02-20] MEDS ORDERED: NICOTINE 7 MG/24 HOURS TOPICAL PATCH TD PRN (20:55)
[2023-02-20] MEDS ORDERED: BENZONATATE 200 MG CAPSULE PO PRN (20:55)
[2023-02-20] MEDS ORDERED: BISMUTH SUBSALICYLATE 524 MG/30 ML PO PRN (20:55)
[2023-02-20] MEDS ORDERED: LOPERAMIDE HCL 2 MG CAPSULE PO PRN (20:55)
[2023-02-20] MEDS ORDERED: MAGNESIUM HYDROX 2400MG/30ML ORAL SUSPENSION 30 ML CUP PO PRN (20:55)
[2023-02-20] MEDS ORDERED: P-EPHED 60MG/TRIPROLIDI 2.5MG TABLET PO PRN (20:55)
[2023-02-20] MEDS ORDERED: NALOXONE HCL (KLOXXADO) 8 MG SPRAY NS PRN (20:55)
[2023-02-20] MEDS ORDERED: MAG HYDROX/AL HYDROX/SIMETH 30 ML UNIT-DOSE CUP PO PRN (20:55)
[2023-02-20] MEDS ORDERED: ONDANSETRON *ODT* 4 MG TABLET SL PRN (20:55)
[2023-02-20] MEDS ORDERED: NALOXONE HCL 0.4 MG/ML VIAL IM PRN (20:55)
[2023-02-20] MEDS ORDERED: DICYCLOMINE HCL 10 MG CAPSULE PO PRN (20:55)
[2023-02-20] MEDS ORDERED: IBUPROFEN 600 MG TABLET (FP) PO PRN (20:55)
[2023-02-20] MEDS ORDERED: cloNIDine HCL 0.1 MG TABLET PO PRN (20:58)
[2023-02-20] MEDS ORDERED: methaDONE HCL 10 MG TABLET (FOR DETOX USE ONLY) PO ONE (22:00)
[2023-02-20] MEDS ORDERED: methaDONE HCL 10 MG TABLET (FOR DETOX USE ONLY) ONE (22:38)
[2023-02-20] MEDS: PRENATAL VITAMINS W/ FOLIC ACID TABLET (FP) PO SCH (23:10)
[2023-02-20] MEDS: THIAMINE HCL 100 MG TABLET (FP) PO SCH (23:10)
[2023-02-20] MEDS: MELATONIN 5 MG TABLETS PO PRN (23:13)
[2023-02-20] MEDS: METHOCARBAMOL 500 MG TABLET PO PRN (23:13)
[2023-02-21] MEDS: BICTEGRAV/EMTRICIT/TENOFOV (BIKTARVY) 50-200-25 MG TABLET PO SCH (09:56)
[2023-02-21] MEDS: PRENATAL VITAMINS W/ FOLIC ACID TABLET (FP) PO SCH (09:57)
[2023-02-21 11:57] LABS: POTASSIUM 4.8 mmol/L (3.5-5.1)
[2023-02-21 12:00] LABS: ALBUMIN 3.4 g/dl (3.4-5.0); BLOOD UREA NITROGEN 15.3 mg/dL (7-18); CALCIUM 9.3 mg/dL (8.5-10.1)
[2023-02-21 12:03] LABS: HEMATOCRIT 38.5 % (35.4-49); HEMOGLOBIN 12.7 GM/dL (11.7-16.9); MEAN CELL VOLUME 94.2 fl (80-96); MEAN PLT VOLUME 10.8 fl (7.5-11.1); PLATELET COUNT 224 10^3/uL (134-434); RBC 4.09 M/mm3 (4.00-5.60); RDW 13.9 % (11.9-15.9); TOT PROT 7.3 g/dl (6.4-8.2); WHITE BLOOD COUNT 4.6 K/mm3 (4.0-10.0)
[2023-02-21 12:10] LABS: BILIRUBIN,TOTAL 0.4 mg/dL (0.2-1)
[2023-02-21] MEDS: diazePAM 5 MG TABLET PO PRN ×2 (12:14→17:42)
[2023-02-21] MEDS: ACETAMINOPHEN 325 MG TABLET (FP) PO PRN (17:42)
[2023-02-21] MEDS: NICOTINE POLACRILEX 2 MG GUM BUC PRN ×2 (17:43→22:05)
[2023-02-21] MEDS: METHOCARBAMOL 500 MG TABLET PO PRN (22:03)
[2023-02-21] MEDS: QUEtiapine FUMARATE 50 MG TABLET PO SCH (22:03)
[2023-02-21] MEDS: MIRTAZAPINE 15 MG TABLET (FP) PO SCH (22:03)
[2023-02-21] MEDS: THIAMINE HCL 100 MG TABLET (FP) PO SCH (22:04)
[2023-02-22] MEDS: MELATONIN 5 MG TABLETS PO PRN ×2 (01:33→21:38)
[2023-02-22] MEDS: diazePAM 5 MG TABLET PO PRN ×4 (01:42→21:39)
[2023-02-22] MEDS: BICTEGRAV/EMTRICIT/TENOFOV (BIKTARVY) 50-200-25 MG TABLET PO SCH ×2 (07:21→07:29)
[2023-02-22] MEDS ORDERED: methaDONE HCL 10 MG TABLET (FOR DETOX USE ONLY) PO ONE (10:00)
[2023-02-22] MEDS: PRENATAL VITAMINS W/ FOLIC ACID TABLET (FP) PO SCH (10:31)
[2023-02-22 21:09] VITALS: RESP 18
[2023-02-22] MEDS: METHOCARBAMOL 500 MG TABLET PO PRN (21:37)
[2023-02-22] MEDS: MIRTAZAPINE 15 MG TABLET (FP) PO SCH (21:38)
[2023-02-22] MEDS: THIAMINE HCL 100 MG TABLET (FP) PO SCH (21:38)
[2023-02-22] MEDS: QUEtiapine FUMARATE 50 MG TABLET PO SCH (21:38)
[2023-02-23] MEDS: diazePAM 5 MG TABLET PO PRN ×3 (06:00→13:52)
[2023-02-23] MEDS: BICTEGRAV/EMTRICIT/TENOFOV (BIKTARVY) 50-200-25 MG TABLET PO SCH (07:20)
[2023-02-23] MEDS: PRENATAL VITAMINS W/ FOLIC ACID TABLET (FP) PO SCH (09:42)
[2023-02-23] MEDS: NICOTINE POLACRILEX 2 MG GUM BUC PRN ×2 (13:50→22:14)
[2023-02-23] MEDS: ACETAMINOPHEN 325 MG TABLET (FP) PO PRN (13:51)
[2023-02-23] MEDS: METHOCARBAMOL 500 MG TABLET PO PRN (22:09)
[2023-02-23] MEDS: MIRTAZAPINE 15 MG TABLET (FP) PO SCH (22:09)
[2023-02-23] MEDS: MELATONIN 5 MG TABLETS PO PRN (22:10)
[2023-02-23] MEDS: QUEtiapine FUMARATE 50 MG TABLET PO SCH (22:10)
[2023-02-23] MEDS: THIAMINE HCL 100 MG TABLET (FP) PO SCH (22:10)
[2023-02-23] MEDS: NICOTINE 10 MG CARTRIDGE (INHALER) IH PRN (22:29)
[2023-02-24] MEDS: BICTEGRAV/EMTRICIT/TENOFOV (BIKTARVY) 50-200-25 MG TABLET PO SCH (07:07)
[2023-02-24 09:40] VITALS: BP 111/67; PULSE 61; TEMP 98
[2023-02-24] MEDS ORDERED: methaDONE HCL 10 MG TABLET (FOR DETOX USE ONLY) PO ONE (10:00)
[2023-02-24] MEDS: PRENATAL VITAMINS W/ FOLIC ACID TABLET (FP) PO SCH (10:14)
[2023-02-24] MEDS ORDERED: diazePAM 5 MG TABLET PO ONE (11:30)
[2023-02-24] MEDS: NICOTINE 10 MG CARTRIDGE (INHALER) IH PRN (11:38)
== END 2023-02-24 12:26 | disposition home or self-care (01) | DRG 773 ==
LOC: YASAS 17:34 → Y3N 22:31
PROVIDERS: ADMIT Allergy & Immunology; ATTEND Surgery
PROC: HZ2ZZZZ Detoxification Services for Substance Abuse Treatment (ICD-10-PCS; principal; 2023-02-20)
DX: F11.23 Opioid dependence with withdrawal (principal); F13.230 Sedative, hypnotic or anxiolytic dependence with withdrawal, uncomplicated; F14.20 Cocaine dependence, uncomplicated; F17.210 Nicotine dependence, cigarettes, uncomplicated; F31.9 Bipolar disorder, unspecified; Z21 Asymptomatic human immunodeficiency virus [HIV] infection status; G47.00 Insomnia, unspecified; B18.2 Chronic viral hepatitis C; Z91.199 Patient's noncompliance with other medical treatment and regimen due to unspecified reason; Z88.8 Allergy status to other drugs, medicaments and biological substances
CPT/HCPCS: 36415; 80053; 85027; 86780; 87635

== ENCOUNTER 2023-03-14 13:49 | Inpatient (IN) | payer OTHER ==
[2023-03-14 16:31] VITALS: BMI 25.0
[2023-03-14] MEDS ORDERED: cloNIDine HCL 0.1 MG TABLET PO PRN (18:53)
[2023-03-14] MEDS ORDERED: diazePAM 5 MG TABLET PO PRN (18:53)
[2023-03-14] MEDS ORDERED: methaDONE HCL 10 MG TABLET (FOR DETOX USE ONLY) PO ONE (18:53)
[2023-03-14] MEDS ORDERED: LOPERAMIDE HCL 2 MG CAPSULE PO PRN (18:55)
[2023-03-14] MEDS ORDERED: ONDANSETRON *ODT* 4 MG TABLET SL PRN (18:55)
[2023-03-14] MEDS ORDERED: NALOXONE HCL (KLOXXADO) 8 MG SPRAY NS PRN (18:55)
[2023-03-14] MEDS ORDERED: BENZONATATE 200 MG CAPSULE PO PRN (18:55)
[2023-03-14] MEDS ORDERED: BISMUTH SUBSALICYLATE 524 MG/30 ML PO PRN (18:55)
[2023-03-14] MEDS ORDERED: ACETAMINOPHEN 325 MG TABLET (FP) PO PRN (18:55)
[2023-03-14] MEDS ORDERED: DICYCLOMINE HCL 10 MG CAPSULE PO PRN (18:55)
[2023-03-14] MEDS ORDERED: MAG HYDROX/AL HYDROX/SIMETH 30 ML UNIT-DOSE CUP PO PRN (18:55)
[2023-03-14] MEDS ORDERED: IBUPROFEN 600 MG TABLET (FP) PO PRN (18:55)
[2023-03-14] MEDS ORDERED: guaiFENesin 600 MG TABLET.ER (FP) PO PRN (18:55)
[2023-03-14] MEDS ORDERED: BENZOCAINE/MENTHOL (CHLORASEPTIC ) LOZENGE MM PRN (18:55)
[2023-03-14] MEDS ORDERED: NALOXONE HCL 0.4 MG/ML VIAL IM PRN (18:55)
[2023-03-14] MEDS ORDERED: MAGNESIUM HYDROX 2400MG/30ML ORAL SUSPENSION 30 ML CUP PO PRN (18:55)
[2023-03-14] MEDS ORDERED: IBUPROFEN 400 MG TABLET (FP) PO PRN (18:55)
[2023-03-14] MEDS ORDERED: POLYETHYLENE GLYCOL (HEALTHYLAX) 3350 17 GM PACKET PO PRN (18:55)
[2023-03-14] MEDS ORDERED: NICOTINE 10 MG CARTRIDGE (INHALER) IH PRN (18:55)
[2023-03-14] MEDS ORDERED: MELATONIN 5 MG TABLETS PO SCH (22:00)
[2023-03-14] MEDS: THIAMINE HCL 100 MG TABLET (FP) PO SCH (22:28)
[2023-03-14] MEDS: diazePAM 5 MG TABLET PO SCH (22:29)
[2023-03-15] MEDS: diazePAM 5 MG TABLET PO SCH ×4 (05:47→22:24)
[2023-03-15] MEDS: BICTEGRAV/EMTRICIT/TENOFOV (BIKTARVY) 50-200-25 MG TABLET PO SCH (10:21)
[2023-03-15] MEDS: PRENATAL VITAMINS W/ FOLIC ACID TABLET (FP) PO SCH (10:21)
[2023-03-15 12:39] LABS: HEMATOCRIT 36.4 % (35.4-49); HEMOGLOBIN 12.2 GM/dL (11.7-16.9); MCH 30.8 pg (25.7-33.7); MCHC 33.6 g/dl (32.0-35.9); MEAN CELL VOLUME 91.9 fl (80-96); MEAN PLT VOLUME 9.8 fl (7.5-11.1); PLATELET COUNT 227 10^3/uL (134-434); RBC 3.96 M/mm3 (4.00-5.60); RDW 13.6 % (11.9-15.9); WHITE BLOOD COUNT 3.8 K/mm3 (4.0-10.0)
[2023-03-15 12:43] LABS: POTASSIUM 4.6 mmol/L (3.5-5.1)
[2023-03-15 12:54] LABS: CALCIUM 9.2 mg/dL (8.5-10.1)
[2023-03-15 12:55] LABS: ALBUMIN 3.1 g/dl (3.4-5.0); BLOOD UREA NITROGEN 17.8 mg/dL (7-18)
[2023-03-15 12:59] LABS: BILIRUBIN,TOTAL 0.5 mg/dL (0.2-1); TOT PROT 6.8 g/dl (6.4-8.2)
[2023-03-15] MEDS: METHOCARBAMOL 500 MG TABLET PO PRN (17:28)
[2023-03-15] MEDS: NICOTINE POLACRILEX 2 MG GUM BUC PRN (17:28)
[2023-03-15] MEDS: MIRTAZAPINE 15 MG TABLET (FP) PO SCH (22:22)
[2023-03-15] MEDS: THIAMINE HCL 100 MG TABLET (FP) PO SCH (22:22)
[2023-03-15] MEDS: QUEtiapine FUMARATE 50 MG TABLET PO SCH (22:23)
[2023-03-16] MEDS: diazePAM 5 MG TABLET PO SCH ×3 (05:44→22:21)
[2023-03-16] MEDS ORDERED: methaDONE HCL 10 MG TABLET (FOR DETOX USE ONLY) PO ONE (10:00)
[2023-03-16] MEDS: PRENATAL VITAMINS W/ FOLIC ACID TABLET (FP) PO SCH (10:36)
[2023-03-16] MEDS: BICTEGRAV/EMTRICIT/TENOFOV (BIKTARVY) 50-200-25 MG TABLET PO SCH (10:36)
[2023-03-16] MEDS: METHOCARBAMOL 500 MG TABLET PO PRN ×2 (10:36→17:15)
[2023-03-16] MEDS: NICOTINE POLACRILEX 2 MG GUM BUC PRN (10:36)
[2023-03-16] MEDS: QUEtiapine FUMARATE 50 MG TABLET PO SCH (22:21)
[2023-03-16] MEDS: MIRTAZAPINE 15 MG TABLET (FP) PO SCH (22:21)
[2023-03-16] MEDS: THIAMINE HCL 100 MG TABLET (FP) PO SCH (22:21)
[2023-03-17] MEDS: diazePAM 5 MG TABLET PO SCH ×2 (05:27→17:51)
[2023-03-17] MEDS: PRENATAL VITAMINS W/ FOLIC ACID TABLET (FP) PO SCH (10:05)
[2023-03-17] MEDS: METHOCARBAMOL 500 MG TABLET PO PRN (10:05)
[2023-03-17] MEDS: BICTEGRAV/EMTRICIT/TENOFOV (BIKTARVY) 50-200-25 MG TABLET PO SCH (10:06)
[2023-03-17] MEDS: hydrOXYzine PAMOATE 25 MG CAPSULE (FP) PO PRN (15:11)
[2023-03-17] MEDS: NICOTINE POLACRILEX 2 MG GUM BUC PRN (15:11)
[2023-03-17] MEDS: THIAMINE HCL 100 MG TABLET (FP) PO SCH (22:12)
[2023-03-17] MEDS: QUEtiapine FUMARATE 50 MG TABLET PO SCH (22:12)
[2023-03-17] MEDS: MIRTAZAPINE 15 MG TABLET (FP) PO SCH (22:12)
[2023-03-17] MEDS ORDERED: cloNIDine HCL 0.1 MG TABLET PO ONE (22:50)
[2023-03-18] MEDS ORDERED: diazePAM 5 MG TABLET PO ONE (06:00)
[2023-03-18] MEDS ORDERED: methaDONE HCL 10 MG TABLET (FOR DETOX USE ONLY) PO ONE (10:00)
[2023-03-18] MEDS: PRENATAL VITAMINS W/ FOLIC ACID TABLET (FP) PO SCH (10:19)
[2023-03-18] MEDS: METHOCARBAMOL 500 MG TABLET PO PRN ×2 (10:21→20:45)
[2023-03-18] MEDS: BICTEGRAV/EMTRICIT/TENOFOV (BIKTARVY) 50-200-25 MG TABLET PO SCH (10:21)
[2023-03-18] MEDS: hydrOXYzine PAMOATE 25 MG CAPSULE (FP) PO PRN (20:45)
[2023-03-18] MEDS: MIRTAZAPINE 15 MG TABLET (FP) PO SCH (22:07)
[2023-03-18] MEDS: QUEtiapine FUMARATE 50 MG TABLET PO SCH (22:07)
[2023-03-18] MEDS: THIAMINE HCL 100 MG TABLET (FP) PO SCH (22:07)
[2023-03-18] MEDS: NICOTINE POLACRILEX 2 MG GUM BUC PRN (22:08)
[2023-03-19] MEDS: hydrOXYzine PAMOATE 25 MG CAPSULE (FP) PO PRN (05:42)
[2023-03-19 09:15] VITALS: BP 141/99; PULSE 76; RESP 18; TEMP 98.8
[2023-03-19] MEDS: BICTEGRAV/EMTRICIT/TENOFOV (BIKTARVY) 50-200-25 MG TABLET PO SCH (09:15)
[2023-03-19] MEDS: PRENATAL VITAMINS W/ FOLIC ACID TABLET (FP) PO SCH (09:15)
== END 2023-03-19 09:35 | disposition home or self-care (01) | DRG 773 ==
LOC: YASAS 13:49 → Y3N 18:36
PROVIDERS: ADMIT Allergy & Immunology; ATTEND Surgery
PROC: HZ2ZZZZ Detoxification Services for Substance Abuse Treatment (ICD-10-PCS; principal; 2023-03-14)
DX: F11.23 Opioid dependence with withdrawal (principal); F13.230 Sedative, hypnotic or anxiolytic dependence with withdrawal, uncomplicated; F10.20 Alcohol dependence, uncomplicated; F14.20 Cocaine dependence, uncomplicated; F17.210 Nicotine dependence, cigarettes, uncomplicated; F19.280 Other psychoactive substance dependence with psychoactive substance-induced anxiety disorder; F19.282 Other psychoactive substance dependence with psychoactive substance-induced sleep disorder; Z21 Asymptomatic human immunodeficiency virus [HIV] infection status; B18.2 Chronic viral hepatitis C; Z88.8 Allergy status to other drugs, medicaments and biological substances; Z91.013 Allergy to seafood; Z56.0 Unemployment, unspecified
CPT/HCPCS: 36415; 80053; 85027; 86780; 87635; 87811

== ENCOUNTER 2023-04-29 10:38 | Inpatient (IN) | payer OTHER ==
[2023-04-29 11:54] VITALS: BMI 23.3
[2023-04-29] MEDS ORDERED: ACETAMINOPHEN 325 MG TABLET (FP) PO PRN (13:26)
[2023-04-29] MEDS ORDERED: MAGNESIUM HYDROX 2400MG/30ML ORAL SUSPENSION 30 ML CUP PO PRN (13:26)
[2023-04-29] MEDS ORDERED: NALOXONE HCL (KLOXXADO) 8 MG SPRAY NS PRN (13:26)
[2023-04-29] MEDS ORDERED: BENZONATATE 200 MG CAPSULE PO PRN (13:26)
[2023-04-29] MEDS ORDERED: IBUPROFEN 400 MG TABLET (FP) PO PRN (13:26)
[2023-04-29] MEDS ORDERED: ONDANSETRON *ODT* 4 MG TABLET SL PRN (13:26)
[2023-04-29] MEDS ORDERED: POLYETHYLENE GLYCOL (HEALTHYLAX) 3350 17 GM PACKET PO PRN (13:26)
[2023-04-29] MEDS ORDERED: NALOXONE HCL 0.4 MG/ML VIAL IM PRN (13:26)
[2023-04-29] MEDS ORDERED: LOPERAMIDE HCL 2 MG CAPSULE PO PRN (13:26)
[2023-04-29] MEDS ORDERED: guaiFENesin 600 MG TABLET.ER (FP) PO PRN (13:26)
[2023-04-29] MEDS ORDERED: BENZOCAINE/MENTHOL (CHLORASEPTIC ) LOZENGE MM PRN (13:26)
[2023-04-29] MEDS ORDERED: MAG HYDROX/AL HYDROX/SIMETH 30 ML UNIT-DOSE CUP PO PRN (13:26)
[2023-04-29] MEDS ORDERED: DICYCLOMINE HCL 10 MG CAPSULE PO PRN (13:26)
[2023-04-29] MEDS ORDERED: BISMUTH SUBSALICYLATE 524 MG/30 ML PO PRN (13:26)
[2023-04-29] MEDS ORDERED: diazePAM 5 MG TABLET PO ONE ×2 (14:15→15:14)
[2023-04-29] MEDS: PRENATAL VITAMINS W/ FOLIC ACID TABLET (FP) PO SCH (15:32)
[2023-04-29] MEDS: NICOTINE POLACRILEX 4 MG GUM BUC PRN ×2 (15:33→22:15)
[2023-04-29] MEDS: diazePAM 5 MG TABLET PO SCH ×2 (17:03→22:14)
[2023-04-29 18:54] LABS: HEMATOCRIT 39.3 % (35.4-49); HEMOGLOBIN 13.2 GM/dL (11.7-16.9); MCH 31.5 pg (25.7-33.7); MCHC 33.6 g/dl (32.0-35.9); MEAN CELL VOLUME 93.8 fl (80-96); MEAN PLT VOLUME 9.9 fl (7.5-11.1); PLATELET COUNT 238 10^3/uL (134-434); RBC 4.19 M/mm3 (4.00-5.60); RDW 14.8 % (11.9-15.9); WHITE BLOOD COUNT 4.5 K/mm3 (4.0-10.0)
[2023-04-29 19:07] LABS: POTASSIUM 4.8 mmol/L (3.5-5.1)
[2023-04-29 19:10] LABS: CALCIUM 9.6 mg/dL (8.5-10.1)
[2023-04-29 19:11] LABS: ALBUMIN 3.8 g/dl (3.4-5.0)
[2023-04-29 19:14] LABS: CREATININE 1.4 mg/dL (0.55-1.3)
[2023-04-29 19:15] LABS: BILIRUBIN,TOTAL 0.4 mg/dL (0.2-1); TOT PROT 7.9 g/dl (6.4-8.2)
[2023-04-29] MEDS: MIRTAZAPINE 15 MG TABLET (FP) PO SCH (22:14)
[2023-04-29] MEDS: MELATONIN 5 MG TABLETS PO SCH (22:14)
[2023-04-29] MEDS: QUEtiapine FUMARATE 25 MG TABLET PO SCH (22:14)
[2023-04-29] MEDS: THIAMINE HCL 100 MG TABLET (FP) PO SCH (22:14)
[2023-04-30] MEDS: diazePAM 5 MG TABLET PO SCH ×4 (05:27→22:07)
[2023-04-30] MEDS: hydrOXYzine PAMOATE 25 MG CAPSULE (FP) PO PRN (05:29)
[2023-04-30] MEDS: METHOCARBAMOL 500 MG TABLET PO PRN (05:29)
[2023-04-30] MEDS ORDERED: methaDONE HCL 10 MG TABLET PO ONE (07:24)
[2023-04-30] MEDS: BICTEGRAV/EMTRICIT/TENOFOV (BIKTARVY) 50-200-25 MG TABLET PO SCH (07:40)
[2023-04-30] MEDS ORDERED: methaDONE 40 MG, methaDONE 30 MG PO ONE (07:45)
[2023-04-30] MEDS: PRENATAL VITAMINS W/ FOLIC ACID TABLET (FP) PO SCH (10:14)
[2023-04-30] MEDS: GABAPENTIN 300 MG CAPSULE PO SCH ×2 (12:20→22:07)
[2023-04-30] MEDS: THIAMINE HCL 100 MG TABLET (FP) PO SCH (22:07)
[2023-04-30] MEDS: QUEtiapine FUMARATE 25 MG TABLET PO SCH (22:07)
[2023-04-30] MEDS: MIRTAZAPINE 15 MG TABLET (FP) PO SCH (22:07)
[2023-04-30] MEDS: NICOTINE POLACRILEX 4 MG GUM BUC PRN (22:09)
[2023-04-30] MEDS: MELATONIN 5 MG TABLETS PO SCH (22:20)
[2023-05-01] MEDS: diazePAM 5 MG TABLET PO SCH ×3 (05:40→22:38)
[2023-05-01] MEDS: methaDONE 40 MG, methaDONE 30 MG PO SCH (05:40)
[2023-05-01] MEDS: NICOTINE POLACRILEX 4 MG GUM BUC PRN ×2 (05:41→09:50)
[2023-05-01] MEDS ORDERED: methaDONE HCL 10 MG TABLET PO SCH (06:00)
[2023-05-01] MEDS: BICTEGRAV/EMTRICIT/TENOFOV (BIKTARVY) 50-200-25 MG TABLET PO SCH (07:25)
[2023-05-01] MEDS: METHOCARBAMOL 500 MG TABLET PO PRN (09:50)
[2023-05-01] MEDS: diazePAM 5 MG TABLET PO PRN (09:50)
[2023-05-01] MEDS: PRENATAL VITAMINS W/ FOLIC ACID TABLET (FP) PO SCH (09:50)
[2023-05-01] MEDS: GABAPENTIN 300 MG CAPSULE PO SCH ×2 (09:50→22:38)
[2023-05-01] MEDS: hydrOXYzine PAMOATE 25 MG CAPSULE (FP) PO PRN (09:50)
[2023-05-01] MEDS: MIRTAZAPINE 15 MG TABLET (FP) PO SCH (22:38)
[2023-05-01] MEDS: THIAMINE HCL 100 MG TABLET (FP) PO SCH (22:38)
[2023-05-01] MEDS: QUEtiapine FUMARATE 25 MG TABLET PO SCH (22:38)
[2023-05-01] MEDS: MELATONIN 5 MG TABLETS PO SCH (22:40)
[2023-05-02] MEDS: methaDONE 40 MG, methaDONE 30 MG PO SCH (05:25)
[2023-05-02] MEDS: diazePAM 5 MG TABLET PO SCH ×2 (05:26→17:25)
[2023-05-02] MEDS: BICTEGRAV/EMTRICIT/TENOFOV (BIKTARVY) 50-200-25 MG TABLET PO SCH (07:20)
[2023-05-02] MEDS: PRENATAL VITAMINS W/ FOLIC ACID TABLET (FP) PO SCH (10:06)
[2023-05-02] MEDS: diazePAM 5 MG TABLET PO PRN (10:07)
[2023-05-02] MEDS: NICOTINE POLACRILEX 4 MG GUM BUC PRN (10:10)
[2023-05-02] MEDS: GABAPENTIN 300 MG CAPSULE PO SCH ×2 (10:41→22:20)
[2023-05-02] MEDS: IBUPROFEN 600 MG TABLET (FP) PO PRN (13:25)
[2023-05-02] MEDS ORDERED: BACITRACIN 0.9 GM PACKET TP SCH (13:30)
[2023-05-02 21:17] VITALS: RESP 17
[2023-05-02] MEDS: QUEtiapine FUMARATE 25 MG TABLET PO SCH (22:20)
[2023-05-02] MEDS: THIAMINE HCL 100 MG TABLET (FP) PO SCH (22:20)
[2023-05-02] MEDS: MIRTAZAPINE 15 MG TABLET (FP) PO SCH (22:20)
[2023-05-02] MEDS: MELATONIN 5 MG TABLETS PO SCH (23:25)
[2023-05-03] MEDS: methaDONE 40 MG, methaDONE 30 MG PO SCH (05:26)
[2023-05-03] MEDS: IBUPROFEN 600 MG TABLET (FP) PO PRN (05:29)
[2023-05-03] MEDS ORDERED: diazePAM 5 MG TABLET PO ONE (06:00)
[2023-05-03 06:27] VITALS: BP 141/76; PULSE 80; TEMP 97.7
[2023-05-03] MEDS: BICTEGRAV/EMTRICIT/TENOFOV (BIKTARVY) 50-200-25 MG TABLET PO SCH (07:11)
== END 2023-05-03 09:23 | disposition home or self-care (01) | DRG 773 ==
LOC: YASAS 10:38 → Y6N 14:15
PROVIDERS: ADMIT Allergy & Immunology; ATTEND Allergy & Immunology
PROC: HZ2ZZZZ Detoxification Services for Substance Abuse Treatment (ICD-10-PCS; principal; 2023-04-29)
DX: F10.230 Alcohol dependence with withdrawal, uncomplicated (principal); F11.20 Opioid dependence, uncomplicated; F14.20 Cocaine dependence, uncomplicated; F17.210 Nicotine dependence, cigarettes, uncomplicated; F31.9 Bipolar disorder, unspecified; Z21 Asymptomatic human immunodeficiency virus [HIV] infection status; G62.9 Polyneuropathy, unspecified; Z86.19 Personal history of other infectious and parasitic diseases; Z88.8 Allergy status to other drugs, medicaments and biological substances
CPT/HCPCS: 36415; 80053; 85027; 86780; 87635; 87811

== ENCOUNTER 2024-01-06 12:37 | Inpatient (IN) | payer OTHER ==
[2024-01-06 14:08] VITALS: BMI 25.8
[2024-01-06] MEDS ORDERED: ONDANSETRON *ODT* 4 MG TABLET SL PRN (15:02)
[2024-01-06] MEDS ORDERED: DICYCLOMINE HCL 10 MG CAPSULE PO PRN (15:02)
[2024-01-06] MEDS ORDERED: NALOXONE HCL (KLOXXADO) 8 MG SPRAY NS PRN (15:02)
[2024-01-06] MEDS ORDERED: MAGNESIUM HYDROX 2400MG/30ML ORAL SUSPENSION 30 ML CUP PO PRN (15:02)
[2024-01-06] MEDS ORDERED: hydrOXYzine PAMOATE 25 MG CAPSULE (FP) PO PRN (15:02)
[2024-01-06] MEDS ORDERED: guaiFENesin 600 MG TABLET.ER (FP) PO PRN (15:02)
[2024-01-06] MEDS ORDERED: IBUPROFEN 400 MG TABLET (FP) PO PRN (15:02)
[2024-01-06] MEDS ORDERED: ACETAMINOPHEN 325 MG TABLET (FP) PO PRN (15:02)
[2024-01-06] MEDS ORDERED: BISMUTH SUBSALICYLATE 524 MG/30 ML PO PRN (15:02)
[2024-01-06] MEDS ORDERED: LOPERAMIDE HCL 2 MG CAPSULE PO PRN (15:02)
[2024-01-06] MEDS ORDERED: BENZOCAINE/MENTHOL (CHLORASEPTIC ) LOZENGE MM PRN (15:02)
[2024-01-06] MEDS ORDERED: NALOXONE HCL 0.4 MG/ML VIAL IM PRN (15:02)
[2024-01-06] MEDS ORDERED: POLYETHYLENE GLYCOL (HEALTHYLAX) 3350 17 GM PACKET PO PRN (15:02)
[2024-01-06] MEDS ORDERED: IBUPROFEN 600 MG TABLET (FP) PO PRN (15:02)
[2024-01-06] MEDS ORDERED: BENZONATATE 200 MG CAPSULE PO PRN (15:02)
[2024-01-06] MEDS ORDERED: PRENATAL VITAMINS W/ FOLIC ACID TABLET (FP) PO ONE (16:06)
[2024-01-06] MEDS ORDERED: NICOTINE 14 MG/24 HOURS TOPICAL PATCH TD ONE (16:06)
[2024-01-06] MEDS: PRENATAL VITAMINS W/ FOLIC ACID TABLET (FP) PO SCH (16:11)
[2024-01-06] MEDS: NICOTINE 14 MG/24 HOURS TOPICAL PATCH TD SCH (16:11)
[2024-01-06] MEDS: diazePAM 5 MG TABLET PO SCH (16:46)
[2024-01-06] MEDS: MELATONIN 5 MG TABLETS PO SCH (22:17)
[2024-01-06] MEDS: QUEtiapine FUMARATE 50 MG TABLET PO SCH (22:18)
[2024-01-06] MEDS: THIAMINE 100 MG TABLET PO SCH (22:18)
[2024-01-07] MEDS: methaDONE HCL 40 MG DISPERSABLE TABLET PO SCH (08:37)
[2024-01-07] MEDS: ABACAVIR/DOLUTEGRAVIR/LAMIVUDI (TRIUMEQ) TABLET PO SCH (09:10)
[2024-01-07] MEDS ORDERED: PATIENT'S OWN MEDICATION (NON-FORMULARY) (Bictegrav/Emtricit/Tenofov Ala [Biktarvy 30-120- PO SCH (10:00)
[2024-01-07 11:15] LABS: HEMATOCRIT 36.1 % (35.4-49); HEMOGLOBIN 11.6 GM/dL (11.7-16.9); MCH 30.5 pg (25.7-33.7); MCHC 32.2 g/dl (32.0-35.9); MEAN CELL VOLUME 94.6 fl (80-96); MEAN PLT VOLUME 9.5 fl (7.5-11.1); PLATELET COUNT 277 10^3/uL (134-434); RBC 3.82 M/mm3 (4.00-5.60); RDW 14.6 % (11.9-15.9); WHITE BLOOD COUNT 4.6 K/mm3 (4.0-10.0)
[2024-01-07 11:59] LABS: CHLORIDE 107 mmol/L (98-107); POTASSIUM 5.1 mmol/L (3.5-5.1); SODIUM 137 mmol/L (136-145)
[2024-01-07 12:03] LABS: ALBUMIN 3.4 g/dl (3.4-5.0); ANION GAP 2 mmol/L (4-13); BLOOD UREA NITROGEN 19.9 mg/dL (7-18); CALCIUM 9.6 mg/dL (8.5-10.1); CO2 28 mmol/L (21-32); GLUCOSE,RANDOM 106 mg/dL (74-106)
[2024-01-07 12:06] LABS: CREATININE 1.1 mg/dL (0.55-1.3); SGOT/AST 18 U/L (15-37); SGPT/ALT 19 U/L (13-61)
[2024-01-07 12:08] LABS: BILIRUBIN,TOTAL 0.3 mg/dL (0.2-1); TOT PROT 7.8 g/dl (6.4-8.2)
[2024-01-07 12:09] LABS: ALK PHOS 86 U/L (45-117)
[2024-01-07] MEDS: diazePAM 5 MG TABLET PO PRN (14:47)
[2024-01-07] MEDS: LACTULOSE 20 GM/30 ML UDC (FOR ORAL USE ONLY) PO SCH (17:22)
[2024-01-07] MEDS: MIRTAZAPINE 15 MG TABLET (FP) PO SCH (22:00)
[2024-01-07] MEDS: QUEtiapine FUMARATE 25 MG TABLET PO SCH (22:00)
[2024-01-08] MEDS: MAG HYDROX/AL HYDROX/SIMETH 30 ML UNIT-DOSE CUP PO PRN (00:17)
[2024-01-08] MEDS: diazePAM 5 MG TABLET PO SCH (05:54)
[2024-01-08] MEDS: METHOCARBAMOL 500 MG TABLET PO PRN (15:05)
[2024-01-08 17:55] VITALS: RESP 18
[2024-01-08 19:20] VITALS: BP 125/82; PULSE 80; TEMP 98.4
[2024-01-09] MEDS ORDERED: diazePAM 5 MG TABLET PO SCH (06:00)
[2024-01-10] MEDS ORDERED: diazePAM 5 MG TABLET PO ONE (06:00)
== END 2024-01-08 19:40 | disposition left against medical advice (07) | DRG 770 ==
LOC: YASAS 12:37 → Y6N 15:28
PROVIDERS: ADMIT Allergy & Immunology; ATTEND Surgery
PROC: HZ2ZZZZ Detoxification Services for Substance Abuse Treatment (ICD-10-PCS; principal; 2024-01-06)
DX: F10.230 Alcohol dependence with withdrawal, uncomplicated (principal); F11.20 Opioid dependence, uncomplicated; F14.20 Cocaine dependence, uncomplicated; F17.210 Nicotine dependence, cigarettes, uncomplicated; F19.282 Other psychoactive substance dependence with psychoactive substance-induced sleep disorder; F31.9 Bipolar disorder, unspecified; Z21 Asymptomatic human immunodeficiency virus [HIV] infection status; E72.20 Disorder of urea cycle metabolism, unspecified; G47.00 Insomnia, unspecified; B18.2 Chronic viral hepatitis C; Z79.899 Other long term (current) drug therapy; Z88.8 Allergy status to other drugs, medicaments and biological substances
CPT/HCPCS: 36415; 80053; 80307; 82140; 85027; 86780; 93005; 93010

== ENCOUNTER 2024-02-26 09:57 | Inpatient (IN) | payer OTHER ==
[2024-02-26 10:19] VITALS: BMI 22.6
[2024-02-26] MEDS ORDERED: BISMUTH SUBSALICYLATE 262 MG/15 ML BTL PO PRN (11:04)
[2024-02-26] MEDS ORDERED: IBUPROFEN 400 MG TABLET (FP) PO PRN (11:04)
[2024-02-26] MEDS ORDERED: MAGNESIUM HYDROX 2400MG/30ML ORAL SUSPENSION 30 ML CUP PO PRN (11:04)
[2024-02-26] MEDS ORDERED: ONDANSETRON *ODT* 4 MG TABLET SL PRN (11:04)
[2024-02-26] MEDS ORDERED: NICOTINE POLACRILEX 2 MG GUM BUC PRN (11:04)
[2024-02-26] MEDS ORDERED: METHOCARBAMOL 500 MG TABLET PO PRN (11:04)
[2024-02-26] MEDS ORDERED: LOPERAMIDE HCL 2 MG CAPSULE PO PRN (11:04)
[2024-02-26] MEDS ORDERED: guaiFENesin 600 MG TABLET.ER (FP) PO PRN (11:04)
[2024-02-26] MEDS ORDERED: DICYCLOMINE HCL 10 MG CAPSULE PO PRN (11:04)
[2024-02-26] MEDS ORDERED: BENZONATATE 200 MG CAPSULE PO PRN (11:04)
[2024-02-26] MEDS ORDERED: NALOXONE (NARCAN) HCL 4 MG/0.1 ML SPRAY NS PRN (11:04)
[2024-02-26] MEDS ORDERED: ACETAMINOPHEN 325 MG TABLET (FP) PO PRN (11:04)
[2024-02-26] MEDS ORDERED: POLYETHYLENE GLYCOL (HEALTHYLAX) 3350 17 GM PACKET PO PRN (11:04)
[2024-02-26] MEDS ORDERED: hydrOXYzine PAMOATE 25 MG CAPSULE (FP) PO PRN (11:04)
[2024-02-26] MEDS ORDERED: BENZOCAINE/MENTHOL (CHLORASEPTIC ) LOZENGE MM PRN (11:04)
[2024-02-26] MEDS ORDERED: NALOXONE HCL 0.4 MG/ML VIAL IM PRN (11:04)
[2024-02-26] MEDS ORDERED: MAG HYDROX/AL HYDROX/SIMETH 30 ML UNIT-DOSE CUP PO PRN (11:04)
[2024-02-26] MEDS ORDERED: methaDONE HCL 10 MG TABLET (FOR DETOX USE ONLY) ONE (11:37)
[2024-02-26] MEDS ORDERED: BUPRENORPHINE/NALOXONE 0.5 MG/0.125 MG FILM ONE (11:38)
[2024-02-26] MEDS: BUPRENORPHINE/NALOXONE 0.5 MG/0.125 MG FILM SL ONE ×2 (11:45→22:44)
[2024-02-26] MEDS: methaDONE HCL 10 MG TABLET (FOR DETOX USE ONLY) PO ONE (11:45)
[2024-02-26] MEDS: diazePAM 5 MG TABLET PO SCH (12:02)
[2024-02-26] MEDS: cloNIDine HCL 0.1 MG TABLET PO SCH (14:39)
[2024-02-26] MEDS: diazePAM 5 MG TABLET PO PRN (14:41)
[2024-02-26] MEDS: MELATONIN 5 MG TABLETS PO SCH (22:43)
[2024-02-26] MEDS: QUEtiapine FUMARATE 25 MG TABLET PO SCH (22:43)
[2024-02-26] MEDS: THIAMINE 100 MG TABLET PO SCH (22:43)
[2024-02-26] MEDS: MIRTAZAPINE 15 MG TABLET (FP) PO SCH (22:44)
[2024-02-27] MEDS: ABACAVIR/DOLUTEGRAVIR/LAMIVUDI (TRIUMEQ) TABLET PO SCH (10:00)
[2024-02-27] MEDS: NICOTINE 14 MG/24 HOURS TOPICAL PATCH TD SCH (10:00)
[2024-02-27] MEDS: PRENATAL VITAMINS W/ FOLIC ACID TABLET (FP) PO SCH (10:00)
[2024-02-27] MEDS: BUPRENORPHINE/NALOXONE 0.5 MG/0.125 MG FILM SL SCH (10:09)
[2024-02-27 11:51] LABS: CHLORIDE 107 mmol/L (98-107); POTASSIUM 4.3 mmol/L (3.5-5.1); SODIUM 140 mmol/L (136-145)
[2024-02-27 11:52] LABS: HEMATOCRIT 35.7 % (35.4-49); HEMOGLOBIN 11.8 GM/dL (11.7-16.9); MCH 30.9 pg (25.7-33.7); MCHC 33.1 g/dl (32.0-35.9); MEAN CELL VOLUME 93.2 fl (80-96); MEAN PLT VOLUME 8.8 fl (7.5-11.1); PLATELET COUNT 398 10^3/uL (134-434); RBC 3.83 M/mm3 (4.00-5.60); RDW 14.8 % (11.9-15.9); WHITE BLOOD COUNT 6.1 K/mm3 (4.0-10.0)
[2024-02-27 11:58] LABS: GLUCOSE,RANDOM 88 mg/dL (74-106)
[2024-02-27 11:59] LABS: ANION GAP 5 mmol/L (4-13); CALCIUM 9.2 mg/dL (8.5-10.1); CO2 29 mmol/L (21-32); SGOT/AST 18 U/L (15-37)
[2024-02-27 12:00] LABS: BILIRUBIN,TOTAL 0.2 mg/dL (0.2-1); SGPT/ALT 23 U/L (13-61); TOT PROT 6.8 g/dl (6.4-8.2)
[2024-02-27 12:02] LABS: ALK PHOS 74 U/L (45-117); CREATININE 1.1 mg/dL (0.55-1.3)
[2024-02-28] MEDS: diazePAM 5 MG TABLET PO SCH (05:59)
[2024-02-28] MEDS: IBUPROFEN 600 MG TABLET (FP) PO PRN (06:01)
[2024-02-28] MEDS: methaDONE HCL 10 MG TABLET (FOR DETOX USE ONLY) PO ONE (10:19)
[2024-02-28] MEDS: BUPRENORPHINE/NALOXONE 2 MG/0.5 MG FILM PACKET SL SCH (10:22)
[2024-02-29] MEDS: diazePAM 5 MG TABLET PO SCH (05:48)
[2024-02-29] MEDS: BUPRENORPHINE/NALOXONE 4 MG/1 MG FILM PACKET SL SCH (10:07)
[2024-02-29 13:09] VITALS: BP 117/75; PULSE 68; RESP 17; TEMP 97.7
[2024-03-01] MEDS ORDERED: diazePAM 5 MG TABLET PO ONE (06:00)
[2024-03-01] MEDS ORDERED: BUPRENORPHINE/NALOXONE 8 MG/2 MG FILM PACKET SL SCH (10:00)
[2024-03-01] MEDS ORDERED: methaDONE HCL 10 MG TABLET (FOR DETOX USE ONLY) PO ONE (10:00)
[2024-03-02] MEDS ORDERED: BUPRENORPHINE/NALOXONE 8 MG/2 MG FILM PACKET SL SCH (10:00)
== END 2024-02-29 14:40 | disposition home or self-care (01) | DRG 773 ==
LOC: YASAS 09:57 → Y6N 11:29
PROVIDERS: ADMIT Allergy & Immunology; ATTEND Surgery
PROC: HZ2ZZZZ Detoxification Services for Substance Abuse Treatment (ICD-10-PCS; principal; 2024-02-26)
DX: F11.23 Opioid dependence with withdrawal (principal); F10.230 Alcohol dependence with withdrawal, uncomplicated; F15.10 Other stimulant abuse, uncomplicated; F12.20 Cannabis dependence, uncomplicated; F17.210 Nicotine dependence, cigarettes, uncomplicated; F31.9 Bipolar disorder, unspecified; Z21 Asymptomatic human immunodeficiency virus [HIV] infection status; Z79.899 Other long term (current) drug therapy; B18.2 Chronic viral hepatitis C; Z88.8 Allergy status to other drugs, medicaments and biological substances
CPT/HCPCS: 36415; 80053; 80305; 80307; 85027; 86780; 93005; 93010

== ENCOUNTER 2024-03-16 14:06 | Inpatient (IN) | payer OTHER ==
[2024-03-16 17:01] VITALS: BMI 24.0
[2024-03-16] MEDS ORDERED: ACETAMINOPHEN 325 MG TABLET (FP) PO PRN (18:07)
[2024-03-16] MEDS ORDERED: LOPERAMIDE HCL 2 MG CAPSULE PO PRN (18:07)
[2024-03-16] MEDS ORDERED: MAGNESIUM HYDROX 2400MG/30ML ORAL SUSPENSION 30 ML CUP PO PRN (18:07)
[2024-03-16] MEDS ORDERED: IBUPROFEN 600 MG TABLET (FP) PO PRN (18:07)
[2024-03-16] MEDS ORDERED: NICOTINE POLACRILEX 2 MG GUM BUC PRN (18:07)
[2024-03-16] MEDS ORDERED: MAG HYDROX/AL HYDROX/SIMETH 30 ML UNIT-DOSE CUP PO PRN (18:07)
[2024-03-16] MEDS ORDERED: IBUPROFEN 400 MG TABLET (FP) PO PRN (18:07)
[2024-03-16] MEDS ORDERED: BENZOCAINE/MENTHOL (CHLORASEPTIC ) LOZENGE MM PRN (18:07)
[2024-03-16] MEDS ORDERED: NALOXONE HCL 0.4 MG/ML VIAL IM PRN (18:07)
[2024-03-16] MEDS ORDERED: NALOXONE (NARCAN) HCL 4 MG/0.1 ML SPRAY NS PRN (18:07)
[2024-03-16] MEDS ORDERED: DICYCLOMINE HCL 10 MG CAPSULE PO PRN (18:07)
[2024-03-16] MEDS ORDERED: NICOTINE POLACRILEX 2 MG LOZENGE BC PRN (18:07)
[2024-03-16] MEDS ORDERED: P-EPHED 60MG/TRIPROLIDI 2.5MG TABLET PO PRN (18:07)
[2024-03-16] MEDS ORDERED: BISMUTH SUBSALICYLATE 524 MG/30 ML PO PRN (18:07)
[2024-03-16] MEDS ORDERED: guaiFENesin 600 MG TABLET.ER (FP) PO PRN (18:07)
[2024-03-16] MEDS ORDERED: POLYETHYLENE GLYCOL (HEALTHYLAX) 3350 17 GM PACKET PO PRN (18:07)
[2024-03-16] MEDS ORDERED: ONDANSETRON *ODT* 4 MG TABLET SL PRN (18:07)
[2024-03-16] MEDS ORDERED: BENZONATATE 200 MG CAPSULE PO PRN (18:07)
[2024-03-16] MEDS: diazePAM 5 MG TABLET PO PRN (20:06)
[2024-03-16] MEDS: diazePAM 5 MG TABLET PO SCH (22:49)
[2024-03-16] MEDS: METHOCARBAMOL 500 MG TABLET PO PRN (22:49)
[2024-03-16] MEDS: MELATONIN 5 MG TABLETS PO SCH (22:50)
[2024-03-16] MEDS: THIAMINE 100 MG TABLET PO SCH (22:50)
[2024-03-17] MEDS: diazePAM 5 MG TABLET PO SCH (05:27)
[2024-03-17] MEDS ORDERED: methaDONE HCL 10 MG TABLET PO SCH (07:30)
[2024-03-17] MEDS: methaDONE HCL 40 MG DISPERSABLE TABLET PO SCH (09:47)
[2024-03-17] MEDS: PRENATAL VITAMINS W/ FOLIC ACID TABLET (FP) PO SCH (09:47)
[2024-03-17] MEDS: ABACAVIR/DOLUTEGRAVIR/LAMIVUDI (TRIUMEQ) TABLET PO SCH (10:40)
[2024-03-17] MEDS: MIRTAZAPINE 15 MG TABLET (FP) PO SCH (22:12)
[2024-03-17] MEDS: QUEtiapine FUMARATE 25 MG TABLET PO SCH (22:12)
[2024-03-18] MEDS: diazePAM 5 MG TABLET PO ONE (05:46)
[2024-03-18 06:11] VITALS: RESP 16
[2024-03-18 09:43] VITALS: BP 134/86; PULSE 73; TEMP 97.1
== END 2024-03-18 11:49 | disposition home or self-care (01) | DRG 773 ==
LOC: YASAS 14:06 → Y6N 18:20
PROVIDERS: ADMIT Allergy & Immunology; ATTEND Surgery
PROC: HZ2ZZZZ Detoxification Services for Substance Abuse Treatment (ICD-10-PCS; principal; 2024-03-16)
DX: F10.230 Alcohol dependence with withdrawal, uncomplicated (principal); F11.20 Opioid dependence, uncomplicated; F14.20 Cocaine dependence, uncomplicated; F15.10 Other stimulant abuse, uncomplicated; F17.210 Nicotine dependence, cigarettes, uncomplicated; F12.20 Cannabis dependence, uncomplicated; F19.282 Other psychoactive substance dependence with psychoactive substance-induced sleep disorder; Z21 Asymptomatic human immunodeficiency virus [HIV] infection status; Z79.899 Other long term (current) drug therapy; B18.2 Chronic viral hepatitis C; Z88.8 Allergy status to other drugs, medicaments and biological substances
CPT/HCPCS: 80305

== ENCOUNTER 2024-04-12 10:27 | Inpatient (IN) | payer OTHER ==
[2024-04-12 10:39] VITALS: BMI 22.6
[2024-04-12] MEDS ORDERED: IBUPROFEN 600 MG TABLET (FP) PO PRN (10:50)
[2024-04-12] MEDS ORDERED: guaiFENesin 600 MG TABLET.ER (FP) PO PRN (10:50)
[2024-04-12] MEDS ORDERED: DICYCLOMINE HCL 10 MG CAPSULE PO PRN (10:50)
[2024-04-12] MEDS ORDERED: BENZONATATE 200 MG CAPSULE PO PRN (10:50)
[2024-04-12] MEDS ORDERED: MAGNESIUM HYDROX 2400MG/30ML ORAL SUSPENSION 30 ML CUP PO PRN (10:50)
[2024-04-12] MEDS ORDERED: IBUPROFEN 400 MG TABLET (FP) PO PRN (10:50)
[2024-04-12] MEDS ORDERED: ACETAMINOPHEN 325 MG TABLET (FP) PO PRN (10:50)
[2024-04-12] MEDS ORDERED: NALOXONE (NARCAN) HCL 4 MG/0.1 ML SPRAY NS PRN (10:50)
[2024-04-12] MEDS ORDERED: LOPERAMIDE HCL 2 MG CAPSULE PO PRN (10:50)
[2024-04-12] MEDS ORDERED: MAG HYDROX/AL HYDROX/SIMETH 30 ML UNIT-DOSE CUP PO PRN (10:50)
[2024-04-12] MEDS ORDERED: NICOTINE POLACRILEX 2 MG LOZENGE BC PRN (10:50)
[2024-04-12] MEDS ORDERED: NALOXONE HCL 0.4 MG/ML VIAL IM PRN (10:50)
[2024-04-12] MEDS ORDERED: NICOTINE POLACRILEX 2 MG GUM BUC PRN (10:50)
[2024-04-12] MEDS ORDERED: POLYETHYLENE GLYCOL (HEALTHYLAX) 3350 17 GM PACKET PO PRN (10:50)
[2024-04-12] MEDS ORDERED: P-EPHED 60MG/TRIPROLIDI 2.5MG TABLET PO PRN (10:50)
[2024-04-12] MEDS ORDERED: BENZOCAINE/MENTHOL (CHLORASEPTIC ) LOZENGE MM PRN (10:50)
[2024-04-12] MEDS ORDERED: BISMUTH SUBSALICYLATE 262 MG/15 ML BTL PO PRN (10:50)
[2024-04-12] MEDS ORDERED: PRENATAL VITAMINS W/ FOLIC ACID TABLET (FP) PO ONE (11:27)
[2024-04-12] MEDS: diazePAM 5 MG TABLET PO SCH (11:30)
[2024-04-12] MEDS: cloNIDine HCL 0.1 MG TABLET PO ONE (12:24)
[2024-04-12] MEDS: METHOCARBAMOL 500 MG TABLET PO PRN (12:24)
[2024-04-12] MEDS: BUPRENORPHINE/NALOXONE 2 MG/0.5 MG FILM PACKET SL ONE (12:25)
[2024-04-12] MEDS: ONDANSETRON *ODT* 4 MG TABLET SL PRN (13:21)
[2024-04-12] MEDS: BUPRENORPHINE/NALOXONE 4 MG/1 MG FILM PACKET SL SCH (17:15)
[2024-04-12] MEDS: MELATONIN 5 MG TABLETS PO SCH (22:25)
[2024-04-12] MEDS: THIAMINE 100 MG TABLET PO SCH (22:25)
[2024-04-13] MEDS: PRENATAL VITAMINS W/ FOLIC ACID TABLET (FP) PO SCH (10:20)
[2024-04-13] MEDS: ABACAVIR/DOLUTEGRAVIR/LAMIVUDI (TRIUMEQ) TABLET PO SCH (10:42)
[2024-04-13 11:57] LABS: HEMATOCRIT 38.4 % (35.4-49); HEMOGLOBIN 12.8 GM/dL (11.7-16.9); MCH 30.5 pg (25.7-33.7); MCHC 33.4 g/dl (32.0-35.9); MEAN CELL VOLUME 91.3 fl (80-96); MEAN PLT VOLUME 8.7 fl (7.5-11.1); PLATELET COUNT 362 10^3/uL (134-434); WHITE BLOOD COUNT 5.2 K/mm3 (4.0-10.0)
[2024-04-13 12:10] LABS: CHLORIDE 106 mmol/L (98-107); POTASSIUM 4.1 mmol/L (3.5-5.1); SODIUM 140 mmol/L (136-145)
[2024-04-13 12:23] LABS: GLUCOSE,RANDOM 100 mg/dL (74-106)
[2024-04-13 12:25] LABS: ALBUMIN 3.3 g/dl (3.4-5.0)
[2024-04-13 12:26] LABS: BLOOD UREA NITROGEN 10.2 mg/dL (7-18)
[2024-04-13 12:27] LABS: CALCIUM 9.5 mg/dL (8.5-10.1)
[2024-04-13 12:29] LABS: ALK PHOS 69 U/L (45-117); ANION GAP 6 mmol/L (4-13); CO2 28 mmol/L (21-32)
[2024-04-13 12:30] LABS: SGOT/AST 20 U/L (15-37)
[2024-04-13 12:31] LABS: BILIRUBIN,TOTAL 0.3 mg/dL (0.2-1)
[2024-04-13 12:32] LABS: TOT PROT 7.4 g/dl (6.4-8.2)
[2024-04-13 12:33] LABS: SGPT/ALT 19 U/L (13-61)
[2024-04-13] MEDS: MIRTAZAPINE 15 MG TABLET (FP) PO SCH (22:42)
[2024-04-13] MEDS: QUEtiapine FUMARATE 25 MG TABLET PO SCH (22:42)
[2024-04-14] MEDS: diazePAM 5 MG TABLET PO SCH (05:19)
[2024-04-14] MEDS: BUPRENORPHINE/NALOXONE 8 MG/2 MG FILM PACKET SL ONE (05:19)
[2024-04-14] MEDS: diazePAM 5 MG TABLET PO PRN (09:39)
[2024-04-15] MEDS: diazePAM 5 MG TABLET PO SCH (05:13)
[2024-04-15 05:55] VITALS: RESP 16
[2024-04-15] MEDS: BUPRENORPHINE/NALOXONE 8 MG/2 MG FILM PACKET SL ONE (06:36)
[2024-04-15 09:46] VITALS: BP 110/61; PULSE 78; TEMP 98.7
[2024-04-15] MEDS ORDERED: BUPRENORPHINE/NALOXONE 8 MG/2 MG FILM PACKET SL ONE (18:00)
[2024-04-16] MEDS ORDERED: BUPRENORPHINE/NALOXONE 8 MG/2 MG FILM PACKET SL SCH (06:00)
[2024-04-16] MEDS ORDERED: diazePAM 5 MG TABLET PO ONE (06:00)
== END 2024-04-15 12:32 | disposition home or self-care (01) | DRG 773 ==
LOC: YASAS 10:27 → Y6N 11:06
PROVIDERS: ADMIT Allergy & Immunology; ATTEND Surgery
PROC: HZ2ZZZZ Detoxification Services for Substance Abuse Treatment (ICD-10-PCS; principal; 2024-04-12)
DX: F11.23 Opioid dependence with withdrawal (principal); F10.230 Alcohol dependence with withdrawal, uncomplicated; F14.20 Cocaine dependence, uncomplicated; F12.20 Cannabis dependence, uncomplicated; F17.210 Nicotine dependence, cigarettes, uncomplicated; F20.9 Schizophrenia, unspecified; Z21 Asymptomatic human immunodeficiency virus [HIV] infection status; Z91.013 Allergy to seafood; Z88.8 Allergy status to other drugs, medicaments and biological substances; Z91.51 Personal history of suicidal behavior; Z56.0 Unemployment, unspecified
CPT/HCPCS: 36415; 80053; 80305; 80307; 85027; 86780; Q0162

== ENCOUNTER 2024-05-29 12:57 | Inpatient (IN) | payer OTHER ==
[2024-05-29 13:28] VITALS: BMI 21.7
[2024-05-29] MEDS ORDERED: NICOTINE POLACRILEX 2 MG GUM BUC PRN (13:49)
[2024-05-29] MEDS ORDERED: BISMUTH SUBSALICYLATE 524 MG/30 ML PO PRN (13:49)
[2024-05-29] MEDS ORDERED: MAG HYDROX/AL HYDROX/SIMETH 30 ML UNIT-DOSE CUP PO PRN (13:49)
[2024-05-29] MEDS ORDERED: guaiFENesin 600 MG TABLET.ER (FP) PO PRN (13:49)
[2024-05-29] MEDS ORDERED: MAGNESIUM HYDROX 2400MG/30ML ORAL SUSPENSION 30 ML CUP PO PRN (13:49)
[2024-05-29] MEDS ORDERED: METHOCARBAMOL 500 MG TABLET PO PRN (13:49)
[2024-05-29] MEDS ORDERED: LOPERAMIDE HCL 2 MG CAPSULE PO PRN (13:49)
[2024-05-29] MEDS ORDERED: POLYETHYLENE GLYCOL (HEALTHYLAX) 3350 17 GM PACKET PO PRN (13:49)
[2024-05-29] MEDS ORDERED: IBUPROFEN 400 MG TABLET (FP) PO PRN (13:49)
[2024-05-29] MEDS ORDERED: hydrOXYzine PAMOATE 25 MG CAPSULE (FP) PO PRN (13:49)
[2024-05-29] MEDS ORDERED: NALOXONE HCL 0.4 MG/ML VIAL IM PRN (13:49)
[2024-05-29] MEDS ORDERED: BENZOCAINE/MENTHOL (CHLORASEPTIC ) LOZENGE MM PRN (13:49)
[2024-05-29] MEDS ORDERED: ONDANSETRON *ODT* 4 MG TABLET SL PRN (13:49)
[2024-05-29] MEDS ORDERED: BENZONATATE 200 MG CAPSULE PO PRN (13:49)
[2024-05-29] MEDS ORDERED: NALOXONE (NARCAN) HCL 4 MG/0.1 ML SPRAY NS PRN (13:49)
[2024-05-29] MEDS ORDERED: NICOTINE POLACRILEX 2 MG LOZENGE BC PRN (13:49)
[2024-05-29] MEDS: diazePAM 5 MG TABLET PO PRN (18:06)
[2024-05-29] MEDS: THIAMINE 100 MG TABLET PO SCH (22:12)
[2024-05-29] MEDS: MELATONIN 5 MG TABLETS PO SCH (22:12)
[2024-05-29] MEDS: BUPRENORPHINE/NALOXONE 2 MG/0.5 MG FILM PACKET SL ONE (22:12)
[2024-05-30 09:54] LABS: HEMATOCRIT 37.3 % (35.4-49); HEMOGLOBIN 12.6 GM/dL (11.7-16.9); MCH 30.7 pg (25.7-33.7); MCHC 33.9 g/dl (32.0-35.9); MEAN CELL VOLUME 90.5 fl (80-96); MEAN PLT VOLUME 9.4 fl (7.5-11.1); PLATELET COUNT 284 10^3/uL (134-434); RBC 4.12 M/mm3 (4.00-5.60); WHITE BLOOD COUNT 4.5 K/mm3 (4.0-10.0)
[2024-05-30 10:11] LABS: CHLORIDE 104 mmol/L (98-107); POTASSIUM 4.7 mmol/L (3.5-5.1); SODIUM 138 mmol/L (136-145)
[2024-05-30 10:18] LABS: ALBUMIN 3.2 g/dl (3.4-5.0); CALCIUM 9.4 mg/dL (8.5-10.1)
[2024-05-30 10:19] LABS: ANION GAP 5 mmol/L (4-13); BLOOD UREA NITROGEN 12.8 mg/dL (7-18); CO2 30 mmol/L (21-32); GLUCOSE,RANDOM 91 mg/dL (74-106)
[2024-05-30 10:21] LABS: SGOT/AST 32 U/L (15-37); SGPT/ALT 31 U/L (13-61)
[2024-05-30 10:23] LABS: TOT PROT 7.1 g/dl (6.4-8.2)
[2024-05-30 10:24] LABS: ALK PHOS 73 U/L (45-117)
[2024-05-30] MEDS: BUPRENORPHINE/NALOXONE 4 MG/1 MG FILM PACKET SL SCH (10:25)
[2024-05-30] MEDS: PRENATAL VITAMINS W/ FOLIC ACID TABLET (FP) PO SCH (10:25)
[2024-05-30 10:55] LABS: BILIRUBIN,TOTAL 0.4 mg/dL (0.2-1)
[2024-05-30] MEDS: QUEtiapine FUMARATE 25 MG TABLET PO SCH (21:20)
[2024-05-30] MEDS: MIRTAZAPINE 15 MG TABLET (FP) PO SCH (21:20)
[2024-05-31] MEDS: BUPRENORPHINE/NALOXONE 8 MG/2 MG FILM PACKET SL SCH ×2 (09:39→22:19)
[2024-05-31] MEDS: diazePAM 5 MG TABLET PO SCH (10:35)
[2024-05-31] MEDS: diazePAM 5 MG TABLET PO PRN (15:40)
[2024-06-01] MEDS: ABACAVIR/DOLUTEGRAVIR/LAMIVUDI (TRIUMEQ) TABLET PO SCH (13:05)
[2024-06-01] MEDS: GABAPENTIN 100 MG CAPSULE PO SCH (13:05)
[2024-06-01] MEDS: ACETAMINOPHEN 325 MG TABLET (FP) PO PRN (16:49)
[2024-06-01] MEDS: BUPRENORPHINE/NALOXONE 8 MG/2 MG FILM PACKET SL SCH (23:36)
[2024-06-02] MEDS: diazePAM 5 MG TABLET PO SCH (05:52)
[2024-06-02 08:50] VITALS: RESP 18
[2024-06-02] MEDS ORDERED: cloNIDine HCL 0.1 MG TABLET PO PRN (09:35)
[2024-06-02] MEDS: DICYCLOMINE HCL 10 MG CAPSULE PO PRN (09:40)
[2024-06-02] MEDS: IBUPROFEN 600 MG TABLET (FP) PO PRN (09:43)
[2024-06-02 12:55] VITALS: BP 130/90; PULSE 90; TEMP 98.2
[2024-06-03] MEDS ORDERED: diazePAM 5 MG TABLET PO SCH (06:00)
[2024-06-04] MEDS ORDERED: diazePAM 5 MG TABLET PO ONE (06:00)
== END 2024-06-02 12:55 | disposition home or self-care (01) | DRG 773 ==
LOC: YASAS 12:57 → Y6N 14:31
PROVIDERS: ADMIT Allergy & Immunology; ATTEND Surgery
PROC: HZ2ZZZZ Detoxification Services for Substance Abuse Treatment (ICD-10-PCS; principal; 2024-05-29)
DX: F10.230 Alcohol dependence with withdrawal, uncomplicated (principal); F11.20 Opioid dependence, uncomplicated; F14.20 Cocaine dependence, uncomplicated; F17.210 Nicotine dependence, cigarettes, uncomplicated; F31.9 Bipolar disorder, unspecified; F19.282 Other psychoactive substance dependence with psychoactive substance-induced sleep disorder; Z21 Asymptomatic human immunodeficiency virus [HIV] infection status; G62.9 Polyneuropathy, unspecified; B18.2 Chronic viral hepatitis C; Z88.8 Allergy status to other drugs, medicaments and biological substances
CPT/HCPCS: 36415; 80053; 80305; 80307; 85027

== ENCOUNTER 2024-06-18 09:33 | Inpatient (IN) | payer OTHER ==
[2024-06-18 10:01] VITALS: BMI 20.9
[2024-06-18] MEDS ORDERED: BENZOCAINE/MENTHOL (CHLORASEPTIC ) LOZENGE MM PRN (10:14)
[2024-06-18] MEDS ORDERED: ACETAMINOPHEN 325 MG TABLET (FP) PO PRN (10:14)
[2024-06-18] MEDS ORDERED: guaiFENesin 600 MG TABLET.ER (FP) PO PRN (10:14)
[2024-06-18] MEDS ORDERED: NICOTINE POLACRILEX 2 MG GUM BUC PRN (10:14)
[2024-06-18] MEDS ORDERED: BENZONATATE 200 MG CAPSULE PO PRN (10:14)
[2024-06-18] MEDS ORDERED: NICOTINE POLACRILEX 2 MG LOZENGE BC PRN (10:14)
[2024-06-18] MEDS ORDERED: IBUPROFEN 400 MG TABLET (FP) PO PRN (10:14)
[2024-06-18] MEDS ORDERED: NALOXONE (NARCAN) HCL 4 MG/0.1 ML SPRAY NS PRN (10:14)
[2024-06-18] MEDS ORDERED: ONDANSETRON *ODT* 4 MG TABLET SL PRN (10:14)
[2024-06-18] MEDS ORDERED: P-EPHED 60MG/TRIPROLIDI 2.5MG TABLET PO PRN (10:14)
[2024-06-18] MEDS ORDERED: MAGNESIUM HYDROX 2400MG/30ML ORAL SUSPENSION 30 ML CUP PO PRN (10:14)
[2024-06-18] MEDS ORDERED: BISMUTH SUBSALICYLATE 262 MG/15 ML BTL PO PRN (10:14)
[2024-06-18] MEDS ORDERED: DICYCLOMINE HCL 10 MG CAPSULE PO PRN (10:14)
[2024-06-18] MEDS ORDERED: LOPERAMIDE HCL 2 MG CAPSULE PO PRN (10:14)
[2024-06-18] MEDS ORDERED: POLYETHYLENE GLYCOL (HEALTHYLAX) 3350 17 GM PACKET PO PRN (10:14)
[2024-06-18] MEDS ORDERED: diazePAM 5 MG TABLET ONE (10:50)
[2024-06-18] MEDS ORDERED: methaDONE HCL 10 MG TABLET (FOR DETOX USE ONLY) ONE (10:50)
[2024-06-18] MEDS: diazePAM 5 MG TABLET PO PRN (10:54)
[2024-06-18] MEDS: methaDONE HCL 10 MG TABLET (FOR DETOX USE ONLY) PO ONE (10:55)
[2024-06-18] MEDS ORDERED: NALOXONE (NYS OPIOID OVERDOSE PROGRAM) 4 MG/0.1 ML SPRAY NS ONE (12:38)
[2024-06-18] MEDS ORDERED: NALOXONE (NYS OPIOID OVERDOSE PROGRAM) 4 MG/0.1 ML SPRAY NS PRN ×2 (13:30→14:20)
[2024-06-18] MEDS: MAG HYDROX/AL HYDROX/SIMETH 30 ML UNIT-DOSE CUP PO PRN (16:55)
[2024-06-18] MEDS: IBUPROFEN 600 MG TABLET (FP) PO PRN (16:55)
[2024-06-18] MEDS: METHOCARBAMOL 500 MG TABLET PO PRN (22:07)
[2024-06-18] MEDS: MELATONIN 5 MG TABLETS PO SCH (22:07)
[2024-06-18] MEDS: THIAMINE 100 MG TABLET PO SCH (22:07)
[2024-06-19] MEDS: PRENATAL VITAMINS W/ FOLIC ACID TABLET (FP) PO SCH (09:53)
[2024-06-19] MEDS: ABACAVIR/DOLUTEGRAVIR/LAMIVUDI (TRIUMEQ) TABLET PO SCH (10:53)
[2024-06-19] MEDS: QUEtiapine FUMARATE 50 MG TABLET PO SCH (22:44)
[2024-06-19] MEDS: MIRTAZAPINE 15 MG TABLET (FP) PO SCH (22:44)
[2024-06-20] MEDS: methaDONE HCL 10 MG TABLET (FOR DETOX USE ONLY) PO ONE (09:05)
[2024-06-20] MEDS: cloNIDine HCL 0.1 MG TABLET PO PRN (11:24)
[2024-06-21 06:22] VITALS: TEMP 97.8
[2024-06-21 09:44] VITALS: BP 112/70; PULSE 66; RESP 16
== END 2024-06-21 09:27 | disposition home or self-care (01) | DRG 773 ==
LOC: YASAS 09:33 → Y6N 10:37
PROVIDERS: ADMIT Allergy & Immunology; ATTEND Surgery
PROC: HZ2ZZZZ Detoxification Services for Substance Abuse Treatment (ICD-10-PCS; principal; 2024-06-18)
DX: F11.23 Opioid dependence with withdrawal (principal); F14.20 Cocaine dependence, uncomplicated; F15.10 Other stimulant abuse, uncomplicated; F17.210 Nicotine dependence, cigarettes, uncomplicated; F19.282 Other psychoactive substance dependence with psychoactive substance-induced sleep disorder; F31.9 Bipolar disorder, unspecified; F41.9 Anxiety disorder, unspecified; Z21 Asymptomatic human immunodeficiency virus [HIV] infection status; B18.2 Chronic viral hepatitis C; Z79.899 Other long term (current) drug therapy; Z88.8 Allergy status to other drugs, medicaments and biological substances
CPT/HCPCS: 80305; 80307

== ENCOUNTER 2024-07-12 12:38 | Inpatient (IN) | payer OTHER ==
[2024-07-12 14:14] VITALS: BMI 21.1
[2024-07-12] MEDS ORDERED: NALOXONE (NARCAN) HCL 4 MG/0.1 ML SPRAY NS PRN (15:12)
[2024-07-12] MEDS ORDERED: ACETAMINOPHEN 325 MG TABLET (FP) PO PRN (15:12)
[2024-07-12] MEDS ORDERED: IBUPROFEN 400 MG TABLET (FP) PO PRN (15:12)
[2024-07-12] MEDS ORDERED: MAGNESIUM HYDROX 2400MG/30ML ORAL SUSPENSION 30 ML CUP PO PRN (15:12)
[2024-07-12] MEDS ORDERED: MAG HYDROX/AL HYDROX/SIMETH 30 ML UNIT-DOSE CUP PO PRN (15:12)
[2024-07-12] MEDS ORDERED: NICOTINE POLACRILEX 2 MG LOZENGE BC PRN (15:12)
[2024-07-12] MEDS ORDERED: guaiFENesin 600 MG TABLET.ER (FP) PO PRN (15:12)
[2024-07-12] MEDS ORDERED: BENZOCAINE/MENTHOL (CHLORASEPTIC ) LOZENGE MM PRN (15:12)
[2024-07-12] MEDS ORDERED: POLYETHYLENE GLYCOL (HEALTHYLAX) 3350 17 GM PACKET PO PRN (15:12)
[2024-07-12] MEDS ORDERED: DICYCLOMINE HCL 10 MG CAPSULE PO PRN (15:12)
[2024-07-12] MEDS ORDERED: NALOXONE (NYS OPIOID OVERDOSE PROGRAM) 4 MG/0.1 ML SPRAY NS PRN (15:12)
[2024-07-12] MEDS ORDERED: NICOTINE POLACRILEX 2 MG GUM BUC PRN (15:12)
[2024-07-12] MEDS ORDERED: ONDANSETRON *ODT* 4 MG TABLET SL PRN (15:12)
[2024-07-12] MEDS ORDERED: LOPERAMIDE HCL 2 MG CAPSULE PO PRN (15:12)
[2024-07-12] MEDS ORDERED: BENZONATATE 200 MG CAPSULE PO PRN (15:12)
[2024-07-12] MEDS ORDERED: cloNIDine HCL 0.1 MG TABLET ONE (18:10)
[2024-07-12] MEDS ORDERED: methaDONE HCL 10 MG TABLET (FOR DETOX USE ONLY) ONE (18:10)
[2024-07-12] MEDS: ABACAVIR/DOLUTEGRAVIR/LAMIVUDI (TRIUMEQ) TABLET PO SCH (18:15)
[2024-07-12] MEDS: cloNIDine HCL 0.1 MG TABLET PO SCH (18:16)
[2024-07-12] MEDS: methaDONE HCL 10 MG TABLET (FOR DETOX USE ONLY) PO ONE (18:16)
[2024-07-12] MEDS: diazePAM 5 MG TABLET PO PRN (20:18)
[2024-07-12] MEDS: hydrOXYzine PAMOATE 25 MG CAPSULE (FP) PO PRN (20:19)
[2024-07-12] MEDS: MELATONIN 5 MG TABLETS PO SCH (22:16)
[2024-07-12] MEDS: THIAMINE 100 MG TABLET PO SCH (22:16)
[2024-07-12] MEDS: BUPRENORPHINE/NALOXONE 0.5 MG/0.125 MG FILM SL ONE (22:16)
[2024-07-12] MEDS: METHOCARBAMOL 500 MG TABLET PO PRN (22:16)
[2024-07-12] MEDS: diazePAM 5 MG TABLET PO SCH (22:16)
[2024-07-13] MEDS: IBUPROFEN 600 MG TABLET (FP) PO PRN (02:39)
[2024-07-13] MEDS: NICOTINE 14 MG/24 HOURS TOPICAL PATCH TD SCH (09:30)
[2024-07-13] MEDS: PRENATAL VITAMINS W/ FOLIC ACID TABLET (FP) PO SCH (09:30)
[2024-07-13] MEDS: BUPRENORPHINE/NALOXONE 0.5 MG/0.125 MG FILM SL SCH (09:31)
[2024-07-13 11:18] LABS: HEMATOCRIT 33.9 % (35.4-49); HEMOGLOBIN 11.1 GM/dL (11.7-16.9); MCH 30.5 pg (25.7-33.7); MCHC 32.7 g/dl (32.0-35.9); MEAN CELL VOLUME 93.1 fl (80-96); MEAN PLT VOLUME 9.3 fl (7.5-11.1); PLATELET COUNT 247 10^3/uL (134-434); RBC 3.64 M/mm3 (4.00-5.60); RDW 14.7 % (11.9-15.9); WHITE BLOOD COUNT 6.4 K/mm3 (4.0-10.0)
[2024-07-13 11:31] LABS: CHLORIDE 104 mmol/L (98-107); POTASSIUM 3.7 mmol/L (3.5-5.1); SODIUM 136 mmol/L (136-145)
[2024-07-13 11:43] LABS: CALCIUM 9.5 mg/dL (8.5-10.1)
[2024-07-13 11:44] LABS: ALBUMIN 3.4 g/dl (3.4-5.0); ANION GAP 7 mmol/L (4-13); CO2 25 mmol/L (21-32); GLUCOSE,RANDOM 89 mg/dL (74-106)
[2024-07-13 11:47] LABS: CREATININE 1.2 mg/dL (0.55-1.3); SGOT/AST 12 U/L (15-37); SGPT/ALT 14 U/L (13-61)
[2024-07-13 11:48] LABS: BILIRUBIN,TOTAL 0.2 mg/dL (0.2-1)
[2024-07-13 11:50] LABS: ALK PHOS 85 U/L (45-117)
[2024-07-13] MEDS: BISMUTH SUBSALICYLATE 524 MG/30 ML PO PRN (19:24)
[2024-07-13] MEDS: MIRTAZAPINE 15 MG TABLET (FP) PO SCH (22:15)
[2024-07-13] MEDS: QUEtiapine FUMARATE 50 MG TABLET PO SCH (22:15)
[2024-07-14] MEDS: diazePAM 5 MG TABLET PO SCH (05:19)
[2024-07-14] MEDS ORDERED: guaiFENesin 600 MG TABLET.ER (FP) PO PRN (10:08)
[2024-07-14] MEDS: methaDONE HCL 10 MG TABLET (FOR DETOX USE ONLY) PO ONE (10:12)
[2024-07-14] MEDS: BUPRENORPHINE/NALOXONE 2 MG/0.5 MG FILM PACKET SL SCH (10:13)
[2024-07-14] MEDS: FAMOTIDINE 20 MG TABLET PO SCH (13:35)
[2024-07-14] MEDS: PANTOPRAZOLE SOD 40 MG SUSPENSION PACKET PO SCH (13:35)
[2024-07-14] MEDS ORDERED: PANTOPRAZOLE SOD 40 MG SUSPENSION PACKET PO ONE (13:40)
[2024-07-14 17:51] VITALS: BP 103/69; PULSE 77; RESP 16; TEMP 97.8
[2024-07-15] MEDS ORDERED: diazePAM 5 MG TABLET PO SCH (06:00)
[2024-07-15] MEDS ORDERED: PANTOPRAZOLE 40 MG TABLET PO SCH (10:00)
[2024-07-15] MEDS ORDERED: BUPRENORPHINE/NALOXONE 4 MG/1 MG FILM PACKET SL SCH (10:00)
[2024-07-16] MEDS ORDERED: diazePAM 5 MG TABLET PO ONE (06:00)
[2024-07-16] MEDS ORDERED: methaDONE HCL 10 MG TABLET (FOR DETOX USE ONLY) PO ONE (10:00)
[2024-07-16] MEDS ORDERED: BUPRENORPHINE/NALOXONE 8 MG/2 MG FILM PACKET SL SCH (10:00)
[2024-07-17] MEDS ORDERED: BUPRENORPHINE/NALOXONE 8 MG/2 MG FILM PACKET SL SCH (10:00)
== END 2024-07-14 17:37 | disposition left against medical advice (07) | DRG 770 ==
LOC: YASAS 12:38 → Y3N 18:13
PROVIDERS: ADMIT Allergy & Immunology; ATTEND Surgery
PROC: HZ2ZZZZ Detoxification Services for Substance Abuse Treatment (ICD-10-PCS; principal; 2024-07-12)
DX: F11.23 Opioid dependence with withdrawal (principal); F10.230 Alcohol dependence with withdrawal, uncomplicated; F14.20 Cocaine dependence, uncomplicated; F12.20 Cannabis dependence, uncomplicated; F17.210 Nicotine dependence, cigarettes, uncomplicated; F31.9 Bipolar disorder, unspecified; F41.9 Anxiety disorder, unspecified; Z21 Asymptomatic human immunodeficiency virus [HIV] infection status; Z79.899 Other long term (current) drug therapy
CPT/HCPCS: 36415; 80053; 80305; 80307; 85027; 86780; 93005; 93010

== ENCOUNTER 2024-08-13 09:22 | Inpatient (IN) | payer OTHER ==
[2024-08-13 10:12] VITALS: BMI 21.7
[2024-08-13] MEDS ORDERED: NALOXONE (NARCAN) HCL 4 MG/0.1 ML SPRAY NS PRN (10:50)
[2024-08-13] MEDS ORDERED: LOPERAMIDE HCL 2 MG CAPSULE PO PRN (10:50)
[2024-08-13] MEDS ORDERED: ACETAMINOPHEN 325 MG TABLET (FP) PO PRN (10:50)
[2024-08-13] MEDS ORDERED: IBUPROFEN 600 MG TABLET (FP) PO PRN (10:50)
[2024-08-13] MEDS ORDERED: guaiFENesin 600 MG TABLET.ER (FP) PO PRN (10:50)
[2024-08-13] MEDS ORDERED: BENZONATATE 200 MG CAPSULE PO PRN (10:50)
[2024-08-13] MEDS ORDERED: IBUPROFEN 400 MG TABLET (FP) PO PRN (10:50)
[2024-08-13] MEDS ORDERED: BISMUTH SUBSALICYLATE 262 MG/15 ML BTL PO PRN (10:50)
[2024-08-13] MEDS ORDERED: DICYCLOMINE HCL 10 MG CAPSULE PO PRN (10:50)
[2024-08-13] MEDS ORDERED: MAG HYDROX/AL HYDROX/SIMETH 30 ML UNIT-DOSE CUP PO PRN (10:50)
[2024-08-13] MEDS ORDERED: POLYETHYLENE GLYCOL (HEALTHYLAX) 3350 17 GM PACKET PO PRN (10:50)
[2024-08-13] MEDS ORDERED: MAGNESIUM HYDROX 2400MG/30ML ORAL SUSPENSION 30 ML CUP PO PRN (10:50)
[2024-08-13] MEDS ORDERED: ONDANSETRON *ODT* 4 MG TABLET SL PRN (10:50)
[2024-08-13] MEDS ORDERED: BENZOCAINE/MENTHOL (CHLORASEPTIC ) LOZENGE MM PRN (10:50)
[2024-08-13] MEDS: NICOTINE 14 MG/24 HOURS TOPICAL PATCH TD SCH (11:26)
[2024-08-13] MEDS: LORazepam 2 MG TABLET PO SCH (11:26)
[2024-08-13] MEDS: PRENATAL VITAMINS W/ FOLIC ACID TABLET (FP) PO SCH (11:26)
[2024-08-13] MEDS ORDERED: MELATONIN 5 MG TABLETS PO SCH (22:00)
[2024-08-13] MEDS ORDERED: QUEtiapine FUMARATE 25 MG TABLET PO SCH (22:00)
[2024-08-13] MEDS: MIRTAZAPINE 15 MG TABLET (FP) PO SCH (22:17)
[2024-08-13] MEDS: THIAMINE 100 MG TABLET PO SCH (22:17)
[2024-08-13] MEDS: QUEtiapine FUMARATE 25 MG TABLET PO SCH (22:17)
[2024-08-14] MEDS: METHOCARBAMOL 500 MG TABLET PO PRN (10:05)
[2024-08-14] MEDS: ABACAVIR/DOLUTEGRAVIR/LAMIVUDI (TRIUMEQ) TABLET PO SCH (10:05)
[2024-08-14] MEDS: BUPRENORPHINE/NALOXONE 2 MG/0.5 MG FILM PACKET SL SCH (12:08)
[2024-08-14] MEDS: LORazepam 1 MG TABLET PO PRN (13:40)
[2024-08-15] MEDS: LORazepam 1 MG TABLET PO SCH (05:27)
[2024-08-15] MEDS: hydrOXYzine PAMOATE 25 MG CAPSULE (FP) PO PRN (10:27)
[2024-08-15] MEDS: BUPRENORPHINE/NALOXONE 2 MG/0.5 MG FILM PACKET SL ONE (17:28)
[2024-08-16] MEDS: LORazepam 0.5 MG TABLET PO SCH (05:20)
[2024-08-16] MEDS: BUPRENORPHINE/NALOXONE 4 MG/1 MG FILM PACKET SL SCH (09:11)
[2024-08-16] MEDS: NALOXONE (NYS OPIOID OVERDOSE PROGRAM) 4 MG/0.1 ML SPRAY NS SCH (12:24)
[2024-08-16] MEDS: LORazepam 0.5 MG TABLET PO PRN (13:18)
[2024-08-16 15:54] LABS: HEMATOCRIT 36.3 % (35.4-49); HEMOGLOBIN 11.8 GM/dL (11.7-16.9); MCH 30.7 pg (25.7-33.7); MCHC 32.5 g/dl (32.0-35.9); MEAN CELL VOLUME 94.3 fl (80-96); MEAN PLT VOLUME 9.6 fl (7.5-11.1); PLATELET COUNT 272 10^3/uL (134-434); RBC 3.85 M/mm3 (4.00-5.60); RDW 14.6 % (11.9-15.9); WHITE BLOOD COUNT 5.4 K/mm3 (4.0-10.0)
[2024-08-16 15:58] LABS: POTASSIUM 4.3 mmol/L (3.5-5.1)
[2024-08-16 16:00] LABS: CALCIUM 9.7 mg/dL (8.5-10.1)
[2024-08-16 16:01] LABS: ALBUMIN 3.5 g/dl (3.4-5.0); BLOOD UREA NITROGEN 10.7 mg/dL (7-18)
[2024-08-16 16:04] LABS: CREATININE 1.3 mg/dL (0.55-1.3)
[2024-08-16 16:06] LABS: BILIRUBIN,TOTAL 0.2 mg/dL (0.2-1); TOT PROT 7.5 g/dl (6.4-8.2)
[2024-08-16] MEDS: BUPRENORPHINE/NALOXONE 4 MG/1 MG FILM PACKET SL ONE (22:10)
[2024-08-17] MEDS: LORazepam 0.5 MG TABLET PO ONE (05:05)
[2024-08-17 08:57] VITALS: PULSE 81; RESP 17
[2024-08-17] MEDS: BUPRENORPHINE/NALOXONE 8 MG/2 MG FILM PACKET SL SCH (09:17)
[2024-08-17 12:22] VITALS: BP 116/76; TEMP 97.7
== END 2024-08-17 16:09 | disposition home or self-care (01) | DRG 773 ==
LOC: YASAS 09:22 → Y6N 10:54
PROVIDERS: ADMIT Allergy & Immunology; ATTEND Surgery
PROC: HZ2ZZZZ Detoxification Services for Substance Abuse Treatment (ICD-10-PCS; principal; 2024-08-13)
DX: F10.230 Alcohol dependence with withdrawal, uncomplicated (principal); F11.20 Opioid dependence, uncomplicated; F14.20 Cocaine dependence, uncomplicated; F13.20 Sedative, hypnotic or anxiolytic dependence, uncomplicated; F17.210 Nicotine dependence, cigarettes, uncomplicated; F31.9 Bipolar disorder, unspecified; F19.282 Other psychoactive substance dependence with psychoactive substance-induced sleep disorder; Z21 Asymptomatic human immunodeficiency virus [HIV] infection status; Z79.899 Other long term (current) drug therapy; Z88.8 Allergy status to other drugs, medicaments and biological substances
CPT/HCPCS: 36415; 80053; 80305; 80307; 85027; 86780; 93005; 93010

== ENCOUNTER 2024-09-12 19:00 | Inpatient (IN) | payer OTHER ==
[2024-09-12 19:53] VITALS: BMI 24.2
[2024-09-12] MEDS ORDERED: MAG HYDROX/AL HYDROX/SIMETH 30 ML UNIT-DOSE CUP PO PRN (22:16)
[2024-09-12] MEDS ORDERED: MAGNESIUM HYDROX 2400MG/30ML ORAL SUSPENSION 30 ML CUP PO PRN (22:16)
[2024-09-12] MEDS ORDERED: LOPERAMIDE HCL 2 MG CAPSULE PO PRN (22:16)
[2024-09-12] MEDS ORDERED: guaiFENesin 600 MG TABLET.ER (FP) PO PRN (22:16)
[2024-09-12] MEDS ORDERED: NALOXONE (NARCAN) HCL 4 MG/0.1 ML SPRAY NS PRN (22:16)
[2024-09-12] MEDS ORDERED: ACETAMINOPHEN 325 MG TABLET (FP) PO PRN (22:16)
[2024-09-12] MEDS ORDERED: BENZOCAINE/MENTHOL (CHLORASEPTIC ) LOZENGE MM PRN (22:16)
[2024-09-12] MEDS ORDERED: ONDANSETRON *ODT* 4 MG TABLET SL PRN (22:16)
[2024-09-12] MEDS ORDERED: BENZONATATE 200 MG CAPSULE PO PRN (22:16)
[2024-09-12] MEDS ORDERED: IBUPROFEN 400 MG TABLET (FP) PO PRN (22:16)
[2024-09-12] MEDS ORDERED: NICOTINE POLACRILEX 2 MG GUM BUC PRN (22:16)
[2024-09-12] MEDS ORDERED: POLYETHYLENE GLYCOL (HEALTHYLAX) 3350 17 GM PACKET PO PRN (22:16)
[2024-09-12] MEDS ORDERED: DICYCLOMINE HCL 10 MG CAPSULE PO PRN (22:16)
[2024-09-12] MEDS ORDERED: BISMUTH SUBSALICYLATE 524 MG/30 ML PO PRN (22:16)
[2024-09-12] MEDS ORDERED: methaDONE HCL 10 MG TABLET (FOR DETOX USE ONLY) PO PRN (22:17)
[2024-09-12] MEDS ORDERED: methaDONE HCL 10 MG TABLET (FOR DETOX USE ONLY) ONE (22:47)
[2024-09-12] MEDS: methaDONE HCL 10 MG TABLET (FOR DETOX USE ONLY) PO ONE (22:51)
[2024-09-12] MEDS: cloNIDine HCL 0.1 MG TABLET PO PRN (23:04)
[2024-09-12] MEDS: METHOCARBAMOL 500 MG TABLET PO PRN (23:04)
[2024-09-13] MEDS: hydrOXYzine PAMOATE 25 MG CAPSULE (FP) PO PRN (01:07)
[2024-09-13] MEDS: IBUPROFEN 600 MG TABLET (FP) PO PRN (06:04)
[2024-09-13] MEDS: PRENATAL VITAMINS W/ FOLIC ACID TABLET (FP) PO SCH (09:56)
[2024-09-13] MEDS: NICOTINE 14 MG/24 HOURS TOPICAL PATCH TD SCH (09:57)
[2024-09-13] MEDS: ABACAVIR/DOLUTEGRAVIR/LAMIVUDI (TRIUMEQ) TABLET PO SCH (16:01)
[2024-09-13] MEDS: GABAPENTIN 100 MG CAPSULE PO SCH (21:27)
[2024-09-13] MEDS: QUEtiapine FUMARATE 50 MG TABLET PO SCH (21:27)
[2024-09-13] MEDS: THIAMINE 100 MG TABLET PO SCH (21:27)
[2024-09-13] MEDS: MIRTAZAPINE 15 MG TABLET (FP) PO SCH (21:27)
[2024-09-13] MEDS: MELATONIN 5 MG TABLETS PO SCH (21:27)
[2024-09-14] MEDS: methaDONE HCL 10 MG TABLET (FOR DETOX USE ONLY) PO ONE (09:35)
[2024-09-15 10:33] LABS: HEMATOCRIT 35.7 % (35.4-49); HEMOGLOBIN 11.4 GM/dL (11.7-16.9); MCH 30.8 pg (25.7-33.7); MEAN CELL VOLUME 96.3 fl (80-96); MEAN PLT VOLUME 8.4 fl (7.5-11.1); PLATELET COUNT 370 10^3/uL (134-434); RBC 3.71 M/mm3 (4.00-5.60); RDW 14.5 % (11.9-15.9); WHITE BLOOD COUNT 5.4 K/mm3 (4.0-10.0)
[2024-09-15 10:34] LABS: POTASSIUM 4.6 mmol/L (3.5-5.1)
[2024-09-15 10:40] LABS: ALBUMIN 2.7 g/dl (3.4-5.0); BLOOD UREA NITROGEN 10.6 mg/dL (7-18); CALCIUM 9.1 mg/dL (8.5-10.1)
[2024-09-15 10:43] LABS: CREATININE 1.1 mg/dL (0.55-1.3)
[2024-09-15 10:45] LABS: BILIRUBIN,TOTAL 0.1 mg/dL (0.2-1); TOT PROT 6.3 g/dl (6.4-8.2)
[2024-09-16] MEDS: methaDONE HCL 10 MG TABLET (FOR DETOX USE ONLY) PO ONE (09:50)
[2024-09-17 05:56] VITALS: RESP 16
[2024-09-17] MEDS: NALOXONE (NYS OPIOID OVERDOSE PROGRAM) 4 MG/0.1 ML SPRAY NS SCH (08:50)
[2024-09-17 09:28] VITALS: BP 125/69; PULSE 67; TEMP 98.2
== END 2024-09-17 10:59 | disposition other institution (70) | DRG 773 ==
LOC: YASAS 19:00 → Y3N 22:16
PROVIDERS: ADMIT Allergy & Immunology; ATTEND Surgery
PROC: HZ2ZZZZ Detoxification Services for Substance Abuse Treatment (ICD-10-PCS; principal; 2024-09-12)
DX: F11.23 Opioid dependence with withdrawal (principal); F10.20 Alcohol dependence, uncomplicated; F14.20 Cocaine dependence, uncomplicated; F17.210 Nicotine dependence, cigarettes, uncomplicated; F31.9 Bipolar disorder, unspecified; F41.9 Anxiety disorder, unspecified; Z21 Asymptomatic human immunodeficiency virus [HIV] infection status; B18.2 Chronic viral hepatitis C; G47.00 Insomnia, unspecified; Z79.899 Other long term (current) drug therapy; Z88.8 Allergy status to other drugs, medicaments and biological substances
CPT/HCPCS: 36415; 80053; 80305; 85027; 87811; 93005; 93010

== ENCOUNTER 2024-09-17 11:12 | Inpatient (IN) | payer OTHER ==
[2024-09-17] MEDS ORDERED: BENZONATATE 200 MG CAPSULE PO PRN (12:38)
[2024-09-17] MEDS ORDERED: NALOXONE (NYS OPIOID OVERDOSE PROGRAM) 4 MG/0.1 ML SPRAY NS PRN (12:38)
[2024-09-17] MEDS ORDERED: MAG HYDROX/AL HYDROX/SIMETH 30 ML UNIT-DOSE CUP PO PRN (12:38)
[2024-09-17] MEDS ORDERED: NALOXONE (NARCAN) HCL 4 MG/0.1 ML SPRAY NS PRN (12:38)
[2024-09-17] MEDS ORDERED: IBUPROFEN 400 MG TABLET (FP) PO PRN (12:38)
[2024-09-17] MEDS ORDERED: BENZOCAINE/MENTHOL (CHLORASEPTIC ) LOZENGE MM PRN (12:38)
[2024-09-17] MEDS ORDERED: POLYETHYLENE GLYCOL (HEALTHYLAX) 3350 17 GM PACKET PO PRN (12:38)
[2024-09-17] MEDS ORDERED: guaiFENesin 600 MG TABLET.ER (FP) PO PRN (12:38)
[2024-09-17] MEDS ORDERED: ACETAMINOPHEN 325 MG TABLET (FP) PO PRN (12:38)
[2024-09-17] MEDS ORDERED: MAGNESIUM HYDROX 2400MG/30ML ORAL SUSPENSION 30 ML CUP PO PRN (12:38)
[2024-09-17] MEDS: LOPERAMIDE HCL 2 MG CAPSULE PO PRN (12:46)
[2024-09-17] MEDS: IBUPROFEN 600 MG TABLET (FP) PO PRN (12:47)
[2024-09-17] MEDS: NICOTINE POLACRILEX 2 MG GUM BUC PRN (15:13)
[2024-09-17] MEDS: hydrOXYzine PAMOATE 25 MG CAPSULE (FP) PO PRN (17:10)
[2024-09-17] MEDS: MELATONIN 5 MG TABLETS PO SCH (21:02)
[2024-09-17] MEDS: QUEtiapine FUMARATE 50 MG TABLET PO SCH (21:02)
[2024-09-17] MEDS: GABAPENTIN 100 MG CAPSULE PO SCH (21:02)
[2024-09-17] MEDS: MIRTAZAPINE 15 MG TABLET (FP) PO SCH (21:02)
[2024-09-17] MEDS: THIAMINE 100 MG TABLET PO SCH (21:03)
[2024-09-18] MEDS: NICOTINE 14 MG/24 HOURS TOPICAL PATCH TD SCH (05:19)
[2024-09-18] MEDS: PRENATAL VITAMINS W/ FOLIC ACID TABLET (FP) PO SCH (05:19)
[2024-09-18] MEDS: ABACAVIR/DOLUTEGRAVIR/LAMIVUDI (TRIUMEQ) TABLET PO SCH (07:28)
[2024-09-18 09:45] LABS: HEMATOCRIT 34.4 % (35.4-49); HEMOGLOBIN 11.6 GM/dL (11.7-16.9); MCH 31.4 pg (25.7-33.7); MCHC 33.7 g/dl (32.0-35.9); MEAN CELL VOLUME 93.2 fl (80-96); MEAN PLT VOLUME 8.8 fl (7.5-11.1); PLATELET COUNT 351 10^3/uL (134-434); POTASSIUM 4.4 mmol/L (3.5-5.1); RDW 14.6 % (11.9-15.9)
[2024-09-18] MEDS: METHOCARBAMOL 500 MG TABLET PO PRN (10:04)
[2024-09-18 10:18] LABS: ALBUMIN 2.8 g/dl (3.4-5.0); CALCIUM 9.2 mg/dL (8.5-10.1)
[2024-09-18 10:19] LABS: BLOOD UREA NITROGEN 13.5 mg/dL (7-18)
[2024-09-18 10:22] LABS: CREATININE 1.1 mg/dL (0.55-1.3)
[2024-09-18 10:23] LABS: BILIRUBIN,TOTAL 0.4 mg/dL (0.2-1); TOT PROT 6.9 g/dl (6.4-8.2)
[2024-09-18 14:42] LABS: URINE APPEARANCE CLEAR; URINE BILIRUBIN NEGATIVE (NEGATIVE); URINE COLOR YELLOW; URINE GLUCOSE (UA) NEGATIVE (NEGATIVE); URINE KETONE NEGATIVE (NEGATIVE); URINE LEUK ESTERASE NEGATIVE (NEGATIVE); URINE NITRITE NEGATIVE (NEGATIVE); URINE PROTEIN NEGATIVE (NEGATIVE); URINE UROBILINOGEN 0.2 mg/dL (0.2-1.0)
[2024-09-18 16:03] VITALS: BP 152/94; PULSE 74
[2024-09-18 16:05] VITALS: RESP 18; TEMP 98.3
[2024-09-18] MEDS ORDERED: ATORVASTATIN CA 10 MG TABLET (FP) PO SCH (22:00)
[2024-09-18] MEDS ORDERED: BUPRENORPHINE/NALOXONE 4 MG/1 MG FILM PACKET SL SCH (22:00)
== END 2024-09-18 17:14 | disposition left against medical advice (07) | DRG 770 ==
LOC: YASAS 11:12 → Y3NR 11:15 → Y5N 09-18 09:01
PROVIDERS: ADMIT Psychiatry & Neurology Pain Medicine; ATTEND Psychiatry & Neurology Pain Medicine
PROC: HZ42ZZZ Group Counseling for Substance Abuse Treatment, Cognitive-Behavioral (ICD-10-PCS; principal; 2024-09-17)
DX: F11.20 Opioid dependence, uncomplicated (principal); F14.20 Cocaine dependence, uncomplicated; F17.210 Nicotine dependence, cigarettes, uncomplicated
CPT/HCPCS: 0241U-QW; 36415; 80053; 81003; 85027; 86780

== ENCOUNTER 2024-11-03 16:14 | Inpatient (IN) | payer OTHER ==
[2024-11-03 17:53] VITALS: BMI 23.3
[2024-11-03] MEDS ORDERED: POLYETHYLENE GLYCOL (HEALTHYLAX) 3350 17 GM PACKET PO PRN (19:56)
[2024-11-03] MEDS ORDERED: guaiFENesin 600 MG TABLET.ER (FP) PO PRN (19:56)
[2024-11-03] MEDS ORDERED: BENZOCAINE/MENTHOL (CHLORASEPTIC ) LOZENGE MM PRN (19:56)
[2024-11-03] MEDS ORDERED: MAG HYDROX/AL HYDROX/SIMETH 30 ML UNIT-DOSE CUP PO PRN (19:56)
[2024-11-03] MEDS ORDERED: IBUPROFEN 400 MG TABLET (FP) PO PRN (19:56)
[2024-11-03] MEDS ORDERED: NALOXONE (NARCAN) HCL 4 MG/0.1 ML SPRAY NS PRN (19:56)
[2024-11-03] MEDS ORDERED: MAGNESIUM HYDROX 2400MG/30ML ORAL SUSPENSION 30 ML CUP PO PRN (19:56)
[2024-11-03] MEDS ORDERED: ONDANSETRON *ODT* 4 MG TABLET SL PRN (19:56)
[2024-11-03] MEDS ORDERED: DICYCLOMINE HCL 10 MG CAPSULE PO PRN (19:56)
[2024-11-03] MEDS ORDERED: LOPERAMIDE HCL 2 MG CAPSULE PO PRN (19:56)
[2024-11-03] MEDS ORDERED: BISMUTH SUBSALICYLATE 524 MG/30 ML PO PRN (19:56)
[2024-11-03] MEDS ORDERED: BENZONATATE 200 MG CAPSULE PO PRN (19:56)
[2024-11-03] MEDS: MELATONIN 5 MG TABLETS PO SCH (22:25)
[2024-11-03] MEDS: THIAMINE 100 MG TABLET PO SCH (22:25)
[2024-11-03] MEDS: diazePAM 5 MG TABLET PO SCH (22:27)
[2024-11-04 09:36] LABS: CHLORIDE 108 mmol/L (98-107); POTASSIUM 4.7 mmol/L (3.5-5.1); SODIUM 139 mmol/L (136-145)
[2024-11-04 09:38] LABS: HEMATOCRIT 35.5 % (35.4-49); HEMOGLOBIN 11.7 GM/dL (11.7-16.9); MCH 30.8 pg (25.7-33.7); MCHC 32.9 g/dl (32.0-35.9); MEAN CELL VOLUME 93.7 fl (80-96); MEAN PLT VOLUME 9.2 fl (7.5-11.1); PLATELET COUNT 313 10^3/uL (134-434); RBC 3.78 M/mm3 (4.00-5.60); RDW 14.1 % (11.9-15.9); WHITE BLOOD COUNT 5.8 K/mm3 (4.0-10.0)
[2024-11-04 10:02] LABS: ALBUMIN 3.1 g/dl (3.4-5.0); ANION GAP 4 mmol/L (4-13); BLOOD UREA NITROGEN 26.1 mg/dL (7-18); CALCIUM 9.2 mg/dL (8.5-10.1); CO2 27 mmol/L (21-32); GLUCOSE,RANDOM 80 mg/dL (74-106)
[2024-11-04 10:05] LABS: SGOT/AST 23 U/L (15-37); SGPT/ALT 23 U/L (13-61)
[2024-11-04 10:06] LABS: BILIRUBIN,TOTAL 0.3 mg/dL (0.2-1)
[2024-11-04 10:07] LABS: TOT PROT 7.1 g/dl (6.4-8.2)
[2024-11-04 10:09] LABS: ALK PHOS 90 U/L (45-117)
[2024-11-04] MEDS: methaDONE HCL 10 MG TABLET PO SCH (10:25)
[2024-11-04] MEDS: PRENATAL VITAMINS W/ FOLIC ACID TABLET (FP) PO SCH (10:58)
[2024-11-04] MEDS: ABACAVIR/DOLUTEGRAVIR/LAMIVUDI (TRIUMEQ) TABLET PO SCH (10:58)
[2024-11-04] MEDS ORDERED: methaDONE 40 MG, methaDONE 20 MG PO ONE (13:45)
[2024-11-04] MEDS: methaDONE HCL 10 MG TABLET PO ONE (14:10)
[2024-11-04] MEDS: METHOCARBAMOL 500 MG TABLET PO PRN (17:05)
[2024-11-04] MEDS: QUEtiapine FUMARATE 50 MG TABLET PO SCH (21:07)
[2024-11-04] MEDS: MIRTAZAPINE 15 MG TABLET (FP) PO SCH (21:07)
[2024-11-05] MEDS ORDERED: methaDONE HCL 10 MG TABLET PO ONE (06:00)
[2024-11-05] MEDS: diazePAM 5 MG TABLET PO SCH (06:17)
[2024-11-05] MEDS: methaDONE 40 MG, methaDONE 10 MG PO ONE (06:19)
[2024-11-05] MEDS: diazePAM 5 MG TABLET PO PRN (09:47)
[2024-11-06] MEDS: methaDONE 40 MG, methaDONE 20 MG PO ONE (05:20)
[2024-11-06] MEDS: diazePAM 5 MG TABLET PO SCH (05:20)
[2024-11-06] MEDS ORDERED: methaDONE HCL 10 MG TABLET PO ONE (06:00)
[2024-11-07] MEDS: methaDONE 40 MG, methaDONE 30 MG PO ONE (05:15)
[2024-11-07] MEDS: diazePAM 5 MG TABLET PO ONE (05:16)
[2024-11-07] MEDS ORDERED: methaDONE HCL 10 MG TABLET PO ONE (06:00)
[2024-11-07] MEDS: hydrOXYzine PAMOATE 25 MG CAPSULE (FP) PO PRN (10:01)
[2024-11-07] MEDS: IBUPROFEN 600 MG TABLET (FP) PO PRN (14:02)
[2024-11-07] MEDS: ACETAMINOPHEN 325 MG TABLET (FP) PO PRN (18:23)
[2024-11-08] MEDS: methaDONE HCL 40 MG DISPERSABLE TABLET PO ONE (05:07)
[2024-11-08 05:40] VITALS: RESP 16
[2024-11-08 09:15] VITALS: BP 122/80; PULSE 81; TEMP 97.5
== END 2024-11-08 10:10 | disposition other institution (70) | DRG 773 ==
LOC: YASAS 16:14 → Y3N 20:05
PROVIDERS: ADMIT Allergy & Immunology; ATTEND Allergy & Immunology
PROC: HZ2ZZZZ Detoxification Services for Substance Abuse Treatment (ICD-10-PCS; principal; 2024-11-03)
DX: F10.230 Alcohol dependence with withdrawal, uncomplicated (principal); F11.20 Opioid dependence, uncomplicated; F14.20 Cocaine dependence, uncomplicated; F17.210 Nicotine dependence, cigarettes, uncomplicated; F31.9 Bipolar disorder, unspecified; F41.9 Anxiety disorder, unspecified; Z21 Asymptomatic human immunodeficiency virus [HIV] infection status; B18.2 Chronic viral hepatitis C; Z79.899 Other long term (current) drug therapy
CPT/HCPCS: 36415; 80053; 80305; 80307; 85027; 86780; 93005; 93010

== ENCOUNTER 2024-12-04 10:51 | Inpatient (IN) | payer OTHER ==
[2024-12-04 11:10] VITALS: BMI 22.6
[2024-12-04] MEDS ORDERED: NALOXONE (NARCAN) HCL 4 MG/0.1 ML SPRAY NS PRN (11:27)
[2024-12-04] MEDS ORDERED: BENZOCAINE/MENTHOL (CHLORASEPTIC ) LOZENGE MM PRN (11:27)
[2024-12-04] MEDS ORDERED: BISMUTH SUBSALICYLATE 524 MG/30 ML PO PRN (11:27)
[2024-12-04] MEDS ORDERED: ACETAMINOPHEN 325 MG TABLET (FP) PO PRN (11:27)
[2024-12-04] MEDS ORDERED: NICOTINE POLACRILEX 2 MG GUM BUC PRN (11:27)
[2024-12-04] MEDS ORDERED: POLYETHYLENE GLYCOL (HEALTHYLAX) 3350 17 GM PACKET PO PRN (11:27)
[2024-12-04] MEDS ORDERED: MAGNESIUM HYDROX 2400MG/30ML ORAL SUSPENSION 30 ML CUP PO PRN (11:27)
[2024-12-04] MEDS ORDERED: ONDANSETRON *ODT* 4 MG TABLET SL PRN (11:27)
[2024-12-04] MEDS ORDERED: guaiFENesin 600 MG TABLET.ER (FP) PO PRN (11:27)
[2024-12-04] MEDS ORDERED: DICYCLOMINE HCL 10 MG CAPSULE PO PRN (11:27)
[2024-12-04] MEDS ORDERED: P-EPHED 60MG/TRIPROLIDI 2.5MG TABLET PO PRN (11:27)
[2024-12-04] MEDS ORDERED: BENZONATATE 200 MG CAPSULE PO PRN (11:27)
[2024-12-04] MEDS ORDERED: NICOTINE POLACRILEX 2 MG LOZENGE BC PRN (11:27)
[2024-12-04] MEDS ORDERED: MAG HYDROX/AL HYDROX/SIMETH 30 ML UNIT-DOSE CUP PO PRN (11:27)
[2024-12-04] MEDS ORDERED: IBUPROFEN 400 MG TABLET (FP) PO PRN (11:27)
[2024-12-04] MEDS ORDERED: diazePAM 5 MG TABLET PO PRN (11:29)
[2024-12-04] MEDS ORDERED: diazePAM 5 MG TABLET ONE (12:46)
[2024-12-04] MEDS ORDERED: methaDONE HCL 10 MG TABLET (FOR DETOX USE ONLY) ONE (12:47)
[2024-12-04] MEDS: diazePAM 5 MG TABLET PO SCH (12:55)
[2024-12-04] MEDS: methaDONE HCL 10 MG TABLET (FOR DETOX USE ONLY) PO ONE (12:55)
[2024-12-04] MEDS: IBUPROFEN 600 MG TABLET (FP) PO PRN (13:37)
[2024-12-04] MEDS: ABACAVIR/DOLUTEGRAVIR/LAMIVUDI (TRIUMEQ) TABLET PO SCH (14:31)
[2024-12-04] MEDS: ASPIRIN COATED 81 MG TABLET.EC PO SCH (14:32)
[2024-12-04] MEDS: LOPERAMIDE HCL 2 MG CAPSULE PO PRN (17:23)
[2024-12-04] MEDS: BUPRENORPHINE/NALOXONE 0.5 MG/0.125 MG FILM SL ONE (22:26)
[2024-12-04] MEDS: THIAMINE 100 MG TABLET PO SCH (22:27)
[2024-12-04] MEDS: MELATONIN 5 MG TABLETS PO SCH (22:28)
[2024-12-04] MEDS: QUEtiapine FUMARATE 50 MG TABLET PO SCH (22:28)
[2024-12-05] MEDS: METHOCARBAMOL 500 MG TABLET PO PRN (09:03)
[2024-12-05 09:05] LABS: CHLORIDE 104 mmol/L (98-107); POTASSIUM 4.3 mmol/L (3.5-5.1); SODIUM 138 mmol/L (136-145)
[2024-12-05 09:31] LABS: CALCIUM 8.8 mg/dL (8.5-10.1)
[2024-12-05 09:32] LABS: ANION GAP 8 mmol/L (4-13); BLOOD UREA NITROGEN 14.4 mg/dL (7-18); CO2 26 mmol/L (21-32); GLUCOSE,RANDOM 99 mg/dL (74-106)
[2024-12-05 09:35] LABS: CREATININE 1.1 mg/dL (0.55-1.3); SGOT/AST 21 U/L (15-37); SGPT/ALT 24 U/L (13-61)
[2024-12-05 09:36] LABS: BILIRUBIN,TOTAL 0.3 mg/dL (0.2-1); TOT PROT 6.7 g/dl (6.4-8.2)
[2024-12-05 09:38] LABS: ALK PHOS 83 U/L (45-117)
[2024-12-05] MEDS: BUPRENORPHINE/NALOXONE 0.5 MG/0.125 MG FILM SL SCH (09:45)
[2024-12-05] MEDS: PRENATAL VITAMINS W/ FOLIC ACID TABLET (FP) PO SCH (09:45)
[2024-12-05 09:56] LABS: HEMATOCRIT 34.4 % (40.1-51.0); HEMOGLOBIN 11.2 g/dL (13.7-17.5); MCHC 32.6 g/dl (32.3-36.5); MEAN CELL VOLUME 91.2 fl (79.0-92.2); MEAN PLT VOLUME 11.6 fl (9.4-12.4); PLATELET COUNT # 246 x10^3/uL (163-337); RDW 12.9 % (12.2-16.1)
[2024-12-05] MEDS: GABAPENTIN 100 MG CAPSULE PO SCH (21:38)
[2024-12-06] MEDS: diazePAM 5 MG TABLET PO SCH (06:17)
[2024-12-06 06:42] VITALS: RESP 17; TEMP 97.3
[2024-12-06] MEDS: methaDONE HCL 10 MG TABLET (FOR DETOX USE ONLY) PO ONE (09:30)
[2024-12-06] MEDS: BUPRENORPHINE/NALOXONE 2 MG/0.5 MG FILM PACKET SL SCH (09:30)
[2024-12-06 10:50] VITALS: BP 136/90; PULSE 79
[2024-12-07] MEDS ORDERED: diazePAM 5 MG TABLET PO SCH (06:00)
[2024-12-07] MEDS ORDERED: BUPRENORPHINE/NALOXONE 4 MG/1 MG FILM PACKET SL SCH (10:00)
[2024-12-08] MEDS ORDERED: diazePAM 5 MG TABLET PO ONE (06:00)
[2024-12-08] MEDS ORDERED: methaDONE HCL 10 MG TABLET (FOR DETOX USE ONLY) PO ONE (10:00)
[2024-12-08] MEDS ORDERED: BUPRENORPHINE/NALOXONE 8 MG/2 MG FILM PACKET SL SCH (10:00)
[2024-12-09] MEDS ORDERED: BUPRENORPHINE/NALOXONE 8 MG/2 MG FILM PACKET SL SCH (10:00)
== END 2024-12-06 13:29 | disposition home or self-care (01) | DRG 773 ==
LOC: YASAS 10:51 → Y6N 12:46
PROVIDERS: ADMIT Allergy & Immunology; ATTEND Allergy & Immunology
PROC: HZ2ZZZZ Detoxification Services for Substance Abuse Treatment (ICD-10-PCS; principal; 2024-12-04)
DX: F11.23 Opioid dependence with withdrawal (principal); F10.230 Alcohol dependence with withdrawal, uncomplicated; F13.20 Sedative, hypnotic or anxiolytic dependence, uncomplicated; F14.20 Cocaine dependence, uncomplicated; F15.20 Other stimulant dependence, uncomplicated; F17.210 Nicotine dependence, cigarettes, uncomplicated; F25.0 Schizoaffective disorder, bipolar type; Z21 Asymptomatic human immunodeficiency virus [HIV] infection status; B18.2 Chronic viral hepatitis C; Z88.8 Allergy status to other drugs, medicaments and biological substances; Z79.899 Other long term (current) drug therapy
CPT/HCPCS: 36415; 80053; 80305; 80307; 85027; 86780

== ENCOUNTER 2024-12-23 12:42 | Inpatient (IN) | payer OTHER ==
[2024-12-23 13:02] VITALS: BMI 23.3
[2024-12-23] MEDS ORDERED: MAGNESIUM HYDROX 2400MG/30ML ORAL SUSPENSION 30 ML CUP PO PRN (13:15)
[2024-12-23] MEDS ORDERED: POLYETHYLENE GLYCOL (HEALTHYLAX) 3350 17 GM PACKET PO PRN (13:15)
[2024-12-23] MEDS ORDERED: guaiFENesin 600 MG TABLET.ER (FP) PO PRN (13:15)
[2024-12-23] MEDS ORDERED: BISMUTH SUBSALICYLATE 524 MG/30 ML PO PRN (13:15)
[2024-12-23] MEDS ORDERED: IBUPROFEN 400 MG TABLET (FP) PO PRN (13:15)
[2024-12-23] MEDS ORDERED: DICYCLOMINE HCL 10 MG CAPSULE PO PRN (13:15)
[2024-12-23] MEDS ORDERED: BENZONATATE 200 MG CAPSULE PO PRN (13:15)
[2024-12-23] MEDS ORDERED: LOPERAMIDE HCL 2 MG CAPSULE PO PRN (13:15)
[2024-12-23] MEDS ORDERED: hydrOXYzine PAMOATE 25 MG CAPSULE (FP) PO PRN (13:15)
[2024-12-23] MEDS ORDERED: NALOXONE (NARCAN) HCL 4 MG/0.1 ML SPRAY NS PRN (13:15)
[2024-12-23] MEDS ORDERED: BENZOCAINE/MENTHOL (CHLORASEPTIC ) LOZENGE MM PRN (13:15)
[2024-12-23] MEDS ORDERED: ACETAMINOPHEN 325 MG TABLET (FP) PO PRN (13:15)
[2024-12-23] MEDS ORDERED: MAG HYDROX/AL HYDROX/SIMETH 30 ML UNIT-DOSE CUP PO PRN (13:15)
[2024-12-23] MEDS ORDERED: diazePAM 5 MG TABLET PO PRN (13:15)
[2024-12-23] MEDS: methaDONE HCL 10 MG TABLET (FOR DETOX USE ONLY) PO ONE (14:26)
[2024-12-23] MEDS: cloNIDine HCL 0.1 MG TABLET PO SCH (14:26)
[2024-12-23] MEDS: NICOTINE 21 MG/24 HOURS TOPICAL PATCH TD SCH (15:00)
[2024-12-23] MEDS: IBUPROFEN 600 MG TABLET (FP) PO PRN (15:02)
[2024-12-23] MEDS: PRENATAL VITAMINS W/ FOLIC ACID TABLET (FP) PO SCH (15:04)
[2024-12-23] MEDS: ACAMPROSATE CALCIUM 333 MG TABLET.DR PO SCH (15:04)
[2024-12-23] MEDS: diazePAM 5 MG TABLET PO SCH (17:19)
[2024-12-23] MEDS: THIAMINE 100 MG TABLET PO SCH (22:02)
[2024-12-23] MEDS: GABAPENTIN 100 MG CAPSULE PO SCH (22:02)
[2024-12-23] MEDS: BUPRENORPHINE/NALOXONE 0.5 MG/0.125 MG FILM SL ONE (22:03)
[2024-12-23] MEDS: MELATONIN 5 MG TABLETS PO SCH (22:04)
[2024-12-24] MEDS: METHOCARBAMOL 500 MG TABLET PO PRN (00:28)
[2024-12-24] MEDS: ONDANSETRON *ODT* 4 MG TABLET SL PRN (06:59)
[2024-12-24] MEDS: ABACAVIR/DOLUTEGRAVIR/LAMIVUDI (TRIUMEQ) TABLET PO SCH (07:39)
[2024-12-24] MEDS: ASPIRIN 81 MG CHEWABLE TABLETS PO SCH (10:01)
[2024-12-24] MEDS: methaDONE HCL 10 MG TABLET (FOR DETOX USE ONLY) PO ONE (10:01)
[2024-12-24] MEDS: BUPRENORPHINE/NALOXONE 0.5 MG/0.125 MG FILM SL SCH (10:02)
[2024-12-24 12:30] LABS: HEMATOCRIT 33.4 % (40.1-51.0); HEMOGLOBIN 10.2 g/dL (13.7-17.5); MCHC 30.5 g/dl (32.3-36.5); MEAN CELL VOLUME 99.1 fl (79.0-92.2); MEAN PLT VOLUME 10.6 fl (9.4-12.4); PLATELET COUNT 319 x10^3/uL (163-337); RDW 14.3 % (12.2-16.1)
[2024-12-24 12:35] LABS: CHLORIDE 102 mmol/L (98-107); POTASSIUM 4.4 mmol/L (3.5-5.1); SODIUM 136 mmol/L (136-145)
[2024-12-24 12:46] LABS: ALBUMIN 3.2 g/dl (3.4-5.0); ANION GAP 5 mmol/L (4-13); BLOOD UREA NITROGEN 16.9 mg/dL (7-18); CALCIUM 9.6 mg/dL (8.5-10.1); CO2 29 mmol/L (21-32); GLUCOSE,RANDOM 121 mg/dL (74-106)
[2024-12-24 12:49] LABS: SGOT/AST 28 U/L (15-37); SGPT/ALT 19 U/L (13-61)
[2024-12-24 12:51] LABS: BILIRUBIN,TOTAL 0.2 mg/dL (0.2-1); TOT PROT 6.6 g/dl (6.4-8.2)
[2024-12-24 12:52] LABS: ALK PHOS 96 U/L (45-117)
[2024-12-24] MEDS: QUEtiapine FUMARATE 50 MG TABLET PO SCH (22:15)
[2024-12-25] MEDS: diazePAM 5 MG TABLET PO SCH (05:36)
[2024-12-25 06:35] VITALS: RESP 16
[2024-12-25] MEDS: BUPRENORPHINE/NALOXONE 2 MG/0.5 MG FILM PACKET SL SCH (09:21)
[2024-12-25 12:37] VITALS: BP 138/90; PULSE 75; TEMP 98.2
[2024-12-26] MEDS ORDERED: diazePAM 5 MG TABLET PO SCH (06:00)
[2024-12-26] MEDS ORDERED: methaDONE HCL 10 MG TABLET (FOR DETOX USE ONLY) PO ONE (10:00)
[2024-12-26] MEDS ORDERED: BUPRENORPHINE/NALOXONE 4 MG/1 MG FILM PACKET SL SCH (10:00)
[2024-12-27] MEDS ORDERED: diazePAM 5 MG TABLET PO ONE (06:00)
[2024-12-27] MEDS ORDERED: BUPRENORPHINE/NALOXONE 8 MG/2 MG FILM PACKET SL SCH (10:00)
[2024-12-28] MEDS ORDERED: methaDONE HCL 10 MG TABLET (FOR DETOX USE ONLY) PO ONE (10:00)
[2024-12-28] MEDS ORDERED: BUPRENORPHINE/NALOXONE 8 MG/2 MG FILM PACKET SL SCH (10:00)
== END 2024-12-25 12:58 | disposition left against medical advice (07) | DRG 770 ==
LOC: YASAS 12:42 → Y6N 14:16
PROVIDERS: ADMIT Allergy & Immunology; ATTEND Allergy & Immunology
PROC: HZ2ZZZZ Detoxification Services for Substance Abuse Treatment (ICD-10-PCS; principal; 2024-12-23)
DX: F11.23 Opioid dependence with withdrawal (principal); F10.230 Alcohol dependence with withdrawal, uncomplicated; F14.20 Cocaine dependence, uncomplicated; F13.10 Sedative, hypnotic or anxiolytic abuse, uncomplicated; F17.210 Nicotine dependence, cigarettes, uncomplicated; F31.9 Bipolar disorder, unspecified; Z21 Asymptomatic human immunodeficiency virus [HIV] infection status; I10 Essential (primary) hypertension; E78.2 Mixed hyperlipidemia; B18.2 Chronic viral hepatitis C; Z79.899 Other long term (current) drug therapy; Z88.8 Allergy status to other drugs, medicaments and biological substances; S82.892D Other fracture of left lower leg, subsequent encounter for closed fracture with routine healing; X58.XXXD Exposure to other specified factors, subsequent encounter
CPT/HCPCS: 36415; 80053; 80305; 80307; 85027; 86780; 93005; 93010; Q0162